=== PATIENT | male | born 1945 | race Caucasian/White ===

== ENCOUNTER → 2017-09-15 15:21 | Outpatient (CLI) | payer MEDICARE, OTHER, SELFPAY ==
--- NOTE | 2017-09-15 14:40 | LES_PTH ---
PATIENT: MEL BROOKS LOC: [facility] U#:[id number] AGE/SX: 79/M ROOM: RE09/15/[address]: Dr. Santhosh Wade MD : 1945 BED: DIS: SPEC #: [id number] RECD: 09/15/17 15:08 STATUS: MANJU YOJANA #: [id number] ALYSSA: 09/15/17 14:[address]: Santhosh Wade DEPT: SURGICAL PATHOLOGY RECD BY: Herb Turner ENTERED: 09/16/17 10:11 SP TYPE: Lesion OTHR DR: Dr. Paul Lo MD Tissues: Skin of external ear, NOS Procedures: Surgery Specimen Level IV HEADER OPERATION: Incisional biopsy PRE-OP DIAGNOSIS: Right ear lesion TISSUE SUBMITTED: Right ear lesion MICROSCOPIC DIAGNOSIS Right ear lesion, biopsy: Detached fragments of basal cell carcinoma. AM:so 09/17/17 COMMENT Case has been reviewed in consultation with Dr. Chow who concurs with the above diagnosis. IDC:SJ MICROSCOPIC DESCRIPTION Slides are reviewed. GROSS DESCRIPTION Received in fixative is one container labeled with the patient's name and designated right ear lesion. The specimen consists of a piece of lord-brown skin measuring 0.3 x 0.2 x 0.1 cm. The specimen is totally submitted in one cassette. / NATTY:so 09/16/17 TC:0 CPT: 63940
== END ==
PROVIDERS: Family Provider Family Medicine; PCP Family Medicine; Visit Provider Otolaryngology
DX: C44.212 Basal cell carcinoma of skin of right ear and external auricular canal (principal)
CPT/HCPCS: 88305

== ENCOUNTER 2017-09-24 08:30 | Outpatient (RCR) | payer MEDICARE, OTHER, SELFPAY | END 2017-09-28 23:59 | disposition home or self-care (01) | LOC: DC 08:30 | PROVIDERS: Family Provider Family Medicine; PCP Family Medicine; Visit Provider Family Medicine | DX: E11.9 Type 2 diabetes mellitus without complications (principal); Z71.3 Dietary counseling and surveillance | CPT/HCPCS: 97802; G0108 ==

== ENCOUNTER 2017-10-19 08:43 | Day surgery (SDC) | payer MEDICARE, OTHER, SELFPAY ==
--- NOTE | 2017-10-13 10:07 | EKG12_ITS ---
Test Reason : PRE OP Blood Pressure : / mmHG Vent. Rate : 053 BPM Atrial Rate : 053 BPM P-R Int : 182 ms QRS Dur : 080 ms QT Int : 440 ms P-R-T Axes : 071 016 026 degrees QTc Int : 412 ms Sinus bradycardia Otherwise normal ECG Confirmed by SHADI CURRAN, BIB ([id number]), publication editor MIKO PATEL ([id number]) on 10/15/2017 12:56:16 PM Referred By: Santhosh Wade Confirmed By:BIB HSU MD
[2017-10-13 10:38] LABS: Hematocrit 43.8 % (40-54); Hemoglobin 15.8 g/dl (13.0-16.5); Mean Corp Hgb Conc 36.1 g/gl (32-36); Mean Corpuscular Hgb 31.3 pg (27.0-32.0); Mean Corpuscular Volume 86.9 fL (80-94); Platelet Count 258 K/mm3 (150-450); RBC Distribution Width CV 12.6 % (11.6-14.6); RBC Distribution Width SD 39.3 fl (35.1-43.9); Red Blood Count 5.04 M/mm3 (4.6-6.2); Scan Indicated on CBC? Y/N NO; White Blood Count 10.3 K/mm3 (4.4-11.0)
[2017-10-13 11:05] LABS: Anion Gap 9 (5-15); BUN 20 mg/dL (7-18); BUN/Creat Ratio 23.5 RATIO (10-20); Calcium,Total 9.3 mg/dL (8.5-10.1); Chloride 100 mmol/L (98-107); Creatinine, Serum 0.85 mg/dL (0.70-1.30); EST Glomerular Filtration Rate 95 mL/min (>60); Est Glom Filt Rate - Afr Amer 114 mL/min (>60); Glucose 149 mg/dL (74-106); Sodium Level 136 mmol/L (136-145)
[2017-10-19] VITALS (7 sets, daily range): BP systolic 103–113; BP diastolic 58–64; PULSE 53–56; RESP 16–18; TEMP 36.1–36.3; O2SAT 95–99; BMI 24.7
[2017-10-19 09:16] LABS: Bedside Glucose 155 mg/dL (70-110)
[2017-10-19] MEDS: Atenolol 50 MG Tablet PO (09:26)
--- NOTE | 2017-10-19 09:46 | PCM.DC ---
You will use the following diet at home:: No restrictions Discharge Activity: Return to Normal Activity, - - Keep ear dry until seen by MEarnestineD. May get neck incision wet on Thursday. Additional Activity Instructions:: Remove softball dressing tomorrow morning and discard. Remove neck dressing tomorrow morning. Allergies/Adverse Reactions: Allergies No Known Allergies Allergy (Verified 10/12/17 10:56) Medications to take at Discharge Amlodipine [Norvasc] 5 mg PO DAILY 10/12/17 Aspirin [Aspirin, Baby] 81 mg PO DAILY@0800 10/12/17 Atenolol [Tenormin] 50 mg PO DAILY 10/12/17 Atorvastatin Calcium 40 mg PO QHS 10/12/17 Canagliflozin [Invokana] 300 mg PO DAILY 10/12/17 Glimepiride [Amaryl] 4 mg PO BID 10/12/17 Hydrochlorothiazide [Hctz] 25 mg PO DAILY 10/12/17 Lisinopril [Zestril] 40 mg PO BID 10/12/17 Metformin HCl 500 mg PO TID 10/12/17 Testosterone [Androgel] 5 gm TD DAILY 10/12/17 Primary Care Physician: Paul Lo MD [Primary Care Provider] -
--- NOTE | 2017-10-19 10:25 | LES_PTH ---
PATIENT: MEL BROOKS LOC: [facility] U#:[id number] AGE/SX: 71/M ROOM: RE10/19/[address]: Dr. Santhosh Wade MD : 1945 BED: DIS: 10/19/2017 SPEC #: [id number] RECD: 10/19/17 10:28 STATUS: MANJU YOJANA #: [id number] ALYSSA: 10/19/17 10:[address]: Santhosh Wade DEPT: SURGICAL PATHOLOGY RECD BY: Herb Turner ENTERED: 10/19/17 11:07 SP TYPE: Lesion OTHR DR: Dr. Paul Lo MD Tissues: A - Skin of external ear, NOS B - Skin of external ear, NOS C - Skin of external ear, NOS Procedures: Frozen Section (charge) Frozen Section Add[facility] ([facility]) Surgery Specimen Level IV Frozen (no charge) HEADER OPERATION: Excision right ear basal cell carcinoma with frozen section PRE-OP DIAGNOSIS: Basal cell carcinoma of right ear and external auricular canal TISSUE SUBMITTED: A. Basal cell carcinoma megan bulla right ear--short stitch superior (12 o?clock), long stitch lateral (9 o?clock), B. Basal cell carcinoma right ear additional frozen section ? 3 to 9 o?clock, short stitch at 9 o?clock, long stitch at 6 o?clock, C. Additional frozen section right ear 3-6 o?clock, stitch at 6 o?clock FROZEN SECTION DIAGNOSIS A. Basal cell right megan bulla lesion, excisional biopsy: Basal cell carcinoma 3 to 6 o?clock and 6 to 9 o?clock margins positive for carcinoma. 12 to 3 o?clock and 9 to 12 o?clock margins are negative for carcinoma. B. Additional 3 to 9 o?clock margin: 3 to 6 o?clock margin positive for basal cell carcinoma. 6 to 9 o?clock margin is negative for carcinoma. Case has been reviewed in consultation with Dr. Mcclure who concurs with the above diagnosis. IDC:MOSES Ryan. Additional margin, right ear 3 to 6 o?clock: Negative for carcinoma. SJ:tariq 10/19/17 MICROSCOPIC DIAGNOSIS A. Basal cell, right megan bulla lesion, excisional biopsy: Basal cell carcinoma. 3 to 6 o?clock and 6 to 9 o?clock margins are positive for carcinoma. 12 to 3 o?clock and 9 to 12 o?clock margins are negative for carcinoma. B. Additional 3 to 9 o?clock margins: A minute focus of basal cell carcinoma involving 3 to 6 o?clock margin. 6 to 9 o?clock margin is negative for carcinoma. See comment. C. Additional margin, right ear, 3 to 6 o?clock: Negative for carcinoma. SJ:so 10/20/17 COMMENT B. The focus of basal cell carcinoma is noted only in the frozen section slides at 3 to 6 o?clock position. Please make reference to previous specimen ([id number]) right ear lesion, biopsy with diagnosis of detached fragments of basal cell carcinoma. MICROSCOPIC DESCRIPTION Slides are reviewed. GROSS DESCRIPTION A - Received fresh for frozen section diagnosis labeled with the patient's name is a specimen designated basal cell right megan bulla. The specimen consists of a piece of skin with underlying tissue measuring 2 x 2 x 0.8 cm. The specimen is oriented as follows: short stitch superior (12 o?clock) and long stitch lateral (9 o?clock). The specimen is inked as follows: 12 to 3 o?clock ? black, 3 to 6 o?clock ? blue, 6 to 9 o?clock ? green, and 9 to 12 o?clock ? yellow. The entire specimen is submitted for frozen section diagnosis as follows: 1 ? frozen section, 12 to 3 o?clock and 6 to 9 o?clock margins enface, 2 & 3 ? rest of the specimen. B - Received fresh for frozen section diagnosis labeled with the patient's name is a specimen designated additional margin 3 to 9 o?clock. The specimen consists of a piece of lord-white skin measuring 3 x 0.3 x 0.4 cm. The specimen is oriented as follows: short stitch ? 9 o?clock, long stitch ? 6 o?clock. The specimen is inked as follows: 6 to 9 o?clock ? blue, 3 to 6 o?clock ? block. The entire specimen is submitted for frozen section diagnosis in one cassette. C - Received fresh for frozen section diagnosis labeled with the patient's name is a specimen designated additional frozen section, right ear, 3 to 6 o?clock. The specimen consists of a strip of lord-white skin measuring 1.5 x 0.1 x 0.1 cm. The specimen is inked as follows: 6 o?clock ? black, 3 o?clock ? blue. The entire specimen is submitted for frozen section diagnosis in one cassette. / SJ:rg 10/19/17 TC:0 CPT: 15943 x3, 07607 x3, 11645 x2
[2017-10-19] MEDS: Bacitracin 500 UNITS/GM PACKET (10:58)
--- NOTE | 2017-10-19 12:36 | PCM.OPRPT ---
Report of Operation Date of Procedure: 10/19/17 Pre-Operative Diagnosis: right ear basal cell carcinoma Post-Operative Diagnosis: same Surgery/Procedure Performed:: Excision right conchal bowl basal cell carcinoma (3.5 x 3 cm). Full thickness skin graft reconstruction (harvest from the neck) Description of Surgical Findings:: basal cell carcinoma Type of Anesthesia:: Local MAC Anesthesiologist: Wil Larose Specimen's removed: right ear conchal bowl Drains: none Estimated Blood Loss (mL): minimal Description of Procedure: The patient was taken to the OR on 10/19/17. He was placed in the supine position on the OR table. He was given local/mac anesthesia. The right ear and neck were prepped and draped steriley. 1 % lidocaine with epinephrine was injected around the lesion and in the skin of the ipsilateral supraclavicular fossa. The lesion was excised keeping the conchal bowl cartilage with the specimen. We eventually heard back from pathology that there were positive margins from 3 to 9 oclock. Another strip of 3 mm cuff was then sent for another frozen section. Another positive margin was found from 3 to 6 oclock. Another cuff of 3 mm tissue was resected and another frozen was sent. This came back negative for carcinoma. The size of the defect was 3 x 3.5 cm. I then irrigated the ear with saline. Skin was then harvested from the supraclavicular fossa with a 15 blade. This was excised in an ellipse. I then irrigated the donor site. The donor site was closed with 4-0 chromic subcutaneous and 6-0 nylon for the skin. Eventually bacitracin and a pressure dressing were applied. The skin graft was thinned with scissors and a 15 blade. I then pie crusted the graft with a 15 blade. Next, I placed the graft in the ear defect. This was sewn circumferentially to the [place] skin with a running 6-0 fast absorbing gut. I then place xeroform on the graft. I then placed a tonsil ball on the xeroform. The tonsil ball was sewn through and through with a dental roll posteriorly with 2-0 prolene. A puma dressing was applied. The patient was then brought to the recovery room in stable condition. Blood loss minimal, replacement none. Sponge, needle and instrument count were correct at the end of the procedure.
--- NOTE | 2017-10-19 12:46 | OP.PCM_ITS ---
Report of Operation Date of Procedure: 10/19/17 Pre-Operative Diagnosis: right ear basal cell carcinoma Post-Operative Diagnosis: same Surgery/Procedure Performed:: Excision right conchal bowl basal cell carcinoma ( 3.5 x 3 cm). Full thickness skin graft reconstruction (harvest from the neck) Description of Surgical Findings:: basal cell carcinoma Type of Anesthesia:: Local MAC Anesthesiologist: Wil Larose Specimen's removed: right ear conchal bowl Drains: none Estimated Blood Loss (mL): minimal Description of Procedure: The patient was taken to the OR on 10/19/17. He was placed in the supine position on the OR table. He was given local/mac anesthesia. The right ear and neck were prepped and draped steriley. 1 % lidocaine with epinephrine was injected around the lesion and in the skin of the ipsilateral supraclavicular fossa. The lesion was excised keeping the conchal bowl cartilage with the specimen. We eventually heard back from pathology that there were positive margins from 3 to 9 oclock. Another strip of 3 mm cuff was then sent for another frozen section. Another positive margin was found from 3 to 6 oclock. Another cuff of 3 mm tissue was resected and another frozen was sent. This came back negative for carcinoma. The size of the defect was 3 x 3.5 cm. I then irrigated the ear with saline. Skin was then harvested from the supraclavicular fossa with a 15 blade. This was excised in an ellipse. I then irrigated the donor site. The donor site was closed with 4-0 chromic subcutaneous and 6-0 nylon for the skin. Eventually bacitracin and a pressure dressing were applied. The skin graft was thinned with scissors and a 15 blade. I then pie crusted the graft with a 15 blade. Next, I placed the graft in the ear defect. This was sewn circumferentially to the [place] skin with a running 6-0 fast absorbing gut. I then place xeroform on the graft. I then placed a tonsil ball on the xeroform. The tonsil ball was sewn through and through with a dental roll posteriorly with 2-0 prolene. A puma dressing was applied. The patient was then brought to the recovery room in stable condition. Blood loss minimal, replacement none. Sponge, needle and instrument count were correct at the end of the procedure.
== END 2017-10-19 13:55 | disposition home or self-care (01) ==
LOC: SDC 08:43 → AC 08:44
PROVIDERS: Family Provider Family Medicine; PCP Family Medicine; Visit Provider Otolaryngology
PROC: (CPT 11644; principal; 2017-10-19 10:05)
DX: C44.212 Basal cell carcinoma of skin of right ear and external auricular canal (principal); Z79.899 Other long term (current) drug therapy; Z79.82 Long term (current) use of aspirin; Z79.84 Long term (current) use of oral hypoglycemic drugs; R00.1 Bradycardia, unspecified; I10 Essential (primary) hypertension; E78.00 Pure hypercholesterolemia, unspecified; E11.9 Type 2 diabetes mellitus without complications
CPT/HCPCS: 00300; 11644; 15260; 36415; 80048; 82962; 85027; 88305; 88331; 88332; 93005; J7120; C1876

== ENCOUNTER 2017-10-20 18:04 | Outpatient (RCR) | payer MEDICARE, OTHER, SELFPAY | END 2017-10-29 23:59 | LOC: DC 18:04 | PROVIDERS: Family Provider Family Medicine; PCP Family Medicine; Visit Provider Family Medicine | DX: E11.9 Type 2 diabetes mellitus without complications (principal); Z71.3 Dietary counseling and surveillance | CPT/HCPCS: 97803 ==

== ENCOUNTER 2017-11-26 14:30 | Outpatient (RCR) | payer MEDICARE, OTHER, SELFPAY | END 2017-11-28 23:59 | LOC: DC 14:30 | PROVIDERS: Family Provider Family Medicine; PCP Family Medicine; Visit Provider Family Medicine | DX: E11.9 Type 2 diabetes mellitus without complications (principal); Z71.3 Dietary counseling and surveillance | CPT/HCPCS: 97803; G0109 ==

== ENCOUNTER 2017-12-15 14:00 | Outpatient (RCR) | payer MEDICARE, OTHER, SELFPAY | END 2017-12-29 23:59 | LOC: DC 14:00 | PROVIDERS: Family Provider Family Medicine; PCP Family Medicine; Visit Provider Family Medicine | DX: E11.9 Type 2 diabetes mellitus without complications (principal); Z71.3 Dietary counseling and surveillance | CPT/HCPCS: 97803; G0109 ==

== ENCOUNTER 2017-12-31 17:02 | Outpatient (RCR) | payer MEDICARE, OTHER, SELFPAY | END 2018-01-29 23:59 | LOC: DC 17:02 | PROVIDERS: Family Provider Family Medicine; PCP Family Medicine; Visit Provider Family Medicine | DX: E11.9 Type 2 diabetes mellitus without complications (principal); Z71.3 Dietary counseling and surveillance | CPT/HCPCS: G0109 ==

== ENCOUNTER 2018-02-04 11:59 | Outpatient (RCR) | payer MEDICARE, OTHER, SELFPAY | END 2018-02-28 23:59 | LOC: DC 11:59 | PROVIDERS: Family Provider Family Medicine; PCP Family Medicine; Visit Provider Family Medicine | DX: E11.9 Type 2 diabetes mellitus without complications (principal); Z71.3 Dietary counseling and surveillance | CPT/HCPCS: G0109 ==

== ENCOUNTER 2022-09-17 14:55 | Inpatient (IN) | payer MEDICARE, OTHER, SELFPAY ==
[2022-09-17] VITALS (11 sets, daily range): BP systolic 142–178; BP diastolic 52–83; PULSE 85–99; RESP 15–21; TEMP 36.8–37.1; O2SAT 94–99; BMI 24.6; BMI 24.5
--- NOTE | 2022-09-17 15:22 | EKG12_ITS ---
Test Reason : WEAKNESS Blood Pressure : / mmHG Vent. Rate : 094 BPM Atrial Rate : 094 BPM P-R Int : 150 ms QRS Dur : 076 ms QT Int : 372 ms P-R-T Axes : 064 029 077 degrees QTc Int : 465 ms Normal sinus rhythm Nonspecific T wave abnormality Prolonged QT Abnormal ECG Confirmed by RACIEL CURRAN, LUZ ([id number]), assignment desk editor ESTRELLA TY ([id number]) on 09/19/2022 2:21:42 PM Referred By: BROOK Confirmed By:LUZ SCHRADER MD
--- NOTE | 2022-09-17 15:24 | EDS_ITS ---
HPI History of Present Illness Chief Complaint: Weakness Narrative Narrative: 76-year-old male with generalized weakness. Patient admits to having a urinary tract infection on 08/25/2022 while he was on the cruise. He was seen on the ship and was given a prescription for Macrobid. Apparently also tested positive for COVID 19 on the same date. Patient has been an ongoing problem as the patient is developed generalized weakness. He has been seen by his primary care physician who reportedly did some lab work. The patient is having trouble rigors and was started on a long-acting insulin. Today he developed nausea/vomiting. He had a couple of episodes throughout the day. On arrival to the ER he vomited in the sink and there was some blood in the emesis. He denies history of GI bleed, peptic ulcer disease. He states he is not been on any new medications during treatment for COVID such as steroids. He does not have a cough and he does not feel short of breath. He does not have chest pain. He does report urinary incontinence but also states is because it is difficult for him to get to the restroom denies dysuria, hematuria. He had hematuria on the cruise which is what brought him to test urine. [facility] Medical History Atherosclerosis Bladder neck obstruction BPH (benign prostatic hyperplasia) HTN (hypertension) Hyperlipemia Home Medications Atorvastatin Calcium 40 mg PO QHS 10/12/17 [History Last Taken Unknown] amlodipine 2.5 mg tablet 5 mg PO DAILY 10/12/17 [History Last Taken 10/19/17] aspirin 81 mg chewable tablet 81 mg PO DAILY@0800 10/12/17 [History Last Taken 10/12/17] atenolol 50 mg tablet (Tenormin) 50 mg PO DAILY 10/12/17 [History Last Taken Unknown] canagliflozin 300 mg tablet (Invokana) 300 mg PO DAILY 10/12/17 [History Last Taken Unknown] glimepiride 4 mg tablet 4 mg PO BID 10/12/17 [History Last Taken Unknown] hydrochlorothiazide 25 mg tablet 25 mg PO DAILY 10/12/17 [History Last Taken Unknown] lisinopril 40 mg tablet 20 mg PO BID 10/12/17 [History Last Taken 10/19/17] metformin 500 mg tablet 500 mg PO TID 10/12/17 [History Last Taken Unknown] testosterone 1 % (50 mg/5 gram) transdermal gel packet (AndroGel) 5 g transdermal DAILY 10/12/17 [History Last Taken Unknown] famotidine 20 mg tablet 20 mg PO DAILY 09/17/22 [History Last Taken Unknown] sitagliptin phosphate 100 mg tablet (Januvia) 100 mg PO DAILY 09/17/22 [History Last Taken Unknown] Allergy/AdvReac Type Severity Reaction Status Date / Time No Known Allergies Allergy Verified 09/17/22 14:58 Social History Smoking Status: Never smoker ROS ROS ED Constitutional Constitutional ED: Denies chills or fever(s) Eyes Eyes: Denies change in vision or diplopia ENT ENT ED: Denies rhinorrhea or sore throat Cardiovascular Cardiovascular: Denies chest pain or palpitations Respiratory/Chest Respiratory/Chest: Denies cough or dyspnea Gastrointestinal Gastrointestinal: Reports nausea, vomiting and other Details: Blood in emesis ; Denies abdominal pain Genitourinary Genitourinary ED: Denies dysuria or hematuria Musculoskeletal Musculoskeletal: Denies arthralgias or back pain Integumentary Denies abscess or Abrasions Neurologic Neurologic: Denies headache(s) or paresthesias Psychiatric Psychiatric: Denies anxiety or depression EXAM Physical Exam Const Vital Signs: 09/17/22 14:55 09/17/22 17:50 09/17/22 18:25 Temperature 98.2 F 98.2 F Temperature Source Temporal Temporal Pulse Rate 97 99 93 Respiratory Rate 18 20 H 21 H Blood Pressure 151/64 H 142/83 H 144/59 H Blood Pressure Mean 93 102 87 Pulse Ox 97 99 95 Oxygen Delivery Method Room Air Room Air Positive well nourished General Appearance ED: NAD; Negative for pallor HEENT Reports dry mucous membranes Mouth ED: Yes dry mucous membranes Mouth: dry mucous membranes Eyes PERRL and EOMs intact bilaterally General Eye ED: Negative for pale conjunctiva or scleral icterus Neck no lymphadenopathy Chest Wall inspection of chest normal Resp normal respiratory effort and clear to auscultation bilaterally Auscultation: Negative for rales, rhonchi or wheezes Cardio regular rate and regular rhythm GI normal to inspection, nondistended, normoactive bowel sounds Extremity normal to inspection Neuro oriented x3 and CN's II-XII intact bilaterally Sensorium / Orientation: alert Psych mental status grossly normal Skin no rashes or lesions noted General Skin Exam: Negative for jaundice or pallor MDM MDM MDM Narrative Medical decision making narrative: Patient presents with his for nausea/vomiting which occurred today. Sounds like he had trouble recovering from COVID-19 on the and he is also had a history of urinary tract infection on the same day. He was on Macrobid and has finished his course of antibiotics. He states he might have incontinence but he also states it is difficult to get to the restroom in time because he is so weak. He has a shuffling gait. Patient denies cough, shortness of breath, fever, chills. He feels generally weak. He is able to ambulate. He had a fall a week and a half ago but no new falls. His reports he has been eating and drinking and making normal urine and stool. On arrival to the ER he did have 1 emesis in the sink which had had some blood in it which I did not visualize. There is some trace emesis in possible blood in the sink. 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 Differential includes COVID long-hauler syndrome, dehydration, electr olyte abnormality, ACS, hyperglycemia, pneumonia, urinary tract infection. CBC to assess white blood cell count, hemoglobin, platelets, differential. CMP to assess liver function, renal function, glucose, anion gap. High-sensitivity troponin, EKG, chest x-ray to assess for cardiac etiology. Patient was typed and screened. An occult stool was obtained. Urinalysis ordered to assess for UTI. Patient currently with stable vital signs. He has no complaints of pain. I did give him Zofran for nausea and he was treated with 40 mg of Protonix. CBC shows a leukocytosis of 14.6. Hemoglobin also concentrated at 16.8. Platelets are normal at 304. Creatinine slightly elevated 1.37 and patient was given a liter of fluids already. Sodium slightly low at 131 but his glucose elevated at 294 so I suspect this is pseudohyponatremia to some extent. Total bilirubin slightly elevated 1.2. Patient does have an anion gap today of 21. With his blood sugar being elevated I did order a serum acetone which shows moderate levels. This is consistent with DKA. Patient is given another liter of IV fluids. Chest x-ray was obtained and shows no acute process on my interpretation. Radiologist interprets this and agrees. Urinalysis negative for infection but does show ketones. EKG was obtained and on my interpretation this shows a sinus rhythm at 94 bpm with nonspecific T wave abnormalities. ID interval 150 ms, QRS duration 76 ms, QTc 455 ms. High-sensitivity troponin did come back at 89. Delta troponin came back at 108. Patient states he is not having any chest pain however. Given these findings I feel the patient needs to be admitted to the hospital. I spoke with the hospitalist who wants the patient to be admitted to the ICU for DKA. All findings were discussed with he and his family. They are amenable to this plan. Impression: 1. DKA 2. Leukocytosis 3. Nausea/vomiting 4. Generalized weakness 5. Elevated troponin Lab Data Labs: Laboratory Results - last 24 hr 09/17/22 09/17/22 09/17/22 15:30 15:30 15:30 WBC 14.6 H RBC 5.60 Hgb 16.8 H Hct 50.2 MCV 89.6 MCH 30.0 MCHC 33.5 RDW Std Deviation 44.0 H RDW Coeff of Colt 13.4 Plt Count 304 MPV 10.8 Immature Gran % (Auto) 0.700 Neut % (Auto) 90.6 H Lymph % (Auto) 5.2 L [place] % (Auto) 3.4 Eos % (Auto) 0.0 Baso % (Auto) 0.1 Absolute Neuts (auto) 13.2 H Absolute Lymphs (auto) 0.76 L Nucleated RBC % 0 Sodium 131 L Potassium 4.6 Chloride 98 Carbon Dioxide 12.0 L Anion Gap 21 H BUN 26 H Creatinine 1.37 H Estim Creat Clear Calc 51.14 Est GFR (MDRD) Af Amer 65 Est GFR (MDRD) Non-Af 54 L BUN/Creatinine Ratio 19.0 Glucose 294 H Calcium 9.4 Total Bilirubin 1.20 H AST 13 L ALT 30 Alkaline Phosphatase 100 Troponin I High Sens 89 H Total Protein 7.7 Albumin 4.0 Globulin 3.7 Albumin/Globulin Ratio 1.1 Urine Color Urine Clarity Urine pH Ur Specific Rock Urine Protein Urine Glucose (UA) Urine Ketones Urine Occult Blood Urine Nitrite Urine Bilirubin Urine Urobilinogen Ur Leukocyte Esterase Urine RBC Urine WBC Ur Squamous Epith Cells Urine Bacteria Urine Mucus Acetone Level Blood Type B POSITIVE Antibody Screen NEGATIVE 09/17/22 09/17/22 09/17/22 16:24 16:45 17:50 WBC RBC Hgb Hct MCV MCH MCHC RDW Std Deviation RDW Coeff of Colt Plt Count MPV Immature Gran % (Auto) Neut % (Auto) Lymph % (Auto) [place] % (Auto) Eos % (Auto) Baso % (Auto) Absolute Neuts (auto) Absolute Lymphs (auto) Nucleated RBC % Sodium Potassium Chloride Carbon Dioxide Anion Gap BUN Creatinine Estim Creat Clear Calc Est GFR (MDRD) Af Amer Est GFR (MDRD) Non-Af BUN/Creatinine Ratio Glucose Calcium Total Bilirubin AST ALT Alkaline Phosphatase Troponin I High Sens 108 H Total Protein Albumin Globulin Albumin/Globulin Ratio Urine Color Yellow Urine Clarity Clear Urine pH 5.0 Ur Specific Rock 1.020 Urine Protein 15 H Urine Glucose (UA) 1000 H Urine Ketones 150 A* Urine Occult Blood Negative Urine Nitrite Negative Urine Bilirubin Negative Urine Urobilinogen Normal Ur Leukocyte Esterase Negative Urine RBC 0 SEEN Urine WBC 0 SEEN Ur Squamous Epith Cells 0 SEEN Urine Bacteria 0 SEEN Urine Mucus 0 SEEN Acetone Level LARGE H Blood Type Antibody Screen Radiography Diagnostic Testing: Clinical Impression(s) from Imaging Studies Chest X-Ray 09/17/22 15:36 IMPRESSION: Degenerative changes, as described above. No demonstrated acute cardiopulmonary process. Electronically Signed: Kishan Otero DO at 16:12 EDT Reading Location ID and State: [address] [place] [address] Tel [phone], Service support , Discharge Plan Triage Chief Complaint: Weakness ED Provider: Doyle Mann Dx/Rx/DC Orders Primary Care Provider: Paul Lo
[2022-09-17] MEDS: 0.9% Normal Saline 1,000 ML 1000 ML IV (15:31)
[2022-09-17] MEDS: Ondansetron 4 MG/2 ML Vial IV (15:31)
--- NOTE | 2022-09-17 15:36 | RAD_ITS ---
STUDY: X-RAY CHEST REASON FOR EXAM: Male, 76 years old. Weakness. TECHNIQUE: Single AP portable view of the chest. COMPARISON: None. FINDINGS: The lungs are clear and expanded. There is no demonstrated pleural abnormality. Normal size heart. Normal mediastinum and star. Normal visualized pulmonary arteries. Normal visualized aortic arch and descending thoracic aorta. Mild degenerative changes of the visualized thoracic spine. There is degenerative osteoarthritis of the bilateral shoulders. There is no demonstrated abnormality of the visualized soft tissue structures of the upper abdomen. RAD/Chest 1 View (Portable) IMPRESSION: Degenerative changes, as described above. No demonstrated acute cardiopulmonary process. Electronically Signed: Kishan Otero DO at 16:12 EDT ,
[2022-09-17 15:40] LABS: Absolute Lymphocyte Count 0.76 X10^3/uL (0.83-4.51); Absolute Neutrophil Count 13.2 X10^3/uL (2.0-7.7); Basophil# 0.02 X10^3/uL; Basophil% 0.1 % (0-1); Hematocrit 50.2 % (40-54); Hemoglobin 16.8 g/dL (13.0-16.5); Lymphocyte # 0.76 X10^3/ul (0.83-4.51); Lymphocyte % 5.2 % (19-41); Mean Corp Hgb Conc 33.5 g/dL (32-36); Mean Corpuscular Volume 89.6 fL (80-94); Mean Platelet Vol. 10.8 fl (6.2-12.0); Monocyte% 3.4 % (0-10); NRBC Flagged by Analyzer 0 % (0-5); Neutrophil # 13.22 X10^3/uL (2.7-7.7); Neutrophil % 90.6 % (47-70); Platelet Count 304 K/mm3 (150-450); RBC Distribution Width CV 13.4 % (11.6-14.6); White Blood Count 14.6 K/mm3 (4.4-11.0)
[2022-09-17 16:03] LABS: ALB/GLOB Ratio 1.1 RATIO (0.9-2.4); AST(SGOT) 13 U/L (15-37); Alanine Aminotransfer ALT/SGPT 30 U/L (16-61); Alkaline Phosphatase 100 U/L (45-117); Anion Gap 21 (5-15); BUN 26 mg/dL (7-18); Calcium,Total 9.4 mg/dL (8.5-10.1); Chloride 98 mmol/L (98-107); Creatinine, Serum 1.37 mg/dL (0.70-1.30); EST Glomerular Filtration Rate 54 mL/min (>60); Est Glom Filt Rate - Afr Amer 65 mL/min (>60); Estimated Creatinine Clearance 51.14 ml/min; Globulin 3.7 g/dL (2.2-4.2); Glucose 294 mg/dL (74-106); Potassium 4.6 mmol/L (3.5-5.1); Protein, Total 7.7 g/dL (6.4-8.2); Sodium Level 131 mmol/L (136-145); Troponin-I HS 89 pg/mL (3.0-78.0)
[2022-09-17 16:58] LABS: Bacteria 0 SEEN /hpf (None Seen); Mucous, Urine 0 SEEN /hpf (<or=2+); Red Blood Cells-Urine 0 SEEN /hpf (0-5); Squamous Epithelial Cells - UA 0 SEEN /hpf (0-5); White Blood Cells 0 SEEN /hpf (0-5)
[2022-09-17 17:00] LABS: Color, Urine Yellow (Yellow); Glucose, Dipstick 1000 mg/dl (Normal); Leukocyte Esterase-Dipstick Negative /ul (Negative); Nitrite-Dipstick Negative (Negative); Occult Blood-Urine Negative /ul (Negative); Protein-Dipstick 15 mg/dl (Negative); Urine Bilirubin Dipstick Negative (Negative); Urine Clarity Clear (Clear); Urine Urobilinogen Normal (Normal)
[2022-09-17 17:06] LABS: Ketone-Dipstick 150 mg/dl (Negative)
[2022-09-17] MEDS: proMETHazine 25 MG/ML Syringe 12.5 MG IM (18:11)
[2022-09-17 18:26] LABS: Troponin-I HS 108 pg/mL (3.0-78.0)
--- NOTE | 2022-09-17 18:32 | HP.PCM.HOS_ITS ---
HPI - General General Date of Admission: 09/17/22 Date of Service: 09/17/22 Chief Complaint: Patient feels very weak and dehydrated. HPI Narrative MEL BROOKS, is a 76 M gentleman who returned from cruise during last week of July during that time he got COVID. He had COVID-positive around August 24 and he completed isolation. During that time he also had UTI for which she completed full course of Macrobid. During that time he also had mild hematuria. Currently does not have burning micturition, hematuria or other new lower uri nary tract symptoms. Patient feels generalized weakness and tiredness, nauseous for last 3 to 4 days and he started vomiting 3-4 times today. Patient also has blood streak reddish color in vomiting. Patient denies prior history of gastric ulcer, cirrhosis or other PUD. Patient himself feels very dehydrated. In ED, labs are consistent with DKA with high anion gap metabolic acidosis. His urine is dark yellow concentrated. His hemoglobin looks concentrated at 16.8 with baseline 15.8 g%. ED physician called GI but I think his GI bleed is more related to constant retching with vomiting but hemoglobin is stable. [facility] Medical History Atherosclerosis Bladder neck obstruction BPH (benign prostatic hyperplasia) HTN (hypertension) Hyperlipemia Home Medications Atorvastatin Calcium 40 mg PO QHS 10/12/17 [History Last Taken Unknown] amlodipine 2.5 mg tablet 5 mg PO DAILY 10/12/17 [History Last Taken 10/19/17] aspirin 81 mg chewable tablet 81 mg PO DAILY@0800 10/12/17 [History Last Taken 10/12/17] atenolol 50 mg tablet (Tenormin) 50 mg PO DAILY 10/12/17 [History Last Taken Unknown] canagliflozin 300 mg tablet (Invokana) 300 mg PO DAILY 10/12/17 [History Last Taken Unknown] glimepiride 4 mg tablet 4 mg PO BID 10/12/17 [History Last Taken Unknown] hydrochlorothiazide 25 mg tablet 25 mg PO DAILY 10/12/17 [History Last Taken Unknown] lisinopril 40 mg tablet 20 mg PO BID 10/12/17 [History Last Taken 10/19/17] metformin 500 mg tablet 500 mg PO TID 10/12/17 [History Last Taken Unknown] testosterone 1 % (50 mg/5 gram) transdermal gel packet (AndroGel) 5 g transdermal DAILY 10/12/17 [History Last Taken Unknown] famotidine 20 mg tablet 20 mg PO DAILY 09/17/22 [History Last Taken Unknown] sitagliptin phosphate 100 mg tablet (Januvia) 100 mg PO DAILY 09/17/22 [History Last Taken Unknown] Allergy/AdvReac Type Severity Reaction Status Date / Time No Known Allergies Allergy Verified 09/17/22 14:58 Social History Smoking Status: Never smoker ROS ROS Narrative Constitutional: Reports fatigue and weakness. Generalized weakness HEENT: Reports systems reviewed and no addt'l complaints, except as documented Respiratory/Chest: Denies chest pain, shortness of breath at rest or with exertion Gastrointestinal: Blood-streaked vomiting as described in HPI. Genitourinary: Denies burning urination or new urinary tract symptoms Musculoskeletal: Mild joint pain and muscle aches and pain Neurologic: Denies seizure-like activity. No new stroke skin: No ulcer. No rash Endocrinology: Reports systems reviewed and no addt'l complaints, except as documented Hematologic/Lymphatic: Reports systems reviewed and no addt'l complaints, except as documented Rest 14 ROS are negative except as mentioned in HPI Vital Signs Vital Signs Vital Signs: 09/17/22 14:55 09/17/22 17:50 09/17/22 18:25 Temperature 98.2 F 98.2 F Temperature Source Temporal Temporal Pulse Rate 97 99 93 Respiratory Rate 18 20 H 21 H Blood Pressure 151/64 H 142/83 H 144/59 H Blood Pressure Mean 93 102 87 Pulse Ox 97 99 95 Oxygen Delivery Method Room Air Room Air Weight Weight: 181 lb 10.574 oz Body Mass Index (BMI) 24.6 Physical Exam Narrative Physical exam General: Alert, Oriented x3, Cooperative. Overall looks fatigued and very dehydrated HEENT: Atraumatic, PERRLA, EOMI, Normocephalic Oral: Oral mucosa very dry. No Gingival or Mucosal Lesions/ Ulcerations Neck: Supple, No JVD, Negative Carotid Bruits Lungs: Air entry diminished in bilateral lung bases. No crepitation/rhonchi Cardiovascular: Sinus tachycardia. normal S1, Normal S2, No murmurs Abdomen: Bowel Sounds Present, Soft, Non Tender, Non-Distended : No renal angle tenderness. No suprapubic tenderness. Extremities: No edema, Capillary Refill Less than 3 Seconds Skin: No rashes, No breakdown Musculoskeletal: No Tenderness to Palpation of Joints or Extremities. Muscle strength 4+/5 at major joints. Range of motion fully intact. Neurological: Cranial nerves II-XII grossly intact, DTR 2+/4 and Symmetrical, Neuro grossly intact Psych/Mental Status: Flat affect. Results Lab / Micro Data Result Diagrams: 09/17/22 15:30 09/17/22 15:30 Labs: Laboratory Results - last 24 hr 09/17/22 15:30: WBC 14.6 H, RBC 5.60, Hgb 16.8 H, Hct 50.2, MCV 89.6, MCH 30.0, MCHC 33.5, RDW Std Deviation 44.0 H, RDW Coeff of Colt 13.4, Plt Count 304, MPV 10.8, Immature Gran % (Auto) 0.700, Neut % (Auto) 90.6 H, Lymph % (Auto) 5.2 L, [place] % (Auto) 3.4, Eos % (Auto) 0.0, Baso % (Auto) 0.1, Absolute Neuts (auto) 13.2 H, Absolute Lymphs (auto) 0.76 L, Nucleated RBC % 0 09/17/22 15:30: Sodium 131 L, Potassium 4.6, Chloride 98, Carbon Dioxide 12.0 L, Anion Gap 21 H, BUN 26 H, Creatinine 1.37 H, Estim Creat Clear Calc 51.14, Est GFR (MDRD) Af Amer 65, Est GFR (MDRD) Non-Af 54 L, BUN/Creatinine Ratio 19.0, Glucose 294 H, Calcium 9.4, Total Bilirubin 1.20 H, AST 13 L, ALT 30, Alkaline Phosphatase 100, Troponin I High Sens 89 H, Total Protein 7.7, Albumin 4.0, Globulin 3.7, Albumin/Globulin Ratio 1.1 09/17/22 15:30: Blood Type B POSITIVE, Antibody Screen NEGATIVE 09/17/22 16:24: Acetone Level LARGE H 09/17/22 16:45: Urine Color Yellow, Urine Clarity Clear, Urine pH 5.0, Ur Specific [place] 1.020, Urine Protein 15 H, Urine Glucose (UA) 1000 H, Urine Ketones 150 A*, Urine Occult Blood Negative, Urine Nitrite Negative, Urine Bilirubin Negative, Urine Urobilinogen Normal, Ur Leukocyte Esterase Negative, Urine RBC 0 SEEN, Urine WBC 0 SEEN, Ur Squamous Epith Cells 0 SEEN, Urine Bacteria 0 SEEN, Urine Mucus 0 SEEN 09/17/22 17:50: Troponin I High Sens 108 H Micro: Microbiology 09/17/22 Unknown Stool Stool Occult Blood (STEFANIE) - Final Radiology Impression Chest X-Ray 09/17/22 15:36 IMPRESSION: Degenerative changes, as described above. No demonstrated acute cardiopulmonary process. Electronically Signed: Kishan Otero DO at 16:12 EDT Reading Location ID and State: [address] [place] [address] Tel [phone], Service support , Assessment & Plan Assessment/Plan (1) DKA (diabetic ketoacidoses): (2) Diabetes mellitus, type 2: PLAN: Plan This 76-year-old gentleman is being admitted for DKA. 1. DKA with high anion gap metabolic acidosis with history of type 2 diabetes mellitus: Patient is on home medications Invokana which might be a risk factor of DKA with mildly elevated hyperglycemia at 294. Patient is being admitted in ICU. IV fluid resuscitation and insulin drip as per DKA protocol. Monitor intake and output. BMP Q4 hourly. Hold oral hypoglycemic agents. Patient has mild hyponatremia sodium 131, potassium normal. Anion gap 21 with bicarb 12. ABG ordered. Moderate acetone. Serum magnesium and phosphorus level normal. 2. Recent history of COVID-19 about 3 weeks ago and UTI: Patient completed antibiotic. UA with urine culture ordered. 3. Mild upper GI bleed most related to retching and persistent vomiting: Hemoglobin is stable. It was more vomiting mixed with bleeding. ED physician consulted GI but patient will need EGD after DKA is resolved. Protonix 40 mg IV every 12 hourly. H&H every 8 hourly. 4. Hypertension: Blood pressure is controlled. Hold antihypertensive medication as patient is dehydrated. 5. Other comorbidities include dyslipidemia and BPH: Patient not on alpha- karol or finasteride. Monitor intake and output. Bladder scan. VTE prophylaxis: Pharmacological contraindicated because of upper GI bleed. Living will/advanced directive/end of life care: Patient does not living will or advanced directive. His is power of assistant county attorney for health. After discussion of benefits/risks procedures involved with full code, DNR CC arrest and DNR CC, the patient opted for full code. Patient does want artificial life support including intubation, tube feed, ventilator and/chest compression, central venous catheter, vasopressor and DC shock if needed Total time spent in [id number] encounter in discussion of advanced directive 17 minutes. Microbiology Past 72 Hours 09/17/22 Unknown Stool Stool Occult Blood (STEFANIE) - Final Laboratory Results 09/17/22 15:30: WBC 14.6 H, RBC 5.60, Hgb 16.8 H, Hct 50.2, MCV 89.6, MCH 30.0, MCHC 33.5, RDW Std Deviation 44.0 H, RDW Coeff of Colt 13.4, Plt Count 304, MPV 10.8, Immature Gran % (Auto) 0.700, Neut % (Auto) 90.6 H, Lymph % (Auto) 5.2 L, [place] % (Auto) 3.4, Eos % (Auto) 0.0, Baso % (Auto) 0.1, Absolute Neuts (auto) 13.2 H, Absolute Lymphs (auto) 0.76 L, Nucleated RBC % 0 09/17/22 15:30: Sodium 131 L, Potassium 4.6, Chloride 98, Carbon Dioxide 12.0 L, Anion Gap 21 H, BUN 26 H, Creatinine 1.37 H, Estim Creat Clear Calc 51.14, Est GFR (MDRD) Af Amer 65, Est GFR (MDRD) Non-Af 54 L, BUN/Creatinine Ratio 19.0, Glucose 294 H, Calcium 9.4, Total Bilirubin 1.20 H, AST 13 L, ALT 30, Alkaline Phosphatase 100, Troponin I High Sens 89 H, Total Protein 7.7, Albumin 4.0, Globulin 3.7, Albumin/Globulin Ratio 1.1 09/17/22 15:30: Blood Type B POSITIVE, Antibody Screen NEGATIVE 09/17/22 16:24: Acetone Level LARGE H 09/17/22 16:45: Urine Color Yellow, Urine Clarity Clear, Urine pH 5.0, Ur Specific [place] 1.020, Urine Protein 15 H, Urine Glucose (UA) 1000 H, Urine Ketones 150 A*, Urine Occult Blood Negative, Urine Nitrite Negative, Urine Bilirubin Negative, Urine Urobilinogen Normal, Ur Leukocyte Esterase Negative, Urine RBC 0 SEEN, Urine WBC 0 SEEN, Ur Squamous Epith Cells 0 SEEN, Urine Bacteria 0 SEEN, Urine Mucus 0 SEEN 09/17/22 17:50: Troponin I High Sens 108 H 09/17/22 17:50: Phosphorus 4.5, Magnesium 2.2 09/17/22 18:55: Lactic Acid Pending 09/17/22 18:55: Sodium Pending, Potassium Pending, Chloride Pending, Carbon Dioxide Pending, Anion Gap Pending, BUN Pending, Creatinine Pending, Est GFR (MDRD) Af Amer Pending, Est GFR (MDRD) Non-Af Pending, BUN/Creatinine Ratio Pending, Glucose Pending, Calcium Pending Charges/Coding Visit Charges Inpatient E&M: 65390 Init Hosp L3 Procedures Hospitalists Procedures: 64995 Advncd Care Plan 30 Min
[2022-09-17] MEDS: 0.9% Normal Saline 1,000 ML 999 ML IV (18:36)
[2022-09-17 18:58] LABS: Magnesium 2.2 mg/dL (1.6-2.6); Phosphorus 4.5 mg/dL (2.5-4.9)
[2022-09-17 19:20] LABS: Bedside Glucose 223 mg/dL (74-106)
[2022-09-17 19:20] LABS: Anion Gap 18 (5-15); BUN 25 mg/dL (7-18); BUN/Creat Ratio 19.8 RATIO (10-20); Calcium,Total 8.9 mg/dL (8.5-10.1); Chloride 102 mmol/L (98-107); Creatinine, Serum 1.26 mg/dL (0.70-1.30); EST Glomerular Filtration Rate 59 mL/min (>60); Est Glom Filt Rate - Afr Amer 72 mL/min (>60); Estimated Creatinine Clearance 53.95 ml/min; Glucose 226 mg/dL (74-106); Potassium 4.6 mmol/L (3.5-5.1); Sodium Level 135 mmol/L (136-145)
[2022-09-17 19:29] LABS: Lactic Acid 1.7 mmol/L (0.4-1.9)
[2022-09-17 19:40] LABS: Allen Test Positive; Base Excess -17 mmol/L (-2 to +2); Blood Gas Specimen Type ART; FI02 21; O2 Delivery Device Room Air; PO2 94 mmHG (75-100); SITE L Radial; SO2 96 % (95-99); Total Carbon Dioxide 12 mmol/L; pCO2 25.9 mmHg (35-45); pH 7.24 (7.35-7.45)
[2022-09-17] MEDS: 0.9% Normal Saline 1,000 ML 500 ML IV (19:40)
[2022-09-17 20:21] LABS: Bedside Glucose 149 mg/dL (74-106)
[2022-09-17] MEDS: KCL 20MEQ in D5.45NS 20 MEQ/1,000 ML IV.SOLN. 125 MEQ IV (20:21)
[2022-09-17 21:20] LABS: Bedside Glucose 130 mg/dL (74-106)
[2022-09-17 22:25] LABS: Bedside Glucose 129 mg/dL (74-106)
[2022-09-17] MEDS: 0.9% Saline Lock 10 ML Syringe IV (23:05)
[2022-09-17 23:18] LABS: Hematocrit 36.5 % (40-54)
[2022-09-17 23:26] LABS: Bedside Glucose 99 mg/dL (74-106)
[2022-09-17 23:32] LABS: Anion Gap 10 (5-15); BUN 20 mg/dL (7-18); BUN/Creat Ratio 18.3 RATIO (10-20); Chloride 111 mmol/L (98-107); Creatinine, Serum 1.09 mg/dL (0.70-1.30); EST Glomerular Filtration Rate 70 mL/min (>60); Est Glom Filt Rate - Afr Amer 85 mL/min (>60); Estimated Creatinine Clearance 62.37 ml/min; Glucose 121 mg/dL (74-106); Potassium 4.2 mmol/L (3.5-5.1); Sodium Level 137 mmol/L (136-145)
[2022-09-18] VITALS (17 sets, daily range): BP systolic 129–188; BP diastolic 55–88; PULSE 62–90; RESP 14–18; TEMP 36.1–37; O2SAT 96–100; BMI 25.3
[2022-09-18 00:20] LABS: Bedside Glucose 108 mg/dL (74-106)
[2022-09-18 01:20] LABS: Bedside Glucose 98 mg/dL (74-106)
[2022-09-18 02:25] LABS: Bedside Glucose 77 mg/dL (74-106)
[2022-09-18 02:55] LABS: Bedside Glucose 69 mg/dL (74-106)
[2022-09-18 02:56] LABS: Anion Gap 7 (5-15); BUN 17 mg/dL (7-18); BUN/Creat Ratio 17.3 RATIO (10-20); Calcium,Total 7.8 mg/dL (8.5-10.1); Chloride 113 mmol/L (98-107); Creatinine, Serum 0.98 mg/dL (0.70-1.30); EST Glomerular Filtration Rate 79 mL/min (>60); Est Glom Filt Rate - Afr Amer 96 mL/min (>60); Estimated Creatinine Clearance 69.37 ml/min; Glucose 80 mg/dL (74-106); Potassium 3.7 mmol/L (3.5-5.1); Sodium Level 137 mmol/L (136-145)
[2022-09-18 03:21] LABS: Bedside Glucose 69 mg/dL (74-106)
[2022-09-18] MEDS: KCL 20MEQ in D5.45NS 20 MEQ/1,000 ML IV.SOLN. 125 MEQ IV ×2 (04:16→12:44)
[2022-09-18] MEDS: 0.9% Saline Lock 10 ML Syringe IV ×3 (04:16→17:28)
[2022-09-18] MEDS: Potassium Chloride 10mEq/100mL 10 MEQ/100 ML IV.SOLN. 100 MEQ IV BOLUS ×4 (04:16→07:28)
[2022-09-18 04:25] LABS: Bedside Glucose 78 mg/dL (74-106)
[2022-09-18 05:26] LABS: Bedside Glucose 90 mg/dL (74-106)
[2022-09-18 06:30] LABS: Bedside Glucose 121 mg/dL (74-106)
[2022-09-18] MEDS: Atenolol 50 MG Tablet PO (07:00)
[2022-09-18 07:02] LABS: Absolute Lymphocyte Count 1.84 X10^3/uL (0.83-4.51); Basophil# 0.04 X10^3/uL; Basophil% 0.3 % (0-1); Eosinophil# 0.01 X10^3/uL; Eosinophils% 0.1 % (0-5); Hematocrit 44.9 % (40-54); Hemoglobin 14.8 g/dL (13.0-16.5); Lymphocyte # 1.84 X10^3/ul (0.83-4.51); Lymphocyte % 13.3 % (19-41); Mean Corpuscular Hgb 29.8 pg (27.0-32.0); Mean Corpuscular Volume 90.3 fL (80-94); Mean Platelet Vol. 10.2 fl (6.2-12.0); Monocyte# 1.86 X10^3/uL; Monocyte% 13.4 % (0-10); NRBC Flagged by Analyzer 0 % (0-5); Neutrophil # 9.99 X10^3/uL (2.7-7.7); Neutrophil % 72.2 % (47-70); POSITIVE DIFFERENTIAL YES; Platelet Count 249 K/mm3 (150-450); RBC Distribution Width CV 13.9 % (11.6-14.6); Red Blood Count 4.97 M/mm3 (4.6-6.2); White Blood Count 13.8 K/mm3 (4.4-11.0)
[2022-09-18 07:12] LABS: Anion Gap 7 (5-15); BUN 16 mg/dL (7-18); Calcium,Total 8.4 mg/dL (8.5-10.1); Chloride 111 mmol/L (98-107); EST Glomerular Filtration Rate 77 mL/min (>60); Est Glom Filt Rate - Afr Amer 94 mL/min (>60); Estimated Creatinine Clearance 67.98 ml/min; Glucose 114 mg/dL (74-106); Sodium Level 135 mmol/L (136-145)
[2022-09-18 07:17] LABS: Differential Indicated SCAN CRITERIA MET
[2022-09-18 07:20] LABS: Bedside Glucose 105 mg/dL (74-106)
--- NOTE | 2022-09-18 07:59 | PCM.PN.HOSP ---
Reason for Visit Reason for Visit: Diagnoses Type 2 diabetes mellitus with ketoacidosis without coma (09/17/22) Type 2 diabetes mellitus without complications (09/17/22) Subjective Subjective Follow-up for DKA, electrolyte abnormality, uncontrolled hypertension. Objective Data Objective Data Vital Signs: Vital Signs Temp Pulse Resp BP Pulse Ox O2 Del Method FiO2 97.1 F L 90 16 188/83 H 98 Room Air 50 09/18/22 03:00 09/18/22 07:00 09/18/22 07:00 09/18/22 07:00 09/18/22 07:00 09/18/22 07:00 09/17/22 21:00 Oxygen Delivery Method Room Air Weight: 181 lb 10.574 oz Body Mass Index (BMI) 25.3 Intake & Output: Intake and Output for Last 24 Hours 09/16/22 09/17/22 09/18/22 23:59 23:59 23:59 Intake Total 3241.15 / 3241.15 1312.18 / 1312.18 Output Total 1150 / 1150 Balance 3241.15 / 2841.15 162.18 / 162.18 Lab / Micro Data Result Diagrams: 09/18/22 06:47 09/18/22 06:47 Labs: Laboratory Results - last 24 hr 09/17/22 15:30: WBC 14.6 H, RBC 5.60, Hgb 16.8 H, Hct 50.2, MCV 89.6, MCH 30.0, MCHC 33.5, RDW Std Deviation 44.0 H, RDW Coeff of Colt 13.4, Plt Count 304, MPV 10.8, Immature Gran % (Auto) 0.700, Neut % (Auto) 90.6 H, Lymph % (Auto) 5.2 L, [place] % (Auto) 3.4, Eos % (Auto) 0.0, Baso % (Auto) 0.1, Absolute Neuts (auto) 13.2 H, Absolute Lymphs (auto) 0.76 L, Nucleated RBC % 0 09/17/22 15:30: Sodium 131 L, Potassium 4.6, Chloride 98, Carbon Dioxide 12.0 L, Anion Gap 21 H, BUN 26 H, Creatinine 1.37 H, Estim Creat Clear Calc 51.14, Est GFR (MDRD) Af Amer 65, Est GFR (MDRD) Non-Af 54 L, BUN/Creatinine Ratio 19.0, Glucose 294 H, Calcium 9.4, Total Bilirubin 1.20 H, AST 13 L, ALT 30, Alkaline Phosphatase 100, Troponin I High Sens 89 H, Total Protein 7.7, Albumin 4.0, Globulin 3.7, Albumin/Globulin Ratio 1.1 09/17/22 15:30: Blood Type B POSITIVE, Antibody Screen NEGATIVE 09/17/22 16:24: Acetone Level LARGE H 09/17/22 16:45: Urine Color Yellow, Urine Clarity Clear, Urine pH 5.0, Ur Specific [place] 1.020, Urine Protein 15 H, Urine Glucose (UA) 1000 H, Urine Ketones 150 A*, Urine Occult Blood Negative, Urine Nitrite Negative, Urine Bilirubin Negative, Urine Urobilinogen Normal, Ur Leukocyte Esterase Negative, Urine RBC 0 SEEN, Urine WBC 0 SEEN, Ur Squamous Epith Cells 0 SEEN, Urine Bacteria 0 SEEN, Urine Mucus 0 SEEN 09/17/22 17:50: Troponin I High Sens 108 H 09/17/22 17:50: Phosphorus 4.5, Magnesium 2.2 09/17/22 18:53: POC Glucose 223 H 09/17/22 18:55: Lactic Acid 1.7 09/17/22 18:55: Sodium 135 L, Potassium 4.6, Chloride 102, Carbon Dioxide 15.0 L, Anion Gap 18 H, BUN 25 H, Creatinine 1.26, Estim Creat Clear Calc 53.95, Est GFR (MDRD) Af Amer 72, Est GFR (MDRD) Non-Af 59 L, BUN/Creatinine Ratio 19.8, Glucose 226 H, Calcium 8.9 09/17/22 19:59: POC Glucose 149 H 09/17/22 20:58: POC Glucose 130 H 09/17/22 22:06: POC Glucose 129 H 09/17/22 23:00: Sodium 137, Potassium 4.2, Chloride 111 H, Carbon Dioxide 16.0 L, Anion Gap 10, BUN 20 H, Creatinine 1.09, Estim Creat Clear Calc 62.37, Est GFR (MDRD) Af Amer 85, Est GFR (MDRD) Non-Af 70, BUN/Creatinine Ratio 18.3, Glucose 121 H, Calcium 8.0 L 09/17/22 23:00: Hgb 12.0 L, Hct 36.5 L 09/17/22 23:03: POC Glucose 99 09/18/22 00:00: POC Glucose 108 H 09/18/22 01:00: POC Glucose 98 09/18/22 02:06: POC Glucose 77 09/18/22 02:31: Sodium 137, Potassium 3.7, Chloride 113 H, Carbon Dioxide 17.0 L, Anion Gap 7, BUN 17, Creatinine 0.98, Estim Creat Clear Calc 69.37, Est GFR (MDRD) Af Amer 96, Est GFR (MDRD) Non-Af 79, BUN/Creatinine Ratio 17.3, Glucose 80, Calcium 7.8 L 09/18/22 02:31: Acetone Level MODERATE H 09/18/22 02:37: POC Glucose 69 L 09/18/22 03:01: POC Glucose 69 L 09/18/22 04:04: POC Glucose 78 09/18/22 05:04: POC Glucose 90 09/18/22 06:08: POC Glucose 121 H 09/18/22 06:47: Sodium 135 L, Potassium 5.0, Chloride 111 H, Carbon Dioxide 17.0 L, Anion Gap 7, BUN 16, Creatinine 1.00, Estim Creat Clear Calc 67.98, Est GFR (MDRD) Af Amer 94, Est GFR (MDRD) Non-Af 77, BUN/Creatinine Ratio 16.0, Glucose 114 H, Calcium 8.4 L 09/18/22 06:47: WBC 13.8 H, RBC 4.97, Hgb 14.8, Hct 44.9, MCV 90.3, MCH 29.8, MCHC 33.0, RDW Std Deviation 46.0 H, RDW Coeff of Colt 13.9, Plt Count 249, MPV 10.2, Immature Gran % (Auto) 0.700, Neut % (Auto) 72.2 H, Lymph % (Auto) 13.3 L, [place] % (Auto) 13.4 H, Eos % (Auto) 0.1, Baso % (Auto) 0.3, Absolute Neuts (auto) 10.0 H, Absolute Lymphs (auto) 1.84, Nucleated RBC % 0, Diff Path Review September09/18/22 07:00: POC Glucose 105 Micro: Microbiology 09/17/22 Unknown Stool Stool Occult Blood (STEFANIE) - Final ABG Data ABG results: ABG 09/17/22 19:33 Specimen Type ART Sample Site L Radial pH 7.24 L Bicarbonate Actual 11.0 L Total CO2 12 Base Excess -17 L O2 Saturation 96 O2 % 21 ABG pCO2 25.9 L ABG pO2 94 [place] Test Positive O2 Delivery Device Room Air Radiography Diagnostic Testing: Radiology Impression Chest X-Ray 09/17/22 15:36 IMPRESSION: Degenerative changes, as described above. No demonstrated acute cardiopulmonary process. Electronically Signed: Kishan Otero DO at 16:12 EDT Reading Location ID and State: [address] [place] [address] Tel [phone], Service support , Physical Exam Narrative Seen and examined. Patient blood pressure is high systolic 188. Blood sugar is controlled. Anion gap x2 closed. Patient on IV fluid D5W half NS +20 mEq KCl Physical exam General: Alert, hard time in recalling month and year. Oriented to time but disoriented to place. Cannot tell his age. HEENT: Atraumatic, PERRLA, EOMI, Normocephalic Oral: Oral mucosa moist. No Gingival or Mucosal Lesions/ Ulcerations Neck: Supple, No JVD, Negative Carotid Bruits Lungs: Air entry diminished in bilateral lung bases. No crepitation/rhonchi Cardiovascular: Sinus tachycardia resolved. normal S1, Normal S2, systolic murmur grade 4/6 over right second ICS and LLSB. Abdomen: Bowel Sounds Present, Soft, Non Tender, Non-Distended : No renal angle tenderness. No suprapubic tenderness. Extremities: No edema, Capillary Refill Less than 3 Seconds Skin: No rashes, No breakdown Musculoskeletal: No Tenderness to Palpation of Joints or Extremities. Muscle strength 5/5 at major joints. Range of motion fully intact. Neurological: Cranial nerves II-XII grossly intact, DTR 2+/4 and Symmetrical, Neuro grossly intact Psych/Mental Status: Flat affect. Amnesia, possible cognitive deficit/dementia Assessment & Plan Assessment/Plan (1) DKA (diabetic ketoacidoses): (2) Diabetes mellitus, type 2: PLAN: Plan This 76-year-old gentleman is being admitted for DKA. 1. DKA with high anion gap metabolic acidosis with history of type 2 diabetes mellitus: Patient is on home medications Invokana which might be a risk factor of DKA with mildly elevated hyperglycemia at 294. Patient is being admitted in ICU. IV fluid resuscitation and insulin drip as per DKA protocol. Monitor intake and output. BMP Q4 hourly. Hold oral hypoglycemic agents. Patient has mild hyponatremia sodium 131, potassium normal. Anion gap 21 with bicarb 12. ABG ordered. Moderate acetone. Serum magnesium and phosphorus level normal. 09/18: Anion gap closed x2.Acetone level was moderate. ABG 7. 24// on room air on 09/17 suggestive of mild metabolic acidosis with respiratory alkalosis. Glucose is controlled, running in 100s. At times patient was hypoglycemic glucose 69. Continue IV fluid D5 half NS +20 mEq KCl. K5.0 was hemolyzed. Lantus 10 units now and then discontinue insulin drip after 3 hours. 1800 ADA diet ordered. A1c 9.6. Leukocytosis improving probably due to DKA. 2. Mildly elevated troponin: Patient has troponin 80 and then 108. Patient does not have signs and symptoms of acute coronary symptoms including chest pain pressure tightness or shortness of breath therefore it might be due to acute myocardial injury from DKA from increased demand. Third troponin ordered. 2D echo is ordered. Patient also has systolic murmur and uncontrolled hypertension. 3. Recent history of COVID-19 about 3 weeks ago and UTI: Patient completed antibiotic. UA with urine culture ordered. 09/18: UA shows negative nitrite and LE. WBC 0 RBC 0 bland urine. Glucosuria, ketonuria and mild proteinuria. I do not think patient has current UTI and was well treated recently. 4. Mild upper GI bleed most related to retching and persistent vomiting: Hemoglobin is stable. It was more vomiting mixed with bleeding. ED physician consulted GI but patient will need EGD after DKA is resolved. Protonix 40 mg IV every 12 hourly. H&H every 8 hourly. 09/18: Protonix can be changed to oral. Hemoglobin is 14.8. Patient not had any further hematemesis, hematochezia melena after admission 5. Hypertension: Blood pressure is controlled. Hold antihypertensive medication as patient is dehydrated. 09/18: Blood pressure is high systolic 188. Patient lisinopril and amlodipine regimen. Already on atenolol. Hold HCTZ as patient is still not fully rehydrated. 6 amnesia/memory issues: Patient has hard time in recall and registration. He also gets easily frustrated and recalling, signs of cognitive deficits/early dementia. I do not think patient is acutely confused, inattention therefore does not have delirium. CT head without contrast ordered Other comorbidities include dyslipidemia and BPH: Patient not on alpha-karol or finasteride. Monitor intake and output. Bladder scan. VTE prophylaxis: Pharmacological contraindicated because of upper GI bleed. Total time of the visit including total time spent in counseling or coordination of care, (more than 50% of the total time, spent in obtaining medical information from nurses and other ancillary care providers,explaining to the patient about labs, imaging, diagnosis and management of active complex medical conditions), clinical update to patient's , discussion with business development consultant review of labs and imaging is 50 minutes. Living will/advanced directive/end of life care: Patient does not living will or advanced directive. His is power of global implementation manager for health. After discussion of benefits/risks procedures involved with full code, DNR CC arrest and DNR CC, the patient opted for full code. Patient does want artificial life support including intubation, tube feed, ventilator and/chest compression, central venous catheter, vasopressor and DC shock if needed Total time spent in [id number] encounter in discussion of advanced directive 17 minutes. Microbiology Past 72 Hours 09/17/22 Unknown Stool Stool Occult Blood (STEFANIE) - Final Laboratory Results 09/17/22 16:45: Urine Color Yellow, Urine Clarity Clear, Urine pH 5.0, Ur Specific [place] 1.020, Urine Protein 15 H, Urine Glucose (UA) 1000 H, Urine Ketones 150 A*, Urine Occult Blood Negative, Urine Nitrite Negative, Urine Bilirubin Negative, Urine Urobilinogen Normal, Ur Leukocyte Esterase Negative, Urine RBC 0 SEEN, Urine WBC 0 SEEN, Ur Squamous Epith Cells 0 SEEN, Urine Bacteria 0 SEEN, Urine Mucus 0 SEEN 09/17/22 17:50: Troponin I High Sens 108 H 09/17/22 17:50: Phosphorus 4.5, Magnesium 2.2 09/17/22 18:55: Lactic Acid Pending Charges/Coding Visit Charges Inpatient E&M: 50991 Subs Hosp L3
[2022-09-18 08:08] LABS: Hemoglobin A1c 9.6 % (3.8-5.6)
--- NOTE | 2022-09-18 08:31 | CT_ITS ---
STUDY: CT BRAIN WITHOUT CONTRAST REASON FOR EXAM: Male, 76 years old. Dementia RADIATION DOSAGE (If Supplied By Facility): CTDIvol = ( 44.99 ) mGy, DLP = ( 812.98 ) mGycm TECHNIQUE: Transaxial CT imaging of the brain was performed without administration of intravenous contrast material. Individualized dose optimization techniques were used for this CT. COMPARISON: No relevant priors. FINDINGS: Normal soft tissue structures. Normal calvarium. There is mild cerebral atrophy with widening of the extra-axial spaces and ventricular dilatation. There are areas of decreased attenuation within the white matter tracts of the supratentorial brain, consistent with microvascular disease changes. Normal basal ganglia and thalami. Normal brainstem. Normal cerebellum. There is no intracranial hemorrhage. There are no findings of an acute ischemic infarction. Atherosclerotic plaque formation of the cavernous portions of the internal carotid arteries bilaterally. Mild degree of mucosal thickening along the anterior aspect of the left maxillary sinus. CT/Brain/Head without Contrast IMPRESSION: Chronic involutional changes of the brain. Electronically Signed: Filiberto Campo MD at 10:10 EDT ,
--- NOTE | 2022-09-18 08:32 | ECHOD_ITS ---
Reason For Study: MURMUR Procedure This was a 2D Doppler, Color Flow transthoracic echocardiogram. Exam performed in department. Left Ventricle Moderate concentric left ventricular hypertrophy. The estimated ejection fraction is 50-55 %. Right Ventricle Normal right ventricle. Mild global right ventricular systolic dysfunction. Atria Normal left atrium. Normal right atrium. Mitral Valve The mitral valve is structurally normal. No prolapse or stenosis seen. Mild (1+) mitral valve insufficiency. 2 jets of mild MR. Tricuspid Valve Normal tricuspid valve. Aortic Valve Mild focal aortic valve calcification. Mild (1+) aortic valve insufficiency. Pulmonic Valve The pulmonic valve is not well visualized. Great Vessels Normal aortic root. Mild pulmonary artery dilation. Pericardium/Pleural No pericardial effusion. MMode/2D Measurements & Calculations LVIDd: 4.1 cm IVSd: 1.9 cm Ao root diam: 3.3 cm LVIDs: 3.0 cm LVPWd: 1.1 cm RVDd: 3.8 cm FS: 26.3 % LAV(MOD-bp): 74.2 ml LA A4 area: 22.3 cm2 LA dimension(2D): 2.9 cm LAV(MOD-bp) Indexed: 36.6 ml/m2 LAV(MOD-sp2): 68.4 ml LAV(MOD-sp4): 69.4 ml Time Measurements MV dec time: 0.15 sec Doppler Measurements & Calculations MV E max josesito: 86.5 cm/sec Lat Peak E' Josesito: 8.5 cm/sec Med Peak E' Josesito: 7.1 cm/sec MV A max josesito: 68.2 cm/sec E/E' lat: 10.1 E/E' med: 12.2 MV E/A: 1.3 MV dec slope: 581.9 cm/sec2 Ao V2 max: 132.8 cm/sec AI max josesito: 416.9 cm/sec Ao max P.1 mmHg AI max P.0 mmHg Ao V2 mean: 99.2 cm/sec AI dec slope: 148.2 cm/sec2 Ao mean P.3 mmHg AI P1/2t: 824.1 msec Ao V2 VTI: 29.3 cm AV (velocity ratio): 0.62 LV V1 max: 75.9 cm/sec PA V2 max: 59.3 cm/sec LV V1 max P.3 mmHg PI dec slope: 289.2 cm/sec2 LV V1 mean P.3 mmHg LV V1 mean: 53.7 cm/sec LV V1 VTI: 18.3 cm ECHO/Echo Complete Interpretation Summary The estimated ejection fraction is 50-55 %. Mild RV systolic dysfunction, with GS = _14.4% 2 jets of mild MR Mild aortic incompetence No previous echocardiogram to compare Ordering Physician: Iam Camarena Referring Physician: Kelvin Morel M.D. Performed By: Bette Glass RDCS, RVT
[2022-09-18 09:10] LABS: Bedside Glucose 151 mg/dL (74-106)
[2022-09-18] MEDS: Aspirin 81 MG TAB.CHEW PO (09:40)
[2022-09-18] MEDS: Pantoprazole Sodium 40 MG Tablet PO ×2 (09:40→23:55)
[2022-09-18] MEDS: Insulin Glargine-YFGN 100 UNIT/ML Pen 10 UNIT SC (09:40)
[2022-09-18] MEDS: Lisinopril 40 MG Tablet PO (09:40)
[2022-09-18] MEDS: amLODIPine 5 MG Tablet PO (09:40)
[2022-09-18 09:57] LABS: Troponin-I HS 125 pg/mL (3.0-78.0)
[2022-09-18 10:42] LABS: Pathologist Review Reviewed
--- NOTE | 2022-09-18 11:45 | CASEMGMT ---
RACQUEL GALEANO Face to Face with patient's for initial transition planning/care coordination assessment as patient is confused. RN WALESKA introduced self and role at [facility]. willing to participate in assessment and is able to answer all questions appropriately. Care providers, pharmacy, and demographics verified. wishes for patient to discharge home, denies need for home health at this time. states she has no further needs or concerns at this time. CM to follow for discharge planning needs that may arise. PCP: Teresita Specialists: Ele Loya Pharmacy: [facility] Insurance: [facility], [facility] Prescription Benefit: yes Living Will/HPOA: yes, Alejandra Deluca LNOK: Living Arrangements: Patient lives with in a 2 story home with bed and bath on first floor. Patient is normally independent at home. Transportation: self, DME/HHC: Patient has shower chair, raised toilet, pulse ox, glucometer with supplies, and insulin with supplies. Patient may benefit from walker at discharge. Reviewed DME agencies with and would like [facility] for DME at discharge. No previous HHC or SNF Disposition Plan: Patient to discharge home with family support and follow-up plans in place. Melita CHOU, RN, CM
[2022-09-18] MEDS: Insulin Lispro 100 UNIT/ML INSULN.PEN SC ×3 (12:56→23:55)
[2022-09-18 13:05] LABS: Bedside Glucose 273 mg/dL (74-106)
[2022-09-18 17:10] LABS: Bedside Glucose 267 mg/dL (74-106)
--- NOTE | 2022-09-18 17:11 | CT_ITS ---
STUDY: CTA CHEST REASON FOR EXAM: Male, 76 years old. suspicion of PE, RV Systolic dysfunction RADIATION DOSAGE (If Supplied By Facility): CTDIvol = ( 13.46 ) mGy, DLP = ( 346.86 ) mGycm TECHNIQUE: The examination was performed with the intravenous administration of IV 100mL Isovue-370. Post-processing of the angiographic images was performed, with multiplanar reformation and 3D reconstruction. Individualized dose optimization techniques were used for this CT. COMPARISON: None. FINDINGS: Normal enhancement of the main pulmonary artery and right and left pulmonary arteries. Normal enhancement of the bilateral peripheral pulmonary arteries. There is no demonstrated pulmonary embolism. Normal thoracic aorta and visualized great vessels. There is no demonstrated aortic dissection. Heart size is normal. There is multivessel coronary artery calcification Normal mediastinum. Normal hilar regions. Normal visualized trachea and bronchi. The lungs are well expanded. Minor interstitial thickening with no focal infiltration or pulmonary nodules. Normal pleura. Normal chest wall structures. Dorsal spine demonstrates degenerative changes Incidental finding of filling of multiple venous collaterals involving the azygos/hemiazygos system as well as paravertebral veins. There is no evidence for obstruction of the visualized portions of the superior vena cava. Inferior vena cava cannot be adequately evaluated on this study. Normal visualized upper abdomen. CT/CTA Chest W/WO Contrast IMPRESSION: ASHD without evidence for aortic aneurysm.. No evidence for pulmonary embolus Minor interstitial thickening with no evidence for focal infiltration. Incidental finding of filling of multiple collateral venous channels although there is patency of the visualized portions of the superior vena cava as well as the visualized veins of the left upper extremity. Clinical correlation is recommended If concern for proximal venous obstruction of the left upper arm Doppler scan recommended for further evaluation Electronically Signed: Nikos De La Torre MD at 18:33 EDT ,
[2022-09-18 17:54] LABS: D-Dimer Quantitative (DVT/PE) 0.45 FEU/ug/m (0.27-0.49)
[2022-09-18] MEDS: 0.9% Normal Saline 1,000 ML 50 ML IV (18:50)
[2022-09-18] MEDS: Atorvastatin Calcium 40 MG Tablet PO (23:55)
[2022-09-19] VITALS (7 sets, daily range): BP systolic 125–181; BP diastolic 52–95; PULSE 63–73; RESP 16–18; TEMP 36.2–36.6; O2SAT 94–98; BMI 25.4
[2022-09-19 00:56] LABS: Bedside Glucose 185 mg/dL (74-106)
[2022-09-19 05:21] LABS: Absolute Lymphocyte Count 2.76 X10^3/uL (0.83-4.51); Absolute Neutrophil Count 6.2 X10^3/uL (2.0-7.7); Basophil# 0.02 X10^3/uL; Basophil% 0.2 % (0-1); Eosinophil# 0.08 X10^3/uL; Eosinophils% 0.8 % (0-5); Hematocrit 42.9 % (40-54); Hemoglobin 14.9 g/dL (13.0-16.5); Lymphocyte # 2.76 X10^3/ul (0.83-4.51); Lymphocyte % 26.7 % (19-41); Mean Corp Hgb Conc 34.7 g/dL (32-36); Mean Corpuscular Hgb 29.9 pg (27.0-32.0); Mean Corpuscular Volume 86.1 fL (80-94); Mean Platelet Vol. 10.8 fl (6.2-12.0); Monocyte# 1.26 X10^3/uL; Monocyte% 12.2 % (0-10); NRBC Flagged by Analyzer 0 % (0-5); Neutrophil # 6.18 X10^3/uL (2.7-7.7); Neutrophil % 59.8 % (47-70); Platelet Count 226 K/mm3 (150-450); RBC Distribution Width CV 13.7 % (11.6-14.6); RBC Distribution Width SD 42.4 fl (35.1-43.9); Red Blood Count 4.98 M/mm3 (4.6-6.2); White Blood Count 10.3 K/mm3 (4.4-11.0)
[2022-09-19] MEDS: Insulin Lispro 100 UNIT/ML INSULN.PEN SC ×2 (06:38→11:01)
--- NOTE | 2022-09-19 07:12 | DS.PCM_ITS ---
Providers Date of Admission: 09/17/22 Date of Discharge: 09/19/22 Primary Care Physician: Dr. Paul Lo MD Consultations 09/17/22 19:15 Consult: Gastroenterology Routine Consulting Provider: [facility] Reason for Consult: upper gi bleed EMERGENT Consult: No MD Notified: Yes Date Notified: 09/17/22 Time Notified: 19:15 Method of Notification: ED Physician Initiated Reason For Visit: DKA Diagnosis Discharge Diagnosis (1) DKA (diabetic ketoacidoses): Status: Acute Code(s): E11.10 - Type 2 diabetes mellitus with ketoacidosis without coma (2) Diabetes mellitus, type 2: Status: Chronic Code(s): E11.9 - Type 2 diabetes mellitus without complications Plan This 76-year-old gentleman is being admitted for DKA. He also had eating with a streak of blood test. 1. DKA with high anion gap metabolic acidosis with history of type 2 diabetes mellitus: Patient is on home medications Invokana which might be a risk factor of DKA with mildly elevated hyperglycemia at 294. Patient is being admitted in ICU. IV fluid resuscitation and insulin drip as per DKA protocol. Monitor intake and output. BMP Q4 hourly. Hold oral hypoglycemic agents. Patient has mild hyponatremia sodium 131, potassium normal. Anion gap 21 with bicarb 12. ABG ordered. Moderate acetone. Serum magnesium and phosphorus level normal. 09/18: Anion gap closed x2.Acetone level was moderate. ABG 7. / on room air on 09/17 suggestive of mild metabolic acidosis with respiratory alkalosis. Glucose is controlled, running in 100s. At times patient was hypoglycemic glucose 69. Continue IV fluid D5 half NS +20 mEq KCl. K5.0 was hemolyzed. Lantus 10 units now and then discontinue insulin drip after 3 hours. 1800 ADA diet ordered. A1c 9.6. Leukocytosis improving probably due to DKA. 09/19: Glucose profile usually less than 201 was 267. Patient is discharged home on Humalog 10 units subcutaneous 3 times daily before meals and Lantus 12 units subcutaneous twice daily. Advised Accu-Chek H&H's coverage below sliding scale and titrate up the Lantus insulin under supervision of PCP. 2. Mildly elevated troponin probably increased myocardial demand/myocardial injury from DKA/LVH: Patient has troponin 80 and then 108. Patient does not have signs and symptoms of acute coronary symptoms including chest pain pressure tightness or shortness of breath therefore it might be due to acute myocardial injury from DKA from increased demand. 2D echo is ordered. Patient also has systolic murmur and uncontrolled hypertension. 09/19: Exact etiology of elevated troponin unclear probably mild myocardial injury/increased myocardial demand from DKA. 2D echo shows mild RV systolic dysfunction otherwise normal right and left atrium. Mild MR. Normal tricuspid valve. Mild AI. EF 50 to 55% with normal wall motion. Moderate concentric LVH. ACS ruled out. D-dimer was negative. CT angiogram was done as patient has mild RV systolic dysfunction on echo. CTA Chest did not show evidence of PE. Minor interstitial thickening with no evidence of focal infiltration. Advised follow-up in pulmonary clinic Dr. Pruitt for for RV systolic dysfunction. Patient does not have history of COPD or smoking. Advised PFT sleep study and other work-up with superintendent service. 3. Recent history of COVID-19 about 3 weeks ago and UTI: Patient completed antibiotic. UA with urine culture ordered. 09/18: UA shows negative nitrite and LE. WBC 0 RBC 0 bland urine. Glucosuria, ketonuria and mild proteinuria. I do not think patient has current UTI and was well treated recently. 4. Mild upper GI bleed most related to retching and persistent vomiting: Hemoglobin is stable. It was more vomiting mixed with bleeding. ED physician consulted GI but patient will need EGD after DKA is resolved. Protonix 40 mg IV every 12 hourly. H&H every 8 hourly. 09/18: Protonix can be changed to oral. Hemoglobin is 14.8. Patient not had any further hematemesis, hematochezia melena after admission 09/19: H&H about 15 g. No acute drop in hematuria. Stable H&H shows insignificant hematemesis. The prescription for pantoprazole 40 mg twice daily sent to patient's pharmacy. Advised follow with Dr. Stubbs as an outpatient for EGD. 5. Hypertension: Blood pressure is controlled. Hold antihypertensive medication as patient is dehydrated. 09/18: Blood pressure is high systolic 188. Patient lisinopril and amlodipine regimen. Already on atenolol. Hold HCTZ as patient is still not fully rehydrated. 09/19: Blood pressure is high systolic 182. Amlodipine increased to 10 mg daily. HCTZ 12.5 mg daily and hydralazine 50 mg 3 times daily started. Patient already on lisinopril 40 mg daily. 6 amnesia/memory issues: Patient has hard time in recall and registration. He also gets easily frustrated and recalling, signs of cognitive deficits/early dementia. I do not think patient is acutely confused, inattention therefore does not have delirium. CT head without contrast ordered 09/19: Patient had mild delirium, and severe long months and year hard time in recollection on 09/18. Delirium resolved. CT head was done on 09/17 reported as mild cerebral atrophy with widening of ventricular dilatation suggestive of mild dementia Other comorbidities include dyslipidemia and BPH: Patient not on alpha-karol or finasteride. Monitor intake and output. Bladder scan. VTE prophylaxis: Pharmacological contraindicated because of upper GI bleed. Total time of the visit including total time spent in counseling or coordination of care, (more than 50% of the total time, spent in obtaining medical information from nurses and other ancillary care providers,explaining to the patient about labs, imaging, diagnosis and management of active complex medical conditions), clinical update to patient's , discussion with senior billing consultant review of labs and imaging is 50 minutes. Living will/advanced directive/end of life care: Patient does not living will or advanced directive. His is power of litigation attorney associate for health. After discussion of benefits/risks procedures involved with full code, DNR CC arrest and DNR CC, the patient opted for full code. Patient does want artificial life support including intubation, tube feed, ventilator and/chest compression, central venous catheter, vasopressor and DC shock if needed Total time spent in [id number] encounter in discussion of advanced directive 17 minutes. Microbiology Past 72 Hours 09/17/22 Unknown Stool Stool Occult Blood (STEFANIE) - Final Laboratory Results 09/17/22 16:45: Urine Color Yellow, Urine Clarity Clear, Urine pH 5.0, Ur Specific [place] 1.020, Urine Protein 15 H, Urine Glucose (UA) 1000 H, Urine Ketones 150 A*, Urine Occult Blood Negative, Urine Nitrite Negative, Urine Bilirubin Negative, Urine Urobilinogen Normal, Ur Leukocyte Esterase Negative, Urine RBC 0 SEEN, Urine WBC 0 SEEN, Ur Squamous Epith Cells 0 SEEN, Urine Bacteria 0 SEEN, Urine Mucus 0 SEEN 09/17/22 17:50: Troponin I High Sens 108 H 09/17/22 17:50: Phosphorus 4.5, Magnesium 2.2 09/17/22 18:55: Lactic Acid Pending Medications at Discharge Home Medications Atorvastatin Calcium 40 mg PO QHS 10/12/17 aspirin 81 mg chewable tablet 81 mg PO DAILY@0800 Check with primary doctor 10/12/17 atenolol 50 mg tablet (Tenormin) 50 mg PO DAILY 10/12/17 canagliflozin 300 mg tablet (Invokana) 300 mg PO DAILY Check with primary doctor 10/12/17 glimepiride 4 mg tablet 4 mg PO BID 10/12/17 lisinopril 40 mg tablet 20 mg PO BID 10/12/17 metformin 500 mg tablet 500 mg PO TID 10/12/17 testosterone 1 % (50 mg/5 gram) transdermal gel packet (AndroGel) 5 g transd ermal DAILY 10/12/17 sitagliptin phosphate 100 mg tablet (Januvia) 100 mg PO DAILY 09/17/22 amlodipine 10 mg tablet 10 mg PO DAILY #30 tabs 09/19/22 hydralazine 50 mg tablet 50 mg PO TID 30 days #90 tabs 09/19/22 hydrochlorothiazide 12.5 mg capsule 12.5 mg PO DAILY 30 days #30 caps 09/19/22 insulin glargine 100 unit/mL (3 mL) subcutaneous pen (Lantus Solostar U-100 Insulin) 12 unit (0.12 mL) subcut BID #15 mL 09/19/22 insulin lispro 100 unit/mL subcutaneous pen (Humalog KwikPen (U-100) Insulin) 10 unit (0.1 mL) subcut TIDAC #15 mL 09/19/22 insulin lispro 100 unit/mL subcutaneous pen (Humalog KwikPen (U-100) Insulin) See Protocol subcut ACHS #0 mL 09/19/22 pantoprazole 40 mg tablet,delayed release 40 mg PO BID 30 days #60 tabs 09/19/22 pen needle, diabetic 32 gauge x 5/32 (Pen Needle) #100 ea 09/19/22 pen needle, diabetic 32 gauge x 5/32 (Pen Needle) #100 ea 09/19/22 Physical Exam Narrative Seen and examined. Blood sugar was high in the morning and controlled systolic 155 after addition of HCTZ and hydralazine. Blood sugar is controlled. IV fluid discontinued. DKA resolved. Physical exam General: Alert, hard time in recalling month and year. Oriented to time but disoriented to place. Cannot tell his age. HEENT: Atraumatic, PERRLA, EOMI, Normocephalic Oral: Oral mucosa moist. No Gingival or Mucosal Lesions/ Ulcerations Neck: Supple, No JVD, Negative Carotid Bruits Lungs: Air entry diminished in bilateral lung bases. No crepitation/rhonchi Cardiovascular: Sinus tachycardia resolved. normal S1, Normal S2, systolic murmur grade 4/6 over right second ICS and LLSB. Abdomen: Bowel Sounds Present, Soft, Non Tender, Non-Distended : No renal angle tenderness. No suprapubic tenderness. Extremities: No edema, Capillary Refill Less than 3 Seconds Skin: No rashes, No breakdown Musculoskeletal: No Tenderness to Palpation of Joints or Extremities. Muscle strength 5/5 at major joints. Range of motion fully intact. Neurological: Cranial nerves II-XII grossly intact, DTR 2+/4 and Symmetrical, Neuro grossly intact Psych/Mental Status: Flat affect. Amnesia, possible cognitive deficit/dementia Weight / BMI Weight Weight: 182 lb 5.156 oz Body Mass Index (BMI) 25.4 ABG / Lab / Microbiology Data Result Diagrams: 09/19/22 04:50 09/18/22 06:47 Laboratory: Laboratory Results - last 24 hr 09/18/22 06:47: Sodium 135 L, Potassium 5.0, Chloride 111 H, Carbon Dioxide 17.0 L, Anion Gap 7, BUN 16, Creatinine 1.00, Estim Creat Clear Calc 67.98, Est GFR (MDRD) Af Amer 94, Est GFR (MDRD) Non-Af 77, BUN/Creatinine Ratio 16.0, Glucose 114 H, Calcium 8.4 L 09/18/22 06:47: Hemoglobin A1c 9.6 H 09/18/22 06:47: WBC 13.8 H, RBC 4.97, Hgb 14.8, Hct 44.9, MCV 90.3, MCH 29.8, MCHC 33.0, RDW Std Deviation 46.0 H, RDW Coeff of Colt 13.9, Plt Count 249, MPV 10.2, Immature Gran % (Auto) 0.700, Neut % (Auto) 72.2 H, Lymph % (Auto) 13.3 L, [place] % (Auto) 13.4 H, Eos % (Auto) 0.1, Baso % (Auto) 0.3, Absolute Neuts (auto) 10.0 H, Absolute Lymphs (auto) 1.84, Nucleated RBC % 0, Diff Path Review Reviewed 09/18/22 06:47: Troponin I High Sens 125 H* 09/18/22 07:00: POC Glucose 105 09/18/22 07:59: POC Glucose 151 H 09/18/22 12:43: POC Glucose 273 H 09/18/22 16:49: POC Glucose 267 H 09/18/22 17:28: D-Dimer Quant (PE/DVT) 0.45 09/18/22 23:51: POC Glucose 185 H 09/19/22 04:50: WBC 10.3, RBC 4.98, Hgb 14.9, Hct 42.9, MCV 86.1, MCH 29.9, MCHC 34.7 D, RDW Std Deviation 42.4, RDW Coeff of Colt 13.7, Plt Count 226, MPV 10.8, Immature Gran % (Auto) 0.300, Neut % (Auto) 59.8, Lymph % (Auto) 26.7, [place] % (Auto) 12.2 H, Eos % (Auto) 0.8, Baso % (Auto) 0.2, Absolute Neuts (auto) 6.2, Absolute Lymphs (auto) 2.76, Nucleated RBC % 0 Microbiology: Microbiology 09/17/22 Unknown Stool Stool Occult Blood (STEFANIE) - Final Radiography Diagnostic Testing: Radiology Impression Brain CT 09/18/22 08:31 IMPRESSION: Chronic involutional changes of the brain. Electronically Signed: Filiberto Campo MD at 10:10 EDT , Echocardiogram 09/18/22 08:32 Interpretation Summary The estimated ejection fraction is 50-55 %. Mild RV systolic dysfunction, with GS = _14.4% 2 jets of mild MR Mild aortic incompetence No previous echocardiogram to compare Ordering Physician: Iam Camarena Referring Physician: Kelvin Morel M.D. Performed By: Bette Glass, ARLET, RVT Chest CTA 09/18/22 17:11 IMPRESSION: ASHD without evidence for aortic aneurysm.. No evidence for pulmonary embolus Minor interstitial thickening with no evidence for focal infiltration. Incidental finding of filling of multiple collateral venous channels although there is patency of the visualized portions of the superior vena cava as well as the visualized veins of the left upper extremity. Clinical correlation is recommended If concern for proximal venous obstruction of the left upper arm Doppler scan recommended for further evaluation Electronically Signed: Nikos De La Torre MD at 18:33 EDT , Meaningful Use Info Meaningful Use Diagnoses (Choose all that apply): None applicable Discharge Plan Admission Admit Date/Time: 09/17/22 18:23 Primary Reason for Your Visit: DKA Attending Provider: Iam Camarena Primary Care Provider: Paul Lo Instructions Additional Instructions / Restrictions: Advised to hold oral antidiabetic medications for 1 week until sees PCP for DKA. Check blood pressure before taking hydralazine and HCTZ and hold it if systolic blood pressure less than 130 mm. Discharge Orders/Prescriptions Prescriptions: New amlodipine 10 mg Tablet 10 mg PO DAILY Qty: 30 0RF pantoprazole 40 mg Tablet,Delayed Release (Dr/Ec) 40 mg PO BID 30 Days Qty: 60 1RF hydrochlorothiazide 12.5 mg Capsule 12.5 mg PO DAILY 30 Days Qty: 30 0RF insulin lispro [Humalog KwikPen Insulin] 100 unit/mL Insulin Pen See Protocol subcut ACHS Qty: 0 0RF Protocol: 4. Sliding Scale Insulin High-Med Dosing Condition: 150-199 mg/dl = 2 units Condition: 200-259 mg/dl = 4 units Condition: 260-324 mg/dl = 6 units Condition: 325-374 mg/dl = 8 units Condition: 375-409 mg/dl = 10 units Condition: 410-449 mg/dl = 11 units Condition: Greater than 449 call physician Protocol Text: - Use for Total Daily Dose of Insulin 56-80 units - Patient who are insulin resistant or septic HIGH MEDIUM DOSING ALGORITHM insulin lispro [Humalog KwikPen Insulin] 100 unit/mL Insulin Pen 10 unit subcut TIDAC Qty: 15 2RF hydralazine 50 mg Tablet 50 mg PO TID 30 Days Qty: 90 0RF insulin glargine [Lantus Solostar U-100 Insulin] 100 unit/mL (3 mL) insulin pen 12 unit subcut BID Qty: 15 2RF Rx Instructions: Hold if glucose less than 130 mg/dl (DME) pen needle, diabetic [Pen Needle] 32 gauge x 5/32 needle See Rx Instructions .Route Qty: 100 0RF Rx Instructions: As directed (DME) pen needle, diabetic [Pen Needle] 32 gauge x 5/32 needle See Rx Instructions .Route Qty: 100 0RF Rx Instructions: As directed Continued Atorvastatin Calcium 40 mg PO QHS aspirin 81 MG tablet,chewable 81 mg PO DAILY@0800 lisinopril 40 MG tablet 20 mg PO BID atenolol [Tenormin] 50 MG tablet 50 mg PO DAILY testosterone [AndroGel] 5 GM gel in packet 5 g transdermal DAILY Label Comments: APPLY TO CLEAN/DRY/INTACT SKIN OF THE SHOULDERS AND UPPER ARMS Held metformin 500 MG tablet 500 mg PO TID Hold Instructions: Hold for at least 1 week and then check with PCP before resumption Label Comments: TAKE 2 TAB AT BREAKFAST TAKE 1 TAB AT LUNCH TAKE 2 TAB AT DINNER glimepiride 4 MG tablet 4 mg PO BID Hold Instructions: Hold for at 5 days and then check with PCP before resumption Invokana 300 MG tablet 300 mg PO DAILY Hold Instructions: Hold for at least 1 week and then check with PCP before resumption Januvia 100 mg Tablet 100 mg PO DAILY Hold Instructions: Hold for at least 1 week and then check with PCP before resumption Discontinued amlodipine 2.5 MG tablet 5 mg PO DAILY famotidine 20 mg Tablet 20 mg PO DAILY Referrals / Follow Up: Terrell Pruitt MD [Med Staff - Active Staff] - Within 1 Month (To evaluate RV systolic dysfunction and echo. Patient is not a smoker does not have COPD history.) Paul Lo MD [Primary Care Provider] - In 1 Week (To check his sugars before resumption of oral antidiabetic medications) Disposition Disposition (needs filled in before D/C Order can be placed): Home, Self Care Charges/Coding Visit Charges Inpatient E&M: 96933 Disch Hosp >30min
[2022-09-19 08:20] LABS: Bedside Glucose 172 mg/dL (74-106)
[2022-09-19] MEDS: hydroCHLOROthiazide 12.5mg 12.5 MG PO (08:59)
[2022-09-19] MEDS: Aspirin 81 MG TAB.CHEW PO (08:59)
[2022-09-19] MEDS: hydrALAZINE 50 MG Tablet PO ×2 (08:59→13:45)
[2022-09-19] MEDS: Pantoprazole Sodium 40 MG Tablet PO (09:00)
[2022-09-19] MEDS: Atenolol 50 MG Tablet PO (09:00)
[2022-09-19] MEDS: Lisinopril 40 MG Tablet PO (09:00)
[2022-09-19] MEDS: amLODIPine 10 MG Tablet PO (09:00)
[2022-09-19] MEDS: 0.9% Saline Lock 10 ML Syringe IV (09:01)
[2022-09-19] MEDS: Insulin Glargine-YFGN 100 UNIT/ML Pen 15 UNIT SC (11:00)
[2022-09-19] MEDS: Insulin Lispro 100 UNIT/ML INSULN.PEN 8 UNIT SC (11:01)
--- NOTE | 2022-09-19 11:21 | CASEMGMT ---
RACQUEL GALEANO updated that patient will be discharging today. RACQUEL GALEANO reviewed therapy notes. RN WALESKA called to discuss needs at discharge and reviewed therapy recommendations. would like patient to received outpatient therapy at discharge and FWW. would like [employer] for walker at discharge. had no further questions or concerns at this time. Scripts received for outpatient therapy and FWW. RACQUEL GALEANO provided script in discharge packet with [facility] information card. Referral made to [employer] via [facility] and arranged for walker to be delivered to patient's room.
[2022-09-19 11:31] LABS: Bedside Glucose 304 mg/dL (74-106)
--- NOTE | 2022-09-19 13:43 | CHAPLAIN ---
Type of Pastoral Visit _x__ Initial Visit ___ Follow-up Visit ___ On-call Visit ___ General Patient Visit ___ Spiritual Assessment ___ Family Conference ___ Bereavement ___ Rapid Response ___ Code Blue ___ Other (describe below) Pastoral Care Referral From _x__ Patient ___ Family ___ Nurse ___ Physician ___ Sales Manager ___ Cultural Anthropology Professor ___ Other (describe below) Sacrament/Intervention _x_ Active listening ___ Anointing ___ Quaker ___ Bereavement ___ Communion ___ Shakira exploration ___ ___ Life review ___ Prayer ___ Reconciliation ___ Sacrament of Sick ___ Supportive presence ___ Wedding ___ Other (describe below) Pastoral Comments patient expects to be discharged and expresses encouragement for that; spouse is with him; pt only concern expressed is getting his lunch; no other needs
== END 2022-09-19 15:24 | disposition home or self-care (01) | DRG 638 ==
LOC: ED 15:28 → ICU 20:14 → PCU 09-18 17:52
PROVIDERS: Admitting Provider Internal Medicine; Emergency Provider Student in an Organized Health Care Education/Training Program; PCP Family Medicine; Visit Provider Internal Medicine
DX: E11.10 Type 2 diabetes mellitus with ketoacidosis without coma (principal); I5A Non-ischemic myocardial injury (non-traumatic); F03.90 Unspecified dementia, unspecified severity, without behavioral disturbance, psychotic disturbance, mood disturbance, and anxiety; E11.65 Type 2 diabetes mellitus with hyperglycemia; E78.5 Hyperlipidemia, unspecified; I10 Essential (primary) hypertension; Z51.5 Encounter for palliative care; R53.1 Weakness; Z66 Do not resuscitate; R77.8 Other specified abnormalities of plasma proteins; Z86.16 Personal history of COVID-19; N40.0 Benign prostatic hyperplasia without lower urinary tract symptoms
CPT/HCPCS: 36415; 36600; 70450; 71045; 71275; 80048; 80053; 81001; 82009; 82274; 82803; 82962; 83036; 83605; 83735; 84100; 84484; 85014; 85018; 85025; 85379; 86850; 86900; 86901; 87086; 87088; 93005; 93306; 97112; 97162; 97166; 97535; 97802; 99284; J7030; Q9967; A4216; J2405

== ENCOUNTER 2022-09-23 14:09 | Observation (INO) | payer MEDICARE, OTHER, SELFPAY ==
[2022-09-23 14:09] VITALS: BP 124/47; PULSE 58; RESP 16; TEMP 36.3; O2SAT 100
[2022-09-23 14:22] VITALS: BMI 27.0
[2022-09-23 14:25] VITALS: BP 102/47; PULSE 58; RESP 15; TEMP 36.1; O2SAT 97
--- NOTE | 2022-09-23 14:57 | CT_ITS ---
STUDY: CT BRAIN WITHOUT CONTRAST REASON FOR EXAM: Male, 76 years old. Stroke RADIATION DOSAGE (If Supplied By Facility): CTDIvol = ( 44.99 ) mGy, DLP = ( 796.11 ) mGycm TECHNIQUE: Transaxial CT imaging of the brain was performed without administration of intravenous contrast material. Individualized dose optimization techniques were used for this CT. COMPARISON: 09/18/2022 CT head FINDINGS: Normal soft tissue structures. Normal calvarium. There is mild cerebral atrophy with widening of the extra-axial spaces and ventricular dilatation. There are areas of decreased attenuation within the white matter tracts of the supratentorial brain, consistent with microvascular disease changes. Normal basal ganglia and thalami. Normal brainstem. Small CSF space versus previous infarct within the right cerebellum is present measuring 8 mm. There is no intracranial hemorrhage. There are no findings of an acute ischemic infarction. Normal visualized paranasal sinuses. CT/Brain/Head without Contrast IMPRESSION: Senescent changes with no evidence of acute intracranial bleed, mass or ischemia. If high clinical suspicion of acute ischemia recommend MRI versus CTA imaging. Electronically Signed: Dilip Puckett DO at 15:26 EDT ,
--- NOTE | 2022-09-23 14:58 | EKG12_ITS ---
Test Reason : NEURO Blood Pressure : / mmHG Vent. Rate : 056 BPM Atrial Rate : 056 BPM P-R Int : 184 ms QRS Dur : 082 ms QT Int : 436 ms P-R-T Axes : 050 005 068 degrees QTc Int : 420 ms Sinus bradycardia Otherwise normal ECG Confirmed by RACIEL CURRAN, LUZ ([id number]), continuity editor ANDREAS GÓMEZ ([id number]) on 09/25/2022 9:10:15 AM Referred By: Confirmed By:LUZ SCHRADER MD
--- NOTE | 2022-09-23 15:10 | RAD_ITS ---
STUDY: X-RAY CHEST REASON FOR EXAM: Male, 76 years old. Cough TECHNIQUE: Single AP portable view of the chest. COMPARISON: 09/17/2022 FINDINGS: The lungs are clear and expanded. There is no demonstrated pleural abnormality. Normal size heart. Normal mediastinum and star. Normal visualized pulmonary arteries. Normal visualized aortic arch and descending thoracic aorta. Normal visualized thoracic spine. Normal visualized ribs, clavicles, and shoulders. There is no demonstrated abnormality of the visualized soft tissue structures of the upper abdomen. RAD/Chest 1 View (Portable) IMPRESSION: No evidence of acute cardiopulmonary process. Electronically Signed: Dilip Puckett DO at 15:27 EDT ,
[2022-09-23 15:21] LABS: Absolute Lymphocyte Count 1.38 X10^3/uL (0.83-4.51); Absolute Neutrophil Count 7.4 X10^3/uL (2.0-7.7); Basophil# 0.03 X10^3/uL; Basophil% 0.3 % (0-1); Eosinophil# 0.08 X10^3/uL; Eosinophils% 0.8 % (0-5); Hematocrit 42.6 % (40-54); Hemoglobin 14.6 g/dL (13.0-16.5); Lymphocyte # 1.38 X10^3/ul (0.83-4.51); Lymphocyte % 13.6 % (19-41); Mean Corp Hgb Conc 34.3 g/dL (32-36); Mean Corpuscular Volume 87.5 fL (80-94); Mean Platelet Vol. 11.3 fl (6.2-12.0); Monocyte# 1.13 X10^3/uL; Monocyte% 11.2 % (0-10); NRBC Flagged by Analyzer 0 % (0-5); Neutrophil # 7.44 X10^3/uL (2.7-7.7); Neutrophil % 73.5 % (47-70); Platelet Count 248 K/mm3 (150-450); RBC Distribution Width CV 13.5 % (11.6-14.6); RBC Distribution Width SD 43.5 fl (35.1-43.9); Red Blood Count 4.87 M/mm3 (4.6-6.2); White Blood Count 10.1 K/mm3 (4.4-11.0)
[2022-09-23 15:42] LABS: Anion Gap 7 (5-15); BUN 27 mg/dL (7-18); BUN/Creat Ratio 24.5 RATIO (10-20); Calcium,Total 9.1 mg/dL (8.5-10.1); Chloride 97 mmol/L (98-107); EST Glomerular Filtration Rate 69 mL/min (>60); Est Glom Filt Rate - Afr Amer 84 mL/min (>60); Glucose 202 mg/dL (74-106); Partial Thromboplast Time 24.7 Seconds (24.1-36.2); Potassium 3.5 mmol/L (3.5-5.1); Prothrombin Time (Protime)PT. 13.3 SECONDS (11.7-14.9); Sodium Level 133 mmol/L (136-145); Troponin-I HS 16 pg/mL (3.0-78.0)
--- NOTE | 2022-09-23 16:23 | EX.ED.DYSGE1 ---
HPI History of Present Illness Chief Complaint: Neuro S/Sx Informant: patient Onset/Context/Timing Onset: Today Context: Sudden Onset Timing: Intermittent and Lasts (Approximately 5 minutes) Quality: Slurred, garbled Location: Speech Worsened by: Nothing Relieved by: Nothing Narrative Narrative: Patient presents with episode of difficulty speaking that began today. states that patient's speech sounded garbled and he he was not making sense. Patient states his speech felt like it was slurred. Patient states this lasted approximately 5 minutes and then resolved. Patient states nothing makes it worse and nothing made it better. Patient states this began suddenly at approximately 11:30 AM today, approximately 2-1/2 hours prior to arrival. states that she checked the patient's blood sugar near the time of this episode and it was 184 at home. Patient denies any headaches. Patient denies any chest pain or shortness of breath. Patient denies any paresthesias or weakness of his arms or legs. Patient denies any other symptoms. [facility] Medical History Atherosclerosis Bladder neck obstruction BPH (benign prostatic hyperplasia) HTN (hypertension) Hyperlipemia Home Medications Atorvastatin Calcium 40 mg PO QHS 10/12/17 [History Last Taken Unknown] aspirin 81 mg chewable tablet 81 mg PO DAILY@0800 Check with primary doctor 10/12/17 [History Last Taken 10/12/17] atenolol 50 mg tablet (Tenormin) 50 mg PO DAILY 10/12/17 [History Last Taken Unknown] canagliflozin 300 mg tablet (Invokana) 300 mg PO DAILY Check with primary doctor 10/12/17 [History Last Taken Unknown] glimepiride 4 mg tablet 4 mg PO BID 10/12/17 [History Last Taken Unknown] lisinopril 40 mg tablet 20 mg PO BID 10/12/17 [History Last Taken 10/19/17] metformin 500 mg tablet 500 mg PO TID 10/12/17 [History Last Taken Unknown] testosterone 1 % (50 mg/5 gram) transdermal gel packet (AndroGel) 5 g transdermal DAILY 10/12/17 [History Last Taken Unknown] sitagliptin phosphate 100 mg tablet (Januvia) 100 mg PO DAILY 09/17/22 [History Last Taken Unknown] amlodipine 10 mg tablet 10 mg PO DAILY #30 tabs 09/19/22 [Rx Last Taken Unknown] hydralazine 50 mg tablet 50 mg PO TID 30 days #90 tabs 09/19/22 [Rx Last Taken Unknown] hydrochlorothiazide 12.5 mg capsule 12.5 mg PO DAILY 30 days #30 caps 09/19/22 [Rx Last Taken Unknown] insulin glargine 100 unit/mL (3 mL) subcutaneous pen (Lantus Solostar U-100 Insulin) 12 unit (0.12 mL) subcut BID #15 mL 09/19/22 [Rx Last Taken Unknown] insulin lispro 100 unit/mL subcutaneous pen (Humalog KwikPen (U-100) Insulin) 10 unit (0.1 mL) subcut TIDAC #15 mL 09/19/22 [Rx Last Taken Unknown] insulin lispro 100 unit/mL subcutaneous pen (Humalog KwikPen (U-100) Insulin) See Protocol subcut ACHS #0 mL 09/19/22 [Rx Last Taken Unknown] pantoprazole 40 mg tablet,delayed release 40 mg PO BID 30 days #60 tabs 09/19/22 [Rx Last Taken Unknown] pen needle, diabetic 32 gauge x 5/32 (Pen Needle) #100 ea 09/19/22 [Rx Last Taken Unknown] pen needle, diabetic 32 gauge x 5/32 (Pen Needle) #100 ea 09/19/22 [Rx Last Taken Unknown] Allergy/AdvReac Type Severity Reaction Status Date / Time No Known Allergies Allergy Verified 09/23/22 14:11 Social History Smoking Status: Never smoker ROS ROS ED Constitutional Constitutional ED: Denies chills or fever(s) Eyes Eyes: Denies blurry vision or change in vision ENT ENT ED: Denies rhinorrhea or sore throat Cardiovascular Cardiovascular: Denies chest pain or palpitations Respiratory/Chest Respiratory/Chest: Denies cough or dyspnea Gastrointestinal Gastrointestinal: Denies nausea or vomiting Genitourinary Genitourinary ED: Denies dysuria or hematuria Musculoskeletal Musculoskeletal: Denies back pain or neck pain Integumentary Denies abscess or rash Neurologic Neurologic: Denies headache(s) or weakness Allergic/Immunologic Allergic/Immunologic ED: Denies mouth swelling or urticaria EXAM Physical Exam Const Vital Signs: 09/23/22 14:09 04/25/23 14:25 Temperature 97.4 F L 96.9 F L Temperature Source Temporal Temporal Pulse Rate 58 L 58 L Respiratory Rate 16 15 Blood Pressure 124/47 H 102/47 L Blood Pressure Mean 72 65 Pulse Ox 100 97 Oxygen Delivery Method Room Air Room Air Positive well nourished and well developed General Appearance ED: well developed HEENT Reports moist mucous membranes Neck supple and no JVD Resp normal respiratory effort and clear to auscultation bilaterally Cardio regular rate, regular rhythm and no murmurs GI normal to inspection, nondistended, normoactive bowel sounds and non-tender Palpation: soft Extremity normal to inspection General Extremety ED: Negative for edema or tenderness General Extremity: Negative for edema Neuro oriented x3, CN's II-XII intact bilaterally and no sensory deficits noted Sensorium / Orientation: alert Motor Exam: strength 5/5 throughout Psych mental status grossly normal Skin no rashes or lesions noted MDM MDM MDM Narrative Medical decision making narrative: Differential diagnosis includes TIA, stroke, electrolyte abnormality, cardiac dysrhythmia, hypoglycemia, and hyperglycemia. CT scan of the brain will be obtained to assess for stroke. EKG will be obtained to assess for cardiac dysrhythmia and cardiac ischemia. CBC will be obtained to assess for leukocytosis and anemia. Basic metabolic profile will be obtained to assess for electrolyte abnormality, renal function, hyperglycemia, and hypoglycemia. High-sensitivity troponin will be obtained to assess for cardiac ischemia. PT with INR and PTT will be obtained to assess for coagulopathy. Chest x-ray will be obtained to assess for pneumonia, widened mediastinum, and cardiomegaly Lab Data Attestation: I reviewed the patient's lab results. Lab results narrative: CBC was reviewed and was within normal limits. Basic metabolic profile was reviewed. Glucose was slightly elevated at 202. Sodium was slightly low at 133 and chloride was slightly low at 97. Anion gap was normal. BUN was slightly elevated at 27. High-sensitivity troponin was reviewed and was normal at 16. Labs: Laboratory Results - last 24 hr 09/23/22 09/23/22 09/23/22 14:32 14:32 14:32 WBC 10.1 RBC 4.87 Hgb 14.6 Hct 42.6 MCV 87.5 MCH 30.0 MCHC 34.3 RDW Std Deviation 43.5 RDW Coeff of Colt 13.5 Plt Count 248 MPV 11.3 Immature Gran % (Auto) 0.600 Neut % (Auto) 73.5 H Lymph % (Auto) 13.6 L [place] % (Auto) 11.2 H Eos % (Auto) 0.8 Baso % (Auto) 0.3 Absolute Neuts (auto) 7.4 Absolute Lymphs (auto) 1.38 Nucleated RBC % 0 PT 13.3 INR 1.0 APTT 24.7 Sodium 133 L Potassium 3.5 Chloride 97 L Carbon Dioxide 29.0 Anion Gap 7 BUN 27 H Creatinine 1.10 Estim Creat Clear Calc 61.80 Est GFR (MDRD) Af Amer 84 Est GFR (MDRD) Non-Af 69 BUN/Creatinine Ratio 24.5 H Glucose 202 H Calcium 9.1 Troponin I High Sens 16 Radiography Chest X-Ray - ED: 1 View, Read by ED Physician, Read by Radiologist and No Acute Disease Diagnostic Testing: Clinical Impression(s) from Imaging Studies Brain CT 09/23/22 14:57 IMPRESSION: Senescent changes with no evidence of acute intracranial bleed, mass or ischemia. If high clinical suspicion of acute ischemia recommend MRI versus CTA imaging. Electronically Signed: Dilip Puckett DO at 15:26 EDT , Chest X-Ray 09/23/22 15:10 IMPRESSION: No evidence of acute cardiopulmonary process. Electronically Signed: Dilip Puckett DO at 15:27 EDT , CT scan of the brain was obtained. There is no acute intracranial abnormality. This was interpreted by the radiologist and was also independently reviewed by myself. Portable 1 view chest x-ray was obtained. On my independent interpretation, lung hoff are clear. There is normal cardiac silhouette. Bony thorax is normal. There is no acute process noted. Radiologist also interpreted the x-ray and agrees. EKG Initial EKG: Attestation: I personally reviewed and interpreted this EKG as follows: Interpretation: No Acute Injury Pattern and Sinus Bradycardia (56) Prior EKG tracings: available for review Prior: Unchanged (09/17/2022) Management Discussion w/another healthcare provider: Hospitalist Treatment and Re-Evaluation :: Patient was asymptomatic here. Patient was advised of his findings. Patient was advised that this is most likely a TIA. Patient was advised of the risk for permanent stroke and the need for hospitalization. Case was discussed with the hospitalist. He will admit the patient for observation. Patient and spouse understood and were agreeable with the plan. All questions were answered. Discharge Plan Triage Chief Complaint: Neuro S/Sx ED Provider: Balbir Cameron Dx/Rx/DC Orders Clinical Impression: TIA (transient ischemic attack), Diabetes mellitus, type 2 Prescriptions: No Action Atorvastatin Calcium 40 mg PO QHS metformin 500 MG tablet 500 mg PO TID Hold Instructions: Hold for at least 1 week and then check with PCP before resumption Label Comments: TAKE 2 TAB AT BREAKFAST TAKE 1 TAB AT LUNCH TAKE 2 TAB AT DINNER glimepiride 4 MG tablet 4 mg PO BID Hold Instructions: Hold for at 5 days and then check with PCP before resumption aspirin 81 MG tablet,chewable 81 mg PO DAILY@0800 lisinopril 40 MG tablet 20 mg PO BID atenolol [Tenormin] 50 MG tablet 50 mg PO DAILY testosterone [AndroGel] 5 GM gel in packet 5 g transdermal DAILY Label Comments: APPLY TO CLEAN/DRY/INTACT SKIN OF THE SHOULDERS AND UPPER ARMS Invokana 300 MG tablet 300 mg PO DAILY Hold Instructions: Hold for at least 1 week and then check with PCP before resumption Januvia 100 mg Tablet 100 mg PO DAILY Hold Instructions: Hold for at least 1 week and then check with PCP before resumption amlodipine 10 mg Tablet 10 mg PO DAILY Qty: 30 0RF pantoprazole 40 mg Tablet,Delayed Release (Dr/Ec) 40 mg PO BID 30 Days Qty: 60 1RF hydrochlorothiazide 12.5 mg Capsule 12.5 mg PO DAILY 30 Days Qty: 30 0RF insulin lispro [Humalog KwikPen Insulin] 100 unit/mL Insulin Pen See Protocol subcut ACHS Qty: 0 0RF Protocol: 4. Sliding Scale Insulin High-Med Dosing Condition: 150-199 mg/dl = 2 units Condition: 200-259 mg/dl = 4 units Condition: 260-324 mg/dl = 6 units Condition: 325-374 mg/dl = 8 units Condition: 375-409 mg/dl = 10 units Condition: 410-449 mg/dl = 11 units Condition: Greater than 449 call physician Protocol Text: - Use for Total Daily Dose of Insulin 56-80 units - Patient who are insulin resistant or septic HIGH MEDIUM DOSING ALGORITHM insulin lispro [Humalog KwikPen Insulin] 100 unit/mL Insulin Pen 10 unit subcut TIDAC Qty: 15 2RF hydralazine 50 mg Tablet 50 mg PO TID 30 Days Qty: 90 0RF insulin glargine [Lantus Solostar U-100 Insulin] 100 unit/mL (3 mL) insulin pen 12 unit subcut BID Qty: 15 2RF Rx Instructions: Hold if glucose less than 130 mg/dl (DME) pen needle, diabetic [Pen Needle] 32 gauge x 5/32 needle See Rx Instructions .Route Qty: 100 0RF Rx Instructions: As directed (DME) pen needle, diabetic [Pen Needle] 32 gauge x 5/32 needle See Rx Instructions .Route Qty: 100 0RF Rx Instructions: As directed Primary Care Provider: Paul Lo Referrals: Paul Lo MD [Primary Care Provider] - Disposition Disposition: Acute Care Hospital [facility]
[2022-09-23 17:27] VITALS: BP 136/64; PULSE 60; RESP 18; TEMP 35.8; O2SAT 95
[2022-09-23 17:28] VITALS: BP 144/66; PULSE 62; RESP 17; TEMP 36.6; O2SAT 95
[2022-09-23 17:36] VITALS: BMI 25.4
--- NOTE | 2022-09-23 18:09 | MRI_ITS ---
STUDY: MRI BRAIN WITHOUT CONTRAST REASON FOR EXAM: Male, 76 years old. dysarthria TECHNIQUE: Standardized multiplanar fat and water weighted pulse sequences were obtained. COMPARISON: No relevant prior imaging available for comparison. HEMISPHERES, CEREBELLUM AND BRAINSTEM: 1. Severe cortical and central atrophy. Severe chronic microvascular ischemic change extending from the periventricular to the subcortical white matter both hemispheres. Moderate cerebellar atrophy. No Chiari malformation. PITUITARY: Infundibulum and pituitary have normal configuration. Midline structures appear normal. CSF SPACES: No hydrocephalus. Basal cisterns are patent. VESSELS: 1. There are normal flow voids noted in the great vessels at the skull base ORBITS AND PARANASAL SINUSES: 1. Both globes, extraocular muscles, optic nerves and retrobulbar fat appear unremarkable. 2. Paranasal sinuses demonstrate moderate mucosal thickening anteriorly in the left maxillary sinus. BONY ELEMENTS: Bony elements of the cranial vault, facial skeleton and skull base have normal appearance. SCALP AND SOFT TISSUES: Normal appearance of the soft tissues of the scalp and the visualized face OTHER: None MRI/Brain without Contrast IMPRESSION: 1. No intracranial mass, hemorrhage, or acute territorial infarct. 2. No radiographically significant sinus disease. 3. Severe cortical and central atrophy, moderate cerebellar atrophy. 4. Severe chronic microvascular ischemic change. Electronically Signed: Rebel Moss MD, CAROL at 20:58 EDT ,
--- NOTE | 2022-09-23 18:22 | CT_ITS ---
EXAM: CT ANGIOGRAPHY HEAD AND NECK WITH INTRAVENOUS CONTRAST CLINICAL INDICATION: dysarthria TECHNIQUE: [place] [facility] [place]/head and neck CT angiography protocol performed with intravenous contrast. This CT exam was performed using one or more of the following dose reduction techniques: automated exposure control, adjustment of the mA and/or kV according to patient size, and/or use of iterative reconstruction technique. This report was created using [employer] report generation technology. MIP reconstructed images were created and reviewed. CONTRAST: IV 100mL Isovue-370 RADIATION DOSE: CTDIvol = 25.74 mGy, DLP = 756.01 mGy-cm COMPARISON: None. FINDINGS: HEAD: RIGHT ANTERIOR CEREBRAL ARTERY: Unremarkable. No significant stenosis at the visualized segments. Anterior communicating artery is present. No aneurysm. RIGHT MIDDLE CEREBRAL ARTERY: Unremarkable. No significant stenosis at the visualized segments. No aneurysm. RIGHT POSTERIOR CEREBRAL ARTERY: Unremarkable. No occlusion or significant stenosis. No aneurysm. RIGHT INTRACRANIAL INTERNAL CAROTID ARTERY: Unremarkable. No significant stenosis. No dissection or occlusion. RIGHT INTRACRANIAL VERTEBRAL ARTERY: Unremarkable. No significant stenosis. No dissection or occlusion. LEFT ANTERIOR CEREBRAL ARTERY: Unremarkable. No significant stenosis at the visualized segments. No aneurysm. LEFT MIDDLE CEREBRAL ARTERY: Unremarkable. No significant stenosis at the visualized segments. No aneurysm. LEFT POSTERIOR CEREBRAL ARTERY: Unremarkable. No occlusion or significant stenosis. No aneurysm. LEFT INTRACRANIAL INTERNAL CAROTID ARTERY: Unremarkable. No significant stenosis. No dissection or occlusion. LEFT INTRACRANIAL VERTEBRAL ARTERY: Unremarkable. No significant stenosis. No dissection or occlusion. BASILAR ARTERY: Unremarkable. No significant stenosis. No aneurysm. OTHER VASCULATURE: There is mild atherosclerotic plaque formation of the origin of the right internal carotid artery with less than 50% cross sectional diameter stenosis. ALL ABOVE CRITERIA BY NASCET. There is mild atherosclerotic plaque formation of the origin of the left internal carotid artery with less than 50% cross sectional diameter stenosis. ALL ABOVE CRITERIA BY NASCET. There is calcified plaque formation of the right cavernous carotid artery, with a mild stenosis (less than 50%). ALL ABOVE CRITERIA BY NASCET. There is calcified plaque formation of the left cavernous carotid artery, with a mild stenosis (less than 50%). ALL ABOVE CRITERIA BY NASCET. No vascular malformation. NECK: RIGHT COMMON CAROTID ARTERY: Unremarkable. No significant stenosis. No dissection or occlusion. RIGHT EXTRACRANIAL INTERNAL CAROTID ARTERY: Unremarkable. No significant stenosis. No dissection or occlusion. RIGHT EXTERNAL CAROTID ARTERY: Unremarkable. No occlusion. RIGHT EXTRACRANIAL VERTEBRAL ARTERY: Unremarkable. No significant stenosis. No dissection or occlusion. LEFT COMMON CAROTID ARTERY: Unremarkable. No significant stenosis. No dissection or occlusion. LEFT EXTRACRANIAL INTERNAL CAROTID ARTERY: Unremarkable. No significant stenosis. No dissection or occlusion. LEFT EXTERNAL CAROTID ARTERY: Unremarkable. No occlusion. LEFT EXTRACRANIAL VERTEBRAL ARTERY: Unremarkable. No significant stenosis. No dissection or occlusion. BRACHIOCEPHALIC AND SUBCLAVIAN ARTERIES: Unremarkable as visualized. No occlusion or significant stenosis. LUNG APICES: Unremarkable as visualized. HEAD and NECK: BONES/JOINTS: There are degenerative findings of the cervical spine. No discrete lytic or blastic abnormalities. SOFT TISSUES: Unremarkable. CAROTID STENOSIS REFERENCE USING NASCET CRITERIA: % ICA stenosis = (1 - narrowest ICA diameter/diameter of distal cervical ICA) x 100. Mild - <50% stenosis. Moderate - 50-69% stenosis. Severe - 70-94% stenosis. Near occlusion - 95-99% stenosis. Occluded - 100% stenosis. CT/CTA Head AND Neck W/ Contrast IMPRESSION: 1. There is mild atherosclerotic plaque formation of the origin of the right internal carotid artery with less than 50% cross sectional diameter stenosis. ALL ABOVE CRITERIA BY NASCET. 2. There is mild atherosclerotic plaque formation of the origin of the left internal carotid artery with less than 50% cross sectional diameter stenosis. ALL ABOVE CRITERIA BY NASCET. 3. There is calcified plaque formation of the right cavernous carotid artery, with a mild stenosis (less than 50%). ALL ABOVE CRITERIA BY NASCET. 4. There is calcified plaque formation of the left cavernous carotid artery, with a mild stenosis (less than 50%). ALL ABOVE CRITERIA BY NASCET. Electronically Signed: Jarek Potts MD at 19:58 EDT ,
[2022-09-23 19:00] VITALS: BP 125/56; PULSE 58; RESP 16; TEMP 36.5; O2SAT 95
[2022-09-23] MEDS: Clopidogrel Bisulfate 75 MG Tablet PO (19:19)
--- NOTE | 2022-09-23 20:39 | PCM.HP.STD ---
HPI - General General Date of Admission: 09/23/22 Date of Service: 09/23/22 Chief Complaint: Expressive aphasia, dysarthria HPI Narrative MEL BROOKS, is a 76 M who presents to the emergency room at [facility] after being brought in by his due to a brief episode lasting approximately 2 minutes of dysarthria. Patient's stated that the patient really did not have slurred speech but could not form words or sentences appropriately, this started suddenly while he was seated at a table. Patient does not have a good recollection of the event. According to the patient's , she has noted that the patient has had cognitive decline over the past several months. Work-up in the emergency room included labs which showed a normal CBC, chemistry profile was remarkable for BUN of 27, sodium of 133, and a chloride of 97. Glucose was 202, head CT showed no evidence of acute intracranial bleed mass or ischemia, chest x-ray was unremarkable. According to the emergency room physician, patient's symptoms had resolved for over an hour before he came to the emergency room. Patient will be placed in observation status on PCU, and MRI will be obtained as well as a CTA of the head and neck. Patient is currently taking a baby aspirin at home, I will also place him on Plavix. Patient is already on a statin, patient will be seen by speech therapy and physical therapy. I do not believe the patient needs an echocardiogram at this point. [facility] Medical History (Updated 09/23/22 @ 17:57 by Mari Parr) Atherosclerosis Bladder neck obstruction BPH (benign prostatic hyperplasia) Coronary artery disease Diabetes HTN (hypertension) Hyperlipemia Home Medications aspirin 81 mg chewable tablet 81 mg PO DAILY HEART HEALTH 10/12/17 [History Last Taken 09/23/22] atenolol 50 mg tablet (Tenormin) 50 mg PO DAILY BLOOD PRESSURE 10/12/17 [History Last Taken 09/23/22] canagliflozin 300 mg tablet (Invokana) 300 mg PO DAILY DIABETES 10/12/17 [History Last Taken Unknown] glimepiride 4 mg tablet 4 mg PO BID DIABETES 10/12/17 [History Last Taken Unknown] lisinopril 40 mg tablet 20 mg PO BID BLOOD PRESSURE 10/12/17 [History Last Taken 09/23/22] testosterone 1 % (50 mg/5 gram) transdermal gel packet (AndroGel) 5 g transdermal DAILY 10/12/17 [History Last Taken 09/23/22] sitagliptin phosphate 100 mg tablet (Januvia) 100 mg PO DAILY DIABETES 09/17/22 [History Last Taken Unknown] pen needle, diabetic 32 gauge x 5/32 (Pen Needle) #100 ea 09/19/22 [Rx Last Taken Unknown] pen needle, diabetic 32 gauge x 5/32 (Pen Needle) #100 ea 09/19/22 [Rx Last Taken Unknown] amlodipine 10 mg tablet 10 mg PO DAILY BLOOD PRESSURE 09/23/22 [History Last Taken 09/23/22] atorvastatin 40 mg tablet 40 mg PO QHS CHOLESTEROL 09/23/22 [History Last Taken 09/22/22] hydralazine 50 mg tablet 50 mg PO TID BLOOD PRESSURE 09/23/22 [History Last Taken 09/23/22] hydrochlorothiazide 12.5 mg capsule 12.5 mg PO DAILY FLUID 09/23/22 [History Last Taken 09/23/22] insulin glargine 100 unit/mL (3 mL) subcutaneous pen (Lantus Solostar U-100 Insulin) 12 unit subcut BID DIABETES 09/23/22 [History Last Taken 09/22/22] insulin lispro 100 unit/mL subcutaneous pen (Humalog KwikPen (U-100) Insulin) 10 unit subcut TIDAC DIABETES 09/23/22 [History Last Taken 09/23/22] insulin lispro 100 unit/mL subcutaneous pen (Humalog KwikPen (U-100) Insulin) See Protocol subcut ACHS DIABETES 09/23/22 [History Last Taken Unknown] metformin 500 mg tablet,extended release 24 hr 1,000 mg PO BID DIABETES 09/23/22 [History Last Taken Unknown] pantoprazole 40 mg tablet,delayed release 40 mg PO BID ACID REFLUX 09/23/22 [History Last Taken 09/23/22] Allergy/AdvReac Type Severity Reaction Status Date / Time No Known Allergies Allergy Verified 09/23/22 14:11 Social History Smoking Status: Never smoker ROS Constitutional Constitutional: Denies anorexia, change in weight, chills, fatigue, fever(s), night sweats or weakness Eyes Eyes: Denies blurry vision, change in vision, discharge from eye(s) or eye pain Cardiovascular Cardiovascular: Denies chest pain, claudication, dyspnea on exertion, edema, lightheadedness or palpitations Respiratory/Chest Respiratory/Chest: Denies cough, hemoptysis, shortness of breath at rest or shortness of breath with exertion Gastrointestinal Gastrointestinal: Denies abdominal pain, constipation, diarrhea, hematemesis, hematochezia, melena, nausea or vomiting Genitourinary Genitourinary: Denies dysuria, hematuria, urinary frequency, urinary hesitancy, urinary incontinence or urinary urgency Musculoskeletal Musculoskeletal: Denies back pain, joint pain, joint stiffness, joint swelling, myalgias or neck pain Neurologic Neurologic: Reports abnormal speech and other Details: Mild cognitive impairment according to and patient ; Denies abnormal gait, dizziness, focal weakness, headache(s), loss of vision, numbness, other visual disturbances, paresthesias, syncope or tingling Psychiatric Psychiatric: Denies anxiety, cognitive impairment, depression, irritability, mood swings or suicidal ideation Endocrine Endocrinology: Denies change in body appearance, cold intolerance, excessive sweating, heat intolerance, polydipsia or polyuria Hematologic/Lymphatic Hematologic/Lymphatic: Denies none, anemia, easy bleeding, easy bruising or lymphadenopathy Allergic/Immunologic Allergic/Immunologic: Denies rhinitis, urticaria, eczemia or asthma Vital Signs Vital Signs Vital Signs: 09/23/22 14:09 09/23/22 14:25 09/23/22 17:27 Temperature 97.4 F L 96.9 F L 96.4 F L Temperature Source Temporal Temporal Temporal Pulse Rate 58 L 58 L 60 Respiratory Rate 16 15 18 Blood Pressure 124/47 H 102/47 L 136/64 H Blood Pressure Mean 72 65 88 Blood Pressure Source Blood Pressure Position Blood Pressure Location Pulse Ox 100 97 95 Oxygen Delivery Method Room Air Room Air Room Air 09/23/22 17:28 09/23/22 19:00 Temperature 97.9 F 97.7 F L Temperature Source Temporal Oral Pulse Rate 62 58 L Respiratory Rate 17 16 Blood Pressure 144/66 H 125/56 H Blood Pressure Mean 92 79 Blood Pressure Source Monitor Monitor Blood Pressure Position Semi-Fowlers Semi-Fowlers Blood Pressure Location Left Arm Right Arm Pulse Ox 95 95 Oxygen Delivery Method Room Air Room Air Weight Weight: 82.599 kg Body Mass Index (BMI) 25.4 Physical Exam Const alert, oriented x3 and no apparent distress Constitutional Narrative: Patient is alert and oriented x3 and is able to answer simple questions appropriately General Appearance: cooperative, well kempt and well developed Orientation / Consciousness: awake, oriented to person, oriented to place and oriented to time HEENT normocephalic and moist oral mucous membranes Eyes PERRL, EOMs intact bilaterally and conjunctivae normal Neck supple, no JVD, thyroid normal and no carotid bruits General: trachea midline Resp normal respiratory effort, no retractions, no use of accessory muscles and clear to auscultation bilaterally Auscultation: Negative for rales, rhonchi or wheezes Cardio regular rate, regular rhythm, S1 normal heart sound, S2 normal heart sound, no murmurs, no rub and no gallops GI normal to inspection, nondistended, normoactive bowel sounds, soft to palpation, non-tender and non-distended Extremity no clubbing, cyanosis or edema Skin no rashes or lesions noted General Skin Exam: no breakdown Neuro oriented x3, CN's II-XII intact bilaterally, moves all extremities, no focal motor deficits and no sensory deficits noted Sensorium / Orientation: awake, alert, oriented to person, oriented to place and oriented to time Speech: speech normal Psych affect normal Results Lab / Micro Data Result Diagrams: 09/23/22 14:32 09/23/22 14:32 Labs: Laboratory Results - last 24 hr 09/23/22 14:32: WBC 10.1, RBC 4.87, Hgb 14.6, Hct 42.6, MCV 87.5, MCH 30.0, MCHC 34.3, RDW Std Deviation 43.5, RDW Coeff of Colt 13.5, Plt Count 248, MPV 11.3, Immature Gran % (Auto) 0.600, Neut % (Auto) 73.5 H, Lymph % (Auto) 13.6 L, Day % (Auto) 11.2 H, Eos % (Auto) 0.8, Baso % (Auto) 0.3, Absolute Neuts (auto) 7.4, Absolute Lymphs (auto) 1.38, Nucleated RBC % 0 09/23/22 14:32: PT 13.3, INR 1.0, APTT 24.7 09/23/22 14:32: Sodium 133 L, Potassium 3.5, Chloride 97 L, Carbon Dioxide 29.0, Anion Gap 7, BUN 27 H, Creatinine 1.10, Estim Creat Clear Calc 61.80, Est GFR (MDRD) Af Amer 84, Est GFR (MDRD) Non-Af 69, BUN/Creatinine Ratio 24.5 H, Glucose 202 H, Calcium 9.1, Troponin I High Sens [address] 09/23/22 14:57 IMPRESSION: Senescent changes with no evidence of acute intracranial bleed, mass or ischemia. If high clinical suspicion of acute ischemia recommend MRI versus CTA imaging. Electronically Signed: Dilip Puckett DO at 15:26 EDT , Chest X-Ray 09/23/22 15:10 IMPRESSION: No evidence of acute cardiopulmonary process. Electronically Signed: Dilip Puckett DO at 15:27 EDT , Head/Neck CTA 09/23/22 18:22 IMPRESSION: 1. There is mild atherosclerotic plaque formation of the origin of the right internal carotid artery with less than 50% cross sectional diameter stenosis. ALL ABOVE CRITERIA BY NASCET. 2. There is mild atherosclerotic plaque formation of the origin of the left internal carotid artery with less than 50% cross sectional diameter stenosis. ALL ABOVE CRITERIA BY NASCET. 3. There is calcified plaque formation of the right cavernous carotid artery, with a mild stenosis (less than 50%). ALL ABOVE CRITERIA BY NASCET. 4. There is calcified plaque formation of the left cavernous carotid artery, with a mild stenosis (less than 50%). ALL ABOVE CRITERIA BY NASCET. Electronically Signed: Jarek Potts MD at 19:58 EDT , Assessment & Plan Assessment/Plan (1) TIA (transient ischemic attack): PLAN: Plan 1. Transient dysarthria-possibly secondary to TIA-patient will be placed in observation status on PCU, he will continue 81 mg aspirin daily, he was placed on Plavix 75 mg daily, he will remain on his statin, he will undergo an MRI of the brain as well as a CTA of the head and neck. Patient will be seen by PT and speech therapy. #2 type 2 diabetes-patient's blood sugars will be monitored, sliding scale insulin will be administered as needed #3 Essential hypertension-patient will remain on his present medications #4 mild cognitive impairment-etiology unclear at this point, patient may have underlying mild dementia, patient told me that he would prefer not to be placed on any medication for dementia, he will follow-up with his PCP who has an appointment with in the next week. Total clinical time spent by myself addressing the patient's medical problems, reviewing all of the data, and collaborating with patient's care team: 55 minutes Charges/Coding Visit Charges Inpatient E&M: 62050 Init Hosp L2
[2022-09-23 20:46] LABS: Bedside Glucose 186 mg/dL (74-106)
[2022-09-23 21:43] VITALS: BP 141/50; PULSE 63
[2022-09-23] MEDS: hydrALAZINE 50 MG Tablet PO (21:43)
[2022-09-23] MEDS: DiphenhydrAMINE 25 MG Capsule 50 MG PO (21:44)
[2022-09-23] MEDS: Insulin Lispro 100 UNIT/ML INSULN.PEN SC (21:44)
[2022-09-23] MEDS: Heparin Injection (Vial) 5,000 UNIT/ML VIAL 5000 UNIT SC (21:44)
[2022-09-23] MEDS: Insulin Glargine-YFGN 100 UNIT/ML Pen 12 UNIT SC (21:49)
[2022-09-23] MEDS: Acetaminophen 325 MG Tablet 650 MG PO (21:50)
[2022-09-23] MEDS: Atorvastatin Calcium 40 MG Tablet PO (21:50)
[2022-09-23] MEDS: Pantoprazole Sodium 40 MG Tablet PO (21:50)
[2022-09-23] MEDS: Lisinopril 20 MG Tablet PO (21:51)
[2022-09-24 01:00] VITALS: BP 148/56; PULSE 65; RESP 18; TEMP 36.1; O2SAT 95
[2022-09-24 06:24] VITALS: BP 134/85; PULSE 70
[2022-09-24] MEDS: hydrALAZINE 50 MG Tablet PO (06:24)
[2022-09-24 07:00] VITALS: BP 134/84; PULSE 70; RESP 16; TEMP 36.1; O2SAT 96
[2022-09-24] MEDS: Aspirin 81 MG TAB.CHEW PO (07:42)
[2022-09-24] MEDS: Insulin Lispro 100 UNIT/ML INSULN.PEN SC ×2 (07:42→11:49)
[2022-09-24] MEDS: Insulin Lispro 100 UNIT/ML INSULN.PEN 10 UNIT SC ×2 (07:43→11:49)
[2022-09-24 08:11] LABS: Bedside Glucose 218 mg/dL (74-106)
[2022-09-24 09:09] VITALS: BP 105/40
[2022-09-24] MEDS: Heparin Injection (Vial) 5,000 UNIT/ML VIAL 5000 UNIT SC (09:09)
[2022-09-24] MEDS: Insulin Glargine-YFGN 100 UNIT/ML Pen 12 UNIT SC (09:10)
[2022-09-24] MEDS: Clopidogrel Bisulfate 75 MG Tablet PO (09:10)
[2022-09-24] MEDS: Pantoprazole Sodium 40 MG Tablet PO (09:10)
[2022-09-24 10:27] VITALS: BP 109/51; PULSE 62; RESP 18; TEMP 36.4; O2SAT 94
--- NOTE | 2022-09-24 11:50 | PCM.DC ---
Discharge Instructions Diet Discharge Diet: 1800 Calorie Control Diet Activity Discharge Activity: Return to Normal Activity Weight Bearing Status: Full weight bearing Follow Up Care Test Results: Test results from this visit will be discussed in further detail at your follow-up appointment, if applicable. Discharge Plan Admission Admit Date/Time: 09/23/22 17:10 Primary Reason for Your Visit: dysarthria Attending Provider: Rebel Alejandra Primary Care Provider: Paul Lo Discharge Orders/Prescriptions Prescriptions: New pantoprazole 40 mg Tablet,Delayed Release (Dr/Ec) 40 mg PO BID Qty: 0 0RF clopidogrel [Plavix] 75 mg tablet 75 mg PO DAILY Qty: 30 0RF Continued glimepiride 4 MG tablet 4 mg PO BID Hold Instructions: Hold for at 5 days and then check with PCP before resumption aspirin 81 MG tablet,chewable 81 mg PO DAILY lisinopril 40 MG tablet 20 mg PO BID atenolol [Tenormin] 50 MG tablet 50 mg PO DAILY testosterone [AndroGel] 5 GM gel in packet 5 g transdermal DAILY Invokana 300 MG tablet 300 mg PO DAILY Hold Instructions: Hold for at least 1 week and then check with PCP before resumption Januvia 100 mg Tablet 100 mg PO DAILY Hold Instructions: Hold for at least 1 week and then check with PCP before resumption atorvastatin 40 mg tablet 40 mg PO QHS metformin 500 mg tablet extended release 24 hr 1,000 mg PO BID pantoprazole 40 mg tablet,delayed release (DR/EC) 40 mg PO BID hydrochlorothiazide 12.5 mg capsule 12.5 mg PO DAILY insulin lispro [Humalog KwikPen Insulin] 100 unit/mL insulin pen 10 unit subcut TIDAC insulin lispro [Humalog KwikPen Insulin] 100 unit/mL insulin pen See Protocol subcut [facility] Protocol: 4. Sliding Scale Insulin High-Med Dosing Condition: 150-199 mg/dl = 2 units Condition: 200-259 mg/dl = 4 units Condition: 260-324 mg/dl = 6 units Condition: 325-374 mg/dl = 8 units Condition: 375-409 mg/dl = 10 units Condition: 410-449 mg/dl = 11 units Condition: Greater than 449 call physician Protocol Text: - Use for Total Daily Dose of Insulin 56-80 units - Patient who are insulin resistant or septic HIGH MEDIUM DOSING ALGORITHM insulin glargine [Lantus Solostar U-100 Insulin] 100 unit/mL (3 mL) insulin pen 12 unit subcut BID Rx Instructions: Hold if glucose less than 130 mg/dl amlodipine 10 mg tablet 10 mg PO DAILY Qty: 1 0RF Rx Instructions: reduce dose to 1/2 tablet daily-(5mg) Discontinued hydralazine 50 mg tablet 50 mg PO TID No Action (DME) pen needle, diabetic [Pen Needle] 32 gauge x 5/32 needle See Rx Instructions .Route Qty: 100 0RF Rx Instructions: As directed (DME) pen needle, diabetic [Pen Needle] 32 gauge x 5/32 needle See Rx Instructions .Route Qty: 100 0RF Rx Instructions: As directed Referrals / Follow Up: Paul Lo MD [Primary Care Provider] - See Referral Note (as scheduled) Disposition Disposition (needs filled in before D/C Order can be placed): Home, Self Care
[2022-09-24 11:57] VITALS: BP 122/70; PULSE 71; RESP 18; TEMP 36.4; O2SAT 98
--- NOTE | 2022-09-24 11:57 | DS.PCM_ITS ---
Providers Date of Admission: 09/23/22 Date of Discharge: 09/24/22 Primary Care Physician: Dr. Paul Lo MD Reason For Visit: TIA, DIABETES Diagnosis Discharge Diagnosis (1) TIA (transient ischemic attack): Status: Acute Code(s): G45.9 - Transient cerebral ischemic attack, unspecified Plan 1. Transient dysarthria secondary to TIA-patient will be placed in observation status on PCU, he will continue 81 mg aspirin daily, he was placed on Plavix 75 mg daily, he will remain on his statin, he will undergo an MRI of the brain as well as a CTA of the head and neck. Patient will be seen by PT and speech therapy. #2 type 2 diabetes-patient's blood sugars will be monitored, sliding scale insulin will be administered as needed #3 Essential hypertension-patient will remain on his present medications #4 Cognitive impairment secondary to Alzheimer's dementia Total clinical time spent by myself addressing the patient's medical problems, reviewing all of the data, and collaborating with patient's care team: 55 minutes Medications at Discharge Home Medications aspirin 81 mg chewable tablet 81 mg PO DAILY HEART HEALTH 10/12/17 atenolol 50 mg tablet (Tenormin) 50 mg PO DAILY BLOOD PRESSURE 10/12/17 canagliflozin 300 mg tablet (Invokana) 300 mg PO DAILY DIABETES 10/12/17 glimepiride 4 mg tablet 4 mg PO BID DIABETES 10/12/17 lisinopril 40 mg tablet 20 mg PO BID BLOOD PRESSURE 10/12/17 testosterone 1 % (50 mg/5 gram) transdermal gel packet (AndroGel) 5 g transdermal DAILY 10/12/17 sitagliptin phosphate 100 mg tablet (Januvia) 100 mg PO DAILY DIABETES 09/17/22 pen needle, diabetic 32 gauge x 5/32 (Pen Needle) #100 ea 09/19/22 pen needle, diabetic 32 gauge x 5/32 (Pen Needle) #100 ea 09/19/22 atorvastatin 40 mg tablet 40 mg PO QHS CHOLESTEROL 09/23/22 hydrochlorothiazide 12.5 mg capsule 12.5 mg PO DAILY FLUID 09/23/22 insulin glargine 100 unit/mL (3 mL) subcutaneous pen (Lantus Solostar U-100 Insulin) 12 unit subcut BID DIABETES 09/23/22 insulin lispro 100 unit/mL subcutaneous pen (Humalog KwikPen (U-100) Insulin) 10 unit subcut TIDAC DIABETES 09/23/22 insulin lispro 100 unit/mL subcutaneous pen (Humalog KwikPen (U-100) Insulin) See Protocol subcut ACHS DIABETES 09/23/22 metformin 500 mg tablet,extended release 24 hr 1,000 mg PO BID DIABETES 09/23/22 pantoprazole 40 mg tablet,delayed release 40 mg PO BID ACID REFLUX 09/23/22 amlodipine 10 mg tablet 10 mg PO DAILY BLOOD PRESSURE #1 TAB 09/24/22 clopidogrel 75 mg tablet (Plavix) 75 mg PO DAILY #30 tabs 09/24/22 Hospital Course Operations None Procedures None Summary of Care Provided Minutes Spent on Discharge: 31 Hospital Course: 76-year-old white male was seen in the emergency room at [facility] after being brought in by his spouse due to a brief episode of dysarthria at home, this episode lasted approximately 2 minutes, patient came into the emergency room for evaluation approximately an hour after this occurred, there were no complaints of any focal weakness or visual disturbances. Work-up in the emergency room included a CT of the brain which showed no evidence of acute process or old stroke, lab work was unremarkable except for a BUN of 27 and a glucose of 202. Patient was placed in observation status on PCU, he underwent a CTA of the head and neck which showed no evidence of occlusive disease, MRI of the brain was performed which showed no evidence of stroke. Patient was seen in consultation by speech therapy who felt that the patient had dementia, and talking with the patient's , it was noted that the patient has had a decline in cognitive function over the past year-worsened by an episode of COVID infection several months ago. On 09/24/2022, patient was seen and examined: On examination he appeared in good health and spirits, he had evidence of mild to moderate cognitive impairment. Vital signs as documented. Skin warm and dry and without overt rashes. Neck without JVD, neck was supple, trachea midline, thyroid was normal. Lungs clear bilaterally, normal air movement was noted. Heart exam notable for regular rhythm, normal sounds and absence of murmurs, rubs or gallops. Abdomen unremarkable and without evidence of organomegaly, masses, or abdominal aortic enlargement. Bowel sounds are present, abdomen is not distended. Extremities nonedematous, no cyanosis was noted, no clubbing was noted. Neuro: Cranial n erves II through XII are grossly intact, no focal motor deficits were noted, sensation to light touch and pinprick intact, motor exam 5/5 throughout. Psych: Patient is alert and oriented to person and place, he does not appear anxious or depressed, he does not appear agitated. Patient was discharged home in stable condition on 09/24/2022, patient had a previous order for physical therapy evaluation and treat as an outpatient, he was encouraged to follow through with this, I prescription for outpatient speech therapy was given to the patient, he was to follow-up with his PCP-Dr. Lo-I also talked with him by phone and told him that the patient underwent an MRI of the brain which was unremarkable and that I felt the patient had dementia. Patient was placed on Plavix and encouraged to stay on a baby aspirin daily. Weight / BMI Weight Weight: 82.599 kg Body Mass Index (BMI) 25.4 ABG / Lab / Microbiology Data Result Diagrams: 09/23/22 14:32 09/23/22 14:32 Laboratory: Laboratory Results - last 24 hr 09/23/22 14:32: WBC 10.1, RBC 4.87, Hgb 14.6, Hct 42.6, MCV 87.5, MCH 30.0, MCHC 34.3, RDW Std Deviation 43.5, RDW Coeff of Colt 13.5, Plt Count 248, MPV 11.3, Immature Gran % (Auto) 0.600, Neut % (Auto) 73.5 H, Lymph % (Auto) 13.6 L, [place] % (Auto) 11.2 H, Eos % (Auto) 0.8, Baso % (Auto) 0.3, Absolute Neuts (auto) 7.4, Absolute Lymphs (auto) 1.38, Nucleated RBC % 0 09/23/22 14:32: PT 13.3, INR 1.0, APTT 24.7 09/23/22 14:32: Sodium 133 L, Potassium 3.5, Chloride 97 L, Carbon Dioxide 29.0, Anion Gap 7, BUN 27 H, Creatinine 1.10, Estim Creat Clear Calc 61.80, Est GFR (MDRD) Af Amer 84, Est GFR (MDRD) Non-Af 69, BUN/Creatinine Ratio 24.5 H, Glucose 202 H, Calcium 9.1, Troponin I High Sens 16 09/23/22 20:23: POC Glucose 186 H 09/24/22 07:39: POC Glucose 218 H Radiography Diagnostic Testing: Radiology Impression Brain CT 09/23/22 14:57 IMPRESSION: Senescent changes with no evidence of acute intracranial bleed, mass or ischemia. If high clinical suspicion of acute ischemia recommend MRI versus CTA imaging. Electronically Signed: Dilip Puckett DO at 15:26 EDT , Chest X-Ray 09/23/22 15:10 IMPRESSION: No evidence of acute cardiopulmonary process. Electronically Signed: Dilip Puckett DO at 15:27 EDT , Brain MRI 09/23/22 18:09 IMPRESSION: 1. No intracranial mass, hemorrhage, or acute territorial infarct. 2. No radiographically significant sinus disease. 3. Severe cortical and central atrophy, moderate cerebellar atrophy. 4. Severe chronic microvascular ischemic change. Electronically Signed: Rebel Moss MD, CAROL at 20:58 EDT , Head/Neck CTA 09/23/22 18:22 IMPRESSION: 1. There is mild atherosclerotic plaque formation of the origin of the right internal carotid artery with less than 50% cross sectional diameter stenosis. ALL ABOVE CRITERIA BY NASCET. 2. There is mild atherosclerotic plaque formation of the origin of the left internal carotid artery with less than 50% cross sectional diameter stenosis. ALL ABOVE CRITERIA BY NASCET. 3. There is calcified plaque formation of the right cavernous carotid artery, with a mild stenosis (less than 50%). ALL ABOVE CRITERIA BY NASCET. 4. There is calcified plaque formation of the left cavernous carotid artery, with a mild stenosis (less than 50%). ALL ABOVE CRITERIA BY NASCET. Electronically Signed: Jarek Potts MD at 19:58 EDT , D/C Instructions Discharge Diet: 1800 Calorie Control Diet Weight Bearing Status: Full weight bearing Meaningful Use Info Meaningful Use Diagnoses (Choose all that apply): None applicable Discharge Plan Admission Admit Date/Time: 09/23/22 17:10 Primary Reason for Your Visit: dysarthria Attending Provider: Rebel Alejandra Primary Care Provider: Paul Lo Discharge Orders/Prescriptions Prescriptions: New clopidogrel [Plavix] 75 mg tablet 75 mg PO DAILY Qty: 30 0RF Continued glimepiride 4 MG tablet 4 mg PO BID Hold Instructions: Hold for at 5 days and then check with PCP before resumption aspirin 81 MG tablet,chewable 81 mg PO DAILY lisinopril 40 MG tablet 20 mg PO BID atenolol [Tenormin] 50 MG tablet 50 mg PO DAILY testosterone [AndroGel] 5 GM gel in packet 5 g transdermal DAILY Invokana 300 MG tablet 300 mg PO DAILY Hold Instructions: Hold for at least 1 week and then check with PCP before resumption Januvia 100 mg Tablet 100 mg PO DAILY Hold Instructions: Hold for at least 1 week and then check with PCP before resumption atorvastatin 40 mg tablet 40 mg PO QHS metformin 500 mg tablet extended release 24 hr 1,000 mg PO BID pantoprazole 40 mg tablet,delayed release (DR/EC) 40 mg PO BID hydrochlorothiazide 12.5 mg capsule 12.5 mg PO DAILY insulin lispro [Humalog KwikPen Insulin] 100 unit/mL insulin pen 10 unit subcut TIDAC insulin lispro [Humalog KwikPen Insulin] 100 unit/mL insulin pen See Protocol subcut [facility] Protocol: 4. Sliding Scale Insulin High-Med Dosing Condition: 150-199 mg/dl = 2 units Condition: 200-259 mg/dl = 4 units Condition: 260-324 mg/dl = 6 units Condition: 325-374 mg/dl = 8 units Condition: 375-409 mg/dl = 10 units Condition: 410-449 mg/dl = 11 units Condition: Greater than 449 call physician Protocol Text: - Use for Total Daily Dose of Insulin 56-80 units - Patient who are insulin resistant or septic HIGH MEDIUM DOSING ALGORITHM insulin glargine [Lantus Solostar U-100 Insulin] 100 unit/mL (3 mL) insulin pen 12 unit subcut BID Rx Instructions: Hold if glucose less than 130 mg/dl amlodipine 10 mg tablet 10 mg PO DAILY Qty: 1 0RF Rx Instructions: reduce dose to 1/2 tablet daily-(5mg) Discontinued hydralazine 50 mg tablet 50 mg PO TID No Action (DME) pen needle, diabetic [Pen Needle] 32 gauge x 5/32 needle See Rx Instructions .Route Qty: 100 0RF Rx Instructions: As directed (DME) pen needle, diabetic [Pen Needle] 32 gauge x 5/32 needle See Rx Instructions .Route Qty: 100 0RF Rx Instructions: As directed Referrals / Follow Up: Paul Lo MD [Primary Care Provider] - See Referral Note (as scheduled) Disposition Disposition (needs filled in before D/C Order can be placed): Home, Self Care Charges/Coding Visit Charges Inpatient E&M: 42354 Disch Hosp >30min
[2022-09-24 12:15] LABS: Bedside Glucose 290 mg/dL (74-106)
--- NOTE | 2022-09-24 12:25 | PHA.DC.MC ---
Pharmacy Service has performed discharge medication reconciliation and counseling for this patient. Spoke to kami Cannon to D/C duplicate pantoprazole orders. 1. CLOPIDOGREL 75MG PO DAILY The patient's discharge medication list was reviewed for discrepancies and discrepancies were resolved. Home Medications aspirin 81 mg chewable tablet 81 mg PO DAILY HEART HEALTH 10/12/17 atenolol 50 mg tablet (Tenormin) 50 mg PO DAILY BLOOD PRESSURE 10/12/17 canagliflozin 300 mg tablet (Invokana) 300 mg PO DAILY DIABETES 10/12/17 glimepiride 4 mg tablet 4 mg PO BID DIABETES 10/12/17 lisinopril 40 mg tablet 20 mg PO BID BLOOD PRESSURE 10/12/17 testosterone 1 % (50 mg/5 gram) transdermal gel packet (AndroGel) 5 g transdermal DAILY 10/12/17 sitagliptin phosphate 100 mg tablet (Januvia) 100 mg PO DAILY DIABETES 09/17/22 pen needle, diabetic 32 gauge x 5/32 (Pen Needle) #100 ea 09/19/22 pen needle, diabetic 32 gauge x 5/32 (Pen Needle) #100 ea 09/19/22 atorvastatin 40 mg tablet 40 mg PO QHS CHOLESTEROL 09/23/22 hydrochlorothiazide 12.5 mg capsule 12.5 mg PO DAILY FLUID 09/23/22 insulin glargine 100 unit/mL (3 mL) subcutaneous pen (Lantus Solostar U-100 Insulin) 12 unit subcut BID DIABETES 09/23/22 insulin lispro 100 unit/mL subcutaneous pen (Humalog KwikPen (U-100) Insulin) 10 unit subcut TIDAC DIABETES 09/23/22 insulin lispro 100 unit/mL subcutaneous pen (Humalog KwikPen (U-100) Insulin) See Protocol subcut ACHS DIABETES 09/23/22 metformin 500 mg tablet,extended release 24 hr 1,000 mg PO BID DIABETES 09/23/22 pantoprazole 40 mg tablet,delayed release 40 mg PO BID ACID REFLUX 09/23/22 amlodipine 10 mg tablet 10 mg PO DAILY BLOOD PRESSURE #1 TAB 09/24/22 clopidogrel 75 mg tablet (Plavix) 75 mg PO DAILY #30 tabs 09/24/22 The patient was counseled on the following discharge medications and changes in medications for homegoing were reviewed. The Reason for Use, instructions for use, and potential side effects were reviewed for all new medications. The patient's questions regarding all of their medications were answered. The patient was able to verbally demonstrate an understanding of their discharge medications.
--- NOTE | 2022-09-24 12:49 | CASEMGMT ---
RACQUEL GALEANO updated that patient would benefit from outpatient speech therapy at discharge. Script for outpatient therapy received. RACQUEL GALEANO in to patient's room to discuss needs at discharge, at bedside. Script provided to patient. Patient and denied further needs at this time.
== END 2022-09-24 14:07 | disposition home or self-care (01) ==
LOC: ED 16:50 → PCU 17:17
PROVIDERS: Admitting Provider Internal Medicine; Emergency Provider Emergency Medicine; PCP Family Medicine; Visit Provider Internal Medicine
DX: G45.9 Transient cerebral ischemic attack, unspecified (principal); E11.9 Type 2 diabetes mellitus without complications; Z79.4 Long term (current) use of insulin; R47.01 Aphasia; R41.89 Other symptoms and signs involving cognitive functions and awareness; E78.5 Hyperlipidemia, unspecified; R47.1 Dysarthria and anarthria; I10 Essential (primary) hypertension; Z79.899 Other long term (current) drug therapy; Z79.82 Long term (current) use of aspirin; Z79.84 Long term (current) use of oral hypoglycemic drugs; N40.1 Benign prostatic hyperplasia with lower urinary tract symptoms; I25.10 Atherosclerotic heart disease of native coronary artery without angina pectoris; N13.8 Other obstructive and reflux uropathy
CPT/HCPCS: 70450; 70496; 70498; 70551; 71045; 80048; 82962; 84484; 85025; 85610; 85730; 93005; 96125; 96372; 99221; 99285; Q9967; A4216; G0378

== ENCOUNTER 2022-11-18 21:35 | Emergency (ER) | payer MEDICARE, OTHER, SELFPAY ==
[2022-11-18 21:36] VITALS: BP 163/69; PULSE 77; RESP 17; TEMP 35.7; O2SAT 96; BMI 28.3
--- NOTE | 2022-11-18 22:01 | EDS_ITS ---
HPI History of Present Illness Chief Complaint: Chest Pain Informant: patient Onset/Context/Timing Onset: Today (Approximately 15 to 30 minutes prior to arrival) Activity at onset: gradual Timing: Continuous Quality: Positive for Dull Location: Substernal, Right Parasternal, Left Parasternal, Right Chest and Left Chest Worsened By: Nothing Relieved By: Nothing Associated Symptoms: Negative for Nausea, Vomiting, Diaphoresis, Dyspnea, Cough, Fever, Lightheadedness, Acid Reflux or Palpitations Narrative Narrative: Presents with chest pain that began approximately 15 to 30 minutes prior to arrival. Patient states that it came on gradually. Patient states it has been constant. Patient describes it as dull. Patient states it was across both sides of his chest. Patient states nothing makes it better nothing makes it worse. Patient denies any nausea or vomiting. Patient denies any diaphoresis. Patient denies any shortness of breath or cough. Patient denies any palpitations or lightheadedness. CVD Risk Factors: Positive for Diabetes; Negative for Hypertension, Hypercholesterolemia, Family History 1' </=55 or Smoking PE Risk Factors: Negative for Recent Travel/Surgery, Recent Immobilization, Prior DVT or PE, Cancer or OCP + Smoking + >/=35 PFSH [facility] Medical History Atherosclerosis Bladder neck obstruction BPH (benign prostatic hyperplasia) Coronary artery disease Diabetes HTN (hypertension) Hyperlipemia TIA (transient ischemic attack) Home Medications aspirin 81 mg chewable tablet 81 mg PO DAILY HEART HEALTH 10/12/17 [History Last Taken 09/23/22] atenolol 50 mg tablet (Tenormin) 50 mg PO DAILY BLOOD PRESSURE 10/12/17 [History Last Taken 09/23/22] canagliflozin 300 mg tablet (Invokana) 300 mg PO DAILY DIABETES 10/12/17 [History Last Taken Unknown] glimepiride 4 mg tablet 4 mg PO BID DIABETES 10/12/17 [History Last Taken Unknown] lisinopril 40 mg tablet 20 mg PO BID BLOOD PRESSURE 10/12/17 [History Last Taken 09/23/22] testosterone 1 % (50 mg/5 gram) transdermal gel packet (AndroGel) 5 g transdermal DAILY 10/12/17 [History Last Taken 09/23/22] sitagliptin phosphate 100 mg tablet (Januvia) 100 mg PO DAILY DIABETES 09/17/22 [History Last Taken Unknown] pen needle, diabetic 32 gauge x 5/32 (Pen Needle) #100 ea 09/19/22 [Rx Last Taken Unknown] pen needle, diabetic 32 gauge x 5/32 (Pen Needle) #100 ea 09/19/22 [Rx Last Taken Unknown] atorvastatin 40 mg tablet 40 mg PO QHS CHOLESTEROL 09/23/22 [History Last Taken 09/22/22] hydrochlorothiazide 12.5 mg capsule 12.5 mg PO DAILY FLUID 09/23/22 [History Last Taken 09/23/22] insulin glargine 100 unit/mL (3 mL) subcutaneous pen (Lantus Solostar U-100 Insulin) 12 unit subcut BID DIABETES 09/23/22 [History Last Taken 09/22/22] insulin lispro 100 unit/mL subcutaneous pen (Humalog KwikPen (U-100) Insulin) 10 unit subcut TIDAC DIABETES 09/23/22 [History Last Taken 09/23/22] insulin lispro 100 unit/mL subcutaneous pen (Humalog KwikPen (U-100) Insulin) See Protocol subcut ACHS DIABETES 09/23/22 [History Last Taken Unknown] metformin 500 mg tablet,extended release 24 hr 1,000 mg PO BID DIABETES 09/23/22 [History Last Taken Unknown] pantoprazole 40 mg tablet,delayed release 40 mg PO BID ACID REFLUX 09/23/22 [History Last Taken 09/23/22] amlodipine 10 mg tablet 10 mg PO DAILY BLOOD PRESSURE #1 TAB 09/24/22 [Rx Last Taken 09/23/22] clopidogrel 75 mg tablet (Plavix) 75 mg PO DAILY #30 tabs 09/24/22 [Rx Last Taken Unknown] Allergy/AdvReac Type Severity Reaction Status Date / Time No Known Allergies Allergy Verified 11/18/22 21:38 Surgical History no surgical history no surgical history Social History Smoking Status: Never smoker ROS ROS ED Constitutional Constitutional ED: Denies chills or fever(s) Eyes Eyes: Denies blurry vision or change in vision ENT ENT ED: Denies rhinorrhea or sore throat Cardiovascular Cardiovascular: Reports chest pain; Denies palpitations Respiratory/Chest Respiratory/Chest: Denies cough or dyspnea Gastrointestinal Gastrointestinal: Denies abdominal pain, nausea or vomiting Genitourinary Genitourinary ED: Denies dysuria or hematuria Musculoskeletal Musculoskeletal: Denies back pain or neck pain Integumentary Denies abscess or rash Neurologic Neurologic: Denies headache(s) or weakness Allergic/Immunologic Allergic/Immunologic ED: Denies mouth swelling or urticaria EXAM Physical Exam Const Vital Signs: 11/18/22 21:36 11/18/22 21:45 11/18/22 22:10 Temperature 96.2 F L Temperature Source Temporal Pulse Rate 77 Respiratory Rate 17 Respiratory Effort Normal Blood Pressure 163/69 H Blood Pressure Mean 100 Pulse Ox 96 Oxygen Delivery Method Room Air Room Air 11/18/22 23:18 11/19/22 01:17 11/19/22 01:17 Temperature Temperature Source Pulse Rate 74 85 85 Respiratory Rate 16 16 16 Respiratory Effort Blood Pressure 152/63 H 133/65 H 133/65 H Blood Pressure Mean 92 87 Pulse Ox 95 97 97 Oxygen Delivery Method Room Air Positive well nourished and well developed General Appearance ED: well developed and NAD HEENT normocephalic and atraumatic Eyes PERRL and EOMs intact bilaterally Neck supple and no JVD Chest Wall palpation of chest normal Resp normal respiratory effort and clear to auscultation bilaterally Effort and Inspection: Negative for respiratory distress Cardio regular rate and regular rhythm GI normal to inspection, nondistended, normoactive bowel sounds, soft to palpation, non-tender and non-distended Extremity normal to inspection General Extremety ED: Negative for edema or tenderness General Extremity: Negative for edema Neuro oriented x3, CN's II-XII intact bilaterally and no sensory deficits noted Sensorium / Orientation: awake and alert Motor Exam: strength 5/5 throughout Psych mental status grossly normal Heart Score History: Slightly/Non-Suspicious ECG: Normal Age: >/= 65 years Risk Factors: 1 or 2 Risk Factors Score: 3 MDM MDM MDM Narrative Medical decision making narrative: Differential diagnosis includes cardiac dysrhythmia, cardiac ischemia, pneumonia, pneumothorax, electrolyte abnormality, muscular strain, and anxiety. Patient has a Wells score of 0 and other than his age, the patient is PERC negative. Therefore, I do not feel this is from a pulmonary embolism. EKG will be obtained to assess for cardiac dysrhythmia and cardiac ischemia. Chest x-ray will be obtained to assess for pneumonia and pneumothorax. CBC will be obtained to assess for leukocytosis and anemia. Basic metabolic profile will be obtained to assess for electrolyte abnormality and renal function. High-sensitivity troponin will be obtained to assess for cardiac ischemia. 2-hour repeat high- sensitivity troponin will be obtained to assess for ongoing cardiac ischemia. Lab Data Attestation: I reviewed the patient's lab results. Lab results narrative: CBC was reviewed. There is mild leukocytosis of 15.9. The remainder was within normal limits. Basic metabolic profile was reviewed and was essentially within normal limits. High-sensitivity troponin was reviewed and was normal at 11. 2- hour repeat high-sensitivity troponin was reviewed and was normal at 12. Labs: Laboratory Results - last 24 hr 11/18/22 11/18/22 11/19/22 22:05 22:05 00:10 WBC 15.9 H RBC 4.59 L Hgb 13.6 Hct 39.9 L MCV 86.9 MCH 29.6 MCHC 34.1 RDW Std Deviation 43.7 RDW Coeff of Colt 13.7 Plt Count 258 MPV 10.7 Immature Gran % (Auto) 0.300 Neut % (Auto) 72.6 H Lymph % (Auto) 13.6 L [place] % (Auto) 12.6 H Eos % (Auto) 0.6 Baso % (Auto) 0.3 Absolute Neuts (auto) 11.5 H Absolute Lymphs (auto) 2.17 Nucleated RBC % 0 Differential Comment SCANNED Diff Path Review May foll Sodium 138 Potassium 3.6 Chloride 104 Carbon Dioxide 29.0 Anion Gap 5 BUN 35 H Creatinine 0.95 Estim Creat Clear Calc 71.56 Est GFR (MDRD) Af Amer 100 Est GFR (MDRD) Non-Af 82 BUN/Creatinine Ratio 37.0 H Glucose 111 H Calcium 9.3 Troponin I High Sens 11 12 Radiography Chest X-Ray - ED: 1 View, Read by ED Physician, Read by Radiologist and No Acute Disease Diagnostic Testing: Clinical Impression(s) from Imaging Studies Chest X-Ray 11/18/22 22:23 IMPRESSION: No acute findings in the chest. Electronically Signed: Rizwana Harden MD at 22:52 EDT , Portable 1 view chest x-ray was obtained. On my independent interpretation, lung hoff are clear. There is normal cardiac silhouette. Bony thorax is normal. There is no acute process noted. Radiologist also interpreted the x- ray and agrees. EKG Initial EKG: Attestation: I personally reviewed and interpreted this EKG as follows: Interpretation: Sinus Rhythm (74) and No Acute Injury Pattern Comments: EKG was obtained. On my independent interpretation, it showed a normal sinus rhythm with a rate of 74. [place] interval, QRS interval, and QTc intervals were all normal. [place] was normal. There are no acute ST or T wave changes. Prior EKG tracings: available for review Prior: Unchanged (09/23/2022) Treatment and Re-Evaluation :: Patient was given aspirin here. Patient was advised of his findings. Patient is feeling better on reevaluation. Patient has a HEART score of 3. Patient was advised that this is low risk for acute cardiac event. Patient was instructed to follow-up with his primary care physician in 5 to 7 days. Patient understood and was agreeable with the plan. All questions were answered. Discharge Plan Triage Chief Complaint: Chest Pain ED Provider: Balbir Cameron Dx/Rx/DC Orders Clinical Impression: Chest pain, Diabetes mellitus, type 2 Instructions: ED Chest Pain, Uncertain Cause Prescriptions: No Action glimepiride 4 MG tablet 4 mg PO BID Hold Instructions: Hold for at 5 days and then check with PCP before resumption aspirin 81 MG tablet,chewable 81 mg PO DAILY lisinopril 40 MG tablet 20 mg PO BID atenolol [Tenormin] 50 MG tablet 50 mg PO DAILY testosterone [AndroGel] 5 GM gel in packet 5 g transdermal DAILY Invokana 300 MG tablet 300 mg PO DAILY Hold Instructions: Hold for at least 1 week and then check with PCP before resumption Januvia 100 mg Tablet 100 mg PO DAILY Hold Instructions: Hold for at least 1 week and then check with PCP before resumption (DME) pen needle, diabetic [Pen Needle] 32 gauge x 5/32 needle See Rx Instructions .Route Qty: 100 0RF Rx Instructions: As directed (DME) pen needle, diabetic [Pen Needle] 32 gauge x 5/32 needle See Rx Instructions .Route Qty: 100 0RF Rx Instructions: As directed atorvastatin 40 mg tablet 40 mg PO QHS metformin 500 mg tablet extended release 24 hr 1,000 mg PO BID pantoprazole 40 mg tablet,delayed release (DR/EC) 40 mg PO BID hydrochlorothiazide 12.5 mg capsule 12.5 mg PO DAILY insulin lispro [Humalog KwikPen Insulin] 100 unit/mL insulin pen 10 unit subcut TIDAC insulin lispro [Humalog KwikPen Insulin] 100 unit/mL insulin pen See Protocol subcut [facility] Protocol: 4. Sliding Scale Insulin High-Med Dosing Condition: 150-199 mg/dl = 2 units Condition: 200-259 mg/dl = 4 units Condition: 260-324 mg/dl = 6 units Condition: 325-374 mg/dl = 8 units Condition: 375-409 mg/dl = 10 units Condition: 410-449 mg/dl = 11 units Condition: Greater than 449 call physician Protocol Text: - Use for Total Daily Dose of Insulin 56-80 units - Patient who are insulin resistant or septic HIGH MEDIUM DOSING ALGORITHM insulin glargine [Lantus Solostar U-100 Insulin] 100 unit/mL (3 mL) insulin pen 12 unit subcut BID Rx Instructions: Hold if glucose less than 130 mg/dl clopidogrel [Plavix] 75 mg tablet 75 mg PO DAILY Qty: 30 0RF amlodipine 10 mg tablet 10 mg PO DAILY Qty: 1 0RF Rx Instructions: reduce dose to 1/2 tablet daily-(5mg) Primary Care Provider: Paul Lo Referrals: Paul Lo MD [Primary Care Provider] - 5-7 Days Disposition Disposition: Home, Self Care Discharge Date/Time: 11/19/22 01:18
[2022-11-18] MEDS: Aspirin 81 MG TAB.CHEW 324 MG PO (22:06)
--- NOTE | 2022-11-18 22:23 | RAD_ITS ---
EXAM: XR CHEST, 1 VIEW CLINICAL INDICATION: chest pain TECHNIQUE: Frontal view of the chest. COMPARISON: September 17, 2022 FINDINGS: LUNGS AND PLEURAL SPACES: Unremarkable. No consolidation or edema. No pneumothorax. No effusion. HEART: Unremarkable. Cardiac silhouette not enlarged. MEDIASTINUM: Central airways and mediastinal contour are unremarkable. BONES/JOINTS: Unremarkable. SOFT TISSUES: Unremarkable. OTHER FINDINGS: . RAD/Chest 1 View (Portable) IMPRESSION: No acute findings in the chest. Electronically Signed: Rizwana Harden MD at 22:52 EDT ,
[2022-11-18 22:38] LABS: Anion Gap 5 (5-15); BUN 35 mg/dL (7-18); Calcium,Total 9.3 mg/dL (8.5-10.1); Chloride 104 mmol/L (98-107); Creatinine, Serum 0.95 mg/dL (0.70-1.30); EST Glomerular Filtration Rate 82 mL/min (>60); Est Glom Filt Rate - Afr Amer 100 mL/min (>60); Estimated Creatinine Clearance 71.56 ml/min; Glucose 111 mg/dL (74-106); Potassium 3.6 mmol/L (3.5-5.1); Sodium Level 138 mmol/L (136-145); Troponin-I HS (w/2H Reflex) 11 pg/mL (3.0-78.0)
[2022-11-18 22:39] LABS: Absolute Lymphocyte Count 2.17 X10^3/uL (0.83-4.51); Absolute Neutrophil Count 11.5 X10^3/uL (2.0-7.7); Basophil# 0.04 X10^3/uL; Basophil% 0.3 % (0-1); Eosinophils% 0.6 % (0-5); Hematocrit 39.9 % (40-54); Hemoglobin 13.6 g/dL (13.0-16.5); Lymphocyte # 2.17 X10^3/ul (0.83-4.51); Lymphocyte % 13.6 % (19-41); Mean Corp Hgb Conc 34.1 g/dL (32-36); Mean Corpuscular Hgb 29.6 pg (27.0-32.0); Mean Corpuscular Volume 86.9 fL (80-94); Mean Platelet Vol. 10.7 fl (6.2-12.0); Monocyte# 2.01 X10^3/uL; Monocyte% 12.6 % (0-10); NRBC Flagged by Analyzer 0 % (0-5); Neutrophil # 11.54 X10^3/uL (2.7-7.7); Neutrophil % 72.6 % (47-70); POSITIVE DIFFERENTIAL YES; Platelet Count 258 K/mm3 (150-450); RBC Distribution Width CV 13.7 % (11.6-14.6); RBC Distribution Width SD 43.7 fl (35.1-43.9); Red Blood Count 4.59 M/mm3 (4.6-6.2); White Blood Count 15.9 K/mm3 (4.4-11.0)
[2022-11-18 22:41] LABS: Differential Indicated SCAN CRITERIA MET
[2022-11-18 23:18] VITALS: BP 152/63; PULSE 74; RESP 16; O2SAT 95
[2022-11-18 23:24] LABS: Differential Comment SCANNED
[2022-11-19 00:14] LABS: Reflex Troponin-HS? (from REC) Y
[2022-11-19 00:39] LABS: Troponin-I HS 12 pg/mL (3.0-78.0)
[2022-11-19 01:17] VITALS: BP 133/65; PULSE 85; RESP 16; O2SAT 97
[2022-11-20 13:34] LABS: Pathologist Review Reviewed
== END 2022-11-19 01:18 | disposition home or self-care (01) ==
PROVIDERS: Emergency Provider Emergency Medicine; PCP Family Medicine; Visit Provider Emergency Medicine
DX: R07.9 Chest pain, unspecified (principal); E11.9 Type 2 diabetes mellitus without complications; Z79.4 Long term (current) use of insulin; I25.10 Atherosclerotic heart disease of native coronary artery without angina pectoris; I10 Essential (primary) hypertension; E78.5 Hyperlipidemia, unspecified; Z79.82 Long term (current) use of aspirin; Z79.899 Other long term (current) drug therapy; Z79.84 Long term (current) use of oral hypoglycemic drugs; Z79.02 Long term (current) use of antithrombotics/antiplatelets
CPT/HCPCS: 71045; 80048; 84484; 85025; 93005; 99283; A4216

== ENCOUNTER 2022-12-26 10:00 | Outpatient (RCR) | payer MEDICARE, OTHER, SELFPAY ==
--- NOTE | 2022-10-08 17:01 | HP.OTEVAL_ITS ---
Patient's Visit Information MEL BROOKS is a 76 year old M, referred to Occupational Therapy by Dr. Iam Camarena MD, with a diagnosis of Weakness, DM. Date of Evaluation: 10/06/22 Occupational Therapist: Funmi Melchor, SHIVAM/Josiah, CHT - Subjective This 76 year old male [place] was seen for OT eval with dx of DM, weakness. pt states him and his were on a curse the end of July and tested positive and was isolated on the curse for 6 day;. pt states prior to this issue with his DM. he was IND with ADLs and IADLs. states he went to ER and was sent home on 09/19/22. pts states she returned pt to ER due to limited ability to express his needs and difficulty with ambulation. pt retired from the [employer] 7. pt states he is sleeping during the day. states he is weak. pt would like to return to [facility] 3 days a week. 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 has shower chair he can use as needed-. has ww uses at night. has night lights in the bedroom and bathroom to ensure safety. likes to read. has dog he likes to walk. would do little laundry. pickle ball player. pt has been going to [facility] Thursday- thu. and Thursday - ROM ROM Comments: pt demo full ROM of bilateral UE - Strength Shoulder: shoulder flex right 15# left 15# Elbow: biceps right 20# left 23# triceps 21# left 26# Singing Waiter Or Waitress: right 45 left 35# Lateral Pinch: right 10# left 8# Tripod Pinch: right 10# left 6# Strength Comments: pt demo generalized weakness - Sensation Sensation Comments: denies - Quick DASH-Disab of Arm,Shoulder& Hand Quick DASH Score: 13.6350 - Goals Goal:Singing Waiter Or Waitress/Pinch strength at least 75% of unaffected hand: Yes Goal:Full use of affected hand in daily activities including: Yes Other Goal: pt will demo a increase in BUE strength to lift 15# with safe ability to return to IADLs IND by d/c. pt and pts family will demo understanding of using ad. eq. for ADLs until pt can safely perform ADLs and IADLS. - Rehabilitation General Assessment: pt demo with generalized UE weakness and limited endurance to perform ADLs and IADls with good safety. pt would benefit from skilled OT services 2-3x week for 4 weeks to strength pt so he can return to safetly performing ADls and IADLs at his PLOF. both pt and pts spouse agree with POC. Rehabilitation Potential: Good - Anticipated Interventions Strengthening, Ergonomic Education, Neuro Reeducation, Education re assistive Equipment, Education re Diagnosis, Caregiver Training, Home Program - Visit Plan Frequency: 2-3x /Week Duration: 4 Weeks General Plan: initiate UB strengthening on gym eq. as pt tolerates TEXT: Thank you for the opportunity to evaluate your patient. For Medicare and Medicare HMO plans, please review the plan of care and approve it. It will need to be FAXED BACK to us at [phone] for Medicare purposes. Please let me know if there are questions or concerns regarding this plan of care. Physician Signature: Date:
--- NOTE | 2022-10-09 12:17 | HP.SP.EVAL ---
Visit History - Visit Info Date of Eval: 10/09/22 Visit: 1 Patient's Approved Number of Visits: 10 Insurance Date Limit: 05/31/23 Balance Wheel Hand Filer: GRAY - Bacilio Attending Doctor: Referring Doctor: Reason for Referral: DM WEAKNESS DKA / RX HERE Date of Onset of Diagnosis: 09/22/22 Previous speech therapy: Yes Results: Evaluation at [facility] on 09/24/22: Total BCAT? Score: 23. Impression: This BCAT? score indicates severe cognitive impairment or dementia (moderate-severe level). This BCAT? total score is suggestive of significant cognitive impairment. Persons with his score usually have difficulties in making new memories, as well as problems in other cognitive areas, especially with executive functions. As for impairment in memory, this should not be confused with the ability to recall events, places, and people from the distant past. When healthcare professionals think about memory capability, they are referring to the prospective ability to make a new memory. Many people with mild or moderate dementia are able to recall facts from the remote past, but have problems remembering recent events and learning new material. Individuals with this BCAT? score may also have problems with executive control functions (ECFs). ECFs can be thought of as our cognitive air control/anti air warfare officer center. Executive abilities include complex cognitive skills such as judgment, planning, organization, and problem-solving. ECFs have a direct impact on the self-management of instrumental activities of daily living (IADL), such as shopping, laundry, transportation, medication, telephone, housekeeping, and finances. Persons with this BCAT? score often have problems in these areas, which could place them at safety risk if they are living in a situation without some level of direct support. Dementia is a syndrome, not a specific diagnosis. Dementia is caused by a specific disease or diseases. The most common cause of dementia is Alzheimer's disease. However, further evaluation should be done before determining a specific cause. The BCAT? test produces a score that can help stage dementia or significant cognitive dysfunction. It can also help identify individuals with mild versus moderate - severe dementia. BCAT? score of 25 to 33 are suggestive of mild dementia, and scores of 24 and below indicate moderate - severe dementia. You might consider administering the Brief Cognitive Impairment Scale (BCIS?) for scores in the moderate - severe range to get even more information about cognitive and behavioral functioning. The BCIS? is designed for patients with severe cognitive impairment and can be completed interactively on the BCAT? website (www.[employer]). Total Contextual Memory Factor (CMF) Score: 9. The Contextual Memory Factor (CMF) indicates current verbal memory skills. It is highly predictive of cognitive diagnosis (MCI versus dementia) and instrumental activities of daily living (IADL). It is also sensitive to those who have amnestic MCI (and who do not have dementia). The score range is 0-15. Scores below 12 typically indicate significant memory concerns that can impact everyday living. A score of 14, combined with a total BCAT? score in the MCI range, is often associated with [id number]. When this occurs, a review of executive functions and other cognitive domains may be helpful. Total Executive Control Functions Factor (ECFF) Score: 0. The Executive Control Functions Factor (ECFF) indicates current executive control functions abilities. There is a strong correlation between ECFF and predicting everyday activities of daily living, especially the higher order skills involving judgment, problem-solving, and reasoning. The score range is 0-7. Scores below 5 generally indicate problems in executive control that could interfere with successful independent living. Some people have problems with executive functions but have relatively intact memory skills. When this occurs, the subtype of executive MCI may be indicated. Total Complex Attention Factor (CAF) Score: 4. Complex attention is an essential cognitive domain. It includes immediate, selective, and divided attention skills. It is highly associated with the ability to perform basic and complex activities of daily living. The Complex Attention Factor score (CAF) predicts ADL and IADL abilities and empirically measures the attentional skills necessary for independent functioning. Lower scores are associated with weaker performance, whereas higher scores suggest stronger abilities. Scores of 7-8 are within the normal/adequate range, and persons with these results may demonstrate higher levels of independence. Scores below 7 indicate likely attentional deficits, the need for more supervision or assistance, and higher risk for safety concerns and errors when completing basic or complex functional tasks. Please note that the CAF has a low performance threshold so most people should score in the adequate range. Total Cognitive Task Project Production Engineer (CTM) Score: 13. The Cognitive Task Project Production Engineer (CTM) integrates an individual?s performance in three primary cognitive domains: contextual memory, executive control functions, and complex attention. Together, these skills are among the most powerful predictors of massey outcomes, including performance of basic and complex activities of daily living. The CTM score informs clinicians and families about impairments that can impact functional performance and highlight each individual?s risk for falls and adverse events at home, rehospitalizations and the need for residential support. The CTM score should be considered as part of a comprehensive assessment and be used to guide treatment interventions that address these underlying skill areas and promote a safe and sustainable transition to the next level of care. The CTM is an important clinical tool that informs the plan of care and should be used to identify persons at higher risk for cognitively related functional deficits. When interpreting the CTM score, it is helpful to recognize what scores indicate normal functioning and what scores indicate higher risk. CTM scores in the 26-30 range are within normal limits. These patients have relatively low risk. CTM scores in the 20-25 range indicate moderate risk. CTM scores below 20 indicate relatively high risk. Other Relevant Medical History/Diagnoses/Surgery: MEL BROOKS is a 76 year old man who presents to [facility] d/t diagnosis of cognitive impairment. Pt arriving with , Alejandra. 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 See above for speech therapy testing during his hospital admission on 09/24/22. MRI results: 09/22/22 report of MRI/Brain without Contrast from hospitalization IMPRESSION: 1. No intracranial mass, hemorrhage, or acute territorial infarct; 2. No radiographically significant sinus disease; 3. Severe cortical and central atrophy, moderate cerebellar atrophy; 4. Severe chronic microvascular ischemic change. Pt is not currently driving. Waiting until his appt with neurology on October 20, 2022. Pt reporting at home he likes to watch tv and read. He does help sometimes with cutting up vegetables. Does not clean. Helps intermittently prepare his medications. Smoking Status: Never smoker - Diagnosis Diagnosis: Mild-Moderate Cognitive Impairment - Pain Is pain an issue with your current prescribed condition?: No - Personal Preferred language: Maltese History - History Date of Eval: 10/09/22 Date of Onset of Diagnosis: 09/22/22 Previous speech therapy: Yes Results: Evaluation at [facility] on 09/24/22: Total BCAT? Score: 23. Impression: This BCAT? score indicates severe cognitive impairment or dementia (moderate-severe level). This BCAT? total score is suggestive of significant cognitive impairment. Persons with his score usually have difficulties in making new memories, as well as problems in other cognitive areas, especially with executive functions. As for impairment in memory, this should not be confused with the ability to recall events, places, and people from the distant past. When healthcare professionals think about memory capability, they are referring to the prospective ability to make a new memory. Many people with mild or moderate dementia are able to recall facts from the remote past, but have problems remembering recent events and learning new material. Individuals with this BCAT? score may also have problems with executive control functions (ECFs). ECFs can be thought of as our cognitive air control/anti air warfare officer center. Executive abilities include complex cognitive skills such as judgment, planning, organization, and problem-solving. ECFs have a direct impact on the self-management of instrumental activities of daily living (IADL), such as shopping, laundry, transportation, medication, telephone, housekeeping, and finances. Persons with this BCAT? score often have problems in these areas, which could place them at safety risk if they are living in a situation without some level of direct support. Dementia is a syndrome, not a specific diagnosis. Dementia is caused by a specific disease or diseases. The most common cause of dementia is Alzheimer's disease. However, further evaluation should be done before determining a specific cause. The BCAT? test produces a score that can help stage dementia or significant cognitive dysfunction. It can also help identify individuals with mild versus moderate - severe dementia. BCAT? score of 25 to 33 are suggestive of mild dementia, and scores of 24 and below indicate moderate - severe dementia. You might consider administering the Brief Cognitive Impairment Scale (BCIS?) for scores in the moderate - severe range to get even more information about cognitive and behavioral functioning. The BCIS? is designed for patients with severe cognitive impairment and can be completed interactively on the BCAT? website (www.thebcat.com). Total Contextual Memory Factor (CMF) Score: 9. The Contextual Memory Factor (CMF) indicates current verbal memory skills. It is highly predictive of cognitive diagnosis (MCI versus dementia) and instrumental activities of daily living (IADL). It is also sensitive to those who have amnestic MCI (and who do not have dementia). The score range is 0-15. Scores below 12 typically indicate significant memory concerns that can impact everyday living. A score of 14, combined with a total BCAT? score in the MCI range, is often associated with [id number]. When this occurs, a review of executive functions and other cognitive domains may be helpful. Total Executive Control Functions Factor (ECFF) Score: 0. The Executive Control Functions Factor (ECFF) indicates current executive control functions abilities. There is a strong correlation between ECFF and predicting everyday activities of daily living, especially the higher order skills involving judgment, problem-solving, and reasoning. The score range is 0-7. Scores below 5 generally indicate problems in executive control that could interfere with successful independent living. Some people have problems with executive functions but have relatively intact memory skills. When this occurs, the subtype of executive MCI may be indicated. Total Complex Attention Factor (CAF) Score: 4. Complex attention is an essential cognitive domain. It includes immediate, selective, and divided attention skills. It is highly associated with the ability to perform basic and complex activities of daily living. The Complex Attention Factor score (CAF) predicts ADL and IADL abilities and empirically measures the attentional skills necessary for independent functioning. Lower scores are associated with weaker performance, whereas higher scores suggest stronger abilities. Scores of 7-8 are within the normal/adequate range, and persons with these results may demonstrate higher levels of independence. Scores below 7 indicate likely attentional deficits, the need for more supervision or assistance, and higher risk for safety concerns and errors when completing basic or complex functional tasks. Please note that the CAF has a low performance threshold so most people should score in the adequate range. Total Cognitive Task Project Production Engineer (CTM) Score: 13. The Cognitive Task Project Production Engineer (CTM) integrates an individual?s performance in three primary cognitive domains: contextual memory, executive control functions, and complex attention. Together, these skills are among the most powerful predictors of massey outcomes, including performance of basic and complex activities of daily living. The CTM score informs clinicians and families about impairments that can impact functional performance and highlight each individual?s risk for falls and adverse events at home, rehospitalizations and the need for residential support. The CTM score should be considered as part of a comprehensive assessment and be used to guide treatment interventions that address these underlying skill areas and promote a safe and sustainable transition to the next level of care. The CTM is an important clinical tool that informs the plan of care and should be used to identify persons at higher risk for cognitively related functional deficits. When interpreting the CTM score, it is helpful to recognize what scores indicate normal functioning and what scores indicate higher risk. CTM scores in the 26-30 range are within normal limits. These patients have relatively low risk. CTM scores in the 20-25 range indicate moderate risk. CTM scores below 20 indicate relatively high risk. Other Relevant Medical History/Diagnoses/Surgery: MEL BROOKS is a 76 year old man who presents to [facility] d/t diagnosis of cognitive impairment. Pt arriving with , Alejandra. 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 See above for speech therapy testing during his hospital admission on 09/24/22. MRI results: 09/22/22 report of MRI/Brain without Contrast from hospitalization IMPRESSION: 1. No intracranial mass, hemorrhage, or acute territorial infarct; 2. No radiographically significant sinus disease; 3. Severe cortical and central atrophy, moderate cerebellar atrophy; 4. Severe chronic microvascular ischemic change. Pt is not currently driving. Waiting until his appt with neurology on October 20, 2022. Pt reporting at home he likes to watch tv and read. He does help sometimes with cutting up vegetables. Does not clean. Helps intermittently prepare his medications. Smoking Status: Never smoker Hx Smoking: No Hx Tobacco Use: No - Pain Is pain an issue with your current prescribed condition?: No Patient Allergies - Allergies Allergies No Known Allergies Allergy (Verified 09/23/22 14:11) CLQT - CLQT CLQT Administered: Yes CLQT: Cognitive Linguistic Quick Test (CLQT) is a criterion - referenced assessment designed for adults between the ages of 18 and 89 with known or suspected neurological dysfuntions. The CLQT is to assess strength and weaknesses in five cognitive domains. Severity ratings are within normal limits, mild, moderate, severe deficits. The subtests are as follows: Date: 10/09/22 - Attention Attention: Mild - Memory Memory: Mild - Executive Functions Executive Functions: Moderate - Language Language: Mild - Visuospatial Skills Visuospatial Skills: Mild - Composite Severity Rating Composite Severity Rating: Mild - Clock Drawing Severity Rating Clock Drawing Severity Rating: Severe - CLQT Comments Subtest Analysis Cognitive Domain Scores. ? Personal Facts (memory and language ability): 01/06 (MEETS CRITERION). ? Symbol Cancellation (nonlinguistic task of visual attention and perception, integrity of the upper/lower quadrants of the left/right visual hoff): 05/12 (MEETS CRITERION). ? Confrontation Naming (aphasia, perseveration, verbosity): 03/10 (MEETS CRITERION). ? Clock Drawing (screening of all cognitive domains): 11/11 (BELOW CRITERION CUT OFF). ? Story Retelling (memory and comprehension, arousal, attention, storage capacity, narrative skills): 10/08 (MEETS CRITERION). ? Symbol Trails (nonlinguistic task to assess planning, self-monitoring, working memory, and visual attention, and impulsivity): 06/10 (BELOW CRITERION CUT OFF - PT HAD GREAT DIFFICULTY WITH THIS TASK). ? Generative Naming (word retrieval skills, perseveration): 07/10 (BELOW CRITERION CUT OFF - SUSPECT SCORES MORE LIKELY D/T ATTENTION AND EXECUTIVE FUNCTIONING VS. LANGUAGE). ? Design Memory (nonlinguistic task to assess visual discrimination & analysis, attention, and visual memory, impulsivity, perseveration): 09/04 (MEETS CRITERION). ? Mazes (planning, mental flexibility, self-monitoring, visual discrimination, and impulsivity): 10/06 (MEETS CRITERION - ALTHOUGH PT WITH POOR ATTENTION TO DETAIL). ? Design Generation (nonlinguistic task of creativity and mental flexibility): 09/11 (BELOW CRITERION CUT OFF - PT PERSEVERATIVE ON 2 DESIGNS AND 7 OTHERS WITH MORE/LESS THAN 3 LINES). Severity Rating. Domain Scores: Attention = 153/215 (MILD); Memory = 128/185 (MILD); Executive Functioning = 12/40 (MODERATE); Language = 25/37 (MILD); Visuospatial Skills = 61/105 (MILD); Clock Drawing = 11/11 (SEVERE). Item Analysis Pt's overall testing scores reveal a MILD cognitive impairment however Pt had great difficulty with the trail making, clock drawing, design generation, and navigating the mazes. Pt had difficulty paying attention to details on these tasks. In the trail making he arcelia lines to random shapes with limited purpose with no awareness he was not following directions. During the clock drawing task, Pt often checking in with therapist to see if he was writing the numbers correctly - therapist reporting she was unable to help - when it came time to draw the time, Pt circling a 1 he had crossed out with no hands present. While completing the design generation task, Pt was perseverative on 2 designs and had 7 designs that had either 3 or 5 lines when he was asked to use 4. Pt with no awareness of errors. Last, while navigating the mazes, on 3 occasions, Pt traveled more then 0.[address] before realizing there was a end revealing poor attention to detail and poor organization and planning skills. Plan - Plan Plan: Will recommend Pt for weekly outpatient speech therapy to address mild-moderate cognitive impairment characterized by deficits in immediate and short-term memory, word retrieval, executive functioning, attention, problem solving/reasoning, and safety awareness. Pt would benefit from training in compensatory strategies for recall and word retrieval, as well as cognitive training to improve cognitive functioning. Without skilled ST services, the Pt is at risk for decreased independence completing daily living tasks. - Recommendations Treatment Warranted: Yes Treatment Warranted: Cognition - Progress Prognosis: Excellent - Frequency Frequency: 2x /Week Additional (Frequency): 60 min. appts. Duration: 5 weeks. - Goals that are Established Determination:: Goals will be added/modified as deemed necessary and appropriate. Therapy will be discontinued when results of re-evaluation indicate therapy is no longer needed or lack of progress has been documented. - Goal #1-5 Goal #1: Dakota will complete problem solving, reasoning, and executive function tasks including but not limited to medication management and time management with 85% acc given minimum verbal cues in 2 consecutive sessions within 5 weeks from initial evaluation. Goal #2: Dakota will complete problem solving, reasoning, and executive function tasks including but not limited to planning meals and a grocery list with 85% acc given minimum verbal cues in 2 consecutive sessions. Goal #3: Dakota will modify environment at home via implementing memory compensatory strategies within 5 weeks from initial evaluation. Goal #4: Dakota will complete basic sustained and/or alternating attention tasks with 80% acc independently across 2 measured opportunities within 5 weeks from initial evaluation. Education - Patient has Indicated that the Following Identified Educational Needs: None The Patient has indicated that they have no educational or learning abilities that may effect their care.: Yes - Patient Instruction Patient Education: Diagnosis, Treatment Plan, Goals Person Taught: Patient, Family Teaching Method: Discussion, Demonstration Response to teaching: Return demonstration, Verbalize understanding
--- NOTE | 2022-10-10 11:04 | HP.PTEVAL_ITS ---
Patient's Visit Information MEL BROOKS is a 76 year old M referred to Physical Therapy by Dr. Paul Lo MD with a diagnosis of WEAKNESS ,DKA. Date of Evaluation: 10/10/22 Physical Therapist: Efra Cortez, PT, Cert MDT, OCS - Visit Plan Frequency: 2x /Week Duration: 4 Weeks Plan: PT INTERVTIONS PROGRESSIVE BALANCE TRAINING ,STRENGTHENING BLE ,FUNCTIONAL STRENGTHENING ,AND EDURANCE PROGRAM - Subjective This 76 y/o male presents to physical therapy with weakness. Patient was on cruise August 30 developed Covid + . When patient came home became progressively worse. Patient had on episode of ER due to vomiting from diabetic ketosis acidosis. Patient followed with DR due progressive weakness decrease speech word finding. Patient had further diagnostic test to r/o CVA with CATSCAN -. Patient had one fall due to mechanical . Patient initially was using fww from 1st hospital visit. Patient has 2 story home stays on 1st floor with walk in shower. Patient has hand held shower. Patient has no pain. Patient has had decrease memory and plans to see Neurologist. Patient condtion affects QOL and function. Patient is member of [employer] . Patient also concerned about balance outside . SOCIAL: . VOCATION: - Objective POSTURE: mild forward posture hips/knees flexed. GAIT: reciprocal pattern hips/knees slightly flexed slow naomi shuffle gait. NEURO: intact. MMT: quads/hams 4/5 ,hip flexion/abduction 4-/5 ,ankle 5/5. FLEXABLITY: mod tight hamstrings. STAIRS: one step at time. PALAPTION: unremarkable - Balance/Special Test Scores Functional Gait Assessment Score: 15 % Disability: 50.0000 CATSIB Score (Max score 120 seconds): 75 Lower Extremity Functional Score: 36 30 Second Chair Rise Test Seconds: 7 - Goals Goal 1:: Patient to be I with HEP Goal Time Frame: 4-6 Weeks Goal 2:: Patient to improve CATSIB by 5 points or> to improve balance Goal Time Frame: 4-6 Weeks Goal 3:: Patient to improve functional gait assessment by 5-10 points to improve balance Goal Time Frame: 4-6 Weeks Goal 4:: Patient to demonstrate 50% improvement with increase function and gait Goal Time Frame: 4-6 Weeks Goal 5:: Patient to improve LFES score by 5-10 points to improve balance and QO Goal Time Frame: 4-6 Weeks Goal 6:: Patient to improve 30sec sit-stand by by 3-5 times to improve functional strength Goal Time Frame: 4-6 Weeks - Rehabilitation Potential Physical Therapy Diagnosis: This patient developed weakness post Covid with gait /strength progressively became worse thus has decrease gait ,balance with test scores decreased and has memory deficits thus plan to see MD Rehabilitation Potential: Good - Anticipated Interventions Patient/Client Instruction: Educate patient on: Plan of Care For the Purpose of:: To decrease pain, To increase ROM, To improve muscle performance and motor function, To improve ability to perform ADL's, To increase tolerance to activity/condition/position, To improve ability of physical actions for home/community/work/leisure, To improve health of tissue, To decrease soft tissue restriction, To increase flexibility/ROM, To improve endurance, To improve balance Therapeutic Exercise to Include: Strength training, Endurance training, Balance training, Coordination, Flexibilty training, Gait and locomotor training Comment: BLE For the Purpose of:: To decrease pain, To decrease swelling/inflammation, To improve muscle performance and motor function, To improve ability to perform ADL's, To increase tolerance to activity/condition/position, To improve ability of physical actions for home/community/work/leisure, To improve gait and locomotor functions, To increase flexibility/ROM, To improve endurance, To improve balance Thank you for the opportunity to evaluate your patient. For Medicare and Medicare HMO plans, please review the plan of care and approve it. It will need to be FAXED BACK to us at [phone] for Medicare purposes. For Medicare only, by signing this I certify the plan of care. Please let me know if there are questions or concerns regarding this plan of care. Physician Signature: Date :
--- NOTE | 2022-11-13 09:27 | HP.OTDCSUM_ITS ---
It has been my pleasure to treat MEL BROOKS under orders from Dr. Paul Lo MD, for the diagnosis of Weakness, DM for a total of 10 visit(s). Please see the following information for a summary of their discharge status. % Improvement: 70 Objective/Function: right journalism internship strength 50# initial was 45#. left journalism internship strength 55# initial was 35#. right lateral pinch 14# increase from 10#. left lateral pinch no change at 8#. right shoulder flexion 15#. left shoulder flexion 18# increase from 15#. right biceps 27# left 35# increase from 23#. right triceps 25# increase from 21#. left triceps 30# increase from 26#. pt has made increase in overall strength. Patient Goals: Regain Strength, Be More Independent in ADLS, Resume Former Household Responsibilities (Cooking,Cleaning,Yard, etc.) Goal:Hand Wrapper Operator/Pinch strength at least 75% of unaffected hand: Yes Goal:Full use of affected hand in daily activities including: Yes Goal:Decrease scar hypersensitivity: Yes Other Goal: pt will demo a increase in BUE strength to lift 15# with safe ability to return to IADLs IND by d/c. pt and pts family will demo understanding of using ad. eq. for ADLs until pt can safely perform ADLs and IADLS. Plan: D/C with gym eq. Discharge Comments: pt was seen for 10 OT sessions to increase pts strength. pt met goals and will continue with jeniffer stearns and has gym ex. for UB strengthening. pt agrees with D/C. If there are questions or concerns regarding this patient's occupational therapy, please fell free to call me at [phone]. Thank you for the re ferral of this patient. Sincerely, Funmi Melchor, OTR/L, CHT
--- NOTE | 2022-11-13 10:00 | HP.PTDCSUM ---
It has been my pleasure to treat MEL BROOKS referred by Dr. Paul Lo MD, with the diagnosis of WEAKNESS ,DKA for a total of 9 visit(s). Discharge Date: 11/13/22 Please see the following information for a summary of their discharge status. Subjective: Doing okay..ready to do ex's on own % Improvement: 50 Objective/Function: POSTURE: mild forward posture hips/knees flexed. GAIT: reciprocal pattern hips/knees slightly flexed slow naomi shuffle gait. NEURO: intact. MMT: quads/hams 4/5 ,hip flexion/abduction 4-/5 ,ankle 5/5. FLEXABLITY: mod tight hamstrings. STAIRS: one step at time. Goal 1:: Patient to be I with HEP Goal Progress: Goal Met Goal 2:: Patient to improve CATSIB by 5 points or> to improve balance Goal Progress: Goal Met Goal 3:: Patient to improve functional gait assessment by 5-10 points to improve balance Goal Progress: Goal Met Goal 4:: Patient to demonstrate 50% improvement with increase function and gait Goal Progress: Goal Met Goal 5:: Patient to improve LFES score by 5-10 points to improve balance and QO Goal Progress: Goal Met Goal 6:: Patient to improve 30sec sit-stand by by 3-5 times to improve functional strength Plan: D/C If there are questions or concerns regarding this patient's physical therapy, please feel free to call me at [phone]. Thank you for the referral of this patient. Sincerely, Efra Cortez, PT, Cert MDT, OCS Balance/Gait/Functional tests - Balance/Special Test Scores Functional Gait Assessment Score: 21 % Disability: 30.0000 CATSIB Score (Max score 120 seconds): 96 Lower Extremity Functional Score: 49 TUG Test Time Seconds: 10.67 Tug Test: <20 sec.=mostly independent 30 Second Chair Rise Test Seconds: 10
--- NOTE | 2022-11-21 15:19 | HP.SPREEV_ITS ---
Visit History - Visit Info Date of Eval: 10/09/22 Visit: 9 Patient's Approved Number of Visits: 10 Insurance Date Limit: 05/31/23 Anthropology And Archeology Instructor: GRAY - Bacilio Attending Doctor: Referring Doctor: Reason for Referral: DM WEAKNESS DKA / RX HERE Date of Onset of Diagnosis: 09/22/22 Previous speech therapy: Yes Results: Evaluation at [facility] on 09/24/22: Total BCAT? Score: 23. Impression: This BCAT? score indicates severe cognitive impairment or dementia (moderate-severe level). This BCAT? total score is suggestive of significant cognitive impairment. Persons with his score usually have difficulties in making new memories, as well as problems in other cognitive areas, especially with executive functions. As for impairment in memory, this should not be confused with the ability to recall events, places, and people from the distant past. When healthcare professionals think about memory capability, they are referring to the prospective ability to make a new memory. Many people with mild or moderate dementia are able to recall facts from the remote past, but have problems remembering recent events and learning new material. Individuals with this BCAT? score may also have problems with executive control functions (ECFs). ECFs can be thought of as our cognitive commanding officer homicide squad center. Executive abilities include complex cognitive skills such as judgment, planning, organization, and problem-solving. ECFs have a direct impact on the self-management of instrumental activities of daily living (IADL), such as shopping, laundry, transportation, medication, telephone, housekeeping, and finances. Persons with this BCAT? score often have problems in these areas, which could place them at safety risk if they are living in a situation without some level of direct support. Dementia is a syndrome, not a specific diagnosis. Dementia is caused by a specific disease or diseases. The most common cause of dementia is Alzheimer's disease. However, further evaluation should be done before determining a specific cause. The BCAT? test produces a score that can help stage dementia or significant cognitive dysfunction. It can also help identify individuals with mild versus moderate - severe dementia. BCAT? score of 25 to 33 are suggestive of mild dementia, and scores of 24 and below indicate moderate - severe dementia. You might consider administering the Brief Cognitive Impairment Scale (BCIS?) for scores in the moderate - severe range to get even more information about cognitive and behavioral functioning. The BCIS? is designed for patients with severe cognitive impairment and can be completed interactively on the BCAT? website (www.[employer]Slipstream). Total Contextual Memory Factor (CMF) Score: 9. The Contextual Memory Factor (CMF) indicates current verbal memory skills. It is highly predictive of cognitive diagnosis (MCI versus dementia) and instrumental activities of daily living (IADL). It is also sensitive to those who have amnestic MCI (and who do not have dementia). The score range is 0-15. Scores below 12 typically indicate significant memory concerns that can impact everyday living. A score of 14, combined with a total BCAT? score in the MCI range, is often associated with [id number]. When this occurs, a review of executive functions and other cognitive domains may be helpful. Total Executive Control Functions Factor (ECFF) Score: 0. The Executive Control Functions Factor (ECFF) indicates current executive control functions abilities. There is a strong correlation between ECFF and predicting everyday activities of daily living, especially the higher order skills involving judgment, problem-solving, and reasoning. The score range is 0-7. Scores below 5 generally indicate problems in executive control that could interfere with successful independent living. Some people have problems with executive functions but have relatively intact memory skills. When this occurs, the subtype of executive MCI may be indicated. Total Complex Attention Factor (CAF) Score: 4. Complex attention is an essential cognitive domain. It includes immediate, selective, and divided attention skills. It is highly associated with the ability to perform basic and complex activities of daily living. The Complex Attention Factor score (CAF) predicts ADL and IADL abilities and empirically measures the attentional skills necessary for independent functioning. Lower scores are associated with weaker performance, whereas higher scores suggest stronger abilities. Scores of 7-8 are within the normal/adequate range, and persons with these results may demonstrate higher levels of independence. Scores below 7 indicate likely attentional deficits, the need for more supervision or assistance, and higher risk for safety concerns and errors when completing basic or complex functional tasks. Please note that the CAF has a low performance threshold so most people should score in the adequate range. Total Cognitive Task Core Stacker (CTM) Score: 13. The Cognitive Task Core Stacker (CTM) integrates an individual?s performance in three primary cognitive domains: contextual memory, executive control functions, and complex attention. Together, these skills are among the most powerful predictors of [place]sey outcomes, including performance of basic and complex activities of daily living. The CTM score informs clinicians and families about impairments that can impact functional performance and highlight each individual?s risk for falls and adverse events at home, rehospitalizations and the need for residential support. The CTM score should be considered as part of a comprehensive assessment and be used to guide treatment interventions that address these underlying skill areas and promote a safe and sustainable transition to the next level of care. The CTM is an important clinical tool that informs the plan of care and should be used to identify persons at higher risk for cognitively related functional deficits. When interpreting the CTM score, it is helpful to recognize what scor es indicate normal functioning and what scores indicate higher risk. CTM scores in the 26-30 range are within normal limits. These patients have relatively low risk. CTM scores in the 20-25 range indicate moderate risk. CTM scores below 20 indicate relatively high risk. Other Relevant Medical History/Diagnoses/Surgery: MEL BROOKS is a 76 year old man who presents to [email or web address] d/t diagnosis of cognitive impairment. Pt arriving with , Alejandra. 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 See above for speech therapy testing during his [facility] admission on 09/24/22. MRI results: 09/22/22 report of MRI/Brain without Contrast from hospitalization IMPRESSION: 1. No intracranial mass, hemorrhage, or acute territorial infarct; 2. No radiographically significant sinus disease; 3. Severe cortical and central atrophy, moderate cerebellar atrophy; 4. Severe chronic microvascular ischemic change. Pt is not currently driving. Waiting unti l his appt with neurology on October 20, 2022. Pt reporting at home he likes to watch tv and read. He does help sometimes with cutting up vegetables. Does not clean. Helps intermittently prepare his medications. Smoking Status: Never smoker - Diagnosis Diagnosis: Mild-Moderate Cognitive Impairment - Pain Is pain an issue with your current prescribed condition?: No - Personal Preferred language: American History - History Date of Eval: 10/09/22 Smoking Status: Never smoker Hx Smoking: No Hx Tobacco Use: No - Pain Is pain an issue with your current prescribed condition?: No Patient Allergies - Allergies Allergies No Known Allergies Allergy (Verified 11/18/22 21:38) Previous/Current Goals - Goals 1-5 Previous Goal #1: Dakota will complete problem solving, reasoning, and executive function tasks including but not limited to medication management and time management with 85% acc given minimum verbal cues in 2 consecutive sessions within 5 weeks from initial evaluation. Goal 1 Status: GOAL PROGRESSING: Dakota completed medication management tasks via identifying errors in a prefilled med box (paper) with 40% acc independently on first task and 50% acc independently on second task. Pt benefiting from min-mod verbal and logical cues to improve acc to 100%. Pt reporting this task was difficult for him. Dakota completed a deductive puzzle with 10 slots (store, yarn packer, type) with 90% acc with supervision given it was a new task and benefited from min logical cues to improve to 100% acc. PT WOULD BENEFIT FROM 3 MORE SESSIONS TO DETERMINE CONSISTENCY WITH SKILL. Previous Goal #2: Dakota will complete problem solving, reasoning, and executive function tasks including but not limited to planning meals and a grocery list with 85% acc given minimum verbal cues in 2 consecutive sessions. Goal 2 Status: GOAL PROGRESSING: Pt continuing calendar organization task - benefited from only min (1) verbal cues on color coordinating similar items on the calendar prior to starting his task. He placed 12/13 (92%) remaining tasks independently on the calendar. Dakota navigating his calendar and notes to answer comprehension questions with 70% acc independently and benefited from supervision to improve to 90% acc and min verbal cues to improve to 100%. PT WOULD BENEFIT FROM 3 MORE SESSIONS TO DETERMINE CONSISTENCY WITH SKILL. Previous Goal #3: Dakota will modify environment at home via implementing memory compensatory strategies within 5 weeks from initial evaluation. Goal 3 Status: GOAL MET: Created a visual reminder for Dakota to take his insulin in the morning with a reminder to place on his nightstand and also another reminder for his sliding scale, mealtime insulin to be placed on the fridge. Handout provided with a reminder note on the back of where to place each one. Dakota reporting this visual reminder has been helpful for him. Dakota also reports using his reminders randee and calendar randee consistently to help him remember his appts and monthly obligations/meetings. Previous Goal #4: Dakota will complete basic sustained and/or alternating attention tasks with 80% acc independently across 2 measured opportunities within 5 weeks from initial evaluation. Goal 4 Status: GOAL MET: Dakota sustaining attention to task with at least 80% acc every session. During alternating attention tasks he does benefit from extended processing time and referring back to reference sheets about 2-3x to ensure appropriate transfer of information. CLQT - CLQT CLQT Administered: Yes CLQT: Cognitive Linguistic Quick Test (CLQT) is a criterion - referenced assessment designed for adults between the ages of 18 and 89 with known or suspected neurological dysfuntions. The CLQT is to assess strength and weaknesses in five cognitive domains. Severity ratings are within normal limits, mild, moderate, severe deficits. The subtests are as follows: Date: 10/09/22 - evaluation scores - Attention Attention: Mild - Memory Memory: Mild - Executive Functions Executive Functions: Moderate - Language Language: Mild - Visuospatial Skills Visuospatial Skills: Mild - Composite Severity Rating Composite Severity Rating: Mild - Clock Drawing Severity Rating Clock Drawing Severity Rating: Severe - CLQT Comments Subtest Analysis Cognitive Domain Scores. ? Personal Facts (memory and language ability): 01/06 (MEETS CRITERION). ? Symbol Cancellation (nonlinguistic task of visual attention and perception, integrity of the upper/lower quadrants of the left/right visual hoff): 05/12 (MEETS CRITERION). ? Confrontation Naming (aphasia, perseveration, verbosity): 03/10 (MEETS CRITERION). ? Clock Drawing (screening of all cognitive domains): 11/11 (BELOW CRITERION CUT OFF). ? Story Retelling (memory and comprehension, arousal, attention, storage capacity, narrative skills): 10/08 (MEETS CRITERION). ? Symbol Trails (nonlinguistic task to assess planning, self-monitoring, working memory, and visual attention, and impulsivity): 06/10 (BELOW CRITERION CUT OFF - PT HAD GREAT DIFFICULTY WITH THIS TASK). ? Generative Naming (word retrieval skills, perseveration): 2 (BELOW CRITERION CUT OFF - SUSPECT SCORES MORE LIKELY D/T ATTENTION AND EXECUTIVE FUN CTIONING VS. LANGUAGE). ? Design Memory (nonlinguistic task to assess visual discrimination & analysis, attention, and visual memory, impulsivity, perseveration): 09/04 (MEETS CRITERION). ? Mazes (planning, mental flexibility, self-monitoring, visual discrimination, and impulsivity): 10/06 (MEETS CRITERION - ALTHOUGH PT WITH POOR ATTENTION TO DETAIL). ? Design Generation (nonlinguistic task of creativity and mental flexibility): 4/13 (BELOW CRITERION CUT OFF - PT PERSEVERATIVE ON 2 DESIGNS AND 7 OTHERS WITH MORE/LESS THAN 3 LINES). Severity Rating. Domain Scores: Attention = 153/215 (MILD); Memory = 128/185 (MILD); Executive Functioning = 12/40 (MODERATE); Language = 25/37 (MILD); Visuospatial Skills = 61/105 (MILD); Clock Drawing = 6/13 (SEVERE). Item Analysis Pt's overall testing scores reveal a MILD cognitive impairment however Pt had great difficulty with the trail making, clock drawing, design generation, and navigating the mazes. Pt had difficulty paying attention to details on these tasks. In the trail making he arcelia lines to random shapes with limited purpose with no awareness he was not following directions. During the clock drawing task, Pt often checking in with therapist to see if he was writing the numbers correctly - therapist reporting she was unable to help - when it came time to draw the time, Pt circling a 1 he had crossed out with no hands present. While completing the design generation task, Pt was perseverative on 2 designs and had 7 designs that had either 3 or 5 lines when he was asked to use 4. Pt with no awareness of errors. Last, while navigating the mazes, on 3 occasions, Pt traveled more then 0.[address] before realizing there was a end revealing poor attention to detail and poor organization and planning skills. Plan - Plan Plan: Will recommend Pt for 3 more visits of weekly outpatient speech therapy to address mild cognitive impairment characterized by deficits in executive functioning and problem solving/reasoning. Pt showing improvement thus far and also making self-observations on how he has improved. Pt would benefit from training in compensatory strategies for recall and word retrieval, as well as cognitive training to improve cognitive functioning. Without skilled ST services, the Pt is at risk for decreased independence completing daily living tasks. - Recommendations Treatment Warranted: Yes Treatment Warranted: Cognition - Progress Prognosis: Excellent - Frequency Frequency: 1x/Week Additional (Frequency): 60 min. appts. Duration: 3 Weeks - Goals that are Established Determination:: Goals will be added/modified as deemed necessary and appropriate. Therapy will be discontinued when results of re-evaluation indicate therapy is no longer needed or lack of progress has been documented. - Goal #1-5 Goal #1: Dakota will complete problem solving, reasoning, and executive function tasks including but not limited to medication management and time management with 85% acc given minimum verbal cues in 2 of 3 consecutive sessions. Goal #2: Dakota will complete problem solving, reasoning, and executive function tasks including but not limited to planning meals and a grocery list with 85% acc given minimum verbal cues in 2 of 3 consecutive sessions. Goal #3: Dakota will participate in re-evaluation with CLQT. Education - Patient has Indicated that the Following Identified Educational Needs: None The Patient has indicated that they have no educational or learning abilities that may effect their care.: Yes - Patient Instruction Patient Education: Diagnosis, Treatment Plan, Goals Person Taught: Patient, Family Teaching Method: Discussion, Demonstration Response to teaching: Return demonstration, Verbalize understanding
--- NOTE | 2023-01-14 15:18 | HP.SP.DC_ITS ---
ST Discharge Summary Discharged: Discharge: MEL BROOKS is a 77 year old male who presented to [facility] Outpatient Speech Therapy on 10/09/22 for treatment with cognition. Therapy focused on targeting problem solving, reasoning, and executive functioning related to activities of daily living including medicine management, using a calendar, and deduction puzzles. Dakota making progress at the time of last re-evaluation, however since then, Pt has become stagnant with progress. Suspect he would benefit from neurological evaluation as dementia or related cognitive diagnosis may be present. Given Pt's recent change in medical status, hospital admission, and d/c to [facility], will d/c Pt from outpatient c aseload at this time. However, suspect Pt would benefit from continued speech therapy intervention for cognition following d/c from [facility] at his next level of care, whether that is home health or outpatient. Will reassess following script from physician.
== END 2022-12-26 19:00 | disposition home or self-care (01) ==
LOC: SP 10:00
PROVIDERS: PCP Family Medicine; Referring Provider Internal Medicine; Visit Provider Family Medicine
DX: E11.10 Type 2 diabetes mellitus with ketoacidosis without coma (principal); R53.1 Weakness; F09 Unspecified mental disorder due to known physiological condition
CPT/HCPCS: 97110; 97129; 97130; 97162; 97166; 97530

== ENCOUNTER 2023-01-04 05:28 | Emergency (ER) | payer MEDICARE, OTHER, SELFPAY ==
[2023-01-04 05:29] VITALS: BP 149/71; PULSE 82; RESP 16; TEMP 37.5; O2SAT 90; BMI 28.4
--- NOTE | 2023-01-04 05:40 | EKG12_ITS ---
Test Reason : ILLNESS Blood Pressure : / mmHG Vent. Rate : 079 BPM Atrial Rate : 079 BPM P-R Int : 162 ms QRS Dur : 080 ms QT Int : 382 ms P-R-T Axes : 031 021 072 degrees QTc Int : 438 ms Normal sinus rhythm Low voltage QRS Nonspecific T wave abnormality Abnormal ECG Confirmed by RACIEL CURRAN, LUZ ([id number]), editorial writer ANDREAS GÓMEZ ([id number]) on 01/05/2023 1:28:14 PM Referred By: Confirmed By:LUZ SCHRADER MD
--- NOTE | 2023-01-04 05:43 | EX.ED.DYSGE1 ---
HPI History of Present Illness Chief Complaint: General Illness Informant: patient and spouse/S.O. Narrative Narrative: Patient states that he feels just a little achy and a little bit tired and weak. His states he has been complaining about this for a few days. He has noted just a slight cough but is not short of breath and there is no productivity. He denies any change in urine output or burning. He states his arms and legs are achy but he has no pain. He has no chest pain. No abdominal pain. No nausea vomiting or diarrhea. He is eating and drinking normally. He evidently felt similar to this back in July when he had COVID and a UTI but states he does not have symptoms that make him feel like he has either 1 of those diseases. But he is not the best informant for details. Oftentimes when I ask him a question, he asks his which she thinks is the best answer. Only new medication is some amoxicillin as he had a little bit of dental work but his teeth are not hurting. [facility] Medical History Atherosclerosis Bladder neck obstruction BPH (benign prostatic hyperplasia) Coronary artery disease Diabetes HTN (hypertension) Hyperlipemia TIA (transient ischemic attack) Home Medications aspirin 81 mg chewable tablet 81 mg PO DAILY HEART HEALTH 10/12/17 [History Last Taken 09/23/22] atenolol 50 mg tablet (Tenormin) 50 mg PO DAILY BLOOD PRESSURE 10/12/17 [History Last Taken 09/23/22] lisinopril 40 mg tablet 20 mg PO BID BLOOD PRESSURE 10/12/17 [History Last Taken 09/23/22] testosterone 1 % (50 mg/5 gram) transdermal gel packet (AndroGel) 5 g transdermal DAILY 10/12/17 [History Last Taken 09/23/22] pen needle, diabetic 32 gauge x 5/32 (Pen Needle) #100 ea 09/19/22 [Rx Last Taken Unknown] pen needle, diabetic 32 gauge x 5/32 (Pen Needle) #100 ea 09/19/22 [Rx Last Taken Unknown] atorvastatin 40 mg tablet 40 mg PO QHS CHOLESTEROL 09/23/22 [History Last Taken 09/22/22] hydrochlorothiazide 12.5 mg capsule 12.5 mg PO DAILY FLUID 09/23/22 [History Last Taken 09/23/22] insulin glargine 100 unit/mL (3 mL) subcutaneous pen (Lantus Solostar U-100 Insulin) 14 unit subcut BID DIABETES 09/23/22 [History Last Taken 09/22/22] insulin lispro 100 unit/mL subcutaneous pen (Humalog KwikPen (U-100) Insulin) 12 unit subcut TIDAC DIABETES 09/23/22 [History Last Taken 09/23/22] insulin lispro 100 unit/mL subcutaneous pen (Humalog KwikPen (U-100) Insulin) See Protocol subcut ACHS DIABETES 09/23/22 [History Last Taken Unknown] pantoprazole 40 mg tablet,delayed release 40 mg PO BID ACID REFLUX 09/23/22 [History Last Taken 09/23/22] amlodipine 10 mg tablet 5 mg PO DAILY BLOOD PRESSURE 01/04/23 [History Last Taken Unknown] levofloxacin 750 mg tablet 750 mg PO DAILY #5 tabs 01/04/23 [Rx Last Taken Unknown] Allergy/AdvReac Type Severity Reaction Status Date / Time No Known Allergies Allergy Verified 01/04/23 05:33 Social History Smoking Status: Never smoker ROS ROS ED Constitutional Constitutional ED: Denies chills, fever(s), subjective or sweats Eyes Eyes: Denies change in vision ENT ENT ED: Denies ear pain, rhinorrhea or sore throat Cardiovascular Cardiovascular: Denies chest pain or palpitations Respiratory/Chest Respiratory/Chest: Reports cough; Denies dyspnea or sputum Gastrointestinal Gastrointestinal: Denies abdominal pain, diarrhea, nausea or vomiting Genitourinary Genitourinary ED: Denies dysuria, hematuria or urinary frequency Musculoskeletal Musculoskeletal: Reports arthralgias and myalgias Integumentary Denies rash Neurologic Neurologic: Denies headache(s) Endocrine Endocrinology: Denies polydipsia or polyuria Hematologic/Lymphatic Hematologic/Lymphatic: Denies easy bleeding or easy bruising Allergic/Immunologic Allergic/Immunologic ED: Denies mouth swelling, tongue swelling or urticaria EXAM Physical Exam Narrative Exam Narrative: Patient is awake alert. No acute distress. HEENT shows some mildly dry mucous membranes. No sign of dental infection. Voice is normal. No sinus tenderness or nasal discharge. Neck is supple with free range of motion Heart is regular. Peripheral pulses are equal. I hear no murmur. Lungs are clear bilaterally. Saturations run about 90 to 93% on room air showing no hypoxia of significance. He does not feel short of breath either. I do not hear rhonchi. He is not coughing while I am in the room. Abdomen is soft normal bowel sounds and nontender. shows no CVA or suprapubic tenderness. Extremities show no rash or edema. There is no tenderness. No deformities. No swollen joints. Neurologically he seems to be awake alert and appropriate. Const Vital Signs: 01/04/23 05:29 01/04/23 05:32 01/04/23 06:00 Temperature 99.5 F H Temperature Source Oral Pulse Rate 82 Respiratory Rate 16 Respiratory Effort Normal Respiratory Pattern Normal Blood Pressure 149/71 H Blood Pressure Mean 97 Pulse Ox 90 89 Oxygen Delivery Method Room Air Oxygen Flow Rate (L/min) 01/04/23 07:14 Temperature Temperature Source Pulse Rate Respiratory Rate Respiratory Effort Respiratory Pattern Blood Pressure Blood Pressure Mean Pulse Ox 95 Oxygen Delivery Method Nasal Cannula Oxygen Flow Rate (L/min) 2 MDM MDM MDM Narrative Medical decision making narrative: My independent interpretation of the patient's single view to image chest x-ray shows a relatively large effusion on the left and mild on the right. He has no history of CHF but we will send off a BNP. This may be infectious with his recent cough and decreased energy and malaise. His temperature here is only 99 5. He does not report having fevers at home. We will walk him to make sure he does not desaturate. Patient does have a 20,000 white count on his CBC. This is consistent with an acute infectious process. Platelets are normal but toward the higher end. Patient's sodium is a little bit low at 130. He has had some mild hyponatremia in the past. A small component of this may be contributed by slightly high glucose at 234. Renal function is normal. Patient has been walking to and from the bathroom. His lowest oxygen saturation was 93%. Patient has a little bit of unsteadiness of his gait but evidently per him and his that is his normal. Although this patient has a white count and an effusion, he is not hypoxic. He is eating and drinking. He is not toxic. We will treat him as an outpatient. If he has dyspnea vomiting or other concerns he needs to come back in. They should contact their primary physician tomorrow. He needs to be rechecked likely within a few days or this week and they may arrange outpatient thoracentesis if needed. They would like to go. Patient does not feel as though he needs to urinate. He has no urinary symptoms at all. He does have a cough. Levaquin we are giving him should cover UTIs even if he had 1. Lab Data Attestation: I reviewed the patient's lab results. Labs: Laboratory Results - last 24 hr 01/04/23 05:30 WBC 20.2 H RBC 4.80 Hgb 13.6 Hct 40.9 MCV 85.2 MCH 28.3 MCHC 33.3 RDW Std Deviation 39.6 RDW Coeff of Colt 12.7 Plt Count 438 MPV 9.6 Immature Gran % (Auto) 0.700 Neut % (Auto) 79.1 H Lymph % (Auto) 7.0 L [place] % (Auto) 12.9 H Eos % (Auto) 0.0 Baso % (Auto) 0.3 Absolute Neuts (auto) 15.9 H Absolute Lymphs (auto) 1.41 Nucleated RBC % 0 Differential Comment SCANNED Diff Path Review May foll Sodium 130 L Potassium 3.7 Chloride 98 Carbon Dioxide 25.0 Anion Gap 7 BUN 16 Creatinine 0.92 Estim Creat Clear Calc 72.75 Est GFR (MDRD) Af Amer 103 Est GFR (MDRD) Non-Af 85 BUN/Creatinine Ratio 17.4 Glucose 234 H Calcium 8.6 B-Natriuretic Peptide 230.9 H Radiography Diagnostic Testing: Clinical Impression(s) from Imaging Studies Chest X-Ray 01/04/23 06:00 IMPRESSION: There is small right pleural effusion. There is large left pleural effusion. There is compressive atelectasis in the lung bases. Electronically Signed: Bethany Richey MD at 6:27 EDT , EKG Initial EKG: Comments: My independent interpretation the patient's EKG done for overall weakness shows a normal sinus rhythm with a rate of 79. No ventricular ectopy. Diffuse nonspecific ST and T wave changes but no sign of acute infarct or ischemia. CO interval, QRS duration and QTc are normal. Discharge Plan Triage Chief Complaint: General Illness ED Provider: Jurgen Estrada Dx/Rx/DC Orders Clinical Impression: Community acquired pneumonia, Malaise, Generalized weakness, Leukocytosis, Pleural effusion associated with pulmonary infection Instructions: ED Pleural Effusion, ED Pneumonia (Adult) Prescriptions: New levofloxacin 750 mg tablet 750 mg PO DAILY Qty: 5 0RF No Action aspirin 81 MG tablet,chewable 81 mg PO DAILY lisinopril 40 MG tablet 20 mg PO BID atenolol [Tenormin] 50 MG tablet 50 mg PO DAILY testosterone [AndroGel] 5 GM gel in packet 5 g transdermal DAILY (DME) pen needle, diabetic [Pen Needle] 32 gauge x 5/32 needle See Rx Instructions .Route Qty: 100 0RF Rx Instructions: As directed (DME) pen needle, diabetic [Pen Needle] 32 gauge x 5/32 needle See Rx Instructions .Route Qty: 100 0RF Rx Instructions: As directed atorvastatin 40 mg tablet 40 mg PO QHS pantoprazole 40 mg tablet,delayed release (DR/EC) 40 mg PO BID hydrochlorothiazide 12.5 mg capsule 12.5 mg PO DAILY insulin lispro [Humalog KwikPen Insulin] 100 unit/mL insulin pen 12 unit subcut TIDAC insulin lispro [Humalog KwikPen Insulin] 100 unit/mL insulin pen See Protocol subcut [facility] Protocol: 4. Sliding Scale Insulin High-Med Dosing Condition: 150-199 mg/dl = 2 units Condition: 200-259 mg/dl = 4 units Condition: 260-324 mg/dl = 6 units Condition: 325-374 mg/dl = 8 units Condition: 375-409 mg/dl = 10 units Condition: 410-449 mg/dl = 11 units Condition: Greater than 449 call physician Protocol Text: - Use for Total Daily Dose of Insulin 56-80 units - Patient who are insulin resistant or septic HIGH MEDIUM DOSING ALGORITHM insulin glargine [Lantus Solostar U-100 Insulin] 100 unit/mL (3 mL) insulin pen 14 unit subcut BID Rx Instructions: Hold if glucose less than 130 mg/dl amlodipine 10 mg tablet 5 mg PO DAILY Rx Instructions: reduce dose to 1/2 tablet daily-(5mg) Primary Care Provider: Paul Lo Referrals: Paul Lo MD [Primary Care Provider] - 2 Days Disposition Disposition: Home, Self Care
[2023-01-04 05:51] LABS: Absolute Lymphocyte Count 1.41 X10^3/uL (0.83-4.51); Absolute Neutrophil Count 15.9 X10^3/uL (2.0-7.7); Basophil# 0.06 X10^3/uL; Basophil% 0.3 % (0-1); Eosinophil# 0.01 X10^3/uL; Hematocrit 40.9 % (40-54); Hemoglobin 13.6 g/dL (13.0-16.5); Lymphocyte # 1.41 X10^3/ul (0.83-4.51); Mean Corp Hgb Conc 33.3 g/dL (32-36); Mean Corpuscular Hgb 28.3 pg (27.0-32.0); Mean Corpuscular Volume 85.2 fL (80-94); Mean Platelet Vol. 9.6 fl (6.2-12.0); Monocyte# 2.61 X10^3/uL; Monocyte% 12.9 % (0-10); NRBC Flagged by Analyzer 0 % (0-5); Neutrophil # 15.93 X10^3/uL (2.7-7.7); Neutrophil % 79.1 % (47-70); POSITIVE DIFFERENTIAL YES; Platelet Count 438 K/mm3 (150-450); RBC Distribution Width CV 12.7 % (11.6-14.6); RBC Distribution Width SD 39.6 fl (35.1-43.9); White Blood Count 20.2 K/mm3 (4.4-11.0)
[2023-01-04 05:54] LABS: Differential Indicated SCAN CRITERIA MET
[2023-01-04 06:00] VITALS: O2SAT 89
--- NOTE | 2023-01-04 06:00 | RAD_ITS ---
INDICATION: cough EXAMINATION/TECHNIQUE: X-RAY - XR Chest 1 View COMPARISON: 09/23/2022 FINDINGS: LINES/DEVICES: None. LUNGS: There is small right pleural effusion. There is large left pleural effusion. There is compressive atelectasis in the lung bases. MEDIASTINUM AND CARDIOVASCULAR STRUCTURES: Cardiac silhouette not enlarged. Central airways and mediastinal contour are unremarkable. BONES AND SOFT TISSUES: Unremarkable. RAD/Chest 1 View (Portable) IMPRESSION: There is small right pleural effusion. There is large left pleural effusion. There is compressive atelectasis in the lung bases. Electronically Signed: Bethany Richey MD at 6:27 EDT ,
[2023-01-04 06:03] LABS: Anion Gap 7 (5-15); BUN 16 mg/dL (7-18); BUN/Creat Ratio 17.4 RATIO (10-20); Calcium,Total 8.6 mg/dL (8.5-10.1); Chloride 98 mmol/L (98-107); Creatinine, Serum 0.92 mg/dL (0.70-1.30); EST Glomerular Filtration Rate 85 mL/min (>60); Est Glom Filt Rate - Afr Amer 103 mL/min (>60); Estimated Creatinine Clearance 72.75 ml/min; Glucose 234 mg/dL (74-106); Potassium 3.7 mmol/L (3.5-5.1); Sodium Level 130 mmol/L (136-145)
[2023-01-04 06:10] VITALS: O2SAT 93
[2023-01-04 06:15] LABS: Differential Comment SCANNED
[2023-01-04 07:05] LABS: BNP,B-Type NATRIURETIC PEPTIDE 230.9 pg/mL (0-100)
[2023-01-04 07:14] VITALS: O2SAT 95
[2023-01-04] MEDS: levoFLOXacin 750 MG Tablet PO (09:02)
[2023-01-06 15:29] LABS: Pathologist Review Reviewed
== END 2023-01-04 09:03 | disposition home or self-care (01) ==
PROVIDERS: Emergency Provider Emergency Medicine; PCP Family Medicine; Visit Provider Emergency Medicine
DX: J18.9 Pneumonia, unspecified organism (principal); E11.65 Type 2 diabetes mellitus with hyperglycemia; Z79.4 Long term (current) use of insulin; J90 Pleural effusion, not elsewhere classified; E78.5 Hyperlipidemia, unspecified; I10 Essential (primary) hypertension; I25.10 Atherosclerotic heart disease of native coronary artery without angina pectoris; Z79.82 Long term (current) use of aspirin; Z79.899 Other long term (current) drug therapy; Z86.73 Personal history of transient ischemic attack (TIA), and cerebral infarction without residual deficits; Z86.16 Personal history of COVID-19
CPT/HCPCS: 71045; 80048; 83880; 85025; 87428; 93005; 96360; 96361; 99284; J7040; A4216

== ENCOUNTER 2023-01-09 10:25 | Inpatient (IN) | payer MEDICARE, OTHER, SELFPAY ==
[2023-01-09] VITALS (8 sets, daily range): BP systolic 99–154; BP diastolic 58–88; PULSE 72–92; RESP 18–30; TEMP 36.4–37.4; O2SAT 89–96; BMI 28.9; BMI 27.6
--- NOTE | 2023-01-09 11:53 | EKG12_ITS ---
Test Reason : SOB Blood Pressure : / mmHG Vent. Rate : 075 BPM Atrial Rate : 075 BPM P-R Int : 178 ms QRS Dur : 084 ms QT Int : 400 ms P-R-T Axes : 028 018 -22 degrees QTc Int : 446 ms Normal sinus rhythm Low voltage QRS Nonspecific T wave abnormality Abnormal ECG Confirmed by NO CURRAN, VAN ([id number]), senior editor ESTRELLA TY ([id number]) on 01/12/2023 8:41:16 AM Referred By: Dariusz Tucker Confirmed By:ARSH SARABIA MD
[2023-01-09] MEDS: Ipratropium/Albuterol Sulfate 3 ML AMPUL.NEB INHALATION (11:58)
--- NOTE | 2023-01-09 12:06 | ED.VIS.DYS ---
HPI History of Present Illness Chief Complaint: Shortness of Breath Informant: patient and spouse/S.O. Narrative Narrative: Patient was sent by his primary physician, Dr. Lo, to be admitted. I saw this patient this past week. He he was diagnosed with pneumonia. At all high white count. And effusion greater on the left than the right. Initially we thought we are going to admit him. But he was eating and drinking well. He wanted to go home. We walked him and he did not desaturate. The goal was to start him on antibiotics and have him follow-up for possible thoracentesis. Originally was supposed to follow-up Thursday. But his physician actually got ill so his appointment got moved to today. I do not think they are going to be able to get the paracentesis. He does admit that he has been getting a little bit more short of breath. His states that he has periods where he gets short of breath and those periods are getting more common and longer lasting. He is coughing. No notable sputum. They do not think he has had a fever. He is not having pain. He states he just does not feel well but he cannot define this. [facility] Medical History Atherosclerosis Bladder neck obstruction BPH (benign prostatic hyperplasia) Coronary artery disease Diabetes HTN (hypertension) Hyperlipemia TIA (transient ischemic attack) Home Medications atenolol 50 mg tablet (Tenormin) 50 mg PO DAILY BLOOD PRESSURE 10/12/17 [History Last Taken 01/09/23] lisinopril 40 mg tablet 20 mg PO BID BLOOD PRESSURE 10/12/17 [History Last Taken 01/09/23] pen needle, diabetic 32 gauge x 5/32 (Pen Needle) #100 ea 09/19/22 [Rx Last Taken Unknown] pen needle, diabetic 32 gauge x 5/32 (Pen Needle) #100 ea 09/19/22 [Rx Last Taken Unknown] atorvastatin 40 mg tablet 40 mg PO QHS CHOLESTEROL 09/23/22 [History Last Taken 01/08/23] hydrochlorothiazide 12.5 mg capsule 12.5 mg PO DAILY FLUID 09/23/22 [History Last Taken 01/09/23] insulin glargine 100 unit/mL (3 mL) subcutaneous pen (Lantus Solostar U-100 Insulin) 14 unit subcut BID DIABETES 09/23/22 [History Last Taken 01/09/23] insulin lispro 100 unit/mL subcutaneous pen (Humalog KwikPen (U-100) Insulin) 12 unit subcut TIDAC DIABETES 09/23/22 [History Last Taken 01/09/23] insulin lispro 100 unit/mL subcutaneous pen (Humalog KwikPen (U-100) Insulin) See Protocol subcut ACHS DIABETES 09/23/22 [History Last Taken 01/09/23] pantoprazole 40 mg tablet,delayed release 40 mg PO BID ACID REFLUX 09/23/22 [History Last Taken 01/09/23] amlodipine 10 mg tablet 5 mg PO DAILY BLOOD PRESSURE 01/04/23 [History Last Taken 01/09/23] levofloxacin 750 mg tablet 750 mg PO DAILY #5 tabs 01/04/23 [Rx Last Taken 01/09/23] chlorhexidine gluconate 0.12 % mouthwash 15 ml PO BID ORAL SURGERY 01/09/23 [History Last Taken Unknown] Allergy/AdvReac Type Severity Reaction Status Date / Time No Known Allergies Allergy Verified 01/09/23 10:30 Social History Smoking Status: Never smoker ROS RUST ED Constitutional Constitutional ED: Reports other Details: Positive mild malaise. ; Denies chills, fever(s) or sweats Cardiovascular Cardiovascular: Denies chest pain, palpitations or racing heartbeat Respiratory/Chest Respiratory/Chest: Reports cough, dyspnea and dyspnea on exertion Gastrointestinal Gastrointestinal: Denies abdominal pain, diarrhea, nausea or vomiting Musculoskeletal Musculoskeletal: Denies arthralgias or myalgias Integumentary Denies rash Neurologic Neurologic: Denies headache(s) Hematologic/Lymphatic Hematologic/Lymphatic: Denies easy bleeding or easy bruising Allergic/Immunologic Allergic/Immunologic ED: Denies urticaria EXAM Physical Exam Narrative Exam Narrative: CONSTITUTIONAL: Patient is nontoxic in appearance. The patient looks comfortable. Work of breathing looks normal he is sitting quietly in bed. HEENT: No notable trauma. Mucous membranes are still moist. EYES: No conjunctival injection. NECK:No JVD. No stridor. CARDIOVASCULAR: Regular rate. Regular rhythm. No notable murmur. No JVD. RESPIRATORY: No respiratory distress. Breathing is unlabored. No wheezes. He does have decreased breath sounds left relative to the right. While sitting in the bed his saturations are actually good on room air. GASTROINTESTINAL: Not distended. Bowel sounds are normal. No tenderness. No guarding. No rebound. No palpable mass. No bruit is heard. GENITOURINARY: No tenderness over the bladder. No CVA tenderness. MUSCULOSKELETAL: Atraumatic. No significant peripheral edema. No cord. No tenderness along the deep venous system. No asymmetry. No distended veins. NEUROLOGICAL: Patient is alert and appropriate. No focal deficit noted. He is not the best informant for details. Even when I ask about his symptoms he tends to look at his to help the answers. SKIN: No noted rashes. No diaphoresis. PSYCHIATRIC: Patient is calm. Mood is appropriate. Const Vital Signs: 01/09/23 10:26 01/09/23 11:07 01/09/23 11:58 Temperature 97.8 F Temperature Source Temporal Pulse Rate 72 78 Respiratory Rate 18 30 H Respiratory Effort Short of Breath Respiratory Depth Normal Respiratory Pattern Normal Blood Pressure 99/58 L Blood Pressure Mean 71 Pulse Ox 96 Oxygen Delivery Method Room Air Room Air 01/09/23 14:13 01/09/23 16:00 Temperature 97.5 F L 97.5 F L Temperature Source Temporal Temporal Pulse Rate 82 80 Respiratory Rate 20 H 18 Respiratory Effort Respiratory Depth Respiratory Pattern Blood Pressure 127/78 H 120/67 Blood Pressure Mean 94 84 Pulse Ox 94 89 Oxygen Delivery Method Room Air Room Air MDM MDM MDM Narrative Medical decision making narrative: Patient CBC shows white count has come down somewhat from prior visit at 14 5. Still not anemic. Platelets are good. Patient's electrolytes showed no marked abnormalities. Minimally low sodium. Minimally elevated glucose and BUN to creatinine ratio. Patient's troponin is negative. Patient's BNP does not show signs of significant CHF. My independent interpretation of the patient's chest x-ray shows an effusion still on the left. We are talked about bringing him in the hospital. He was seen by his primary physician and sent here for admission due to overall worsening despite outpatient treatment. We were able to get a thoracentesis today. They did do postthoracentesis inspiratory and expiratory x-ray that shows no pneumothorax. When the patient comes back here his saturations sitting in the bed are okay on 2 L. But he is 89% on room air. Any drops quickly to 87% when he walks. His is not comfortable managing this at home. I will recontact the hospitalist. Lab Data Attestation: I reviewed the patient's lab results. Labs: Laboratory Results - last 24 hr 01/09/23 12:10 WBC 14.5 H RBC 4.72 Hgb 13.3 Hct 39.8 L MCV 84.3 MCH 28.2 MCHC 33.4 RDW Std Deviation 40.1 RDW Coeff of Colt 13.0 Plt Count 367 MPV 9.3 Immature Gran % (Auto) 0.600 Neut % (Auto) 82.0 H Lymph % (Auto) 7.6 L [place] % (Auto) 9.4 Eos % (Auto) 0.2 Baso % (Auto) 0.2 Absolute Neuts (auto) 11.9 H Absolute Lymphs (auto) 1.11 Nucleated RBC % 0 Sodium 132 L Potassium 3.8 Chloride 99 Carbon Dioxide 29.0 Anion Gap 4 L BUN 19 H Creatinine 0.94 Estim Creat Clear Calc 71.21 Est GFR (MDRD) Af Amer 101 Est GFR (MDRD) Non-Af 83 BUN/Creatinine Ratio 20.3 H Glucose 163 H Lactic Acid 1.2 Calcium 8.8 Troponin I High Sens 9 B-Natriuretic Peptide 147.7 H Radiography Diagnostic Testing: Clinical Impression(s) from Imaging Studies Chest X-Ray 01/09/23 12:20 IMPRESSION: Moderate size left pleural effusion with left basilar infiltration and/or atelectasis. Blunting of the right costophrenic angle and right basilar atelectasis. Electronically Signed: Filiberto Campo MD at 12:48 EDT , Thoracentesis Ultrasound 01/09/23 14:33 IMPRESSION: Ultrasound-guided left thoracentesis. Electronically Signed: Filiberto Campo MD at 15:42 EDT , Chest X-Ray 01/09/23 15:20 IMPRESSION: No evidence of pneumothorax following the left thoracentesis. Electronically Signed: Filiberto Campo MD at 15:36 EDT , EKG Initial EKG: Comments: My independent interpretation of the patient's EKG done for dyspnea shows a normal sinus rhythm with a rate of 75. No ectopy. Mild nonspecific diffuse ST and T wave changes but no sign of acute infarct or ischemia. VT interval, QRS duration and QTc are normal. Discharge Plan Triage Chief Complaint: Shortness of Breath ED Provider: Jurgen Estrada Dx/Rx/DC Orders Clinical Impression: Failure of outpatient treatment, Community acquired pneumonia, Pleural effusion, Hypoxia Prescriptions: No Action lisinopril 40 MG tablet 20 mg PO BID atenolol [Tenormin] 50 MG tablet 50 mg PO DAILY (DME) pen needle, diabetic [Pen Needle] 32 gauge x 5/32 needle See Rx Instructions .Route Qty: 100 0RF Rx Instructions: As directed (DME) pen needle, diabetic [Pen Needle] 32 gauge x 5/32 needle See Rx Instructions .Route Qty: 100 0RF Rx Instructions: As directed atorvastatin 40 mg tablet 40 mg PO QHS pantoprazole 40 mg tablet,delayed release (DR/EC) 40 mg PO BID hydrochlorothiazide 12.5 mg capsule 12.5 mg PO DAILY insulin lispro [Humalog KwikPen Insulin] 100 unit/mL insulin pen 12 unit subcut TIDAC insulin lispro [Humalog KwikPen Insulin] 100 unit/mL insulin pen See Protocol subcut ACHS Protocol: 4. Sliding Scale Insulin High-Med Dosing Condition: 150-199 mg/dl = 2 units Condition: 200-259 mg/dl = 4 units Condition: 260-324 mg/dl = 6 units Condition: 325-374 mg/dl = 8 units Condition: 375-409 mg/dl = 10 units Condition: 410-449 mg/dl = 11 units Condition: Greater than 449 call physician Protocol Text: - Use for Total Daily Dose of Insulin 56-80 units - Patient who are insulin resistant or septic HIGH MEDIUM DOSING ALGORITHM insulin glargine [Lantus Solostar U-100 Insulin] 100 unit/mL (3 mL) insulin pen 14 unit subcut BID Rx Instructions: Hold if glucose less than 130 mg/dl chlorhexidine gluconate 0.12 % mouthwash 15 ml PO BID Patient Comments: RINSE WITH 1/2 OUNCE BY MOUTH FOR 30 SECONDS THEN SPIT OUT. use twice a day amlodipine 10 mg tablet 5 mg PO DAILY Rx Instructions: reduce dose to 1/2 tablet daily-(5mg) levofloxacin 750 mg tablet 750 mg PO DAILY Qty: 5 0RF Primary Care Provider: Paul Lo Referrals: Paul Lo MD [Primary Care Provider] - Disposition Disposition: Acute Care Hospital [facility]
[2023-01-09 12:20] LABS: Absolute Lymphocyte Count 1.11 X10^3/uL (0.83-4.51); Absolute Neutrophil Count 11.9 X10^3/uL (2.0-7.7); Basophil# 0.03 X10^3/uL; Basophil% 0.2 % (0-1); Eosinophil# 0.03 X10^3/uL; Eosinophils% 0.2 % (0-5); Hematocrit 39.8 % (40-54); Hemoglobin 13.3 g/dL (13.0-16.5); Lymphocyte # 1.11 X10^3/ul (0.83-4.51); Lymphocyte % 7.6 % (19-41); Mean Corp Hgb Conc 33.4 g/dL (32-36); Mean Corpuscular Hgb 28.2 pg (27.0-32.0); Mean Corpuscular Volume 84.3 fL (80-94); Mean Platelet Vol. 9.3 fl (6.2-12.0); Monocyte# 1.36 X10^3/uL; Monocyte% 9.4 % (0-10); NRBC Flagged by Analyzer 0 % (0-5); Neutrophil # 11.91 X10^3/uL (2.7-7.7); Platelet Count 367 K/mm3 (150-450); RBC Distribution Width SD 40.1 fl (35.1-43.9); Red Blood Count 4.72 M/mm3 (4.6-6.2); White Blood Count 14.5 K/mm3 (4.4-11.0)
--- NOTE | 2023-01-09 12:20 | RAD_ITS ---
STUDY: X-RAY CHEST REASON FOR EXAM: Male, 77 years old. SOB . Recent diagnosis of pneumonia. TECHNIQUE: PA and lateral views of the chest. COMPARISON: Comparison is made with prior study dated January 04, 2003. FINDINGS: EKG electrodes are seen. Stable moderate-sized left pleural effusion with left basilar infiltration and/or atelectasis. Blunting of the right costophrenic angle. Atelectatic changes at right lung base. Normal size heart. Normal mediastinum and star. Normal visualized pulmonary arteries. There is atherosclerotic calcification of the aortic arch with tortuosity. There are diffuse degenerative changes of the visualized thoracic spine. Normal visualized ribs, clavicles, and shoulders. There is no demonstrated abnormality of the visualized soft tissue structures of the upper abdomen. RAD/Chest PA and Lateral IMPRESSION: Moderate size left pleural effusion with left basilar infiltration and/or atelectasis. Blunting of the right costophrenic angle and right basilar atelectasis. Electronically Signed: Filiberto Campo MD at 12:48 EDT ,
[2023-01-09 12:39] LABS: Anion Gap 4 (5-15); BUN 19 mg/dL (7-18); BUN/Creat Ratio 20.3 RATIO (10-20); Calcium,Total 8.8 mg/dL (8.5-10.1); Chloride 99 mmol/L (98-107); Creatinine, Serum 0.94 mg/dL (0.70-1.30); EST Glomerular Filtration Rate 83 mL/min (>60); Est Glom Filt Rate - Afr Amer 101 mL/min (>60); Estimated Creatinine Clearance 71.21 ml/min; Glucose 163 mg/dL (74-106); Potassium 3.8 mmol/L (3.5-5.1); Sodium Level 132 mmol/L (136-145); Troponin-I HS 9 pg/mL (3.0-78.0)
[2023-01-09 12:41] LABS: BNP,B-Type NATRIURETIC PEPTIDE 147.7 pg/mL (0-100)
[2023-01-09 12:49] LABS: Lactic Acid 1.2 mmol/L (0.4-1.9)
--- NOTE | 2023-01-09 14:33 | US_ITS ---
PROCEDURE: ULTRASOUND GUIDED THORACENTESIS. DATE: January 09, 2023.. INDICATION: Male, 77 years old. Left pleural effusion. PHYSICIAN: Filiberto Campo M.D. PROCEDURE: The risks, benefits, and alternatives to the procedure were explained to the patient. The specific risks of bleeding, infection, and pneumothorax requiring chest tube insertion were discussed and accepted. Written informed consent was obtained. Ultrasonographic evaluation of the left lower pleural space was carried out. An adequate pocket was identified. The patient was placed in the sitting, upright position. The overlying skin was prepped and draped in sterile fashion. 1% lidocaine was administered subcutaneously for local anesthesia. Under ultrasound guidance, a 5 Serbian thoracentesis needle/catheter system was advanced into the left posterior lower pleural fluid collection. Approximately 1570 mL of jose-colored fluid was drained. The catheter was removed, and a sterile dressing was applied. A specimen was collected and sent to the laboratory for analysis, as requested by the referring clinician. The patient tolerated the procedure well. A chest x-ray was ordered. US/Thoracentesis W US IMPRESSION: Ultrasound-guided left thoracentesis. Electronically Signed: Filiberto Campo MD at 15:42 EDT ,
--- NOTE | 2023-01-09 15:20 | RAD_ITS ---
STUDY: X-RAY CHEST REASON FOR EXAM: Male, 77 years old. Post thora TECHNIQUE: AP inspiration and expiration views. COMPARISON: Comparison is made with prior study done earlier in the day. FINDINGS: The patient is status post left thoracentesis. There is no evidence of pneumothorax. Mild residual bibasilar pulmonary parenchymal changes. RAD/Chest Insp/Exp 2 View IMPRESSION: No evidence of pneumothorax following the left thoracentesis. Electronically Signed: Filiberto Campo MD at 15:36 EDT ,
[2023-01-09 18:09] LABS: Glucose, Body Fluid 182 mg/dL (40-70); LDH,Body Fluid 186 Units/L (Not Establ.)
--- NOTE | 2023-01-09 19:20 | HP.PCM.HOS_ITS ---
HPI - General General Date of Admission: 01/09/23 HPI Narrative MEL BROOKS, is a 77 M who presents to the hospital for a thoracentesis. He has been seen over the last week for community-acquired pneumonia and actually had the pleural effusion on the left side about a week ago but was not hypoxic at that time and was tolerating ambulation well. He was supposed to follow-up with his doctor on Thursday however his doctor got sick and scheduled the appointment for today at which point he sent him in for thoracentesis. This was able to be done in the ER and about 1500 cc of fluid was drained and sent for lab work however after the procedure he became little bit hypoxic per report about 87% on room air likely due to continued atelectasis. He denies any chest pain and feels that he is breathing little bit better now but because of his oxygen requirement it necessitated admission. [facility] Medical History Atherosclerosis Bladder neck obstruction BPH (benign prostatic hyperplasia) Coronary artery disease Diabetes HTN (hypertension) Hyperlipemia TIA (transient ischemic attack) Home Medications atenolol 50 mg tablet (Tenormin) 50 mg PO DAILY BLOOD PRESSURE 10/12/17 [History Last Taken 01/09/23] lisinopril 40 mg tablet 20 mg PO BID BLOOD PRESSURE 10/12/17 [History Last Taken 01/09/23] pen needle, diabetic 32 gauge x 5/32 (Pen Needle) #100 ea 09/19/22 [Rx Last Taken Unknown] pen needle, diabetic 32 gauge x 5/32 (Pen Needle) #100 ea 09/19/22 [Rx Last Taken Unknown] atorvastatin 40 mg tablet 40 mg PO QHS CHOLESTEROL 09/23/22 [History Last Taken 01/08/23] hydrochlorothiazide 12.5 mg capsule 12.5 mg PO DAILY FLUID 09/23/22 [History Last Taken 01/09/23] insulin glargine 100 unit/mL (3 mL) subcutaneous pen (Lantus Solostar U-100 Insulin) 14 unit subcut BID DIABETES 09/23/22 [History Last Taken 01/09/23] insulin lispro 100 unit/mL subcutaneous pen (Humalog KwikPen (U-100) Insulin) 12 unit subcut TIDAC DIABETES 09/23/22 [History Last Taken 01/09/23] insulin lispro 100 unit/mL subcutaneous pen (Humalog KwikPen (U-100) Insulin) See Protocol subcut ACHS DIABETES 09/23/22 [History Last Taken 01/09/23] pantoprazole 40 mg tablet,delayed release 40 mg PO BID ACID REFLUX 09/23/22 [History Last Taken 01/09/23] amlodipine 10 mg tablet 5 mg PO DAILY BLOOD PRESSURE 01/04/23 [History Last Taken 01/09/23] levofloxacin 750 mg tablet 750 mg PO DAILY #5 tabs 01/04/23 [Rx Last Taken 01/09/23] chlorhexidine gluconate 0.12 % mouthwash 15 ml PO BID ORAL SURGERY 01/09/23 [History Last Taken Unknown] Allergy/AdvReac Type Severity Reaction Status Date / Time No Known Allergies Allergy Verified 01/09/23 10:30 Family History (Updated 01/09/23 @ 19:[address] Dariusz Tucker MD) Other Diabetes Surgical History no surgical history no surgical history Social History Smoking Status: Never smoker ROS Constitutional Constitutional: Reports malaise; Denies chills, fatigue or fever(s) Eyes Eyes: Denies blurry vision ENT HEENT: Denies headache(s) or nasal discharge Cardiovascular Cardiovascular: Denies chest pain, dyspnea on exertion or syncope Respiratory/Chest Respiratory/Chest: Reports cough, shortness of breath at rest and shortness of breath with exertion Gastrointestinal Gastrointestinal: Denies constipation, diarrhea, nausea or vomiting Genitourinary Genitourinary: Denies dysuria Neurologic Neurologic: Denies focal weakness, numbness or tremor(s) Psychiatric Psychiatric: Denies anxiety or depression Vital Signs Vital Signs Vital Signs: 01/09/23 10:26 01/09/23 11:07 01/09/23 11:58 Temperature 97.8 F Temperature Source Temporal Pulse Rate 72 78 Respiratory Rate 18 30 H Respiratory Effort Short of Breath Respiratory Depth Normal Respiratory Pattern Normal Blood Pressure 99/58 L Blood Pressure Mean 71 Pulse Ox 96 Oxygen Delivery Method Room Air Room Air Oxygen Flow Rate (L/min) 01/09/23 14:13 01/09/23 16:00 01/09/23 19:13 Temperature 97.5 F L 97.5 F L 97.5 F L Temperature Source Temporal Temporal Temporal Pulse Rate 82 80 92 Respiratory Rate 20 H 18 18 Respiratory Effort Respiratory Depth Respiratory Pattern Blood Pressure 127/78 H 120/67 152/88 H Blood Pressure Mean 94 84 109 Pulse Ox 94 89 92 Oxygen Delivery Method Room Air Room Air Nasal Cannula Oxygen Flow Rate (L/min) 2 Weight Weight: 207 lb 7.28 oz Body Mass Index (BMI) 28.9 Physical Exam Narrative General: Alert, Oriented x3, Cooperative, No apparent distress HEENT: Atraumatic, PERRLA, EOMI, Normocephalic Oral: Moist Mucosa Neck: Supple, No JVD Lungs: Diminished on left more than right, Normal air movement, No rhonchi, No wheeze, No rales, crackles in left base Cardiovascular: Regular rate, Regular Rhythm, Normal S1, Normal S2, No murmurs Abdomen: Soft, Non Tender, Non-Distended, No Hepato-splenomegaly Extremities: No edema, Capillary Refill Less than 3 Seconds Skin: No rashes, No breakdown Musculoskeletal: No Tenderness to Palpation of Joints or Extremities Neurological: Cranial nerves II-XII grossly intact, Motor Exam 5/5 strength throughout, Sensory exam intact to light touch and pain Psych/Mental Status: Normal Affect, Appropriate Results Lab / Micro Data 01/09/23 12:10 01/09/23 12:10 Labs: Laboratory Results - last 24 hr 01/09/23 12:10: WBC 14.5 H, RBC 4.72, Hgb 13.3, Hct 39.8 L, MCV 84.3, MCH 28.2, MCHC 33.4, RDW Std Deviation 40.1, RDW Coeff of Colt 13.0, Plt Count 367, MPV 9.3, Immature Gran % (Auto) 0.600, Neut % (Auto) 82.0 H, Lymph % (Auto) 7.6 L, [place] % (Auto) 9.4, Eos % (Auto) 0.2, Baso % (Auto) 0.2, Absolute Neuts (auto) 11.9 H, Absolute Lymphs (auto) 1.11, Nucleated RBC % 0, Sodium 132 L, Potassium 3.8, Chloride 99, Carbon Dioxide 29.0, Anion Gap 4 L, BUN 19 H, Creatinine 0.94, Estim Creat Clear Calc 71.21, Est GFR (MDRD) Af Amer 101, Est GFR (MDRD) Non-Af 83, BUN/Creatinine Ratio 20.3 H, Glucose 163 H, Lactic Acid 1.2, Calcium 8.8, Troponin I High Sens 9, B-Natriuretic Peptide 147.7 H 01/09/23 15:13: Fluid Glucose 182 H, Fluid Total Protein 4.0, Fluid LDH 186 Radiology Impression Chest X-Ray 01/09/23 12:20 IMPRESSION: Moderate size left pleural effusion with left basilar infiltration and/or atelectasis. Blunting of the right costophrenic angle and right basilar atelectasis. Electronically Signed: Filiberto Campo MD at 12:48 EDT , Thoracentesis Ultrasound 01/09/23 14:33 IMPRESSION: Ultrasound-guided left thoracentesis. Electronically Signed: Filiberto Campo MD at 15:42 EDT , Chest X-Ray 01/09/23 15:20 IMPRESSION: No evidence of pneumothorax following the left thoracentesis. Electronically Signed: Filiberto Campo MD at 15:36 EDT , Assessment & Plan Assessment/Plan (1) Hypoxia: (2) Pleural effusion associated with pulmonary infection: (3) Community acquired pneumonia: PLAN: Plan 1. Community-acquired pneumonia with a left pleural effusion and hypoxia ? He has been on antibiotics for several days but developed a pleural effusion ? He is postthoracentesis with 1500 cc drained, fluid sample is for lab work ? Continue with his home Levaquin ? Continue with incentive spirometry to help reexpand his lungs and encourage ambulation ? We will repeat chest x-ray in the morning and hopefully will be able to wean oxygen as able 2. HTN/HLD ? Blood pressures are stable ? Can resume his home blood pressure and cholesterol medications 3. DM 2 ? We will continue with his home insulin including a sliding scale ? Accu-Cheks ACHS ? We will monitor and make adjustment does not very 4. GERD ? Stable ? Stable continue with his PPI DVT: Lovenox Charges/Coding Visit Charges Inpatient E&M: 22005 Init Hosp L3
[2023-01-09] MEDS: Pantoprazole Sodium 40 MG Tablet PO (20:50)
[2023-01-09] MEDS: Lisinopril 20 MG Tablet PO (20:50)
[2023-01-09] MEDS: Insulin Lispro 100 UNIT/ML INSULN.PEN SC (20:51)
[2023-01-09] MEDS: Atorvastatin Calcium 40 MG Tablet PO (20:51)
[2023-01-09] MEDS: 0.9% Saline Lock 10 ML Syringe IV (20:51)
[2023-01-09] MEDS: Insulin Glargine-YFGN 100 UNIT/ML Pen 14 UNIT SC (20:53)
[2023-01-09 21:22] LABS: Bedside Glucose 379 mg/dL (74-106)
[2023-01-10] VITALS (8 sets, daily range): BP systolic 119–141; BP diastolic 57–78; PULSE 79–88; RESP 16–22; TEMP 36.3–36.9; O2SAT 93–95
[2023-01-10 05:46] LABS: Absolute Lymphocyte Count 1.24 X10^3/uL (0.83-4.51); Absolute Neutrophil Count 11.3 X10^3/uL (2.0-7.7); Basophil# 0.03 X10^3/uL; Basophil% 0.2 % (0-1); Eosinophil# 0.03 X10^3/uL; Eosinophils% 0.2 % (0-5); Hematocrit 37.9 % (40-54); Hemoglobin 12.6 g/dL (13.0-16.5); Lymphocyte # 1.24 X10^3/ul (0.83-4.51); Lymphocyte % 8.4 % (19-41); Mean Corp Hgb Conc 33.2 g/dL (32-36); Mean Corpuscular Hgb 28.3 pg (27.0-32.0); Mean Platelet Vol. 9.6 fl (6.2-12.0); Monocyte# 2.04 X10^3/uL; Monocyte% 13.9 % (0-10); NRBC Flagged by Analyzer 0 % (0-5); Neutrophil # 11.28 X10^3/uL (2.7-7.7); Neutrophil % 76.9 % (47-70); POSITIVE DIFFERENTIAL YES; Platelet Count 340 K/mm3 (150-450); RBC Distribution Width CV 13.2 % (11.6-14.6); RBC Distribution Width SD 41.1 fl (35.1-43.9); Red Blood Count 4.46 M/mm3 (4.6-6.2); White Blood Count 14.7 K/mm3 (4.4-11.0)
[2023-01-10 06:04] LABS: Differential Indicated SCAN CRITERIA MET
[2023-01-10 06:10] LABS: Anion Gap 7 (5-15); BUN 16 mg/dL (7-18); BUN/Creat Ratio 18.9 RATIO (10-20); Calcium,Total 8.2 mg/dL (8.5-10.1); Chloride 100 mmol/L (98-107); Creatinine, Serum 0.85 mg/dL (0.70-1.30); EST Glomerular Filtration Rate 93 mL/min (>60); Est Glom Filt Rate - Afr Amer 113 mL/min (>60); Estimated Creatinine Clearance 78.75 ml/min; Glucose 282 mg/dL (74-106); Potassium 3.8 mmol/L (3.5-5.1); Sodium Level 134 mmol/L (136-145)
--- NOTE | 2023-01-10 06:16 | RAD_ITS ---
EXAM: XR CHEST, 1 VIEW CLINICAL INDICATION: S/p thoracentesis TECHNIQUE: Frontal view of the chest. COMPARISON: XR Chest dated 01/09/2023 FINDINGS: LUNGS AND PLEURAL SPACES: Increasing airspace opacification of the left lung suggestive of pneumonia. Persistent bilateral pleural effusions with some interval improvement in the size of the left pleural effusion. Adrenal compression atelectasis of the right lower lobe. No pneumothorax. HEART: Normal heart size. MEDIASTINUM: No mediastinal or hilar mass. BONES/JOINTS: No acute abnormality. RAD/Chest 1 View (Portable) IMPRESSION: Increasing airspace opacification of the left lung consistent with pneumonia. As above. Electronically Signed: Mannie Carlisle MD at 7:41 EDT ,
[2023-01-10 06:38] LABS: Differential Comment SCANNED
--- NOTE | 2023-01-10 07:18 | CT_ITS ---
EXAM: CT CHEST WITHOUT INTRAVENOUS CONTRAST CLINICAL INDICATION: effusion TECHNIQUE: Helically acquired images were obtained of the chest without intravenous contrast. This CT exam was performed using one or more of the following dose reduction techniques: automated exposure control, adjustment of the mA and/or kV according to patient size, and/or use of iterative reconstruction technique. COMPARISON: Chest radiograph 01/10/2023, CTA chest 09/18/2022 FINDINGS: LUNGS AND PLEURAL SPACES: Dense consolidative process of the left upper and lower lobes of the lung consistent with pneumonia. Moderate size bilateral pleural effusions with compression atelectasis of the lower lobes bilaterally and right middle lobe. No mass. HEART: Normal. Normal heart size. Interval development of moderate size pericardial effusion. Coronary artery stents are in place. MEDIASTINUM: Normal. No mediastinal or hilar adenopathy. Esophagus is unremarkable. No hiatal hernia. BONES/JOINTS: No suspicious lytic or blastic abnormality. VASCULATURE: See above. CT/Chest without Contrast IMPRESSION: 1. Extensive left upper and lower lobe pneumonia. 2. Bilateral pleural effusions. 3. Pericardial effusion. Electronically Signed: Mannie Carlisle MD at 9:37 EDT ,
--- NOTE | 2023-01-10 07:19 | PN.HOSP_ITS ---
Reason for Visit Reason for Visit: Shortness of breath Subjective Subjective Mr. Deluca is a 77-year-old white male who presented to the emergency department at [facility] on 01/09/2023 with shortness of breath. He was seen in the emergency department earlier this week and was diagnosed with pneumonia. He had a pleural effusion on the left side and initially the thought was to admit him however he was eating and drinking well and wanted to go home and required no oxygen at rest or with exertion. He was started on antibiotics (Levaquin) and referred for outpatient follow-up for possible thoracentesis. He was originally supposed to follow-up with his primary care physician on Thursday however his physician got ill so he followed up on Thursday. He complained that had been progressively getting more short of breath since he was seen earlier in the week and his indicated he had periods where his shortness of breath are more frequent and lasting longer. He does have a cough but no sputum production. He has not had any fever that they are aware and has had no chills. He denies any pain on presentation. He states on presentation he is not feeling well but was unable to define this further. They were able to get thoracentesis done from the emergency department and 1500 cc of fluid was drained and sent for fluid studies however after the procedure the patient began more hypoxic satting 87% on room air at rest. He continued to deny any pain and follow-up chest x-ray did not show any pneumothorax. Vital signs on pres entation demonstrated temperature of 97.8, heart rate 72, blood pressure 99/58, pulse ox was initially 96% on room air however after thoracentesis he desatted to 87% on room air and was placed on 2 L nasal cannula with improvement of oxygen saturations to 92%. CBC showed a white count of 14.5 and a left shift with an 82.0% neutrophilia. But was otherwise unremarkable. His chemistry panel showed mild hyponatremia the sodium of 132 but was otherwise unremarkable except for hyperglycemia with a blood sugar of 163. His BNP was slightly elevated 147.7. Patient states he is feeling okay today. Denies any current issues. We discussed the finding of a pericardial effusion and apparently his sister had one as well. He has no signs of tamponade. States his breathing is better but still intermittent coughing unfortunately it is nonproductive. He is anxious to go home and asks if he may go today and I informed him that he is not yet medically ready. His is at the bedside and in agreement. Objective Data Objective Data Vital Signs: Vital Signs Temp Pulse Resp BP Pulse Ox O2 Del Method O2 Flow Rate 97.8 F 84 22 H 141/68 H 95 Nasal Cannula 2 01/10/23 03:02 01/10/23 03:02 01/10/23 03:02 01/10/23 03:02 01/10/23 03:02 01/10/23 03:17 01/10/23 03:17 Oxygen Flow Rate (L/min) 2 Oxygen Delivery Method Nasal Cannula Weight: 89.8 kg Body Mass Index (BMI) 27.6 Intake & Output: Intake and Output for Last 24 Hours 01/08/23 01/09/23 01/10/23 23:59 23:59 23:59 Output Total 250 / 250 Balance -250 / -250 Lab / Micro Data 01/10/23 04:56 01/10/23 04:56 Labs: Laboratory Results - last 24 hr 01/09/23 12:10: WBC 14.5 H, RBC 4.72, Hgb 13.3, Hct 39.8 L, MCV 84.3, MCH 28.2, MCHC 33.4, RDW Std Deviation 40.1, RDW Coeff of Colt 13.0, Plt Count 367, MPV 9.3, Immature Gran % (Auto) 0.600, Neut % (Auto) 82.0 H, Lymph % (Auto) 7.6 L, [place] % (Auto) 9.4, Eos % (Auto) 0.2, Baso % (Auto) 0.2, Absolute Neuts (auto) 11.9 H, Absolute Lymphs (auto) 1.11, Nucleated RBC % 0, Sodium 132 L, Potassium 3.8, Chloride 99, Carbon Dioxide 29.0, Anion Gap 4 L, BUN 19 H, Creatinine 0.94, Estim Creat Clear Calc 71.21, Est GFR (MDRD) Af Amer 101, Est GFR (MDRD) Non-Af 83, BUN/Creatinine Ratio 20.3 H, Glucose 163 H, Lactic Acid 1.2, Calcium 8.8, Troponin I High Sens 9, B-Natriuretic Peptide 147.7 H 01/09/23 15:13: Fluid Glucose 182 H, Fluid Total Protein 4.0, Fluid LDH 186 01/09/23 20:49: POC Glucose 379 H 01/10/23 04:56: WBC 14.7 H, RBC 4.46 L, Hgb 12.6 L, Hct 37.9 L, MCV 85.0, MCH 28.3, MCHC 33.2, RDW Std Deviation 41.1, RDW Coeff of Colt 13.2, Plt Count 340, MPV 9.6, Immature Gran % (Auto) 0.400, Neut % (Auto) 76.9 H, Lymph % (Auto) 8.4 L, [place] % (Auto) 13.9 H, Eos % (Auto) 0.2, Baso % (Auto) 0.2, Absolute Neuts (auto) 11.3 H, Absolute Lymphs (auto) 1.24, Nucleated RBC % 0, Differential Comment SCANNED, Diff Path Review September, Sodium 134 L, Potassium 3.8, Chloride 100, Carbon Dioxide 27.0, Anion Gap 7, BUN 16, Creatinine 0.85, Estim Creat Clear Calc 78.75, Est GFR (MDRD) Af Amer 113, Est GFR (MDRD) Non-Af 93, BUN/Creatinine Ratio 18.9, Glucose 282 H, Calcium 8.2 L Radiography Diagnostic Testing: Radiology Impression Chest X-Ray 01/09/23 12:20 IMPRESSION: Moderate size left pleural effusion with left basilar infiltration and/or atelectasis. Blunting of the right costophrenic angle and right basilar atelectasis. Electronically Signed: Filiberto Campo MD at 12:48 EDT , Thoracentesis Ultrasound 01/09/23 14:33 IMPRESSION: Ultrasound-guided left thoracentesis. Electronically Signed: Filiberto Campo MD at 15:42 EDT , Chest X-Ray 01/09/23 15:20 IMPRESSION: No evidence of pneumothorax following the left thoracentesis. Electronically Signed: Filiberto Campo MD at 15:36 EDT , Physical Exam Const alert, oriented x3, no apparent distress, average body habitus and well nourished Constitutional Narrative: Older, white male, sitting up in bed, appears comfortable and nontoxic, currently on 2 L nasal cannula, at bedside HEENT head/scalp atraumatic and moist oral mucous membranes HEENT Narrative: Dentition is fair, Mallampati is 2, no thrush Head and Scalp: normocephalic Eyes PERRL, EOMs intact bilaterally and conjunctivae normal Neck no lymphadenopathy and supple Neck Narrative: Trachea midline, no thyroid in the adjuvant Resp normal respiratory effort, no retractions and no use of accessory muscles Resp Narrative: Crackles at the left base to about the mid lung field, clear at the left apex, right side is clear, no rhonchi or wheeze Auscultation: crackles; Negative for rhonchi or wheezes Cardio regular rate, regular rhythm, S1 normal heart sound, S2 normal heart sound, no murmurs, no rub, no gallops and no clicks GI normal to inspection, nondistended, normoactive bowel sounds, soft to palpation and non-tender Extremity Extremity Narrative: Trace bilateral lower extremity pitting edema, no cyanosis or clubbing Neuro oriented x3, CN's II-XII intact bilaterally, moves all extremities and no focal motor deficits Neuro Narrative: Patient is oriented x3 however he does seem to have trouble processing things and asks questions repetitively I do question whether or not there is some mild cognitive impairment Speech: speech normal Psych affect normal Psych Narrative: Eye contact is good, patient interacts well Assessment & Plan Assessment/Plan (1) Community acquired pneumonia: (2) Pleural effusion: (3) Hypoxia: (4) Leukocytosis: (5) Hyponatremia: (6) Generalized weakness: (7) Hyperglycemia: (8) Pericardial effusion: (9) Failure of outpatient treatment: PLAN: Plan -Suspected pneumonia with left-sided pleural effusion -Status postthoracentesis yesterday for 1500 cc -Patient completed outpatient course of Levaquin for 6 total days of treatment yesterday start Zosyn and vancomycin -MRSA PCR is pending -I obtained a CT this morning and it showed extensive left upper and lower lobe pneumonia as well as bilateral pleural effusions that are improved and pericardial effusion that is moderate -Check strep pneumo and Legionella antigens -Check sputum culture if possible -Blood cultures are pending -Add Mucinex -Consult pulmonary medicine-Dr. Rawls notified and will see patient tomorrow Large left-sided pleural effusion -Status postthoracentesis 01/09/2023 for 1500 cc -We will calculate lights criteria however hepatic panel and LDH not ordered so we will order stat this morning -Add on cell counts, cytology, cultures--> discussed with lab Pericardial effusion -Check echocardiogram -Lasix 40 mg IV push twice daily Leukocytosis -No real change since yesterday -We will transition from Levaquin to Zosyn and await cultures -Repeat CBC in a.m. Hyponatremia -Likely related to above lung infection -Stable and not markedly low -Continue to monitor DM-2 with hyperglycemia -Last A1c was 9.6 from 09/18/2022 -Check hemoglobin A1c -Blood sugar this morning is markedly elevated -Home basal insulin 14 units twice daily -Continue home log as ordered -SSI as ordered -Carb/cardiac diet CAD/HTN/HPL -Continue home amlodipine 5 mg daily -Continue home atenolol 50 mg daily -Continue home atorvastatin 40 mg nightly-continue home hydrochlorothiazide 12.5 mg daily -Continue home lisinopril 20 mg p.o. twice daily GERD -Continue home PPI DVT prophylaxis -Continue enoxaparin daily CODE STATUS -Full code Charges/Coding Visit Charges Inpatient E&M: 59678 Subs Hosp L3
[2023-01-10] MEDS: Insulin Glargine-YFGN 100 UNIT/ML Pen 14 UNIT SC ×2 (07:47→22:41)
[2023-01-10] MEDS: Insulin Lispro 100 UNIT/ML INSULN.PEN 12 UNIT SC ×3 (07:48→16:11)
[2023-01-10] MEDS: Pantoprazole Sodium 40 MG Tablet PO ×2 (07:49→22:40)
[2023-01-10] MEDS: Insulin Lispro 100 UNIT/ML INSULN.PEN SC ×4 (07:49→22:42)
[2023-01-10] MEDS: Lisinopril 20 MG Tablet PO ×2 (07:49→22:40)
[2023-01-10] MEDS: Atenolol 50 MG Tablet PO (07:50)
[2023-01-10] MEDS: hydroCHLOROthiazide 12.5mg 12.5 MG PO (07:50)
[2023-01-10] MEDS: Enoxaparin 40 MG/0.4 ML Syringe SC (07:50)
[2023-01-10] MEDS: amLODIPine 5 MG Tablet PO (07:50)
[2023-01-10] MEDS: guaiFENesin 1,200 MG Tablet 1200 MG PO ×2 (08:24→22:40)
[2023-01-10 08:33] LABS: Bedside Glucose 269 mg/dL (74-106)
[2023-01-10 08:34] LABS: AST(SGOT) 13 U/L (15-37); Alanine Aminotransfer ALT/SGPT 22 U/L (16-61); Albumin, Serum 1.1 g/dL (3.2-5.0); Alkaline Phosphatase 89 U/L (45-117); Bilirubin, Direct 0.34 mg/dL (0.00-0.30); LDH 245 U/L (87-241); Protein, Total 6.1 g/dL (6.4-8.2)
[2023-01-10 08:44] LABS: Cytology, Body Fluid / CSF SEE PATHOLOGY REPORT
[2023-01-10 08:49] LABS: Hemoglobin A1c 7.3 % (3.8-5.6)
--- NOTE | 2023-01-10 09:55 | ECHOD_ITS ---
Reason For Study: Pericardial effusion Procedure This was a 2D Doppler, Color Flow transthoracic echocardiogram. Exam performed portable in patient room. Left Ventricle Normal LV size. The estimated ejection fraction is 60 %. No evidence for diastolic dysfunction. No regional wall motion abnormalities noted. Right Ventricle Normal RV size. Normal systolic function. Atria Normal left atrium. Normal right atrium. No doppler evidence for ASD. Mitral Valve There is no mitral valve stenosis. No mitral valve insufficiency. Tricuspid Valve There is no tricuspid stenosis. Unable to estimate RV systolic pressure due to insufficient tricuspid regurgitant envelope. Trivial tricuspid valve insufficiency. Aortic Valve Trisinus/trileaflet aortic valve. Aortic sclerosis, no stenosis. There is no aortic stenosis. Mild (1+) aortic valve insufficiency. Pulmonic Valve There is no pulmonic valvular stenosis. Trivial pulmonic valve insufficiency. Great Vessels Normal aortic root. Pericardium/Pleural Small pericardial effusion. Large left pleural effusion. MMode/2D Measurements & Calculations LVIDd: 3.6 cm IVSd: 1.6 cm Ao root diam: 3.3 cm LVIDs: 2.1 cm LVPWd: 0.94 cm RVDd: 3.1 cm FS: 42.2 % LAV(MOD-bp): 27.6 ml LVAd ap2: 20.2 cm2 SV(MOD-sp2): 30.9 ml LAV(MOD-bp) Indexed: 13.2 ml/m2 LVLd ap2: 7.4 cm LAV(MOD-sp2): 14.7 ml EDV(MOD-sp2): 47.6 ml LAV(MOD-sp4): 36.2 ml EDV(sp2-el): 47.1 ml LVAs ap2: 11.0 cm2 LVLs ap2: 6.3 cm ESV(MOD-sp2): 16.6 ml ESV(sp2-el): 16.4 ml EF(MOD-sp2): 65.0 % LA A4 area: 14.1 cm2 LA dimension(2D): 3.4 cm RA A4 area: 11.1 cm2 Time Measurements MV dec time: 0.13 sec Doppler Measurements & Calculations MV E max josesito: 89.2 cm/sec Lat Peak E' Josesito: 5.8 cm/sec Med Peak E' Josesito: 7.9 cm/sec MV A max josesito: 74.9 cm/sec E/E' lat: 15.4 E/E' med: 11.4 MV E/A: 1.2 Ao V2 max: 118.9 cm/sec LV V1 max: 79.8 cm/sec MV dec slope: 681.4 cm/sec2 Ao max P.7 mmHg LV V1 max P.5 mmHg PA V2 max: 68.1 cm/sec ECHO/Echo Complete Interpretation Summary The estimated ejection fraction is 60 %. Small pericardial effusion. No evidence for diastolic dysfunction. Mild (1+) aortic valve insufficiency. Ordering Physician: Reba Tejada Referring Physician: Dariusz Tucker Performed By: Destinee Willingham RDCS
[2023-01-10 10:34] LABS: M R Staph aureus DNA By PCR Negative (Negative); Probe Check PASS; Specimen Processing Control PASS
[2023-01-10] MEDS: Furosemide 40 MG/4 ML Vial IV ×2 (11:28→17:48)
[2023-01-10 12:25] LABS: Bedside Glucose 273 mg/dL (74-106)
[2023-01-10] MEDS: 0.9% Saline Lock 10 ML Syringe IV ×2 (12:58→17:48)
--- NOTE | 2023-01-10 14:25 | PCM.RX.CS ---
Consult Antibiotic Management Pharmacy has been consulted to manage selected antiobiotic: Vancomycin Type of Intervention Type of Consult: New start Suspected Infection Suspected Infection: Pneumonia Labs Labs: Sodium 134 mmol/L (136-145) L 01/10/23 04:56 Potassium 3.8 mmol/L (3.5-5.1) 01/10/23 04:56 Chloride 100 mmol/L (98-107) 01/10/23 04:56 Carbon Dioxide 27.0 mmol/L (21.0-32.0) 01/10/23 04:56 Anion Gap 7 (5-15) 01/10/23 04:56 BUN 16 mg/dL (7-18) 01/10/23 04:56 Creatinine 0.85 mg/dL (0.70-1.30) 01/10/23 04:56 Est GFR (MDRD) Af Amer 113 mL/min (>60) 01/10/23 04:56 Est GFR (MDRD) Non-Af 93 mL/min (>60) 01/10/23 04:56 BUN/Creatinine Ratio 18.9 RATIO (10-20) 01/10/23 04:56 Glucose 282 mg/dL (74-106) H 01/10/23 04:56 Microbiology Microbiology: Microbiology 01/10/23 08:30 Urine, Clean Catch Legionella Antigen - Final 01/10/23 08:30 Urine, Clean Catch Streptococcus pneumoniae Antigen (M - Final Dosing Weight Weight used for dosin kg Estimated Creatinine Clearance Estimated Creatinine Clearance: 79 MLS/MIN Goal Trough Goal Trough: 15-20 mcg/mL Pharmacy Plan for Drug Dosing Pharmacy Plan for Drug Dosing: NEW START IV VANCOMYCIN Consulting Physician: Dr. Bernarda Tejada Indication: Pneumonia Goal Trough: 15-20 SrCr: 0.85 CrCl: 79 mls/min Comments: pt received a 1250mg loading dose (15 mg/kg) on 01/10/23 at ~11am Vancomycin Dose: based on pts weight and renal function, recommend an initial dose of 1250mg q12h starting 01/10/23 at 2300 Pending Level: 01/11/23 at 2230 Pharmacy Service will continue to monitor and adjust dosing as required. Follow-Up Labs Follow-Up Labs: Trough: Vancomycin (01/11/23 @ 2230)
--- NOTE | 2023-01-10 15:50 | CASEMGMT ---
RACQUEL GALEANO Discharge Planning Assessment: Face to Face with patient for initial transition planning/care coordination assessment. RACQUEL GALEANO introduced self and role at [facility], pt alert, voices understanding, and is agreeable to participating in assessment with spouse and friend at bedside. Care providers, pharmacy, and demographics verified. Admitting dx: pneumonia, pleural effusion PCP: Teresita Specialists: Ele (matrix inspector), Olamide (neurologist) Preferred Pharmacy: [facility] Insurance: [facility] A/B, [place] [facility] [place] Prescription Benefit: yes LNOK: Alejandra Living Arrangements: Pt lives with his in a story and a half home with 2-3 steps to enter w/handrail. Pt states he is independent with ADLs for self care and spouse assists with household tasks. Spouse watches pt's meds but pt primarily manages them himself. Transportation: Pt drives local distances and spouse drives for farther distances. DME: two walking sticks, walker (has but doesn't use), glucometer and supplies, pulse ox, hand held shower, shower chair SNF/HHC: denies previous providers Pt's stated pt has been attending outpatient therapy at [facility] for PT/OT and ST. Pt had been discharged from PT and OT but was still undergoing ST tx. They had recently obtained a script for outpatient PT/OT due to pt beginning to decline in strength since being discharged. Discussed recommendation for home PT and OT and pt stated he would prefer to attend outpatient PT and OT at [facility] as he prefers to be out of the house and will be there for ST anyway. If pt were to need home O2, [facility] would be their preferred provider. Pt's plan: return home with support of his with outpatient PT/OT/ST services (already has script for these) Will continue to monitor for home O2 needs or other discharge needs. Adriana Kessler RN CM
[2023-01-10 16:42] LABS: Bedside Glucose 321 mg/dL (74-106)
[2023-01-10] MEDS: Atorvastatin Calcium 40 MG Tablet PO (22:40)
[2023-01-10 23:26] LABS: Bedside Glucose 256 mg/dL (74-106)
--- NOTE | 2023-01-11 | FLU_PTH ---
PATIENT: MEL BROOKS LOC: MS3 U#:[id number] AGE/SX: 77/M ROOM: [facility] [place] RE01/09/[address]: Dr. Reba Tejada DO : 1945 BED: 1 DIS: 01/12/2023 SPEC #: [id number] RECD: 01/11/23 15:47 STATUS: MAJNU REQ #: [id number] ALYSSA: 01/11/23 00:[address]: Reba Tejada DEPT: CYTOLOGY RECD BY: Aftab Garza ENTERED: 01/12/23 08:55 SP TYPE: Fluid OTHR DR: DO Dr. Dariusz Nunn MD Dr. William Lago, MD Tissues: THORACIC FLUID Procedures: Special Stain Group II Surgery Specimen Level IV Cytospin Fluid HEADER OPERATION: Ultrasound-guided thoracentesis left PRE-OP DIAGNOSIS: Left pleural effusion TISSUE SUBMITTED: Thoracentesis fluid for cytology DIAGNOSIS CYTOLOGY Thoracentesis fluid for cytology (cytospin and cell block): Negative for malignant cells. Acute inflammation. AM:so 01/13/2023 CYTOLOGY STUDY Slides are reviewed. CYTOLOGY GROSS Received is 80 ml of red cloudy fluid labeled with the patient's name and and designated per the requisition as thoracentesis. Submitted for cytology preparation including cell block. / so 01/12/2023 TC:2 CPT: 10408, 64619
[2023-01-11 05:00] VITALS: BP 116/69; PULSE 80; RESP 18; TEMP 37.4; O2SAT 93
[2023-01-11 05:32] LABS: Absolute Lymphocyte Count 1.61 X10^3/uL (0.83-4.51); Absolute Neutrophil Count 11.4 X10^3/uL (2.0-7.7); Basophil# 0.03 X10^3/uL; Basophil% 0.2 % (0-1); Eosinophils% 0.6 % (0-5); Hematocrit 35.6 % (40-54); Hemoglobin 11.9 g/dL (13.0-16.5); Lymphocyte # 1.61 X10^3/ul (0.83-4.51); Lymphocyte % 10.4 % (19-41); Mean Corp Hgb Conc 33.4 g/dL (32-36); Mean Corpuscular Hgb 27.9 pg (27.0-32.0); Mean Corpuscular Volume 83.6 fL (80-94); Mean Platelet Vol. 9.7 fl (6.2-12.0); Monocyte# 2.19 X10^3/uL; Monocyte% 14.2 % (0-10); NRBC Flagged by Analyzer 0 % (0-5); Neutrophil # 11.42 X10^3/uL (2.7-7.7); POSITIVE DIFFERENTIAL YES; Platelet Count 344 K/mm3 (150-450); RBC Distribution Width CV 13.2 % (11.6-14.6); RBC Distribution Width SD 39.8 fl (35.1-43.9); Red Blood Count 4.26 M/mm3 (4.6-6.2); White Blood Count 15.5 K/mm3 (4.4-11.0)
--- NOTE | 2023-01-11 06:00 | EX.PCM.CONCC ---
Assessment & Plan Assessment/Plan (1) Hypoxia: PLAN: Plan RECOMMENDATIONS: 1. Continue empiric broad-spectrum antimicrobials. 2. Await finalized culture results. 3. Wean supplemental oxygen to maintain saturations at or above 90%. 4. Encourage incentive spirometer use and mobilize patient as tolerated. 5. Gentle diuresis as tolerated by hemodynamics and renal function. 6. Ambulatory oximetry study prior to consideration for discharge home. 7. Follow-up chest imaging in 6 to 8 weeks. IMPRESSIONS: 1. Hypoxia and shortness of breath Appears to be secondary to extensive left-sided multilobar consolidation, with what is likely a parapneumonic effusion. The patient appears to be slowly improving from a clinical perspective with broad-spectrum antimicrobials, which I would plan to continue without change. Continue attempts at gentle diuresis as tolerated by hemodynamics and renal function. The patient will require close outpatient pulmonary follow-up with repeat chest imaging in 6 to 8 weeks to document resolution of the infiltrates noted. 2. History of diabetes mellitus/coronary artery disease/hypertension/hyperlipidemia/GERD Complicates care, management, recovery and prognosis. Continue home medications as indicated. This note was generated with [employer] Dual[employer] dictation software. It may contain incorrect words, spelling, and punctuation that were not noted in checking the note before signing. HPI Consult Data Date of Consult: 01/11/23 HPI Narrative Reason for Consultation: Pleural effusion HPI Narrative: The patient is a 77-year-old male, with a history as outlined below, who presented to the emergency department on January 09 with shortness of breath. The patient had been evaluated in the emergency department earlier in the week and was diagnosed with pneumonia. He was noted at that time to have a left-sided pleural effusion, but was otherwise clinically stable and felt to be amenable to outpatient therapy with Levaquin. Nevertheless, over the course of the week, the patient has become more short of breath and has been experiencing a nonproductive cough. He therefore presented back to the emergency department for reevaluation at the prompting of his primary care provider. On presentation to the emergency department, the patient was documented to be afebrile and hemodynamically stable. He was maintaining appropriate oxygen saturations on room air. Initial laboratory evaluation revealed a white blood cell count of 14,000. Chemistry profile was notable for a sodium of 132. Chest x-ray demonstrated a moderate left-sided pleural effusion. The patient was subsequently referred and underwent an ultrasound-guided thoracentesis with 1.5 L of jose-colored fluid removed from the left hemithorax. Follow-up CT chest completed on January 10 demonstrated upper and lower lobe airspace consolidation on the left concerning for pneumonia along with bilateral pleural effusions. Surface echocardiogram demonstrated normal LV size and function with an ejection fraction of 60%. Strep and urine Legionella antigens were negative. Pleural fluid analysis is still pending. The patient is currently being maintained on broad-spectrum antimicrobials with Zosyn and vancomycin. Overall, the patient reported that he feels as if he is improving, with less shortness of breath noted. [facility] Medical History Atherosclerosis Bladder neck obstruction BPH (benign prostatic hyperplasia) Coronary artery disease Diabetes HTN (hypertension) Hyperlipemia TIA (transient ischemic attack) Home Medications atenolol 50 mg tablet (Tenormin) 50 mg PO DAILY BLOOD PRESSURE 10/12/17 [History Last Taken 01/09/23] lisinopril 40 mg tablet 20 mg PO BID BLOOD PRESSURE 10/12/17 [History Last Taken 01/09/23] pen needle, diabetic 32 gauge x 5/32 (Pen Needle) #100 ea 09/19/22 [Rx Last Taken Unknown] pen needle, diabetic 32 gauge x 5/32 (Pen Needle) #100 ea 09/19/22 [Rx Last Taken Unknown] atorvastatin 40 mg tablet 40 mg PO QHS CHOLESTEROL 09/23/22 [History Last Taken 01/08/23] hydrochlorothiazide 12.5 mg capsule 12.5 mg PO DAILY FLUID 09/23/22 [History Last Taken 01/09/23] insulin glargine 100 unit/mL (3 mL) subcutaneous pen (Lantus Solostar U-100 Insulin) 14 unit subcut BID DIABETES 09/23/22 [History Last Taken 01/09/23] insulin lispro 100 unit/mL subcutaneous pen (Humalog KwikPen (U-100) Insulin) 12 unit subcut TIDAC DIABETES 09/23/22 [History Last Taken 01/09/23] insulin lispro 100 unit/mL subcutaneous pen (Humalog KwikPen (U-100) Insulin) See Protocol subcut ACHS DIABETES 09/23/22 [History Last Taken 01/09/23] pantoprazole 40 mg tablet,delayed release 40 mg PO BID ACID REFLUX 09/23/22 [History Last Taken 01/09/23] amlodipine 10 mg tablet 5 mg PO DAILY BLOOD PRESSURE 01/04/23 [History Last Taken 01/09/23] levofloxacin 750 mg tablet 750 mg PO DAILY #5 tabs 01/04/23 [Rx Last Taken 01/09/23] chlorhexidine gluconate 0.12 % mouthwash 15 ml PO BID ORAL SURGERY 01/09/23 [History Last Taken Unknown] Allergy/AdvReac Type Severity Reaction Status Date / Time No Known Allergies Allergy Verified 01/09/23 10:30 Family History (Updated 01/09/23 @ 19:[address] Dariusz Tucker MD) Other Diabetes Surgical History no surgical history Social History Smoking Status: Never smoker ROS ROS Narrative 10 systems were reviewed with pertinent positives as noted in the HPI above. Physical Exam Const alert, oriented x3 and no apparent distress General Appearance: cooperative HEENT normocephalic, head/scalp atraumatic and moist oral mucous membranes Teeth and Gingiva: poor dentition Eyes PERRL, EOMs intact bilaterally and conjunctivae normal Neck supple General: trachea midline Chest inspection of chest normal Resp normal respiratory effort Resp Narrative: Bilateral rales present Cardio regular rate and regular rhythm GI normal to inspection, nondistended, normoactive bowel sounds Extremity no clubbing, cyanosis or edema Skin no rashes or lesions noted Neuro oriented x3, CN's II-XII intact bilaterally and moves all extremities Psych cooperative and affect normal Lab / Micro Data 01/11/23 04:45 01/11/23 04:45 Labs: Laboratory Results - last 24 hr 01/09/23 15:13: Fluid Source Cancelled, Fluid Color Cancelled, Fluid Appearance Cancelled, Fluid WBC Cancelled, Fluid RBC Cancelled, Fluid Tot Cell Count Cancelled, Fld Polynuclear WBCs # Cancelled, Fld Polynuclear WBCs % Cancelled, Fluid Mononuclear WBCs Cancelled, Fld Mononuclear WBCs % Cancelled, Fluid Neutrophils Cancelled, Fluid Lymphocytes Cancelled, Fluid Monocytes Cancelled, Fluid Plasma Cells Cancelled, Fluid Macrophages Cancelled, Fld Mesothelial Cells Cancelled, Fluid Other Cells Cancelled, Fl Pathologist Comment Cancelled, Fluid Comment 2 Cancelled 01/10/23 04:56: WBC 14.7 H, RBC 4.46 L, Hgb 12.6 L, Hct 37.9 L, MCV 85.0, MCH 28.3, MCHC 33.2, RDW Std Deviation 41.1, RDW Coeff of Colt 13.2, Plt Count 340, MPV 9.6, Immature Gran % (Auto) 0.400, Neut % (Auto) 76.9 H, Lymph % (Auto) 8.4 L, [place] % (Auto) 13.9 H, Eos % (Auto) 0.2, Baso % (Auto) 0.2, Absolute Neuts (auto) 11.3 H, Absolute Lymphs (auto) 1.24, Nucleated RBC % 0, Differential Comment SCANNED, Diff Path Review September, Sodium 134 L, Potassium 3.8, Chloride 100, Carbon Dioxide 27.0, Anion Gap 7, BUN 16, Creatinine 0.85, Estim Creat Clear Calc 78.75, Est GFR (MDRD) Af Amer 113, Est GFR (MDRD) Non-Af 93, BUN/Creatinine Ratio 18.9, Glucose 282 H, Hemoglobin A1c 7.3 H, Calcium 8.2 L, Total Bilirubin 1.10 H, Direct Bilirubin 0.34 H, AST 13 L, ALT 22, Alkaline Phosphatase 89, Lactate Dehydrogenase 245 H, Total Protein 6.1 L, Albumin 1.1 L, Globulin 5.0 H 01/10/23 07:40: MRSA (PCR) Negative, POC Glucose 269 H 01/10/23 11:31: POC Glucose 273 H 01/10/23 16:09: POC Glucose 321 H 01/10/23 22:37: POC Glucose 256 H Micro: Microbiology 01/09/23 15:13 Fluid - Thoracentesis Fluid Gram Stain - Final 01/10/23 08:30 Urine, Clean Catch Legionella Antigen - Final 01/10/23 08:30 Urine, Clean Catch Streptococcus pneumoniae Antigen (M - Final Radiology Impression Chest X-Ray 01/10/23 06:16 IMPRESSION: Increasing airspace opacification of the left lung consistent with pneumonia. As above. Electronically Signed: Mannie Carlisle MD at 7:41 EDT , Chest CT 01/10/23 07:18 IMPRESSION: 1. Extensive left upper and lower lobe pneumonia. 2. Bilateral pleural effusions. 3. Pericardial effusion. Electronically Signed: Mannie Carlisle MD at 9:37 EDT , Echocardiogram 01/10/23 09:55 Interpretation Summary The estimated ejection fraction is 60 %. Small pericardial effusion. No evidence for diastolic dysfunction. Mild (1+) aortic valve insufficiency. Ordering Physician: Reba Tejada Referring Physician: Dariusz Tucker Performed By: Destinee Willingham, RDNAIF Charges/Coding Visit Charges Inpatient E&M: 43522 Init Hosp L3
[2023-01-11 06:11] LABS: ALB/GLOB Ratio 0.5 RATIO (0.9-2.4); AST(SGOT) 15 U/L (15-37); Alanine Aminotransfer ALT/SGPT 23 U/L (16-61); Albumin, Serum 2.1 g/dL (3.2-5.0); Alkaline Phosphatase 78 U/L (45-117); Anion Gap 7 (5-15); BUN 21 mg/dL (7-18); BUN/Creat Ratio 20.8 RATIO (10-20); Chloride 95 mmol/L (98-107); Creatinine, Serum 1.01 mg/dL (0.70-1.30); EST Glomerular Filtration Rate 76 mL/min (>60); Est Glom Filt Rate - Afr Amer 92 mL/min (>60); Estimated Creatinine Clearance 66.27 ml/min; Globulin 3.9 g/dL (2.2-4.2); Glucose 231 mg/dL (74-106); Magnesium 1.8 mg/dL (1.6-2.6); Potassium 3.3 mmol/L (3.5-5.1); Sodium Level 129 mmol/L (136-145); Thyroid Stim Hormone (TSH) 1.39 uIU/mL (0.358-3.74)
[2023-01-11 06:23] LABS: Differential Indicated SCAN CRITERIA MET
[2023-01-11] MEDS: Potassium Chloride Oral Tablet 20 MEQ 60 MEQ PO (06:55)
[2023-01-11 06:57] LABS: Bedside Glucose 239 mg/dL (74-106)
[2023-01-11 07:54] VITALS: O2SAT 95
[2023-01-11] MEDS: guaiFENesin 1,200 MG Tablet 1200 MG PO ×2 (07:56→22:00)
[2023-01-11] MEDS: amLODIPine 5 MG Tablet PO (07:57)
[2023-01-11] MEDS: Enoxaparin 40 MG/0.4 ML Syringe SC (07:57)
[2023-01-11] MEDS: Atenolol 50 MG Tablet PO (07:57)
[2023-01-11] MEDS: Pantoprazole Sodium 40 MG Tablet PO ×2 (07:57→22:01)
[2023-01-11] MEDS: Insulin Lispro 100 UNIT/ML INSULN.PEN 16 UNIT SC ×3 (07:58→16:50)
[2023-01-11] MEDS: Insulin Glargine-YFGN 100 UNIT/ML Pen 18 UNIT SC ×2 (07:58→22:03)
[2023-01-11] MEDS: Insulin Lispro 100 UNIT/ML INSULN.PEN SC ×4 (07:59→22:02)
[2023-01-11] MEDS: Lisinopril 20 MG Tablet PO ×2 (08:00→22:01)
[2023-01-11 08:43] VITALS: BP 127/80; PULSE 86; RESP 18; TEMP 36.9; O2SAT 94
[2023-01-11 11:45] VITALS: BP 92/55; PULSE 74; RESP 18; TEMP 36.9; O2SAT 96
--- NOTE | 2023-01-11 12:03 | PN.HOSP_ITS ---
Reason for Visit Reason for Visit: Shortness of breath Subjective Subjective No issues overnight. Patient still anxious to go home however I informed him its not yet time. States he is hungry and waiting for his breakfast. I did discuss with him that his echocardiogram was not concerning and that his pericardial effusion was small only. Objective Data Objective Data Vital Signs: Vital Signs Temp Pulse Resp BP Pulse Ox O2 Del Method O2 Flow Rate 98.4 F 74 18 92/55 L 96 Nasal Cannula 2 01/11/23 11:45 01/11/23 11:45 01/11/23 11:45 01/11/23 11:45 01/11/23 11:45 01/11/23 11:45 01/11/23 11:45 Oxygen Flow Rate (L/min) 2 Oxygen Delivery Method Nasal Cannula Weight: 89.8 kg Body Mass Index (BMI) 27.6 Intake & Output: Intake and Output for Last 24 Hours 01/09/23 01/10/23 01/11/23 23:59 23:59 23:59 Intake Total 1475 / 1475 825 / 825 Output Total 1650 / 1950 900 / 900 Balance -175 / -475 -75 / -75 Lab / Micro Data 01/11/23 04:45 01/11/23 04:45 Labs: Laboratory Results - last 24 hr 01/10/23 11:31: POC Glucose 273 H 01/10/23 16:09: POC Glucose 321 H 01/10/23 22:37: POC Glucose 256 H 01/11/23 04:45: WBC 15.5 H, RBC 4.26 L, Hgb 11.9 L, Hct 35.6 L, MCV 83.6, MCH 27.9, MCHC 33.4, RDW Std Deviation 39.8, RDW Coeff of Colt 13.2, Plt Count 344, MPV 9.7, Immature Gran % (Auto) 0.600, Neut % (Auto) 74.0 H, Lymph % (Auto) 10.4 L, [place] % (Auto) 14.2 H, Eos % (Auto) 0.6, Baso % (Auto) 0.2, Absolute Neuts (auto) 11.4 H, Absolute Lymphs (auto) 1.61, Nucleated RBC % 0, Diff Path Review September, Sodium 129 L, Potassium 3.3 L, Chloride 95 L, Carbon Dioxide 27.0, Anion Gap 7, BUN 21 H, Creatinine 1.01, Estim Creat Clear Calc 66.27, Est GFR (MDRD) Af Amer 92, Est GFR (MDRD) Non-Af 76, BUN/Creatinine Ratio 20.8 H, Glucose 231 H, Calcium 8.0 L, Phosphorus 3.0, Magnesium 1.8, Total Bilirubin 1.40 H, AST 15, ALT 23, Alkaline Phosphatase 78, Total Protein 6.0 L, Albumin 2.1 L, Globulin 3.9, Albumin/Globulin Ratio 0.5 L, TSH 1.39 01/11/23 06:39: POC Glucose 239 H Micro: Microbiology 01/09/23 12:10 Blood Culture (Wb) - Right Forearm Blood Culture - Preliminar y No growth in 48 hours. 01/09/23 15:13 Fluid - Thoracentesis Fluid Gram Stain - Final 01/09/23 15:13 Fluid - Thoracentesis Fluid Body Fluid Culture - Preliminary No growth-Final to follow 01/10/23 08:30 Urine, Clean Catch Legionella Antigen - Final 01/10/23 08:30 Urine, Clean Catch Streptococcus pneumoniae Antigen (M - Final Radiography Diagnostic Testing: Radiology Impression Echocardiogram 01/10/23 09:55 Interpretation Summary The estimated ejection fraction is 60 %. Small pericardial effusion. No evidence for diastolic dysfunction. Mild (1+) aortic valve insufficiency. Ordering Physician: Reba Tejada Referring Physician: Dariusz Tucker Performed By: Destinee Willingham, ARLET Physical Exam Const alert, oriented x3, no apparent distress, average body habitus and well nourished Constitutional Narrative: Older, white male, sitting up in bed, waiting for his breakfast, watching television, appears comfortable and nontoxic, remains on 2 L nasal cannula HEENT head/scalp atraumatic and moist oral mucous membranes Head and Scalp: normocephalic Resp normal respiratory effort, no retractions and no use of accessory muscles Resp Narrative: Crackles at the left base to about the mid lung field, clear at the left apex, right side is clear, no rhonchi or wheeze, intermittent cough noted especially with deep breathing-nonproductive Auscultation: crackles; Negative for rhonchi or wheezes Cardio regular rate, regular rhythm, S1 normal heart sound, S2 normal heart sound, no murmurs, no rub, no gallops and no clicks GI normal to inspection, nondistended, normoactive bowel sounds, soft to palpation and non-tender Extremity no clubbing, cyanosis or edema Neuro oriented x3, moves all extremities and no focal motor deficits Neuro Narrative: Patient seems to have some small amount of memory loss Speech: speech normal Psych affect normal Psych Narrative: Eye contact is good, patient interacts well Assessment & Plan Assessment/Plan (1) Community acquired pneumonia: (2) Pleural effusion: (3) Hypoxia: (4) Leukocytosis: (5) Hyponatremia: (6) Generalized weakness: (7) Hyperglycemia: (8) Pericardial effusion: (9) Failure of outpatient treatment: PLAN: Plan -Suspected pneumonia with left-sided pleural effusion -Status postthoracentesis yesterday for 1500 cc -Patient completed outpatient course of Levaquin for 6 total days of treatment -Continue Zosyn and vancomycin empirically for now and await cultures -MRSA PCR was negative -Check strep pneumo and Legionella antigens -Sputum culture not able to be collected -Fluid from effusion culture is pending with unimpressive Gram stain -Blood cultures are negative at 48 hours -Continue Mucinex -Pulmonary medicine is following and recommends follow-up imaging in 6 to 8 weeks Large transudative left-sided pleural effusion -Status postthoracentesis 01/09/2023 for 1500 cc -Suspect parapneumonic effusion Pericardial effusion -Echocardiogram was done and shows only small pericardial effusion with an EF of 60% and no evidence evidence of diastolic dysfunction, 1+ aortic valve insufficiency -Discontinue Lasix Leukocytosis -Remained stable with slight trend up -Continue Zosyn and vancomycin Hypokalemia -60 mill equivalents p.o. potassium replacement -Repeat in a.m. Hyponatremia -Likely related to above lung infection -Slightly worse today however this is likely manifestation of diuresis -Lasix discontinued -Stable and not markedly low -Continue to monitor DM-2 with hyperglycemia -Last A1c was 9.6 from 09/18/2022 -Check hemoglobin A1c -Blood sugars remain elevated and I suspect this is related to his acute infection because his hemoglobin A1c is 7.3 on his current outpatient regimen -Continue basal insulin but increase to 18 units from 14 units twice daily -Increase home mealtime Humalog to 16 units 3 times daily -SSI as ordered -Carb/cardiac diet CAD/HTN/HPL -Continue home amlodipine 5 mg daily -Continue home atenolol 50 mg daily -Continue home atorvastatin 40 mg nightly -continue home hydrochlorothiazide 12.5 mg daily -Continue home lisinopril 20 mg p.o. twice daily GERD -Continue home PPI DVT prophylaxis -Continue enoxaparin daily CODE STATUS -Full code Charges/Coding Visit Charges Inpatient E&M: 21744 Subs Hosp L2
[2023-01-11 12:12] LABS: Bedside Glucose 335 mg/dL (74-106)
[2023-01-11 16:18] VITALS: BP 115/59; PULSE 80; RESP 18; TEMP 37.2; O2SAT 94
[2023-01-11 17:10] LABS: Bedside Glucose 255 mg/dL (74-106)
[2023-01-11] MEDS: Atorvastatin Calcium 40 MG Tablet PO (22:01)
[2023-01-11 22:10] VITALS: BP 123/56; PULSE 85; RESP 18; TEMP 37.6; O2SAT 94
[2023-01-11 22:27] LABS: Bedside Glucose 184 mg/dL (74-106)
[2023-01-11 22:53] LABS: Vancomycin, Trough Level 13.4 ug/mL (5.0-15.0)
--- NOTE | 2023-01-11 23:22 | PCM.RX.CS ---
Consult Labs Labs: Sodium 129 mmol/L (136-145) L 01/11/23 04:45 Potassium 3.3 mmol/L (3.5-5.1) L 01/11/23 04:45 Chloride 95 mmol/L (98-107) L 01/11/23 04:45 Carbon Dioxide 27.0 mmol/L (21.0-32.0) 01/11/23 04:45 Anion Gap 7 (5-15) 01/11/23 04:45 BUN 21 mg/dL (7-18) H 01/11/23 04:45 Creatinine 1.01 mg/dL (0.70-1.30) 01/11/23 04:45 Est GFR (MDRD) Af Amer 92 mL/min (>60) 01/11/23 04:45 Est GFR (MDRD) Non-Af 76 mL/min (>60) 01/11/23 04:45 BUN/Creatinine Ratio 20.8 RATIO (10-20) H 01/11/23 04:45 Glucose 231 mg/dL (74-106) H 01/11/23 04:45 Vancomycin Trough 13.4 ug/mL (5.0-15.0) 01/11/23 22:24 Microbiology Microbiology: Microbiology 01/09/23 12:10 Blood Culture (Wb) - Right Forearm Blood Culture - Preliminary No growth in 48 hours. 01/09/23 15:13 Fluid - Thoracentesis Fluid Gram Stain - Final 01/09/23 15:13 Fluid - Thoracentesis Fluid Body Fluid Culture - Preliminary No growth-Final to follow 01/10/23 08:30 Urine, Clean Catch Legionella Antigen - Final 01/10/23 08:30 Urine, Clean Catch Streptococcus pneumoniae Antigen (M - Final Pharmacy Plan for Drug Dosing Pharmacy Plan for Drug Dosing: Pharmacy Service will continue to monitor and adjust dosing as required. [id number] AT 11 HRS. INCREASE TO 1500 Q12H AND FOLLOW UP TROUGH PRIOR TO 4TH DOSE Follow-Up Labs Follow-Up Labs: Trough: Vancomycin Date/Time Labs Ordered Labs to be done on [date and time ordered]: 01/13 @ 1033
[2023-01-12] VITALS (8 sets, daily range): BP systolic 120–134; BP diastolic 62–72; PULSE 78–84; RESP 18–19; TEMP 36.7–37.2; O2SAT 85–97
--- NOTE | 2023-01-12 05:20 | RAD_ITS ---
INDICATION: Shortness of breath EXAMINATION/TECHNIQUE: X-RAY - AP view of chest COMPARISON: Chest x-ray from 01/10/2023 FINDINGS: LINES/DEVICES: None. LUNGS: Persistent bibasilar opacification with improving aeration of left midlung. Bilateral pleural effusions again noted. Partially obscured hemidiaphragms. No detectable pneumothorax. MEDIASTINUM AND CARDIOVASCULAR STRUCTURES: Heart size within normal limits for imaging technique. Atherosclerotic calcifications along aorta. BONES AND SOFT TISSUES: Skeletal degenerative changes. RAD/Chest 1 View (Portable) IMPRESSION: Persistent bibasilar opacification and bilateral pleural effusions. Electronically Signed: Rebel Stahl MD at 5:52 EDT ,
[2023-01-12 07:08] LABS: Absolute Lymphocyte Count 1.48 X10^3/uL (0.83-4.51); Absolute Neutrophil Count 9.5 X10^3/uL (2.0-7.7); Basophil# 0.03 X10^3/uL; Basophil% 0.2 % (0-1); Eosinophil# 0.11 X10^3/uL; Eosinophils% 0.8 % (0-5); Hematocrit 38.9 % (40-54); Hemoglobin 12.7 g/dL (13.0-16.5); Lymphocyte # 1.48 X10^3/ul (0.83-4.51); Lymphocyte % 11.3 % (19-41); Mean Corp Hgb Conc 32.6 g/dL (32-36); Mean Corpuscular Hgb 27.9 pg (27.0-32.0); Mean Corpuscular Volume 85.5 fL (80-94); Mean Platelet Vol. 9.7 fl (6.2-12.0); Monocyte# 1.94 X10^3/uL; Monocyte% 14.8 % (0-10); NRBC Flagged by Analyzer 0 % (0-5); Neutrophil # 9.51 X10^3/uL (2.7-7.7); Neutrophil % 72.4 % (47-70); POSITIVE DIFFERENTIAL YES; Platelet Count 356 K/mm3 (150-450); RBC Distribution Width CV 13.2 % (11.6-14.6); RBC Distribution Width SD 41.7 fl (35.1-43.9); Red Blood Count 4.55 M/mm3 (4.6-6.2); White Blood Count 13.1 K/mm3 (4.4-11.0)
[2023-01-12 07:12] LABS: Differential Indicated SCAN CRITERIA MET
[2023-01-12 07:39] LABS: ALB/GLOB Ratio 0.5 RATIO (0.9-2.4); AST(SGOT) 27 U/L (15-37); Alanine Aminotransfer ALT/SGPT 40 U/L (16-61); Albumin, Serum 2.1 g/dL (3.2-5.0); Alkaline Phosphatase 87 U/L (45-117); Anion Gap 5 (5-15); BUN 19 mg/dL (7-18); BUN/Creat Ratio 17.1 RATIO (10-20); Calcium,Total 8.5 mg/dL (8.5-10.1); Chloride 98 mmol/L (98-107); Creatinine, Serum 1.11 mg/dL (0.70-1.30); EST Glomerular Filtration Rate 68 mL/min (>60); Est Glom Filt Rate - Afr Amer 83 mL/min (>60); Globulin 4.2 g/dL (2.2-4.2); Glucose 183 mg/dL (74-106); Potassium 4.1 mmol/L (3.5-5.1); Protein, Total 6.3 g/dL (6.4-8.2); Sodium Level 132 mmol/L (136-145)
[2023-01-12] MEDS: Insulin Lispro 100 UNIT/ML INSULN.PEN SC ×2 (08:13→11:42)
[2023-01-12] MEDS: Insulin Lispro 100 UNIT/ML INSULN.PEN 16 UNIT SC ×2 (08:14→11:42)
[2023-01-12] MEDS: Insulin Glargine-YFGN 100 UNIT/ML Pen 18 UNIT SC (08:15)
[2023-01-12] MEDS: Enoxaparin 40 MG/0.4 ML Syringe SC (08:15)
[2023-01-12] MEDS: guaiFENesin 1,200 MG Tablet 1200 MG PO (08:16)
[2023-01-12] MEDS: Lisinopril 20 MG Tablet PO (08:16)
[2023-01-12] MEDS: Pantoprazole Sodium 40 MG Tablet PO (08:16)
[2023-01-12] MEDS: Atenolol 50 MG Tablet PO (08:17)
[2023-01-12] MEDS: amLODIPine 5 MG Tablet PO (08:17)
[2023-01-12 09:25] LABS: Bedside Glucose 188 mg/dL (74-106)
--- NOTE | 2023-01-12 09:52 | CASEMGMT ---
Discharge Planning SNF list created and given to SW. Padmini Townsend, Discharge Planning Asst.
--- NOTE | 2023-01-12 10:09 | CASEMGMT ---
Filters Assembler SW introduced self and role to patient and pt's , Alejandra. SW discussed the need for additional therapy. A list of SNF providers including quality and resource use data and consistent with patient?s preferred geographic region, medical needs, and insurance network were provided from [facility]. Patient's is requesting [facility] first and [facility] as a second choice for SNF placement. SW sent referral via careport to [facility] and [facility]. Sharon Giles MEAT INSPECTOR, NURSING CARE PARTNER
--- NOTE | 2023-01-12 10:12 | PCM.PN.INT ---
Assessment & Plan Assessment/Plan (1) Hypoxia: PLAN: Plan RECOMMENDATIONS: 1. Continue empiric broad-spectrum antimicrobials. 2. Wean supplemental oxygen to maintain saturations at or above 90%. 3. Encourage incentive spirometer use and mobilize patient as tolerated. 4. Gentle diuresis as tolerated by hemodynamics and renal function. 5. Ambulatory oximetry study prior to consideration for discharge home. 6. Follow-up chest imaging in 6 to 8 weeks. IMPRESSIONS: 1. Hypoxia and shortness of breath Appears to be secondary to extensive left-sided multilobar consolidation, with what is likely a parapneumonic effusion. The patient appears to be slowly improving from a clinical perspective with broad-spectrum antimicrobials, which I would plan to continue without change. Continue attempts at gentle diuresis as tolerated by hemodynamics and renal function. The patient will require close outpatient pulmonary follow-up with repeat chest imaging in 6 to 8 weeks to document resolution of the infiltrates noted. Recommend Augmentin at discharge to complete treatment course. The patient should follow-up in the pulmonary medicine clinic within 2 weeks of discharge. 2. History of diabetes mellitus/coronary artery disease/hypertension/hyperlipidemia/GERD Complicates care, management, recovery and prognosis. Continue home medications as indicated. This note was generated with [employer] dictation software. It may contain incorrect words, spelling, and punctuation that were not noted in checking the note before signing. Subjective Subjective The patient was seen and examined at the bedside this morning. Events from the last 24 hours have been reviewed. The patient is currently afebrile, hemodynamically stable and maintaining appropriate oxygen saturations on room air. The patient's is present at the bedside. He apparently ambulated in the hallway but did not desaturate below 90% on room air. Objective Data Objective Data The patient's most recent lab work, culture data and imaging studies have all been personally reviewed. Vital Signs: Vital Signs Temp Pulse Resp BP Pulse Ox O2 Del Method O2 Flow Rate 98.0 F 80 18 134/72 H 93 Nasal Cannula 2 01/12/23 07:49 01/12/23 07:49 01/12/23 07:49 01/12/23 07:49 01/12/23 10:00 01/12/23 10:00 01/12/23 10:00 Oxygen Flow Rate (L/min) [ 4 AMBULATING with Oxygen #3] Oxygen Flow Rate (L/min) [ 3 AMBULATING with Oxygen #2] Oxygen Flow Rate (L/min) [ 2 AMBULATING with Oxygen #1] Oxygen Flow Rate (L/min) [ 0 AMBULATING on Room Air] Oxygen Flow Rate (L/min) [At 0 REST on Room Air] Oxygen Flow Rate (L/min) [At 2 REST with Oxygen] Oxygen Flow Rate (L/min) 2 Oxygen Delivery Method Nasal Cannula Weight: 197 lb 15.602 oz Body Mass Index (BMI) 27.6 Intake & Output: Intake and Output for Last 24 Hours 01/10/23 01/11/23 01/12/23 23:59 23:59 23:59 Intake Total 1475 / 1475 1550 / 1550 325 / 325 Output Total 1650 / 1950 900 / 900 700 / 700 Balance -175 / -475 650 / 650 -375 / -375 Lab / Micro Data 01/12/23 06:14 01/12/23 06:14 Labs: Laboratory Results - last 24 hr 01/11/23 11:34: POC Glucose 335 H 01/11/23 16:48: POC Glucose 255 H 01/11/23 21:59: POC Glucose 184 H 01/11/23 22:24: Vancomycin Trough 13.4 01/12/23 06:14: WBC 13.1 H, RBC 4.55 L, Hgb 12.7 L, Hct 38.9 L, MCV 85.5, MCH 27.9, MCHC 32.6, RDW Std Deviation 41.7, RDW Coeff of Colt 13.2, Plt Count 356, MPV 9.7, Immature Gran % (Auto) 0.500, Neut % (Auto) 72.4 H, Lymph % (Auto) 11.3 L, [place] % (Auto) 14.8 H, Eos % (Auto) 0.8, Baso % (Auto) 0.2, Absolute Neuts (auto) 9.5 H, Absolute Lymphs (auto) 1.48, Nucleated RBC % 0, Diff Path Review September, Sodium 132 L, Potassium 4.1, Chloride 98, Carbon Dioxide 29.0, Anion Gap 5, BUN 19 H, Creatinine 1.11, Estim Creat Clear Calc 60.30, Est GFR (MDRD) Af Amer 83, Est GFR (MDRD) Non-Af 68, BUN/Creatinine Ratio 17.1, Glucose 183 H, Calcium 8.5, Total Bilirubin 1.20 H, AST 27, ALT 40, Alkaline Phosphatase 87, Total Protein 6.3 L, Albumin 2.1 L, Globulin 4.2, Albumin/Globulin Ratio 0.5 L 01/12/23 07:47: POC Glucose 188 H Micro: Microbiology 01/09/23 15:13 Fluid - Thoracentesis Fluid Gram Stain - Final 01/09/23 15:13 Fluid - Thoracentesis Fluid Body Fluid Culture - Preliminary No growth-Final to follow 01/09/23 15:13 Fluid - Thoracentesis Fluid Anaerobic Culture - Preliminary No growth in 48 hours. 01/09/23 12:10 Blood Culture (Wb) - Right Forearm Blood Culture - Preliminary No growth in 48 hours. 01/10/23 08:30 Urine, Clean Catch Legionella Antigen - Final 01/10/23 08:30 Urine, Clean Catch Streptococcus pneumoniae Antigen (M - Final Radiography Diagnostic Testing: Radiology Impression Chest X-Ray 01/12/23 05:20 IMPRESSION: Persistent bibasilar opacification and bilateral pleural effusions. Electronically Signed: Rebel Stahl MD at 5:52 EDT , Physical Exam Const alert, oriented x3 and no apparent distress Constitutional Narrative: Sitting in bedside recliner. General Appearance: cooperative HEENT normocephalic, head/scalp atraumatic and moist oral mucous membranes Teeth and Gingiva: poor dentition Eyes PERRL, EOMs intact bilaterally and conjunctivae normal Neck supple General: trachea midline Chest inspection of chest normal Resp normal respiratory effort Resp Narrative: Mild residual rales present. Cardio regular rate and regular rhythm GI normal to inspection, nondistended, normoactive bowel sounds Extremity no clubbing, cyanosis or edema Skin no rashes or lesions noted Neuro oriented x3, CN's II-XII intact bilaterally and moves all extremities Psych Mood & Affect: flat affect Charges/Coding Visit Charges Inpatient E&M: 50932 Subs Hosp L2
--- NOTE | 2023-01-12 11:25 | PCM.TXEXTCAR ---
Diet Diet Order/Speech Therapy: 01/09/23 19:39 Diet: Consistent Carb - Calorie Controlled Food consistency:: Regular Liquid Consistency:: Regular/Thin How many daily calories?: 2000 calorie Routine Orders/Code Status O2 Liters per Minute: 2 L at rest and 4 with exertion wean as able O2 Frequency: Continuous Keep PO Greater than or Equal to (%): 90 Routine Lab Work: CBC (1 week) and BMP (1 week) Code Status: Full Code Wound(s) Left lower back: Wound Type: Puncture Suggestions for Active Care Change Position every (hours): 2 Therapies Weight Bearing: Full weight bearing Physical Therapy: Eval and Treat Occupational Therapy: Eval and Treat Problem/Diagnosis (1) Hypoxia: Status: Acute Code(s): R09.02 - Hypoxemia Allergies/Procedures Done in Hospital Allergies No Known Allergies Allergy (Verified 01/09/23 10:30) Procedures: 2-D Echocardiogram, EKG, Thoracentesis and - (Chest/chest x-ray) Type of Care/Length of Stay Estimated LOS: Convalescent Care Less Than 30 days Type of Care Needed: Skilled Rehab Potential: Good Prognosis: Good Additional Orders/Day of Discharge Day of Discharge: 01/12/23 Follow Up Care Please follow up with your Primary Care Physician in: 2-4 weeks Please Follow Up With: Toby Rawls DO When: 02/03/2021 945 am Discharge Plan Admission Admit Date/Time: 01/09/23 19:27 Attending Provider: Reba Tejada Primary Care Provider: Paul Lo Consulting Providers: Dariusz Tucker; Toby Rawls Discharge Orders/Prescriptions Prescriptions: New insulin lispro [Humalog KwikPen Insulin] 100 unit/mL Insulin Pen 16 unit subcut TIDAC Qty: 0 0RF insulin lispro [Humalog KwikPen Insulin] 100 unit/mL Insulin Pen See Protocol subcut ACHS Qty: 0 0RF Protocol: 4. Sliding Scale Insulin High-Med Dosing Condition: 150-199 mg/dl = 2 units Condition: 200-259 mg/dl = 4 units Condition: 260-324 mg/dl = 6 units Condition: 325-374 mg/dl = 8 units Condition: 375-409 mg/dl = 10 units Condition: 410-449 mg/dl = 11 units Condition: Greater than 449 call physician Protocol Text: - Use for Total Daily Dose of Insulin 56-80 units - Patient who are insulin resistant or septic HIGH MEDIUM DOSING ALGORITHM insulin glargine-yfgn 100 unit/mL (3 mL) Insulin Pen 18 unit subcut BID Qty: 0 0RF amoxicillin-pot clavulanate 875-125 mg tablet 1 tab PO BID Qty: 16 0RF Continued lisinopril 40 MG tablet 20 mg PO BID atenolol [Tenormin] 50 MG tablet 50 mg PO DAILY (DME) pen needle, diabetic [Pen Needle] 32 gauge x 5/32 needle See Rx Instructions .Route Qty: 100 0RF Rx Instructions: As directed (DME) pen needle, diabetic [Pen Needle] 32 gauge x 5/32 needle See Rx Instructions .Route Qty: 100 0RF Rx Instructions: As directed atorvastatin 40 mg tablet 40 mg PO QHS pantoprazole 40 mg tablet,delayed release (DR/EC) 40 mg PO BID hydrochlorothiazide 12.5 mg capsule 12.5 mg PO DAILY insulin lispro [Humalog KwikPen Insulin] 100 unit/mL insulin pen 12 unit subcut TIDAC insulin lispro [Humalog KwikPen Insulin] 100 unit/mL insulin pen See Protocol subcut ACHS Protocol: 4. Sliding Scale Insulin High-Med Dosing Condition: 150-199 mg/dl = 2 units Condition: 200-259 mg/dl = 4 units Condition: 260-324 mg/dl = 6 units Condition: 325-374 mg/dl = 8 units Condition: 375-409 mg/dl = 10 units Condition: 410-449 mg/dl = 11 units Condition: Greater than 449 call physician Protocol Text: - Use for Total Daily Dose of Insulin 56-80 units - Patient who are insulin resistant or septic HIGH MEDIUM DOSING ALGORITHM insulin glargine [Lantus Solostar U-100 Insulin] 100 unit/mL (3 mL) insulin pen 14 unit subcut BID Rx Instructions: Hold if glucose less than 130 mg/dl chlorhexidine gluconate 0.12 % mouthwash 15 ml PO BID Patient Comments: RINSE WITH 1/2 OUNCE BY MOUTH FOR 30 SECONDS THEN SPIT OUT. use twice a day amlodipine 10 mg tablet 5 mg PO DAILY Rx Instructions: reduce dose to 1/2 tablet daily-(5mg) Discontinued levofloxacin 750 mg tablet 750 mg PO DAILY Qty: 5 0RF Referrals / Follow Up: Toby Rawls DO [Med Staff - Active Staff] - 02/03/23 2:45 pm Paul Lo MD [Primary Care Provider] - Disposition Disposition (needs filled in before D/C Order can be placed): Home, Self Care
--- NOTE | 2023-01-12 12:02 | PCM.DC.SUM ---
Providers Date of Admission: 01/09/23 Date of Discharge: 01/12/23 Primary Care Physician: Dr. Paul Lo MD Consultations 01/10/23 09:57 Consult: Assistant Health Educator / Pulmonary Medicine Routine Consulting Provider: Toby Rawls Reason for Consult: Parapneumonic effusion/PNA EMERGENT Consult: No MD Notified: Yes Date Notified: 01/10/23 Time Notified: 11:46 Method of Notification: Text Reason For Visit: PLEURAL EFFUSION AND PNEUMONIA Diagnosis Discharge Diagnosis (1) Hypoxia: Status: Acute Code(s): R09.02 - Hypoxemia Medications at Discharge Home Medications atenolol 50 mg tablet (Tenormin) 50 mg PO DAILY BLOOD PRESSURE 10/12/17 lisinopril 40 mg tablet 20 mg PO BID BLOOD PRESSURE 10/12/17 pen needle, diabetic 32 gauge x 5/32 (Pen Needle) #100 ea 09/19/22 pen needle, diabetic 32 gauge x 5/32 (Pen Needle) #100 ea 09/19/22 atorvastatin 40 mg tablet 40 mg PO QHS CHOLESTEROL 09/23/22 hydrochlorothiazide 12.5 mg capsule 12.5 mg PO DAILY FLUID 09/23/22 insulin glargine 100 unit/mL (3 mL) subcutaneous pen (Lantus Solostar U-100 Insulin) 14 unit subcut BID DIABETES 09/23/22 insulin lispro 100 unit/mL subcutaneous pen (Humalog KwikPen (U-100) Insulin) 12 unit subcut TIDAC DIABETES 09/23/22 insulin lispro 100 unit/mL subcutaneous pen (Humalog KwikPen (U-100) Insulin) See Protocol subcut ACHS DIABETES 09/23/22 pantoprazole 40 mg tablet,delayed release 40 mg PO BID ACID REFLUX 09/23/22 amlodipine 10 mg tablet 5 mg PO DAILY BLOOD PRESSURE 01/04/23 chlorhexidine gluconate 0.12 % mouthwash 15 ml PO BID ORAL SURGERY 01/09/23 amoxicillin 875 mg-potassium clavulanate 125 mg tablet 1 tab PO BID #16 tabs 01/12/23 insulin glargine-yfgn 100 unit/mL (3 mL) subcutaneous pen 18 unit (0.18 mL) subcut BID #0 mL 01/12/23 insulin lispro 100 unit/mL subcutaneous pen (Humalog KwikPen (U-100) Insulin) 16 unit (0.16 mL) subcut TIDAC #0 mL 01/12/23 insulin lispro 100 unit/mL subcutaneous pen (Humalog KwikPen (U-100) Insulin) See Protocol subcut ACHS #0 mL 01/12/23 Hospital Course Procedures 2-D Echocardiogram, EKG, Thoracentesis and - (X-ray/CT chest) Summary of Care Provided Minutes Spent on Discharge: 38 Hospital Course: Mr. Deluca is a 77-year-old white male who presented to the emergency department at [facility] on 01/09/2023 with shortness of breath. He had been seen in the emergency department on 01/04/2023 and was diagnosed with a pneumonia. Chest x-ray revealed a fairly sizable left pleural effusion and the initial thought was to admit him however he was eating and drinking well and on room air and the patient did want to go home. He was started on Levaquin and referred for outpatient follow-up with his primary care physician to be seen midweek however his primary care physician appointment got pushed back to Thursday due to scheduling issues. He was seen in his primary care office on 01/10/2023 at which time he complained about progressively worsening shortness of breath and his indicated that his shortness of breath was more frequent and lasting longer when it did occur. He did have a cough but denied productive sputum. He had not had any fever or chills and denied any pain on presentation. He indicated he was not feeling well but was not able to further define this for us. A thoracentesis was ordered and performed from the emergency department as it was felt that if they can get this drained he would be able to go home. Thoracentesis was performed and 1500 cc of fluid were removed from the left lung field. After the procedure he began to develop more hypoxia and was satting in the 87% on room air at rest. He continued to deny any pain and follow-up chest x-ray did not show pneumothorax. Vital signs on presentation demonstrated temperature of 97.8, heart rate 72, blood pressure 99/58, pulse ox was initially 96% on room air however after thoracentesis he desatted to 87% on room air and was placed on 2 L nasal cannula with improvement of oxygen saturations to 92%. CBC showed a white count of 14.5 and a left shift with an 82.0% neutrophilia. But was otherwise unremarkable. His chemistry panel showed mild hyponatremia the sodium of 132 but was otherwise unremarkable except for hyperglycemia with a blood sugar of 163. His BNP was slightly elevated 147.7. Since he had completed Levaquin as an outpatient and was still ill we transitioned him to Zosyn and vancomycin for aggressive coverage and MRSA PCR was obtained. This was found to be unremarkable and the vancomycin was discontinued. We obtained a follow-up CAT scan to further assess the left lung field status post thoracentesis. CT of the chest without contrast showed extensive left upper and lower lobe pneumonia, bilateral pleural effusions and a pericardial effusion. Lights criteria for his effusion was transudative in nature and this was felt to be a parapneumonic effusion. Cultures were unremarkable. Unfortunately cell counts were not ordered at the time of the study and the pleural fluid was too clotted to obtain this after however we were able to add on cultures and cytology. Cultures were unremarkable and cytology was still pending at the time of discharge. Pericardial was noted to be moderate in size and therefore an echocardiogram was obtained. EF was noted to be 60%, small pericardial effusion was identified and he had no evidence of diastolic dysfunction however there was mild 1+ aortic valve insufficiency. He was given 24 hours of Lasix 40 mg IV push twice daily and had some hyponatremia and a slight creatinine bump following so this was discontinued and we will maintain him on his hydrochlorothiazide at discharge. Blood cultures were negative. Pneumo and Legionella antigens were negative. Pulmonary medicine was consulted and did see the patient and follow along during his hospital course. They recommended continuing empiric antibiotics with Augmentin given he failed outpatient Levaquin and continued incentive spirometry and Acapella with follow-up outpatient in the next 1 to 2 weeks or as soon as appointment is available. Ambulatory pulse ox was obtained and the patient did require 1 L of oxygen at rest and 4 L with exertion. This may be weaned with time as he improves. A prescription for Augmentin to complete 8 more days of treatment. Given his outpatient failure we will treat for total of 10 days. He was seen by physical and Occupational Therapy and they did recommend placement for ongoing therapy services as he was somewhat debilitated. His was in agreement and was concerned about taking him home with his weakness. He was excepted for admission at [facility] and was able to be discharged in stable condition on 01/12/2023. Advised him to follow-up with his primary care physician within 1 month as he should be able to be discharged from the skilled facility within that time and he has an appointment to follow-up with pulmonary medicine on 02/03/2023 at 8:45 AM. I do suspect the patient has some mild cognitive impairment and outpatient follow-up neurocognitive testing should be pursued. Discharge diagnoses: Hypoxia Tmanpltqa-[id number] left-sided Large left-sided parapneumonic transudative effusion Small pericardial effusion Leukocytosis-trending down Hypokalemia-resolved Hyponatremia-resolved DM-2 with hyperglycemia CAD Hypertension Hyperlipidemia GERD Suspected mild cognitive impairment Physical Exam Const alert, oriented x3, no apparent distress, average body habitus and well nourished Constitutional Narrative: Older, white male, sitting up in bed, sitting up in a chair at the bedside and working with physical therapy/Occupational Therapy, appears comfortable and nontoxic, currently on room air at rest General Appearance: cooperative, comfortable, well kempt and well developed Orientation / Consciousness: awake, oriented to person, oriented to place and oriented to time Exam Limitations: no limitations HEENT normocephalic, head/scalp atraumatic and moist oral mucous membranes HEENT Narrative: No thrush, dentition is fair for age, Mallampati 2, moderate hearing loss Eyes PERRL, EOMs intact bilaterally and conjunctivae normal Eyes Narrative: No scleral icterus Neck no lymphadenopathy and supple Neck Narrative: Trachea midline, no thyroid enlargement Resp normal respiratory effort, no retractions and no use of accessory muscles Resp Narrative: Crackles remain at the left base to about the mid lung field, clear at the left apex, right side is clear, no rhonchi or wheeze, intermittent cough noted especially with deep breathing-nonproductive Auscultation: crackles; Negative for rhonchi or wheezes Cardio regular rate, regular rhythm, S1 normal heart sound, S2 normal heart sound, no murmurs, no rub, no gallops and no clicks GI normal to inspection, nondistended, normoactive bowel sounds, soft to palpation and non-tender Extremity no clubbing, cyanosis or edema Extremity Narrative: Trace bilateral lower extremity pitting edema, no cyanosis or clubbing Skin no rashes or lesions noted, no wounds, skin turgor normal and no jaundice Neuro oriented x3, CN's II-XII intact bilaterally, moves all extremities and no focal motor deficits Neuro Narrative: Patient seems to have some memory loss Speech: speech normal Psych affect normal Psych Narrative: Eye contact is good, patient interacts well Weight / BMI Weight Weight: 89.8 kg Body Mass Index (BMI) 27.6 ABG / Lab / Microbiology Data 01/12/23 06:14 01/12/23 06:14 Laboratory: Laboratory Results - last 24 hr 01/11/23 11:34: POC Glucose 335 H 01/11/23 16:48: POC Glucose 255 H 01/11/23 21:59: POC Glucose 184 H 01/11/23 22:24: Vancomycin Trough 13.4 01/12/23 06:14: WBC 13.1 H, RBC 4.55 L, Hgb 12.7 L, Hct 38.9 L, MCV 85.5, MCH 27.9, MCHC 32.6, RDW Std Deviation 41.7, RDW Coeff of Colt 13.2, Plt Count 356, MPV 9.7, Immature Gran % (Auto) 0.500, Neut % (Auto) 72.4 H, Lymph % (Auto) 11.3 L, [place] % (Auto) 14.8 H, Eos % (Auto) 0.8, Baso % (Auto) 0.2, Absolute Neuts (auto) 9.5 H, Absolute Lymphs (auto) 1.48, Nucleated RBC % 0, Diff Path Review September, Sodium 132 L, Potassium 4.1, Chloride 98, Carbon Dioxide 29.0, Anion Gap 5, BUN 19 H, Creatinine 1.11, Estim Creat Clear Calc 60.30, Est GFR (MDRD) Af Amer 83, Est GFR (MDRD) Non-Af 68, BUN/Creatinine Ratio 17.1, Glucose 183 H, Calcium 8.5, Total Bilirubin 1.20 H, AST 27, ALT 40, Alkaline Phosphatase 87, Total Protein 6.3 L, Albumin 2.1 L, Globulin 4.2, Albumin/Globulin Ratio 0.5 L 01/12/23 07:47: POC Glucose 188 H Microbiology: Microbiology 01/09/23 15:13 Fluid - Thoracentesis Fluid Gram Stain - Final 01/09/23 15:13 Fluid - Thoracentesis Fluid Body Fluid Culture - Preliminary No growth-Final to follow 01/09/23 15:13 Fluid - Thoracentesis Fluid Anaerobic Culture - Preliminary No growth in 48 hours. 01/09/23 12:10 Blood Culture (Wb) - Right Forearm Blood Culture - Preliminary No growth in 48 hours. 01/10/23 08:30 Urine, Clean Catch Legionella Antigen - Final 01/10/23 08:30 Urine, Clean Catch Streptococcus pneumoniae Antigen (M - Final Radiography Diagnostic Testing: Radiology Impression Chest X-Ray 01/12/23 05:20 IMPRESSION: Persistent bibasilar opacification and bilateral pleural effusions. Electronically Signed: Rebel Stahl MD at 5:52 EDT , D/C Instructions Discharge Diet: Low fat / Low cholesterol and 1800 Calorie Control Diet Please Follow Up With: Toby Rawls, DO Meaningful Use Info Meaningful Use Diagnoses (Choose all that apply): None applicable Discharge Plan Admission Admit Date/Time: 01/09/23 19:27 Primary Reason for Your Visit: Shortness of Breath Attending Provider: Reba Tejada Primary Care Provider: Paul Lo Consulting Providers: Dariusz Tucker; Toby Rawls Discharge Orders/Prescriptions Prescriptions: New insulin lispro [Humalog KwikPen Insulin] 100 unit/mL Insulin Pen 16 unit subcut TIDAC Qty: 0 0RF insulin lispro [Humalog KwikPen Insulin] 100 unit/mL Insulin Pen See Protocol subcut ACHS Qty: 0 0RF Protocol: 4. Sliding Scale Insulin High-Med Dosing Condition: 150-199 mg/dl = 2 units Condition: 200-259 mg/dl = 4 units Condition: 260-324 mg/dl = 6 units Condition: 325-374 mg/dl = 8 units Condition: 375-409 mg/dl = 10 units Condition: 410-449 mg/dl = 11 units Condition: Greater than 449 call physician Protocol Text: - Use for Total Daily Dose of Insulin 56-80 units - Patient who are insulin resistant or septic HIGH MEDIUM DOSING ALGORITHM insulin glargine-yfgn 100 unit/mL (3 mL) Insulin Pen 18 unit subcut BID Qty: 0 0RF amoxicillin-pot clavulanate 875-125 mg tablet 1 tab PO BID Qty: 16 0RF Continued lisinopril 40 MG tablet 20 mg PO BID atenolol [Tenormin] 50 MG tablet 50 mg PO DAILY (DME) pen needle, diabetic [Pen Needle] 32 gauge x 5/32 needle See Rx Instructions .Route Qty: 100 0RF Rx Instructions: As directed (DME) pen needle, diabetic [Pen Needle] 32 gauge x 5/32 needle See Rx Instructions .Route Qty: 100 0RF Rx Instructions: As directed atorvastatin 40 mg tablet 40 mg PO QHS pantoprazole 40 mg tablet,delayed release (DR/EC) 40 mg PO BID hydrochlorothiazide 12.5 mg capsule 12.5 mg PO DAILY insulin lispro [Humalog KwikPen Insulin] 100 unit/mL insulin pen 12 unit subcut TIDAC insulin lispro [Humalog KwikPen Insulin] 100 unit/mL insulin pen See Protocol subcut [facility] Protocol: 4. Sliding Scale Insulin High-Med Dosing Condition: 150-199 mg/dl = 2 units Condition: 200-259 mg/dl = 4 units Condition: 260-324 mg/dl = 6 units Condition: 325-374 mg/dl = 8 units Condition: 375-409 mg/dl = 10 units Condition: 410-449 mg/dl = 11 units Condition: Greater than 449 call physician Protocol Text: - Use for Total Daily Dose of Insulin 56-80 units - Patient who are insulin resistant or septic HIGH MEDIUM DOSING ALGORITHM insulin glargine [Lantus Solostar U-100 Insulin] 100 unit/mL (3 mL) insulin pen 14 unit subcut BID Rx Instructions: Hold if glucose less than 130 mg/dl chlorhexidine gluconate 0.12 % mouthwash 15 ml PO BID Patient Comments: RINSE WITH 1/2 OUNCE BY MOUTH FOR 30 SECONDS THEN SPIT OUT. use twice a day amlodipine 10 mg tablet 5 mg PO DAILY Rx Instructions: reduce dose to 1/2 tablet daily-(5mg) Discontinued levofloxacin 750 mg tablet 750 mg PO DAILY Qty: 5 0RF Referrals / Follow Up: Toby Rawls DO [Med Staff - Active Staff] - 02/03/23 2:45 pm Paul Lo MD [Primary Care Provider] - Within 1 Month Disposition Disposition (needs filled in before D/C Order can be placed): [facility]
[2023-01-12 12:29] LABS: Pathologist Review Reviewed
--- NOTE | 2023-01-12 12:30 | CASEMGMT ---
Social Work SW notified patient and , Alejandra, that patient is accepted to [facility]. SW to notify pt/family when transport time is confirmed. Sharon Giles BANKRUPTCY ASSISTANT, PUSHER RUNNER
[2023-01-12 12:41] LABS: Pathologist Review Reviewed
--- NOTE | 2023-01-12 12:55 | CASEMGMT ---
Discharge Planning Discharge orders, signed med list and transport time sent to [facility] via [facility]. [facility] will tranport patient via . Patient, his , nursing and SW all notified. Padmini Townsend, Discharge Planning Asst.
--- NOTE | 2023-01-12 13:56 | NURSING ---
Report given to Myra at [facility]. Myra is aware that pt will not be picked up here at [facility] until 1430 today.
[2023-01-12 14:59] LABS: Bedside Glucose 357 mg/dL (74-106)
--- NOTE | 2023-01-12 15:05 | PHA.DC.MR.R ---
Pharmacy [place] Med Reconciliation Pharmacy Service has performed discharge medication reconciliation for this patient. Spoke to Dr. Tejada, duplicate insulin orders continued after doses were changed. She will cancel previous insulin doses and re-print med list for [place]. The patient's discharge medication list was reviewed for discrepancies and discrepancies were resolved. Medications at Discharge Home Medications atenolol 50 mg tablet (Tenormin) 50 mg PO DAILY BLOOD PRESSURE 10/12/17 lisinopril 40 mg tablet 20 mg PO BID BLOOD PRESSURE 10/12/17 pen needle, diabetic 32 gauge x 5/32 (Pen Needle) #100 ea 09/19/22 pen needle, diabetic 32 gauge x 5/32 (Pen Needle) #100 ea 09/19/22 atorvastatin 40 mg tablet 40 mg PO QHS CHOLESTEROL 09/23/22 hydrochlorothiazide 12.5 mg capsule 12.5 mg PO DAILY FLUID 09/23/22 insulin lispro 100 unit/mL subcutaneous pen (Humalog KwikPen (U-100) Insulin) See Protocol subcut ACHS DIABETES 09/23/22 pantoprazole 40 mg tablet,delayed release 40 mg PO BID ACID REFLUX 09/23/22 amlodipine 10 mg tablet 5 mg PO DAILY BLOOD PRESSURE 01/04/23 chlorhexidine gluconate 0.12 % mouthwash 15 ml PO BID ORAL SURGERY 01/09/23 amoxicillin 875 mg-potassium clavulanate 125 mg tablet 1 tab PO BID #16 tabs 01/12/23 insulin glargine-yfgn 100 unit/mL (3 mL) subcutaneous pen 18 unit (0.18 mL) subcut BID #0 mL 01/12/23 insulin lispro 100 unit/mL subcutaneous pen (Humalog KwikPen (U-100) Insulin) 16 unit (0.16 mL) subcut TIDAC #0 mL 01/12/23 insulin lispro 100 unit/mL subcutaneous pen (Humalog KwikPen (U-100) Insulin) See Protocol subcut ACHS #0 mL 01/12/23
[2023-01-13 13:13] LABS: Pathologist Review Reviewed
== END 2023-01-12 14:55 | disposition skilled nursing facility (03) | DRG 186 ==
LOC: ED 17:13 → MS3 21:21
PROVIDERS: Admitting Provider Family Medicine; Emergency Provider Emergency Medicine; PCP Family Medicine; Referring Provider Family Medicine; Visit Provider Internal Medicine
DX: J90 Pleural effusion, not elsewhere classified (principal); J18.9 Pneumonia, unspecified organism; I31.39 Other pericardial effusion (noninflammatory); E87.1 Hypo-osmolality and hyponatremia; E11.65 Type 2 diabetes mellitus with hyperglycemia; Z79.4 Long term (current) use of insulin; I10 Essential (primary) hypertension; I35.1 Nonrheumatic aortic (valve) insufficiency; K21.9 Gastro-esophageal reflux disease without esophagitis; E87.6 Hypokalemia; E78.5 Hyperlipidemia, unspecified; I25.10 Atherosclerotic heart disease of native coronary artery without angina pectoris; G31.84 Mild cognitive impairment of uncertain or unknown etiology; R09.02 Hypoxemia; Z79.01 Long term (current) use of anticoagulants
CPT/HCPCS: 32555; 36415; 71045; 71046; 71250; 80048; 80053; 80076; 80202; 82945; 82962; 83036; 83605; 83615; 83735; 83880; 84100; 84157; 84443; 84484; 85025; 87040; 87070; 87075; 87205; 87449; 87641; 87811; 88108; 88305; 88313; 93005; 93306; 94640; 97110; 97162; 97166; 97530; 97535; 99285; J7040; J7050; A4216; J1940

== ENCOUNTER 2023-02-17 16:04 | Emergency (ER) | payer MEDICARE, OTHER, SELFPAY ==
[2023-02-17 16:10] VITALS: BP 168/60; PULSE 55; RESP 18; TEMP 35.8; O2SAT 100
[2023-02-17 18:08] VITALS: BP 155/77; PULSE 71; RESP 19; O2SAT 96; BMI 28.8
--- NOTE | 2023-02-17 18:19 | EX.ED.DYSGE1 ---
HPI <DILEEP Jeong - Last Filed: 02/17/23 19:27> History of Present Illness Chief Complaint: Hypoglycemia Narrative Narrative: Patient is a 77-year-old male with history of type 2 diabetes on sliding scale insulin as well as Lantus twice a day, hyperlipidemia, hypertension who presents to the emergency department after hypoglycemic episode. Per the patient, the patient's , the patient was playing cards with friends this afternoon, he did eat a full breakfast and had a lasagna for lunch. Patient started acting off while playing cards, he then began sweating, his blood sugar was 43. Patient was given foods containing sugar. Patient's blood sugar has been stable since. Patient denies any pain. Patient states he feels slightly tired and hungry. Denies any recent injuries, denies any recent infection. PFSH <DILEEP Jeong - Last Filed: 02/17/23 19:27> [facility] Medical History (Reviewed 02/03/23 @ 15:15 by Sonam Mohan SCHOOL SPEECH THERAPIST, SCHOOL SPEECH THERAPIST-C) Atherosclerosis Bladder neck obstruction BPH (benign prostatic hyperplasia) Coronary artery disease Diabetes HTN (hypertension) Hyperlipemia TIA (transient ischemic attack) Home Medications atenolol 50 mg tablet (Tenormin) 50 mg PO DAILY BLOOD PRESSURE 10/12/17 [History Last Taken 01/09/23] lisinopril 40 mg tablet 20 mg PO BID BLOOD PRESSURE 10/12/17 [History Last Taken 01/09/23] pen needle, diabetic 32 gauge x 5/32 (Pen Needle) #100 ea 09/19/22 [Rx Last Taken Unknown] pen needle, diabetic 32 gauge x 5/32 (Pen Needle) #100 ea 09/19/22 [Rx Last Taken Unknown] atorvastatin 40 mg tablet 40 mg PO QHS CHOLESTEROL 09/23/22 [History Last Taken 01/08/23] hydrochlorothiazide 12.5 mg capsule 12.5 mg PO DAILY FLUID 09/23/22 [History Last Taken 01/09/23] insulin lispro 100 unit/mL subcutaneous pen (Humalog KwikPen (U-100) Insulin) See Protocol subcut ACHS DIABETES 09/23/22 [History Last Taken 01/09/23] pantoprazole 40 mg tablet,delayed release 40 mg PO BID ACID REFLUX 09/23/22 [History Last Taken 01/09/23] amlodipine 10 mg tablet 5 mg PO DAILY BLOOD PRESSURE 01/04/23 [History Last Taken 01/09/23] insulin lispro 100 unit/mL subcutaneous pen (Humalog KwikPen (U-100) Insulin) 16 unit (0.16 mL) subcut TIDAC #0 mL 01/12/23 [Rx Last Taken Unknown] insulin lispro 100 unit/mL subcutaneous pen (Humalog KwikPen (U-100) Insulin) See Protocol subcut ACHS #0 mL 01/12/23 [Rx Last Taken Unknown] insulin glargine-yfgn 100 unit/mL (3 mL) subcutaneous pen 18 unit subcut BID 02/03/23 [History Last Taken Unknown] Allergy/AdvReac Type Severity Reaction Status Date / Time No Known Allergies Allergy Verified 02/17/23 16:10 Family History Other Diabetes Social History Smoking Status: Never smoker ROS <DILEEP Jeong - Last Filed: 02/17/23 19:27> ROS ED ROS Narrative Constitutional: Negative for fever, chills, weight loss. Eyes: Negative for vision loss, vision change, double vision ENT: Negative for any sore throat, ear pain, congestion Cardiovascular: Negative for any chest pain, tightness, palpitations Respiratory: Negative for any cough, sputum production, hemoptysis, dyspnea, dyspnea on exertion, orthopnea Gastrointestinal: Negative for any abdominal pain, nausea, vomiting, diarrhea, constipation, blood in stool, blood in vomit : Negative for any urinary frequency, dysuria, retention, blood in urine Muscle skeletal: Negative for any muscle joint pain, stiffness, myalgias, arthralgias, neck pain, back pain Neurological: Negative for any headache, syncope, numbness or tingling, dizziness. Positive for diaphoresis, confusion Skin: Negative for any rashes, lumps, itching, abrasions, lacerations Psychiatric: Negative for any depression, anxiety, stress, suicidal ideation, homicidal ideation Hematologic: Negative for any easy bruising, excessive bruising, easy bleeding. Positive for hypoglycemia Allergies: Negative for any eczema, hives, rash EXAM <DILEEP Jeong - Last Filed: 02/17/23 19:27> Physical Exam Narrative Exam Narrative: Vital signs reviewed. Patient's blood sugar is 181 at this time. Patient is acting appropriate and in no distress. HEET: Head normocephalic atraumatic, TMs clear bilaterally. Posterior pharynx is clear, moist mucous membranes. Nares clear bilaterally. Neck: Supple with no lymphadenopathy or tenderness. No signs of meningismus, negative jolt sign. Cardiac: Regular rate and rhythm no murmurs gallops or rubs, equal peripheral pulses bilaterally. Respiratory: Lungs clear to auscultation bilaterally. No chest tenderness. Abdomen: Soft, nontender, nondistended. No abdominal bruit or pulsatile masses. No hepatosplenomegaly Extremities: No peripheral edema, no signs of gross trauma or deformity. Active full range of motion of all extremities. Neuro: Cranial nerves II through XII intact, no focal neurological deficits. Skin: Clean dry and intact with no rash, purpura, petechiae, vesicles or pustules. Backs/flank: No CVA tenderness, no midline spinal tenderness, no deformity. Psych: Normal mood and affect. No SI, HI or acute psychosis. Const Vital Signs: 02/17/23 16:10 02/17/23 18:08 02/17/23 18:09 Temperature 96.4 F L Temperature Source Temporal Pulse Rate 55 L 71 Respiratory Rate 18 19 H Respiratory Effort Normal Non-Labored Respiratory Pattern Normal Blood Pressure 168/60 H 155/77 H Blood Pressure Mean 96 103 Pulse Ox 100 96 Oxygen Delivery Method Room Air Room Air 02/17/23 19:33 Temperature Temperature Source Pulse Rate 71 Respiratory Rate Respiratory Effort Respiratory Pattern Blood Pressure 156/72 H Blood Pressure Mean Pulse Ox 99 Oxygen Delivery Method <Mundo Jiménez MD - Last Filed: 02/17/23 20:08> Physical Exam Const Vital Signs: 02/17/23 16:10 02/17/23 18:08 02/17/23 18:09 Temperature 96.4 F L Temperature Source Temporal Pulse Rate 55 L 71 Respiratory Rate 18 19 H Respiratory Effort Normal Non-Labored Respiratory Pattern Normal Blood Pressure 168/60 H 155/77 H Blood Pressure Mean 96 103 Pulse Ox 100 96 Oxygen Delivery Method Room Air Room Air 02/17/23 19:33 Temperature Temperature Source Pulse Rate 71 Respiratory Rate Respiratory Effort Respiratory Pattern Blood Pressure 156/72 H Blood Pressure Mean Pulse Ox 99 Oxygen Delivery Method [facility] <Ozzie King NP-C - Last Filed: 02/17/23 19:27> [facility] Lab Data Labs: Laboratory Results - last 24 hr 02/17/23 02/17/23 02/17/23 18:04 18:05 18:54 WBC 16.7 H RBC 5.42 Hgb 15.3 Hct 45.7 MCV 84.3 MCH 28.2 MCHC 33.5 RDW Std Deviation 45.2 H RDW Coeff of Colt 14.9 H Plt Count 301 MPV 10.1 Immature Gran % (Auto) 0.500 Neut % (Auto) 86.1 H Lymph % (Auto) 7.4 L Jewell % (Auto) 5.6 Eos % (Auto) 0.2 Baso % (Auto) 0.2 Absolute Neuts (auto) 14.4 H Absolute Lymphs (auto) 1.24 Nucleated RBC % 0 Sodium 132 L Potassium 4.0 Chloride 97 L Carbon Dioxide 30.0 Anion Gap 5 BUN 22 H Creatinine 0.92 Estim Creat Clear Calc 72.75 Est GFR (MDRD) Af Amer 103 Est GFR (MDRD) Non-Af 85 BUN/Creatinine Ratio 23.9 H Glucose 171 H Calcium 9.1 Urine Color Yellow Urine Clarity Clear Urine pH 6.0 Ur Specific [place] 1.015 Urine Protein 15 H Urine Glucose (UA) Normal Urine Ketones Negative Urine Occult Blood Negative Urine Nitrite Negative Urine Bilirubin Negative Urine Urobilinogen Normal Ur Leukocyte Esterase Negative Urine RBC 0 SEEN Urine WBC 0 SEEN Ur Squamous Epith Cells 0 SEEN Urine Bacteria 0 SEEN Urine Mucus 0 SEEN POC Glucose 189 H Treatment and Re-Evaluation :: Patient appears generally well, patient appears nontoxic, vital signs are stable. Patient presents to the emergency department with complaints of hypoglycemic episode of 43 while playing cards with his friends. Patient do not take any more insulin than normal. Patient denies any cough or infectious symptoms. Patient will receive basic laboratory eval as well as a urinalysis to rule out any infectious process. Patient's blood sugar is stable now 181. He will be given a sandwich here to eat. Patient, patient's are happy with the plan of care, patient stable. Patient laboratory values showed a leukocytosis white blood count of 16.7, this could be reactive to the hypoglycemic state. Patient was able to eat and drink here in the department. Patient's sodium was 132, creatinine normal. Patient's urinalysis was negative for any infection. At this time, patient stable for discharge. Patient blood pressure was slightly elevated at 195/100 however patient not take his lisinopril. Patient was given lisinopril 20 mg. He is instructed to follow-up outpatient, check his sugars more frequently. He will also follow-up with his all source intelligence technician tomorrow as they already have an appointment. They were given strict return precautions, all questions answered, patient stable for discharge. <Mundo Jimnéez MD - Last Filed: 02/17/23 20:08> [facility] MDM Narrative Medical decision making narrative: Dr. Jiménez: I have personally performed a face to face assessment of the patient and have reviewed the TOMMY Note. I performed a substantive portion of the visit including all aspects of the following. My massey findings include: History is hypoglycemia with history of diabetes on sliding scale insulin and Lantus twice a day. Reportedly ate lunch around noon, but became hungry at 3 and was found to have a blood sugar of 43. Exam is afebrile. Vital signs noted. Regular rate and rhythm. Lungs clear to auscultation bilaterally. Abdomen soft nontender with normal active bowel sounds. Neurological examination awake, alert, oriented. Medical Decision Making: I do think that he probably had transient hypoglycemia from his antidiabetic medications. He states that while he takes sliding scale insulin as well as Lantus twice a day, that he takes pills in the morning. He has an appointment with his all source intelligence technician tomorrow. He was able to eat here in the emergency department. Check labs. Follow-up endocrinology. Although he has a slight leukocytosis of 16.7, I think this is nonspecific, sodium low at 132 with chloride 97, glucose appropriately elevated at 171 with a normal anion gap of 5. Check UA, negative for infection. I do not feel antibiotics are indicated. He feels well and would like to be discharged. He will have a snack before bedtime and take his Lantus and follow-up with his all source intelligence technician. Disposition is discharged home in stable condition. Other additions or changes: [None] History & Record Review Discussion w/independent historian: Patient and Family Additional record(s) reviewed:: Prior ED visit Lab Data Attestation: I reviewed the patient's lab results. Labs: Laboratory Results - last 24 hr 02/17/23 02/17/23 02/17/23 18:04 18:05 18:54 WBC 16.7 H RBC 5.42 Hgb 15.3 Hct 45.7 MCV 84.3 MCH 28.2 MCHC 33.5 RDW Std Deviation 45.2 H RDW Coeff of Colt 14.9 H Plt Count 301 MPV 10.1 Immature Gran % (Auto) 0.500 Neut % (Auto) 86.1 H Lymph % (Auto) 7.4 L Jewell % (Auto) 5.6 Eos % (Auto) 0.2 Baso % (Auto) 0.2 Absolute Neuts (auto) 14.4 H Absolute Lymphs (auto) 1.24 Nucleated RBC % 0 Sodium 132 L Potassium 4.0 Chloride 97 L Carbon Dioxide 30.0 Anion Gap 5 BUN 22 H Creatinine 0.92 Estim Creat Clear Calc 72.75 Est GFR (MDRD) Af Amer 103 Est GFR (MDRD) Non-Af 85 BUN/Creatinine Ratio 23.9 H Glucose 171 H Calcium 9.1 Urine Color Yellow Urine Clarity Clear Urine pH 6.0 Ur Specific [place] 1.015 Urine Protein 15 H Urine Glucose (UA) Normal Urine Ketones Negative Urine Occult Blood Negative Urine Nitrite Negative Urine Bilirubin Negative Urine Urobilinogen Normal Ur Leukocyte Esterase Negative Urine RBC 0 SEEN Urine WBC 0 SEEN Ur Squamous Epith Cells 0 SEEN Urine Bacteria 0 SEEN Urine Mucus 0 SEEN POC Glucose 189 H Discharge Plan Triage Chief Complaint: Hypoglycemia ED Midlevel Provider: Ozzie King ED Provider: Mundo Jiménez Dx/Rx/DC Orders Clinical Impression: Hypoglycemia Instructions: Hypoglycemia (Low Blood Sugar), Hypoglycemia Tx Steps Prescriptions: No Action insulin glargine-yfgn 100 unit/mL (3 mL) insulin pen 18 unit subcut BID lisinopril 40 MG tablet 20 mg PO BID atenolol [Tenormin] 50 MG tablet 50 mg PO DAILY (DME) pen needle, diabetic [Pen Needle] 32 gauge x 5/32 needle See Rx Instructions .Route Qty: 100 0RF Rx Instructions: As directed (DME) pen needle, diabetic [Pen Needle] 32 gauge x 5/32 needle See Rx Instructions .Route Qty: 100 0RF Rx Instructions: As directed atorvastatin 40 mg tablet 40 mg PO QHS pantoprazole 40 mg tablet,delayed release (DR/EC) 40 mg PO BID hydrochlorothiazide 12.5 mg capsule 12.5 mg PO DAILY insulin lispro [Humalog KwikPen Insulin] 100 unit/mL insulin pen See Protocol subcut [facility] Protocol: 4. Sliding Scale Insulin High-Med Dosing Condition: 150-199 mg/dl = 2 units Condition: 200-259 mg/dl = 4 units Condition: 260-324 mg/dl = 6 units Condition: 325-374 mg/dl = 8 units Condition: 375-409 mg/dl = 10 units Condition: 410-449 mg/dl = 11 units Condition: Greater than 449 call physician Protocol Text: - Use for Total Daily Dose of Insulin 56-80 units - Patient who are insulin resistant or septic HIGH MEDIUM DOSING ALGORITHM insulin lispro [Humalog KwikPen Insulin] 100 unit/mL Insulin Pen 16 unit subcut TIDAC Qty: 0 0RF insulin lispro [Humalog KwikPen Insulin] 100 unit/mL Insulin Pen See Protocol subcut ACHS Qty: 0 0RF Protocol: 4. Sliding Scale Insulin High-Med Dosing Condition: 150-199 mg/dl = 2 units Condition: 200-259 mg/dl = 4 units Condition: 260-324 mg/dl = 6 units Condition: 325-374 mg/dl = 8 units Condition: 375-409 mg/dl = 10 units Condition: 410-449 mg/dl = 11 units Condition: Greater than 449 call physician Protocol Text: - Use for Total Daily Dose of Insulin 56-80 units - Patient who are insulin resistant or septic HIGH MEDIUM DOSING ALGORITHM amlodipine 10 mg tablet 5 mg PO DAILY Rx Instructions: reduce dose to 1/2 tablet daily-(5mg) Primary Care Provider: Paul Lo Referrals: Paul Lo MD [Primary Care Provider] - Activity Restrictions/Additional Instructions: Please check your blood sugars more frequently, talk with your all source intelligence technician tomorrow regarding your insulin regimen. Disposition Disposition: Home, Self Care Discharge Date/Time: 02/17/23 19:46
[2023-02-17 18:27] LABS: Absolute Lymphocyte Count 1.24 X10^3/uL (0.83-4.51); Absolute Neutrophil Count 14.4 X10^3/uL (2.0-7.7); Basophil# 0.03 X10^3/uL; Basophil% 0.2 % (0-1); Eosinophil# 0.03 X10^3/uL; Eosinophils% 0.2 % (0-5); Hematocrit 45.7 % (40-54); Hemoglobin 15.3 g/dL (13.0-16.5); Lymphocyte # 1.24 X10^3/ul (0.83-4.51); Lymphocyte % 7.4 % (19-41); Mean Corp Hgb Conc 33.5 g/dL (32-36); Mean Corpuscular Hgb 28.2 pg (27.0-32.0); Mean Corpuscular Volume 84.3 fL (80-94); Mean Platelet Vol. 10.1 fl (6.2-12.0); Monocyte# 0.94 X10^3/uL; Monocyte% 5.6 % (0-10); NRBC Flagged by Analyzer 0 % (0-5); Neutrophil # 14.35 X10^3/uL (2.7-7.7); Neutrophil % 86.1 % (47-70); Platelet Count 301 K/mm3 (150-450); RBC Distribution Width CV 14.9 % (11.6-14.6); RBC Distribution Width SD 45.2 fl (35.1-43.9); Red Blood Count 5.42 M/mm3 (4.6-6.2); White Blood Count 16.7 K/mm3 (4.4-11.0)
[2023-02-17 18:27] LABS: Bedside Glucose 189 mg/dL (74-106)
[2023-02-17 18:40] LABS: Anion Gap 5 (5-15); BUN 22 mg/dL (7-18); BUN/Creat Ratio 23.9 RATIO (10-20); Calcium,Total 9.1 mg/dL (8.5-10.1); Chloride 97 mmol/L (98-107); Creatinine, Serum 0.92 mg/dL (0.70-1.30); EST Glomerular Filtration Rate 85 mL/min (>60); Est Glom Filt Rate - Afr Amer 103 mL/min (>60); Estimated Creatinine Clearance 72.75 ml/min; Glucose 171 mg/dL (74-106); Sodium Level 132 mmol/L (136-145)
[2023-02-17 19:00] LABS: Bacteria 0 SEEN /hpf (None Seen); Color, Urine Yellow (Yellow); Glucose, Dipstick Normal (Normal); Ketone-Dipstick Negative (Negative); Leukocyte Esterase-Dipstick Negative /ul (Negative); Mucous, Urine 0 SEEN /hpf (<or=2+); Nitrite-Dipstick Negative (Negative); Occult Blood-Urine Negative /ul (Negative); Protein-Dipstick 15 mg/dl (Negative); Red Blood Cells-Urine 0 SEEN /hpf (0-5); Specific Gravity, Urine 1.015 (1.002-1.030); Squamous Epithelial Cells - UA 0 SEEN /hpf (0-5); Urine Bilirubin Dipstick Negative (Negative); Urine Clarity Clear (Clear); Urine Urobilinogen Normal (Normal); White Blood Cells 0 SEEN /hpf (0-5)
[2023-02-17 19:33] VITALS: BP 156/72; PULSE 71; O2SAT 99
[2023-02-17] MEDS: Lisinopril 20 MG Tablet PO (19:42)
== END 2023-02-17 19:46 | disposition home or self-care (01) ==
PROVIDERS: Nurse Practitioner; Emergency Provider Emergency Medicine; PCP Family Medicine; Visit Provider Emergency Medicine
DX: E11.649 Type 2 diabetes mellitus with hypoglycemia without coma (principal); Z79.4 Long term (current) use of insulin; E78.5 Hyperlipidemia, unspecified; I25.10 Atherosclerotic heart disease of native coronary artery without angina pectoris; I10 Essential (primary) hypertension; Z86.73 Personal history of transient ischemic attack (TIA), and cerebral infarction without residual deficits; Z79.899 Other long term (current) drug therapy
CPT/HCPCS: 80048; 81001; 82962; 85025; 99283; A4216

== ENCOUNTER → 2023-02-26 | Outpatient (CLI) | payer MEDICARE, OTHER, SELFPAY | END | disposition home or self-care (01) | LOC: SL 19:46 | PROVIDERS: PCP Family Medicine; Referring Provider Nurse Practitioner Acute Care; Visit Provider Nurse Practitioner Acute Care | DX: G47.30 Sleep apnea, unspecified (principal) | CPT/HCPCS: 95810 ==

== ENCOUNTER → 2023-03-05 | Outpatient (CLI) | payer MEDICARE, OTHER, SELFPAY | END | disposition home or self-care (01) | LOC: SL 11:46 | PROVIDERS: PCP Family Medicine; Visit Provider Nurse Practitioner Acute Care | DX: G47.33 Obstructive sleep apnea (adult) (pediatric) (principal) ==

== ENCOUNTER → 2023-03-06 | Outpatient (CLI) | payer MEDICARE, OTHER, SELFPAY ==
--- NOTE | 2023-03-06 18:31 | CT_ITS ---
[employer] Unformatted Report STUDY: CT Chest W/O Contrast Injection 03/08/2023 9:58 PM REASON FOR EXAM: Male, 77 years old. pneumonia Individualized dose optimization techniques were used for this CT. TECHNIQUE: Transaxial imaging was performed without contrast material. COMPARISON: None. FINDINGS: There are degenerative changes of the shoulders. There is no pneumothorax. Moderate right pleural effusion. Large left pleural effusion. Left lower lobe atelectasis. There are calcifications of the coronary arteries. Normal mediastinum. Normal hilar regions. Normal pulmonary arteries. There is atherosclerotic calcification of the aortic arch with tortuosity and elongation of the aortic arch and descending thoracic aorta. There are multi-level degenerative changes of the thoracic spine. There are no acute findings of the upper abdomen. CT/Chest without Contrast IMPRESSION: Moderate right pleural effusion. Large left pleural effusion. Left lower lobe atelectasis. Electronically Signed: Jarek Potts MD at 21:59 EDT ,
== END | disposition home or self-care (01) ==
PROVIDERS: PCP Family Medicine; Referring Provider Nurse Practitioner Acute Care; Visit Provider Nurse Practitioner Acute Care
DX: J90 Pleural effusion, not elsewhere classified (principal)
CPT/HCPCS: 71250

== ENCOUNTER → 2023-03-09 | Outpatient (CLI) | payer MEDICARE, OTHER, SELFPAY ==
[2023-03-09] MEDS: Zolpidem Tartrate 5 MG Tablet PO (22:00)
== END | disposition home or self-care (01) ==
LOC: SL 20:00
PROVIDERS: PCP Family Medicine; Visit Provider Nurse Practitioner Acute Care
DX: G47.30 Sleep apnea, unspecified (principal)
CPT/HCPCS: 95811

== ENCOUNTER → 2023-03-30 | Outpatient (CLI) | payer MEDICARE, OTHER, SELFPAY ==
[2023-03-30] MEDS: Zolpidem Tartrate 5 MG Tablet PO (21:30)
== END | disposition home or self-care (01) ==
LOC: SL 20:08
PROVIDERS: PCP Family Medicine; Referring Provider Nurse Practitioner Acute Care; Visit Provider Nurse Practitioner Acute Care
DX: G47.33 Obstructive sleep apnea (adult) (pediatric) (principal); G47.31 Primary central sleep apnea
CPT/HCPCS: 95811

== ENCOUNTER 2023-04-03 09:00 | Outpatient (RCR) | payer MEDICARE, OTHER, SELFPAY ==
--- NOTE | 2023-02-11 13:46 | HP.PTEVAL_ITS ---
Patient's Visit Information Visit Information Visit Information: MEL BROOKS is a 77 year old M referred to Physical Therapy by Dr. Paul Lo MD with a diagnosis of Pericardial Enfusion. Date of Evaluation: 02/11/23 Physical Therapist: SHAE Armstrong Visit Plan Frequency: 2x /Week Duration: 4 Weeks Plan: 2X/ week for 4 weeks for gait training (smaller SADAF and heel to toe gait pattern), balance, functional balance, sit to stands with proper mechanics and not falling back into his chair, stretching B gastroc with HEP Subjective Subjective: Pt got pneumonia and then was in hospital for a few days and then in [place] for a couple of weeks. He feels that the pneumonia is good. [place] the [place] and was able to do that but it was tough. He had to sit down a few times. His legs got tired. He feels that his legs are weak. He is sleeping good so far. He reports that his balance is ok. He has had no falls. He has stairs at home and is able to climb up and down them and uses a railing and he alternates. He is able to sit to stand without using his arms but a little unsteady. He wants to start back up at [facility]. He is driving. Objective Objective: Gait: Walks with WBOS and decreased heel to toe gait pattern and decreased stride length. He occ veers to correct balance Turning 180 degrees he tend to step BW to catch his balance and reaches to hold onto chair/door frame etc. LE MMT: R hip flex 16.2 and L 16 R knee ext 29.5 and L 24 R knee flex 17.4 and L 14.8 Tight B gastrocs FGA: 16 Stairs: up and down recip with B hand rails Heel and toe raises: pt is able to raise B heels and toes but he needs UE support to do so sit to stand: able without using his arms but a little unsteady and uses back of knees against chair to balance and his balance is more retro Balance/Special Test Scores Functional Gait Assessment Score: 16 % Disability: 46.6700 Lower Extremity Functional Score: 55 Goals Goal 1:: I HEP Goal Time Frame: 4-6 Weeks Goal 2:: Increase balance (FGA score was 16 at eval) Goal Time Frame: 4-6 Weeks Goal 3:: Be able to turn 180 degrees without LOB or having to step out to correct balance Goal Time Frame: 4-6 Weeks Goal 4:: Walk with Smaller SADAF and more heel to toe gait pattern Goal Time Frame: 4-6 Weeks Rehabilitation Potential Rehabilitation Potential: Good Anticipated Interventions Patient/Client Instruction: Educate patient on: Condition and Plan of Care For the Purpose of:: To improve muscle performance and motor function, To improve ability to perform ADL's, To increase tolerance to activity/condition/position, To improve performance and independence with ADL's, To decrease level of supervision to perform tasks, To improve ability of physical actions for home/community/work/leisure, To improve gait and locomotor functions, To improve balance, To improve safety with gait and To assume or resume ADL's Therapeutic Exercise to Include: Strength training, Endurance training, Balance training, Flexibilty training, Gait and locomotor training, Neuromotor development and Active ROM For the Purpose of:: To improve muscle performance and motor function, To improve ability to perform ADL's, To increase tolerance to act ivity/condition/position, To improve performance and independence with ADL's, To decrease level of supervision to perform tasks, To improve ability of physical actions for home/community/work/leisure, To improve gait and locomotor functions, To improve endurance, To improve balance and To improve safety with gait Functional Training to Include: Gait training For the Purpose of:: To improve gait and locomotor functions and To improve safety with gait Manual Therapy Techniques to Include: Passive ROM For the Purpose of:: To increase flexibility/ROM Text: Thank you for the opportunity to evaluate your patient. For Medicare and Medicare HMO plans, please review the plan of care and approve it. It will need to be FAXED BACK to us at [phone] for Medicare purposes. For Medicare only, by signing this I certify the plan of care. Please let me know if there are questions or concerns regarding this plan of care. Physician Signature: Date:
--- NOTE | 2023-02-11 16:04 | HP.SP.EV_ITS ---
History History Date of Eval: 02/11/23 Attending Doctor: Referring Doctor: Reason for Referral: PERICARDIAL EFFUSION RX HERE Previous speech therapy: Yes Results: 01/14/23 @ OUTPATIENT THERAPY DISCHARGE SUMMARY: MEL BROOKS is a 77 year old male who presented to [facility] Out[facility] Speech Therapy on 10/09/22 for treatment with cognition. Therapy focused on targeting problem solving, reasoning, and executive functioning related to activities of daily living including medicine management, using a calendar, and deduction puzzles. Dakota making progress at the time of last re-evaluation, however since then, Pt has become stagnant with progress. Suspect he would benefit from neurological evaluation as dementia or related cognitive diagnosis may be present. Given Pt's recent change in medical status, hospital admission, and d/c to [facility], will d/c Pt from outpatient caseload at this time. However, suspect Pt would benefit from continued speech therapy intervention for cognition following d/c from [facility] at his next level of care, whether that is home health or outpatient. Will reassess following script from physician. Other Relevant Medical History/Diagnoses/Surgery: MEL BROOKS is a 77 year old male who presents to [facility] Speech Therapy for evaluation of cognition skills. Dakota arriving to appointment alone. Pt is known to this therapist following participation in speech therapy starting in October 09, 2022. Recently d/c d/t observation that Pt was in the hospital d/t medical status change. Phone call to to acquire history while pt was sitting in therapy room. In December 2022, Pt was admitted to the hospital for community acquired pneumonia. He was then transferred to [facility] where he received rehab for walking - no speech therapy. Family requested speech therapy at d/c. Alejandra reporting cognitive changes with varying accuracy such as word finding and participating in scam phone calls. Has had an appt with neurosurgeon d/t dx of Cervical Stenosis - putting off surgery for now, but an option for the future. Has rapport with Dr. Quiñonez, neurologist, and has an appt with him at the end of the month. Saw Dr. Rawls, draw press operator, during hospital admission and reported concerns for sleep apnea with a sleep study scheduled for the end of the month. He is currently driving locally following recommendations from previous OT driving eval. Smoking Status: Never smoker Hx Smoking: No Hx Tobacco Use: No Pain Is pain an issue with your current prescribed condition?: No Personal Preferred language: Micronesian Patient Allergies Allergies Allergies: Allergies No Known Allergies Allergy (Verified 02/03/23 14:56) ARLENE ARLENE ARLENE Administered: Yes ARLENE: The Assessment of Language-Related Functional Activities (ARLENE) consists of ten subtests, each of which assesses a different functional activity that are critical for safe independent functioning in the home environment. Each subtest requires the use of all language modalities as well as cognitive and motor skills. Each subtest also allows observance of multiple cognitive processes, which can help eliminate administering specialized tests in certain areas. Independent Functioning Ratings are identified to determine safe independent functioning in the home environment for two distinct age groups: (1) individuals < 65 years of age, and (2) individuals ages 65 years of age and up. Independent Functioning Rating (IFR) are reported as followed; 1= high probability of independent functioning, 2= indication of need for some level of assistance on the task, requiring further exploration, 3= high probability that this individual is not able to function independently on this task. The results of the ARLENE are as followed: Date: 02/11/23 Telling Time Percent: 80 IFR: 1 Addressing an Envelope Percent: 100 IFR: 1 Solving Daily Math Problems Percent: 60 IFR: 2 ARLENE Comments Time Constraints: -: Dakota arrived 10 min. late for appointment this AM and forgot to check in at the front desk administrator - he walked back the speech therapy room since he was familiar with the facility from previous appts. Dakota provided some history on his recent [facility]. His was not present, however Pt willing to call her and allowed ST to ask additional history questions which required 20 additional minutes. Pt completed three subtests in the remaining portion of the session. Plan to continue remaining subtests during the next therapy session. Subtest Analysis: -: Dakota having the most difficulty with solving daily, life-related math problems. For example, a question asked if your bill was $100, how much would a 15% tip be with Dakota reporting $100. Dakota is still in charge of finances at home with his supervising intermittently. Future subtests included counting money, using a calendar, understanding written directions, writing a check, using a check register, understanding medications, and taking phone messages. D/t time constraints of appt today, all subtests were unable to be administer, however feel Pt is still appropriate for speech therapy at this time, given his previous performance in therapy with this therapist, recent medical status change, and cont'd important responsibilities at home (e.g., finances, medications, driving). Reference: Neuro-QoL instrument Radiation Oncology Patient Plan Recommendations Treatment Warranted: Yes Treatment Warranted: Receptive/ Expressive Language and Cognition Progress Prognosis: Fair Frequency Frequency: 1x/Week Duration: 2 Months Goals that are Established Determination:: Goals will be added/modified as deemed necessary and appro priate. Therapy will be discontinued when results of re-evaluation indicate therapy is no longer needed or lack of progress has been documented. Goal #1-5 Goal #1: Dakota will complete problem solving, reasoning, and executive function tasks including but not limited to medication management and time management with 80% acc given minimum verbal cues in 2 of 3 consecutive sessions. Goal #2: Dakota will complete problem solving, reasoning, and executive function tasks including but not limited to planning meals and a grocery list with 80% acc given minimum verbal cues in 2 of 3 consecutive sessions. Goal #3: Dakota will independently demonstrate use of word finding strategies to complete complex convergent and divergent naming tasks progressing to conversation in 3 out of 4 word finding occurrences across 3 measured opportunities. Education Patient has Indicated that the Following Identified Educational Needs: None The Patient has indicated that they have no educational or learning abilities that may effect their care.: Yes Patient Instruction Patient Education: Diagnosis and Treatment Plan Person Taught: Patient Teaching Method: Discussion and Demonstration Response to teaching: Return demonstration and Verbalize understanding
--- NOTE | 2023-02-25 09:59 | HP.OTEVAL ---
Patient's Visit Information Visit Information Visit Information: MEL BROOKS is a 77 year old M, referred to Occupational Therapy by Dr. Paul Lo MD, with a diagnosis of pericardia effusion/pleural effusion. Date of Evaluation: 02/16/23 Occupational Therapist: Funmi Melchor, SHIVAM/Josiah, CHT Subjective Subjective: This 77 year old male was seen for OT eval with dx of Pneumonia - plural effusion- pt states he was in hospital and due to limited strength pt went to [facility] for rehab- for about 2 weeks. He was discharged from [facility] possibly end of Dec. He has had his PT eval and Speech and has started treatment sessions. pt typically participates in the [employer] -. and will do some of the gym eq. pt states he has not returned to the gym. will return soon. pt states he is IND with bathing and dressing- is present with pt and states she has concerns with her strength/endurance to participation in his ADL and social environment. also states his handwriting is poor since this recent hospital stay. ROM ROM Comments: pt demo ROM WNL Strength Shoulder: peak force shoulder flexion right 17# left 14# ext right 23# left 20# Elbow: peak force biceps right 26# left 18# triceps right 25# left 20# Winding Operator: right 35# left 35 # Lateral Pinch: right 14# left 10# Tripod Pinch: right 14# left 8# Strength Comments: pt demo a decrease in functional bilateral UB strength and is insecure on what to start his wt. on with his gym exercise program Quick DASH-Disab of Arm,Shoulder& Hand Quick DASH Score: 34.0900 Goals Goal:: pt will demo a increase in BUE peak force strength by 10# of shoulder/biceps/triceps testing to increase pts functional strength to perform ADls and IADls by dc pt will demo a increase in bilateral compressor station chief engineer strength by 10# or greater to return pt to his PLOF by d.c Goal:: pt will demo a increase in legible handwriting to address envelopes/write name etc. by d.c Goal:: pt will demo a increase in BUE fit2 peak force inlbs by 10# or greater to increase pts ind with ADLs by d/c pt will demo a increase in bilateral compressor station chief engineer strength by 5# or greater to increase pts ind. with ADLs. Goal:: pt will demo the ability to write legibly to increase written communication by cristian Goal:: pt will demo the ability to set-up gym eq. and perform ex with sup as precursor to returning to his PLOF by cristian Rehabilitation General Assessment: pt demo with BUE weakness and limited ability to perform and participate in his ADLs and IADLs.Pt demo with a decrease in FMS limiting written legibility. pt would benefit from skilled OT services 1-2x week for 4 weeks to return pt to his PLOF with ADLs, IADLS and his exercise program. Pt and pts agree to POC. Rehabilitation Potential: Good Anticipated Interventions Anticipated Interventions: Strengthening, Fine Motor Coord/Aime, Education re assistive Equipment, Education re Diagnosis, Caregiver Training and Home Program Visit Plan Frequency: 1-2x /Week Duration: 4 Weeks TEXT: Thank you for the opportunity to evaluate your patient. For Medicare and Medicare HMO plans, please review the plan of care and approve it. It will need to be FAXED BACK to us at [phone] for Medicare purposes. Please let me know if there are questions or concerns regarding this plan of care. Physician Signature: Date:
--- NOTE | 2023-03-18 12:25 | HP.PTDCSUM_ITS ---
Discharge Summary D/C summary: It has been my pleasure to treat MEL BROOKS referred by Dr. Paul Lo MD, with the diagnosis of Pericardial Enfusion for a total of 10 visit(s). Discharge Date: 03/18/23 Please see the following information for a summary of their discharge status. Subjective Subjective: Pt stressed this morning as he got here early, thought he was late, and had to head home before this appt to get his OT papers. He feels that his walking and his balance is better. He has not had any falls. He is back to doing [employer]s and some of the machines. He reports that standing for a long time is hard for him as he gets tired. He does better with holding onto something. Overall Improvement % Improvement: 100 Objective Objective/Function: FGA 18 Turn 180 degrees: not catching his toe and able to turn with better balance Gait: pt still has a shorter stride length but not walking with as wide of a base of support. Goals Goal 1:: I HEP Goal Progress: Goal Met Goal 2:: Increase balance (FGA score was 16 at eval) Goal Progress: Goal Met Goal 3:: Be able to turn 180 degrees without LOB or having to step out to correct balance Goal Progress: Goal Met Goal 4:: Walk with Smaller SADAF and more heel to toe gait pattern Goal Progress: Progressing Plan Plan: 2X/ DC PT back to indep [employer] classes. D/C Information Discharge Comments: DC PT to [employer] classes d/c sentence: If there are questions or concerns regarding this patient's physical therapy, please feel free to call me at [phone]. Thank you for the referral of this patient. Sincerely, Crys Mendoza, MPT Balance/Gait/Functional tests Balance/Special Test Scores Functional Gait Assessment Score: 18 % Disability: 40.0000 Lower Extremity Functional Score: 58 Improvement % Improvement: 100
--- NOTE | 2023-04-21 16:57 | HP.SP.DC_ITS ---
ST Discharge Summary Discharged: Discharge: MEL BROOKS is a 77 year old male who was seen for initial cognitive evaluation at [facility] on 02/11/23 s/p hospitalization and admission to shelter in the middle of first attempt at outpatient therapy. Pt attended 7 additional consecutive sessions following initial evaluation to target attention, word retrieval, divergent naming, problem solving/reasoning, memory, executive functioning for iADL tasks, junior financial analyst, medication management, and safety awareness. Following re- evaluation of Pt?s current level of cognitive function, self-report, and caregiver report, Pt making limited progress over the course of therapy and deemed appropriate for d/c from speech therapy at this time. Pt provided w/home carry over activities and was asked to have his begin taking over the finances and his medications as he greatly struggles with these types of tasks. He has difficulty finding errors in pill boxes and has poor awareness why it would not be good to take the same medication at a different time every day. Lauri dc also has difficulty with understanding when he has received a scamming phone call, text, email. Dakota reporting his thinking skills seem to get worse in later afternoon, evening time frame. Highly suspect onset of dementia and feel Dakota would benefit from further neurological testing. Dakota reports he is currently driving locally, but wanted to drive to [place]. ST highly advised against driving to [place], and also feel he should also consider limiting driving all together. Pt discharged from speech therapy caseload on 04/21/23 d/t making limited progress towards goals. Thank you for allowing me to participate in the care of your Pt.
== END 2023-04-03 19:00 | disposition home or self-care (01) ==
LOC: SP 09:00
PROVIDERS: PCP Family Medicine; Referring Provider Family Medicine; Visit Provider Family Medicine
DX: I31.39 Other pericardial effusion (noninflammatory) (principal); J91.8 Pleural effusion in other conditions classified elsewhere; J18.9 Pneumonia, unspecified organism; F80.2 Mixed receptive-expressive language disorder; F09 Unspecified mental disorder due to known physiological condition
CPT/HCPCS: 92507; 97110; 97129; 97130; 97161; 97166; 97530

== ENCOUNTER → 2023-04-27 | Outpatient (CLI) | payer MEDICARE, OTHER, SELFPAY | END | disposition home or self-care (01) | LOC: SL 12:14 | PROVIDERS: PCP Family Medicine; Visit Provider Nurse Practitioner Acute Care | DX: G47.31 Primary central sleep apnea (principal) ==

== ENCOUNTER 2023-07-10 17:27 | Inpatient (IN) | payer MEDICARE, OTHER, SELFPAY ==
[2023-07-10 17:33] VITALS: BP 119/61; PULSE 81; RESP 18; TEMP 36.4; O2SAT 98; BMI 31.2
--- NOTE | 2023-07-10 19:09 | HP.PCM_ITS ---
[facility] - General General Date of Admission: 07/10/23 Date of Service: 07/13/23 Chief Complaint: Here for rehabilitation. [facility] Narrative MEL BROOKS, is a 77 Male who presents with followin06/08/2023 HbA1c 6.7. Patient has recurrent left pleural effusion, decortication recommended, but he has multi vessel CAD, needs CABG, prior to decortication. 07/01/2023 Admit to [facility]. Dr. Koenig performed CABG x 3. Extubation per protocol. Wean vasopressor support. Failed Kwong catheter removal. 07/03/2023 Failed Kwong catheter removal again. Stroke alert, CT brain negative, CTA head/neck negative, EEG negative. Atrial fibrillation with RVR. Transfused 1 unit PRBC. 07/04/2023 Blood sugar > 300's, insulin increased. 07/05/2023 Eliquis started fot Atrial fibrillation. 07/06/2023 Blood sugars better, but not at goal. 07/07/2023 Transfer to floor, blood sugar high after breakfast, slept well. Postoperative atrial fibrillation controlled with Metoprolol. 07/08/2023 Doing better overall, ambulating well. 07/09/2023 Discharge to rehab recommended. Kwong inserted. Miralax bid, senna s bid for constipation. 07/10/2023 Blood sugar low to 59. Insulin adjusted. PT/OT for SNF. Lasix 20mg iv x 2 for volume overload. Discharge with Kwong catheter, continue Tamsulosin. 07/10/2023 Admit to TCU with debility, here for rehabilitation, strengthening, prior to discharge home with . [facility] Medical History (Updated 07/10/23 @ 19:[address] Soy Pinto MD) Atherosclerosis Bladder neck obstruction BPH (benign prostatic hyperplasia) Coronary artery disease Diabetes HTN (hypertension) Hyperlipemia TIA (transient ischemic attack) Home Medications atenolol 50 mg tablet (Tenormin) 50 mg PO DAILY BLOOD PRESSURE 10/12/17 [History Last Taken 01/09/23] lisinopril 40 mg tablet 20 mg PO BID BLOOD PRESSURE 10/12/17 [History Last Taken 01/09/23] pen needle, diabetic 32 gauge x 5/32 (Pen Needle) #100 ea 09/19/22 [Rx Last Ta prachi Unknown] pen needle, diabetic 32 gauge x 5/32 (Pen Needle) #100 ea 09/19/22 [Rx Last Taken Unknown] atorvastatin 40 mg tablet 40 mg PO QHS CHOLESTEROL 09/23/22 [History Last Taken 07/09/23] hydrochlorothiazide 12.5 mg capsule 12.5 mg PO DAILY FLUID 09/23/22 [History Last Taken 01/09/23] insulin lispro 100 unit/mL subcutaneous pen (Humalog KwikPen (U-100) Insulin) 20 unit subcut 0745 DIABETES 09/23/22 [History Last Taken 07/10/23] pantoprazole 40 mg tablet,delayed release 40 mg PO DAILY ACID REFLUX 09/23/22 [History Last Taken 07/10/23] amlodipine 10 mg tablet 5 mg PO DAILY BLOOD PRESSURE 01/04/23 [History Last Taken 01/09/23] insulin glargine-yfgn 100 unit/mL (3 mL) subcutaneous pen 32 unit subcut DAILY Diabetes 02/03/23 [History Last Taken 07/10/23] aspirin 81 mg tablet,delayed release (Adult Aspirin Regimen) 81 mg PO DAILY Heart 05/28/23 [History Last Taken Unknown] acetaminophen 500 mg tablet 1,000 mg PO Q6H PRN pain 07/10/23 [History Last Taken Unknown] apixaban 5 mg tablet 5 mg PO BID Anticoagulant 07/10/23 [History Last Taken Unknown] ascorbic acid (vitamin C) 500 mg tablet 500 mg PO DAILY Supplement 07/10/23 [History Last Taken Unknown] aspirin 81 mg chewable tablet 1 tab PO DAILY Heart 07/10/23 [History Last Taken Unknown] cephalexin 500 mg capsule 500 mg PO Q6H Antibiotic 07/10/23 [History Last Taken 07/10/23 15:10] ferrous sulfate 325 mg (65 mg iron) tablet 325 mg PO DAILY Supplement 07/10/23 [History Last Taken Unknown] folic acid 1 mg tablet 1 mg PO DAILY Supplement 07/10/23 [History Last Taken Unknown] furosemide 20 mg tablet 20 mg PO Heart 07/10/23 [History Last Taken Unknown] insulin lispro 100 unit/mL subcutaneous pen (Humalog KwikPen (U-100) Insulin) 1 sliding scale dose subcut ACHS Diabetes 07/10/23 [History Last Taken Unknown] insulin lispro 100 unit/mL subcutaneous pen (Humalog KwikPen (U-100) Insulin) 14 unit subcut 1145,1745 Diabetes 07/10/23 [History Last Taken Unknown] lidocaine 4 % topical patch (Salonpas (lidocaine)) 1 patch topical DAILY Pain 07/10/23 [History Last Taken Unknown] magnesium oxide 400 mg PO DAILY Supplement 07/10/23 [History Last Taken Unknown] metoprolol tartrate 37.5 mg tablet 37.5 mg PO Q8H BP 07/10/23 [History Last Taken 07/10/23 14:00] potassium chloride 10 mEq tablet,extended release 10 meq PO DAILY Supplement 07/10/23 [History Last Taken Unknown] senna-docusate sodium tablet 1 tab PO BID Constipation 07/10/23 [History Last Taken Unknown] tamsulosin 0.4 mg capsule (Flomax) 0.4 mg PO DAILY Urinary retention 07/10/23 [History Last Taken Unknown] tramadol 50 mg tablet 50 mg PO BID PRN Pain 07/10/23 [History Last Taken Unknown] Allergy/AdvReac Type Severity Reaction Status Date / Time No Known Allergies Allergy Verified 05/28/23 09:27 Family History Other Diabetes Surgical History (Updated 07/10/23 @ 19:[address] Soy Pinto MD) History of cardiac cath History of coronary artery bypass graft x 3 Social History (Updated 07/10/23 @ 19:[address] Soy Pinto MD) household members: spouse Smoking Status: Never smoker alcohol intake: never substance use type: does not use ROS Constitutional Constitutional: Denies chills, fever(s) or weight gain ENT HEENT: Denies headache(s), nasal congestion or nasal discharge Cardiovascular Cardiovascular: Denies chest pain or palpitations Respiratory/Chest Respiratory/Chest: Denies cough, excessive phlegm production or shortness of breath with exertion Gastrointestinal Gastrointestinal: Denies abdominal pain, nausea or vomiting Genitourinary Genitourinary: Denies dysuria Musculoskeletal Musculoskeletal: Denies joint pain or joint swelling Integumentary Integumentary: Denies rash or wounds Neurologic Neurologic: Denies focal weakness, numbness or tingling Psychiatric Psychiatric: Denies anxiety, auditory hallucinations, depression, homicidal ideation or suicidal ideation Vital Signs Vital Signs Vital Signs: 07/10/23 17:33 Temperature 97.6 F L Temperature Source Temporal Pulse Rate 81 Respiratory Rate 18 Blood Pressure 119/61 Blood Pressure Mean 80 Blood Pressure Source Monitor Blood Pressure Position Sitting Blood Pressure Location Left Arm Pulse Ox 98 Oxygen Delivery Method Room Air Weight Weight: 101.741 kg Body Mass Index (BMI) 31.2 Physical Exam Const alert General Appearance: cooperative HEENT normocephalic Eyes PERRL and EOMs intact bilaterally Neck supple, no JVD and no carotid bruits Resp normal respiratory effort, normal air movement and clear to auscultation bilaterally Cardio regular rate and regular rhythm GI normal to inspection, nondistended, normoactive bowel sounds, non-tender and non-distended Extremity normal capillary refill General Extremity: Negative for edema Skin no rashes or lesions noted General Skin Exam: no breakdown Psych affect normal Appearance: appropriate Results Lab / Micro Data 07/13/23 05:39 07/11/23 07:03 Assessment & Plan Assessment/Plan (1) Debility: (2) S/P CABG x 3: (3) Atrial fibrillation with RVR: (4) Postoperative anemia: (5) Urinary retention: (6) BPH (benign prostatic hyperplasia): (7) Recurrent left pleural effusion: (8) Central sleep apnea: (9) Coronary artery disease: (10) Diabetes mellitus type II, uncontrolled: (11) Hyperlipemia: (12) GERD (gastroesophageal reflux disease): (13) Carotid stenosis: (14) (HFpEF) heart failure with preserved ejection fraction: PLAN: Plan 77 year old male with below past medical history hospitalized for CABG x 3 07/01/[address] Koenig, postoperative course complicated by atrial fibrillation with RVR, postoperative anemia, urinary retention requiring kwong catheter placement, admitted to TCU with debility, here for rehabilitation, strengthening, prior to discharge home with . * Debility - PT/OT. * Pain - Tylenol 1000mg q6 prn pain (1-5), Tramadol 50mg q6 prn pain (6-10), Lidoderm patch 1 patch td daily. * Bowel - Senna/colace 2 tablets bid, Magnesium citrate 300ml daily prn. * Adult immunization - Administer pneumonia vaccine, covid vaccine, flu vaccine as appropriate. * DVT prophylaxis - on Eliquis. * Atrial fibrillation - Metoprolol 37.5mg q8, Eliquis 5mg bid. * CAD s/p CABG x 3 - Metoprolol 37.5mg q8, Aspirin 81mg daily. * Iron deficiency anemia - Ferrex 150mg daily, Vitamin C 500mg daily. * Hyperlipidemia - Atorvastatin 40mg qhs. * UTI - Keflex 500mg q6 thru 07/17/2023. * Folate deficiency - Folic acid 1mg daily. * HFpEF - Metoprolol 37.5mg q8, Furosemide 40mg daily thru 07/13/2023, then 20mg daily. * Diabetes Mellitus II - Glargine 32 units daily, Humalog 14 units bid. * Hypomagnesemia - Magnesium chloride 128mg daily. * GERD - Pantoprazole 40mg daily. * Hypokalemia - KCL 10meq daily. * BPH/urinary retention - Tamsulosin 0.4mg daily, indwelling kwong catheter, voiding trials.
[2023-07-10 20:29] VITALS: PULSE 88; RESP 18; O2SAT 99
[2023-07-10] MEDS: Cephalexin 500 MG Capsule PO (20:59)
[2023-07-10] MEDS: Senna/Docusate Sodium 1 Tablet 2 TABLET PO (20:59)
[2023-07-10] MEDS: APIXABAN 5 MG TABLET PO (20:59)
[2023-07-10] MEDS: Atorvastatin Calcium 40 MG Tablet PO (20:59)
[2023-07-10 21:00] VITALS: BP 124/59; PULSE 86
[2023-07-10] MEDS: Metoprolol Tartrate 25 MG Tablet 37.5 MG PO (21:00)
--- NOTE | 2023-07-10 21:17 | NURSING ---
Blood glucose 70. Pt unsymptomatic. Supplement given @ this time.
[2023-07-10 22:46] LABS: Bedside Glucose 103 mg/dL (74-106)
[2023-07-11] MEDS: Cephalexin 500 MG Capsule PO ×4 (00:54→17:49)
[2023-07-11 06:48] VITALS: BP 119/59; PULSE 88
[2023-07-11] MEDS: Metoprolol Tartrate 25 MG Tablet 37.5 MG PO ×3 (06:48→20:26)
[2023-07-11] MEDS: Pantoprazole Sodium 40 MG Tablet PO (06:48)
[2023-07-11 07:03] LABS: Bedside Glucose 134 mg/dL (74-106)
[2023-07-11 08:12] LABS: Absolute Lymphocyte Count 1.97 X10^3/uL (0.83-4.51); Absolute Neutrophil Count 8.7 X10^3/uL (2.0-7.7); Basophil# 0.02 X10^3/uL; Basophil% 0.2 % (0-1); Eosinophil# 0.26 X10^3/uL; Eosinophils% 2.1 % (0-5); Hematocrit 26.8 % (40-54); Hemoglobin 8.3 g/dL (13.0-16.5); Lymphocyte # 1.97 X10^3/ul (0.83-4.51); Lymphocyte % 15.6 % (19-41); Mean Corpuscular Hgb 28.3 pg (27.0-32.0); Mean Corpuscular Volume 91.5 fL (80-94); Mean Platelet Vol. 9.5 fl (6.2-12.0); Monocyte# 1.51 X10^3/uL; NRBC Flagged by Analyzer 0 % (0-5); Neutrophil # 8.72 X10^3/uL (2.7-7.7); Neutrophil % 68.9 % (47-70); POSITIVE DIFFERENTIAL YES; Platelet Count 426 K/mm3 (150-450); RBC Distribution Width CV 16.6 % (11.6-14.6); RBC Distribution Width SD 52.1 fl (35.1-43.9); Red Blood Count 2.93 M/mm3 (4.6-6.2); White Blood Count 12.6 K/mm3 (4.4-11.0)
[2023-07-11] MEDS: Potassium Chloride Oral Tablet 10 MEQ PO (08:12)
[2023-07-11] MEDS: Aspirin 81 MG TAB.CHEW PO (08:12)
[2023-07-11] MEDS: Iron Polysaccharide Complex 150 MG CAPSULE PO (08:12)
[2023-07-11] MEDS: APIXABAN 5 MG TABLET PO (08:12)
[2023-07-11] MEDS: Folic Acid 1 MG Tablet PO (08:12)
[2023-07-11] MEDS: Insulin Glargine-YFGN 100 UNIT/ML Pen 32 UNIT SC (08:13)
[2023-07-11] MEDS: Lidocaine 5% Patch 1 PATCH TOPICAL (08:13)
[2023-07-11] MEDS: Furosemide 40 MG Tablet PO (08:13)
[2023-07-11] MEDS: Ascorbic Acid 500 MG Tablet PO (08:14)
[2023-07-11] MEDS: Senna/Docusate Sodium 1 Tablet 2 TABLET PO ×2 (08:14→20:26)
[2023-07-11] MEDS: Magnesium Chloride 64 MG Delay Rel.Tablet 128 MG PO (08:14)
[2023-07-11 08:20] LABS: Differential Indicated SCAN CRITERIA MET
[2023-07-11 08:24] LABS: Anion Gap 4 (5-15); BUN 24 mg/dL (7-18); Calcium,Total 8.6 mg/dL (8.5-10.1); Chloride 103 mmol/L (98-107); EST Glomerular Filtration Rate 77 mL/min (>60); Est Glom Filt Rate - Afr Amer 93 mL/min (>60); Estimated Creatinine Clearance 76.33 ml/min; Glucose 138 mg/dL (74-106); Potassium 4.5 mmol/L (3.5-5.1); Sodium Level 135 mmol/L (136-145)
[2023-07-11 08:56] LABS: Differential Comment SCANNED
[2023-07-11 10:00] VITALS: RESP 18; O2SAT 98; BMI 31.2
[2023-07-11] MEDS: Insulin Lispro 100 UNIT/ML INSULN.PEN 14 UNIT SC (10:04)
[2023-07-11] MEDS: Acetaminophen 500 MG Tablet 1000 MG PO ×2 (10:07→17:49)
[2023-07-11] MEDS: Insulin Lispro 100 UNIT/ML INSULN.PEN 20 UNIT SC (10:11)
[2023-07-11] MEDS: Tuberculin,Purif.prot.deriv. 50 TU/ML Vial 0.100000000000000006 ML ID (10:50)
[2023-07-11 12:01] LABS: Bedside Glucose 192 mg/dL (74-106)
[2023-07-11] MEDS: Insulin Lispro 100 UNIT/ML INSULN.PEN 10 UNIT SC ×2 (12:31→17:49)
[2023-07-11 14:00] VITALS: BP 101/61; PULSE 82; RESP 16; TEMP 36.2; O2SAT 99
[2023-07-11] MEDS: traMADol 50 MG Tablet PO ×2 (14:13→20:24)
[2023-07-11 14:18] VITALS: BP 124/59; PULSE 82
[2023-07-11 17:28] LABS: Bedside Glucose 157 mg/dL (74-106)
[2023-07-11] MEDS: Tamsulosin HCl 0.4 MG Capsule 0.400000000000000022 MG PO (17:49)
[2023-07-11] MEDS: Atorvastatin Calcium 40 MG Tablet PO (20:25)
[2023-07-11 20:26] VITALS: BP 113/58; PULSE 84
[2023-07-11 21:35] LABS: Bedside Glucose 229 mg/dL (74-106)
[2023-07-12] MEDS: Cephalexin 500 MG Capsule PO ×5 (00:20→23:14)
[2023-07-12] MEDS: Acetaminophen 500 MG Tablet 1000 MG PO ×3 (00:20→23:16)
[2023-07-12 05:40] LABS: Hematocrit 24.7 % (40-54); Hemoglobin 7.9 g/dL (13.0-16.5)
[2023-07-12] MEDS: Pantoprazole Sodium 40 MG Tablet PO (06:43)
[2023-07-12 06:44] VITALS: BP 116/62; PULSE 77
[2023-07-12] MEDS: Metoprolol Tartrate 25 MG Tablet 37.5 MG PO ×3 (06:44→23:13)
[2023-07-12 06:48] LABS: Bedside Glucose 221 mg/dL (74-106)
[2023-07-12] MEDS: Insulin Lispro 100 UNIT/ML INSULN.PEN 10 UNIT SC ×3 (09:00→17:57)
[2023-07-12] MEDS: Potassium Chloride Oral Tablet 10 MEQ PO (09:01)
[2023-07-12] MEDS: Folic Acid 1 MG Tablet PO (09:01)
[2023-07-12] MEDS: Iron Polysaccharide Complex 150 MG CAPSULE PO (09:01)
[2023-07-12] MEDS: Insulin Glargine-YFGN 100 UNIT/ML Pen 32 UNIT SC (09:02)
[2023-07-12] MEDS: Furosemide 40 MG Tablet PO (09:02)
[2023-07-12] MEDS: Ascorbic Acid 500 MG Tablet PO (09:03)
[2023-07-12] MEDS: Magnesium Chloride 64 MG Delay Rel.Tablet 128 MG PO (09:03)
[2023-07-12] MEDS: Senna/Docusate Sodium 1 Tablet 2 TABLET PO ×2 (09:03→23:13)
[2023-07-12] MEDS: Lidocaine 5% Patch 1 PATCH TOPICAL (09:09)
[2023-07-12 11:53] LABS: Bedside Glucose 206 mg/dL (74-106)
[2023-07-12 14:00] VITALS: BP 122/55; PULSE 84; RESP 18; TEMP 36.4; O2SAT 99
[2023-07-12 14:34] VITALS: BP 101/58; PULSE 83
[2023-07-12 16:42] LABS: Bedside Glucose 164 mg/dL (74-106)
[2023-07-12] MEDS: Tamsulosin HCl 0.4 MG Capsule 0.400000000000000022 MG PO (17:58)
[2023-07-12 21:49] LABS: Bedside Glucose 219 mg/dL (74-106)
[2023-07-12] MEDS: Atorvastatin Calcium 40 MG Tablet PO (23:12)
[2023-07-12 23:13] VITALS: BP 123/64; PULSE 87
[2023-07-13 06:13] LABS: Hematocrit 26.8 % (40-54); Hemoglobin 8.3 g/dL (13.0-16.5)
[2023-07-13] MEDS: Acetaminophen 500 MG Tablet 1000 MG PO ×2 (06:15→20:45)
[2023-07-13] MEDS: Cephalexin 500 MG Capsule PO ×4 (06:15→23:07)
[2023-07-13] MEDS: Pantoprazole Sodium 40 MG Tablet PO (06:16)
[2023-07-13 06:17] VITALS: BP 123/70; PULSE 82
[2023-07-13] MEDS: Metoprolol Tartrate 25 MG Tablet 37.5 MG PO ×3 (06:17→20:50)
[2023-07-13 06:25] LABS: Bedside Glucose 198 mg/dL (74-106)
[2023-07-13 07:44] LABS: Bedside Glucose 70 mg/dL (74-106)
[2023-07-13 07:44] LABS: Bedside Glucose 65 mg/dL (74-106)
[2023-07-13 07:59] VITALS: PULSE 87
[2023-07-13] MEDS: Insulin Lispro 100 UNIT/ML INSULN.PEN 10 UNIT SC ×3 (07:59→17:17)
[2023-07-13] MEDS: Furosemide 40 MG Tablet PO (08:00)
[2023-07-13] MEDS: Magnesium Chloride 64 MG Delay Rel.Tablet 128 MG PO (08:00)
[2023-07-13] MEDS: Ascorbic Acid 500 MG Tablet PO (08:00)
[2023-07-13] MEDS: Iron Polysaccharide Complex 150 MG CAPSULE PO (08:01)
[2023-07-13] MEDS: Folic Acid 1 MG Tablet PO (08:01)
[2023-07-13] MEDS: Potassium Chloride Oral Tablet 10 MEQ PO (08:01)
[2023-07-13] MEDS: Lidocaine 5% Patch 1 PATCH TOPICAL (08:06)
[2023-07-13] MEDS: Senna/Docusate Sodium 1 Tablet 2 TABLET PO ×2 (08:06→20:48)
[2023-07-13 08:45] VITALS: BP 115/77; PULSE 87; RESP 18; TEMP 36.2; O2SAT 99
--- NOTE | 2023-07-13 09:50 | PCM.PN.DRR ---
Documented by User: Queenie Morse 07/13/23 11:47 TCU RX Drug Regimen Review Subjective/Objective Subjective/Objective: Subjective: TCU Admission. 77 YOM hospitalized for CABG x 3 07/01/[address] Koenig, postoperative course complicated by atrial fibrillation with RVR, postoperative anemia, urinary retention requiring kwong catheter placement. Admitted to TCU with debility for strengthening and rehabilitation. Objective: Allergies No Known Allergies Allergy (Verified 05/28/23 09:27) Current Medications Generic Name Dose Route Start Last Admin Trade Name Freq PRN Reason Stop Dose Admin Acetaminophen 1,000 mg 07/10/23 18:35 07/13/23 06:15 Acetaminophen 500 Mg Tablet PO 1,000 mg Q6H PRN PRN Administration Pain Score 1-5 Apixaban 5 mg 07/10/23 22:00 07/11/23 08:12 Apixaban 5 Mg Tablet PO 5 mg BID VILMA Administration Ascorbic Acid 500 mg 07/11/23 10:00 07/13/23 08:00 Ascorbic Acid 500 Mg Tablet PO 500 mg DAILY VILMA Administration Atorvastatin Calcium 40 mg 07/10/23 22:00 07/12/23 23:12 Atorvastatin Calcium 40 Mg Tablet PO 40 mg QHS VILMA Administration Cephalexin 500 mg 07/10/23 19:30 07/13/23 06:15 Cephalexin 500 Mg Capsule PO 07/17/23 18:01 500 mg Q6 VILMA Administration Folic Acid 1 mg 07/11/23 08:00 07/13/23 08:01 Folic Acid 1 Mg Tablet PO 1 mg DAILYCM VILMA Administration Furosemide 40 mg 07/11/23 10:00 07/13/23 08:00 Furosemide 40 Mg Tablet PO 07/13/23 10:01 40 mg DAILY VILMA Administration Protocol Furosemide 20 mg 07/14/23 10:00 Furosemide 20 Mg Tablet PO DAILY VILMA Protocol Insulin Glargine 32 unit 07/11/23 10:00 07/12/23 09:02 Insulin Glargine-Yfgn 100 Unit/Ml Pen SC 32 unit DAILY VILMA Administration Insulin Human Lispro 10 unit 07/11/23 11:45 07/13/23 07:59 Insulin Lispro 100 Unit/Ml Insuln.Pen SC 10 units TIDAC VILMA Administration Lidocaine 1 patch 07/11/23 10:00 07/13/23 08:06 Lidocaine 5% Patch TOPICAL 1 patch DAILY VILMA Administration Magnesium Chloride 128 mg 07/11/23 10:00 07/13/23 08:00 Magnesium Chloride 64 Mg Delay Rel.Tablet PO 128 mg DAILY VILMA Administration Magnesium Citrate 300 ml 07/10/23 19:31 Magnesium Citrate 300 Ml PO DAILY PRN Constipation Metoprolol Tartrate 37.5 mg 07/10/23 22:00 07/13/23 07:59 Metoprolol Tartrate 25 Mg Tablet PO 37.5 mg Q8 VILMA Administration Pantoprazole Sodium 40 mg 07/11/23 06:00 07/13/23 06:16 Pantoprazole Sodium 40 Mg Tablet PO 40 mg DAILY@0600 VILMA Administration Polysaccharide Iron Complex 150 mg 07/11/23 08:00 07/13/23 08:01 Iron Polysaccharide Complex 150 Mg Capsule PO 150 mg DAILYCM VILMA Administration Potassium Chloride 10 meq 07/11/23 08:00 07/13/23 08:01 Potassium Chloride Oral Tablet 10 Meq PO 10 meq DAILYCM VILMA Administration Senna/Docusate Sodium 2 tablet 07/10/23 22:00 07/13/23 08:06 Senna/Docusate Sodium 1 Tablet PO 2 tablet BID VILMA Administration Sodium Chloride 10 - 40 ml 07/10/23 18:04 0.9% Saline Lock 10 Ml Syringe IV UD PRN SALINE FLUSH Tamsulosin HCl 0.4 mg 07/11/23 17:30 07/12/23 17:58 Tamsulosin Hcl 0.4 Mg Capsule PO 0.4 mg DAILY@1730 VILMA Administration Tramadol HCl 50 mg 07/10/23 19:32 07/11/23 20:24 Tramadol 50 Mg Tablet PO 50 mg Q6H PRN PRN Administration Pain Score 6-10 Tuberculin PPD 0.1 ml 07/18/23 10:00 Tuberculin,Purif.Prot.Deriv. 50 Tu/Ml Vial ID 07/18/23 10:01 X1 ONE Problem List (Updated 07/10/23 @ 19:[address] Soy Pinto MD) (HFpEF) heart failure with preserved ejection fraction (Acute) Carotid stenosis (Acute) GERD (gastroesophageal reflux disease) (Acute) Hyperlipemia (Acute) Diabetes mellitus type II, uncontrolled (Acute) Coronary artery disease (Acute) Central sleep apnea (Acute) Recurrent left pleural effusion (Acute) BPH (benign prostatic hyperplasia) (Acute) Urinary retention (Acute) Postoperative anemia (Acute) Atrial fibrillation with RVR (Acute) S/P CABG x 3 (Acute) Debility (Acute) Vital Signs Temp Pulse Resp BP Pulse Ox O2 Del Method 97.6 F L 87 18 123/70 H 99 Room Air 07/12/23 14:00 07/13/23 07:59 07/12/23 14:00 07/13/23 06:17 07/12/23 14:00 07/12/23 14:00 Oxygen Delivery Method Room Air Weight: 101.559 kg Body Mass Index (BMI) 31.2 Sodium 135 mmol/L (136-145) L 07/11/23 07:03 Potassium 4.5 mmol/L (3.5-5.1) 07/11/23 07:03 Chloride 103 mmol/L (98-107) 07/11/23 07:03 Carbon Dioxide 28.0 mmol/L (21.0-32.0) 07/11/23 07:03 Anion Gap 4 (5-15) L 07/11/23 07:03 BUN 24 mg/dL (7-18) H 07/11/23 07:03 Creatinine 1.00 mg/dL (0.70-1.30) 07/11/23 07:03 Est GFR (MDRD) Af Amer 93 mL/min (>60) 07/11/23 07:03 Est GFR (MDRD) Non-Af 77 mL/min (>60) 07/11/23 07:03 BUN/Creatinine Ratio 24.0 RATIO (10-20) H 07/11/23 07:03 Glucose 138 mg/dL (74-106) H 07/11/23 07:03 Assessment/Plan: 1. Pain: acetaminophen 1000mg PO Q6H PRN pain 1-5, tramadol 50mg PO Q6H PRN pain 6-10 and lidocaine 5% patch topical daily. Resident has had 6 doses of acetaminophen for pain scores of 1-4 in the chest/back/leg/incision and 2 doses of tramadol for pain scores of 5 and 6. Please continue to monitor for increased pain, PRN usage, renal function, constipation, respiratory depression and rash. 2. Bowel: senna/docusate 2T PO BID and magnesium citrate 300mL PO daily PRN constipation. Resident has not used any magnesium citrate. No documented bowel movements so far. Please give a dose of magnesium citrate. Thanks. Please continue to monitor for constipation and PRN usage. 3. Atrial fibrillation/HFpEF/CAD s/p CABG x3: metoprolol tartrate 37.5mg PO Q8, aspirin 81mg PO daily, apixaban 5mg PO BID, furosemide 40mg PO daily thru today then 20 mg PO daily. Please continue to monitor for S/S of bleeding, hemoglobin (last 8.3g/dL), HR (last 87), BP (last 123/70), renal function, edema and potassium (last 4.5mmol/L). 4. UTI: cephalexin 500mg PO Q6 thru 07/17/23. Please continue to monitor for S/S of infection, renal function and diarrhea. 5. Iron deficiency anemia: Ferrex 150mg PO daily and ascorbic acid 500mg PO daily. Resident does not have any iron studies in the chart. Please consider ordering iron studies if clinically appropriate. Thanks. Please continue to monitor hemoglobin (last 8.3g/dL), constipation and dark stools. 6. Hyperlipidemia: atorvastatin 40mg PO QHS. Please consider ordering a lipid panel if clinically appropriate as the resident does not have a lipid panel in the chart. Thanks. Please continue to monitor LFTs (last WNL 01/12/23) and muscle pain. 7. Diabetes mellitus II: insulin glargine 32 units SC daily and insulin lispro 10units SC TIDAC. Please continue to monitor for S/S of hypoglycemia, hemoglobin A1c (last 6.7% 06/08/23 per H&P, last level in chart 01/10/23), and POC glucose (last 198mg/dL). 8. GERD: pantoprazole 40mg PO daily. Please continue to monitor for S/S of GERD, diarrhea (BEERs medication) and magnesium (last 1.8mg/dL 01/11/23). 9. Hypokalemia/hypomagnesemia: potassium chloride 10mEq PO DAILYCM and magnesium chloride 128mg PO daily. Please continue to monitor potassium levels (last 4.5mmol/L) and magnesium. 10. BPH/urinary retention: tamsulosin 0.4mg PO daily. Please continue to monitor for S/S of BPH and BP. 11. Folate deficiency: folic acid 1mg PO daily. Please continue to monitor. Assessment/Plan for indications treated with psychotropic medications: None Medical chart and medication regimen reviewed. The following medication irregularities or issues were identified: 1. Ferrex 150mg PO daily. Resident does not have any iron studies in the chart. Please consider ordering iron studies if clinically appropriate. Thanks. 2. Atorvastatin 40mg PO QHS. Please consider ordering a lipid panel if clinically appropriate as the resident does not have a lipid panel in the chart. Thanks. Date Date of Note:: 07/13/23 Documented by User: Dr. Soy Pinto MD 07/13/23 12:10 TCU RX Drug Regimen Review Provider Comments Provider responsibility Provider Comments to Recommendations by Pharmacy: Agree
[2023-07-13 10:00] VITALS: BMI 31.2
[2023-07-13] MEDS: Insulin Glargine-YFGN 100 UNIT/ML Pen 32 UNIT SC (10:22)
[2023-07-13] MEDS: APIXABAN 5 MG TABLET PO ×2 (10:22→20:50)
--- NOTE | 2023-07-13 10:47 | NURSING ---
Court Registry Officer Note; Activity Asset: Lukasz Blunt prefers to be called Dakota . Dakota is independent in his choice of daily activities. He has a smartphone, table and fuad he will use for reading, surfing the net and talking with family and friends on. Family and friends will visit weekly and bring him items he may need. Dakota has stated he prefers independent activities at this time, reading, watching tv. Staff will remind him of daily of weekly activities and respect his right to say no.
[2023-07-13 11:27] LABS: Bedside Glucose 249 mg/dL (74-106)
[2023-07-13 13:42] LABS: Pathologist Review Reviewed
--- NOTE | 2023-07-13 16:08 | CASEMGMT ---
Social Work Met with patient to complete initial assessment. Introduced self and role. Verified contacts. Confirmed code status as full code. Educated to Medicare benefit and copay coverage. Pt's goal is to return home with . However, pt report the house is messy, cluttered SW explored further and pt reports it is sanitary . Pt explained his just buys things that she doesn't need and I'm 77 and I'm not going to change anything . SW to follow for safe DC planning and hoarder-like tendencies. Lorna Cevallos, [employer]ITTER C[employer] OPERATOR [employer]
[2023-07-13 16:45] LABS: Bedside Glucose 191 mg/dL (74-106)
[2023-07-13] MEDS: Tamsulosin HCl 0.4 MG Capsule 0.400000000000000022 MG PO (17:17)
[2023-07-13 20:50] VITALS: BP 124/68; PULSE 93
[2023-07-13] MEDS: Atorvastatin Calcium 40 MG Tablet PO (20:52)
[2023-07-13 21:33] LABS: Bedside Glucose 198 mg/dL (74-106)
[2023-07-13 23:00] VITALS: PULSE 90; RESP 16; O2SAT 98
[2023-07-14] MEDS: Acetaminophen 500 MG Tablet 1000 MG PO (03:42)
[2023-07-14 05:45] VITALS: BP 111/56; PULSE 79
[2023-07-14] MEDS: Metoprolol Tartrate 25 MG Tablet 37.5 MG PO ×3 (05:45→22:18)
[2023-07-14] MEDS: Pantoprazole Sodium 40 MG Tablet PO (05:45)
[2023-07-14] MEDS: Cephalexin 500 MG Capsule PO ×4 (05:45→22:28)
[2023-07-14 06:03] LABS: Hematocrit 24.6 % (40-54); Hemoglobin 7.8 g/dL (13.0-16.5)
[2023-07-14 06:19] LABS: Bedside Glucose 196 mg/dL (74-106)
[2023-07-14 06:39] LABS: Cholesterol 72 mg/dL (200); High Density Lipoprotein 36 mg/dL; Iron 21 ug/dL (65-175); Triglycerides 54 mg/dL; Very Low Density Lipoprotein 11 mg/dL (5-40)
[2023-07-14] MEDS: Insulin Lispro 100 UNIT/ML INSULN.PEN 10 UNIT SC ×3 (08:18→17:23)
[2023-07-14] MEDS: APIXABAN 5 MG TABLET PO (08:19)
[2023-07-14] MEDS: Potassium Chloride Oral Tablet 10 MEQ PO (08:19)
[2023-07-14] MEDS: Iron Polysaccharide Complex 150 MG CAPSULE PO (08:19)
[2023-07-14] MEDS: Folic Acid 1 MG Tablet PO (08:19)
[2023-07-14] MEDS: Furosemide 20 MG Tablet PO (08:20)
[2023-07-14] MEDS: Insulin Glargine-YFGN 100 UNIT/ML Pen 32 UNIT SC (08:20)
[2023-07-14] MEDS: Lidocaine 5% Patch 1 PATCH TOPICAL (08:20)
[2023-07-14] MEDS: Magnesium Chloride 64 MG Delay Rel.Tablet 128 MG PO (08:21)
[2023-07-14] MEDS: Senna/Docusate Sodium 1 Tablet 2 TABLET PO ×2 (08:21→22:19)
[2023-07-14] MEDS: Ascorbic Acid 500 MG Tablet PO (08:21)
[2023-07-14 09:08] VITALS: RESP 16; O2SAT 99
[2023-07-14 10:00] VITALS: BMI 30.8
[2023-07-14 11:13] LABS: Bedside Glucose 232 mg/dL (74-106)
[2023-07-14 13:19] VITALS: PULSE 85
[2023-07-14 14:00] VITALS: BP 101/59; PULSE 78; RESP 16; TEMP 36.5; O2SAT 99
[2023-07-14 16:50] LABS: Bedside Glucose 239 mg/dL (74-106)
[2023-07-14] MEDS: Tamsulosin HCl 0.4 MG Capsule 0.400000000000000022 MG PO (17:23)
--- NOTE | 2023-07-14 18:28 | NURSING ---
To have EGD on 07/15/23 at 0600. Patient aware and is to be NPO at midnight.
--- NOTE | 2023-07-14 21:40 | CON.PCM.GI_ITS ---
HPI Consult Data Date of Consult: 07/14/23 HPI Narrative Reason for Consultation: Anemia HPI Narrative: MEL BROOKS, is a 77 year old male with below past medical history hospitalized for CABG x 3 07/01/[address] Koenig, postoperative course complicated by atrial fibrillation with RVR, postoperative anemia, urinary retention requiring kwong catheter placement, admitted to TCU with debility, here for rehabilitation. Most the history was obtained from the chart because the patient is not a good historian. I was consulted due to progressively worsening anemia. He he has been on aspirin since undergoing coronary artery bypass procedure. Since having been diagnosed with atrial fibrillation RVR he was also started on Eliquis. His hemoglobin typically ranges around 13. His hemoglobin since being admitted has drifted down to 10. I was consulted for management of his anemia. [facility] Medical History (Updated 07/15/23 @ 07:[address] Rivas Friend, DO) Atherosclerosis Bladder neck obstruction BPH (benign prostatic hyperplasia) Coronary artery disease Diabetes HTN (hypertension) Hyperlipemia TIA (transient ischemic attack) Home Medications atenolol 50 mg tablet (Tenormin) 50 mg PO DAILY BLOOD PRESSURE 10/12/17 [History Last Taken 01/09/23] lisinopril 40 mg tablet 20 mg PO BID BLOOD PRESSURE 10/12/17 [History Last Taken 01/09/23] pen needle, diabetic 32 gauge x 5/32 (Pen Needle) #100 ea 09/19/22 [Rx Last Taken Unknown] pen needle, diabetic 32 gauge x 5/32 (Pen Needle) #100 ea 09/19/22 [Rx Last Taken Unknown] atorvastatin 40 mg tablet 40 mg PO QHS CHOLESTEROL 09/23/22 [History Last Taken 07/09/23] hydrochlorothiazide 12.5 mg capsule 12.5 mg PO DAILY FLUID 09/23/22 [History Last Taken 01/09/23] pantoprazole 40 mg tablet,delayed release 40 mg PO DAILY ACID REFLUX 09/23/22 [History Last Taken 07/10/23] amlodipine 10 mg tablet 5 mg PO DAILY BLOOD PRESSURE 01/04/23 [History Last Taken 01/09/23] insulin glargine-yfgn 100 unit/mL (3 mL) subcutaneous pen 32 unit subcut DAILY Diabetes 02/03/23 [History Last Taken 07/10/23] acetaminophen 500 mg tablet 1,000 mg PO Q6H PRN pain 07/10/23 [History Last Taken Unknown] apixaban 5 mg tablet 5 mg PO BID Anticoagulant 07/10/23 [History Last Taken 07/14/23] ascorbic acid (vitamin C) 500 mg tablet 500 mg PO DAILY Supplement 07/10/23 [History Last Taken Unknown] aspirin 81 mg chewable tablet 1 tab PO DAILY Heart 07/10/23 [History Last Taken 07/14/23] cephalexin 500 mg capsule 500 mg PO Q6H Antibiotic 07/10/23 [History Last Taken 07/10/23 15:10] ferrous sulfate 325 mg (65 mg iron) tablet 325 mg PO DAILY Supplement 07/10/23 [History Last Taken Unknown] folic acid 1 mg tablet 1 mg PO DAILY Supplement 07/10/23 [History Last Taken Unknown] furosemide 20 mg tablet 20 mg PO DAILY Heart 07/10/23 [History Last Taken Unknown] insulin lispro 100 unit/mL subcutaneous pen (Humalog KwikPen (U-100) Insulin) 1 sliding scale dose subcut ACHS Diabetes 07/10/23 [History Last Taken Unknown] lidocaine 4 % topical patch (Salonpas (lidocaine)) 1 patch topical DAILY Pain 07/10/23 [History Last Taken Unknown] magnesium oxide 400 mg PO DAILY Supplement 07/10/23 [History Last Taken Unknown] metoprolol tartrate 37.5 mg tablet 37.5 mg PO Q8H BP 07/10/23 [History Last Taken 07/10/23 14:00] potassium chloride 10 mEq tablet,extended release 10 meq PO DAILY Supplement 07/10/23 [History Last Taken Unknown] senna-docusate sodium tablet 1 tab PO BID Constipation 07/10/23 [History Last Taken Unknown] tamsulosin 0.4 mg capsule (Flomax) 0.4 mg PO DAILY Urinary retention 07/10/23 [History Last Taken Unknown] tramadol 50 mg tablet 50 mg PO BID PRN Pain 07/10/23 [History Last Taken Unknown] Allergy/AdvReac Type Severity Reaction Status Date / Time No Known Allergies Allergy Verified 05/28/23 09:27 Family History Other Diabetes Surgical History (Updated 07/14/23 @ 16:59 by Georgi Tinoco) History of cardiac cath History of coronary artery bypass graft x 3 Social History (Updated 07/10/23 @ 19:[address] Soy Pinto MD) household members: spouse Smoking Status: Never smoker alcohol intake: never substance use type: does not use ROS Constitutional Constitutional: Denies chills, fever(s) or weight gain ENT HEENT: Denies headache(s), nasal congestion or nasal discharge Cardiovascular Cardiovascular: Denies chest pain or palpitations Respiratory/Chest Respiratory/Chest: Denies cough, excessive phlegm production or shortness of breath with exertion Gastrointestinal Gastrointestinal: Denies abdominal pain, nausea or vomiting Genitourinary Genitourinary: Denies dysuria Musculoskeletal Musculoskeletal: Denies joint pain or joint swelling Integumentary Integumentary: Denies rash or wounds Neurologic Neurologic: Denies focal weakness, numbness or tingling Psychiatric Psychiatric: Denies anxiety, auditory hallucinations, depression, homicidal ideation or suicidal ideation Vital Signs Vital Signs Vital Signs: 07/15/2405:28 07/15/2405:28 Temperature 99.1 F Temperature Source Temporal Pulse Rate 90 Respiratory Rate 17 Respiratory Pattern Normal Blood Pressure 115/63 Blood Pressure Mean 80 Blood Pressure Source Monitor Blood Pressure Position Supine Blood Pressure Location Left Arm Pulse Ox 95 Oxygen Delivery Method Room Air Weight Weight: 210 lb Body Mass Index (BMI) 29.2 Physical Exam Const alert General Appearance: cooperative HEENT normocephalic Eyes PERRL and EOMs intact bilaterally Neck supple, no JVD and no carotid bruits Resp normal respiratory effort, normal air movement and clear to auscultation bilaterally Cardio regular rate and regular rhythm GI normal to inspection, nondistended, normoactive bowel sounds, non-tender and non-distended Extremity normal capillary refill General Extremity: Negative for edema Skin no rashes or lesions noted General Skin Exam: no breakdown Psych affect normal Appearance: appropriate Assessment & Plan Assessment/Plan (1) Anemia: PLAN: 77-year-old gentleman with past medical history of type 2 diabetes, carotid artery stenosis, gastroesophageal reflux disease, recurrent transudative pleural effusions, community-acquired pneumonia and recent coronary artery bypass procedure x 3 vessels with postop atrial fibrillation with RVR on aspirin and Eliquis. He developed worsening anemia. Differential diagnosis does include peptic ulcer disease as secondary to antiplatelet and anticoagulation resulting in peptic ulcer disease.Also the differential diagnosis does include gastritis, Ghulam's erosions, angiodysplasias, neoplasia. He should undergo an upper endoscopy to evaluate his upper GI tract. He was explained alternatives, risk, benefits include not withstanding bleeding, infection, sepsis, perforation, need for more discharge and . He will have an ASA of 3. [facility] Medical History (Updated 07/15/23 @ 07:[address] Rivas Friend, DO) Atherosclerosis Bladder neck obstruction BPH (benign prostatic hyperplasia) Coronary artery disease Diabetes HTN (hypertension) Hyperlipemia TIA (transient ischemic attack) Home Medications atenolol 50 mg tablet (Tenormin) 50 mg PO DAILY BLOOD PRESSURE 10/12/17 [History Last Taken 01/09/23] lisinopril 40 mg tablet 20 mg PO BID BLOOD PRESSURE 10/12/17 [History Last Taken 01/09/23] pen needle, diabetic 32 gauge x 5/32 (Pen Needle) #100 ea 09/19/22 [Rx Last Taken Unknown] pen needle, diabetic 32 gauge x 5/32 (Pen Needle) #100 ea 09/19/22 [Rx Last Taken Unknown] atorvastatin 40 mg tablet 40 mg PO QHS CHOLESTEROL 09/23/22 [History Last Taken 07/09/23] hydrochlorothiazide 12.5 mg capsule 12.5 mg PO DAILY FLUID 09/23/22 [History Last Taken 01/09/23] pantoprazole 40 mg tablet,delayed release 40 mg PO DAILY ACID REFLUX 09/23/22 [History Last Taken 07/10/23] amlodipine 10 mg tablet 5 mg PO DAILY BLOOD PRESSURE 01/04/23 [History Last Taken 01/09/23] insulin glargine-yfgn 100 unit/mL (3 mL) subcutaneous pen 32 unit subcut DAILY Diabetes 02/03/23 [History Last Taken 07/10/23] acetaminophen 500 mg tablet 1,000 mg PO Q6H PRN pain 07/10/23 [History Last Taken Unknown] apixaban 5 mg tablet 5 mg PO BID Anticoagulant 07/10/23 [History Last Taken 07/14/23] ascorbic acid (vitamin C) 500 mg tablet 500 mg PO DAILY Supplement 07/10/23 [History Last Taken Unknown] aspirin 81 mg chewable tablet 1 tab PO DAILY Heart 07/10/23 [History Last Taken 07/14/23] cephalexin 500 mg capsule 500 mg PO Q6H Antibiotic 07/10/23 [History Last Taken 07/10/23 15:10] ferrous sulfate 325 mg (65 mg iron) tablet 325 mg PO DAILY Supplement 07/10/23 [History Last Taken Unknown] folic acid 1 mg tablet 1 mg PO DAILY Supplement 07/10/23 [History Last Taken Unknown] furosemide 20 mg tablet 20 mg PO DAILY Heart 07/10/23 [History Last Taken Unknown] insulin lispro 100 unit/mL subcutaneous pen (Humalog KwikPen (U-100) Insulin) 1 sliding scale dose subcut ACHS Diabetes 07/10/23 [History Last Taken Unknown] lidocaine 4 % topical patch (Salonpas (lidocaine)) 1 patch topical DAILY Pain 07/10/23 [History Last Taken Unknown] magnesium oxide 400 mg PO DAILY Supplement 07/10/23 [History Last Taken Unknown] metoprolol tartrate 37.5 mg tablet 37.5 mg PO Q8H BP 07/10/23 [History Last Taken 07/10/23 14:00] potassium chloride 10 mEq tablet,extended release 10 meq PO DAILY Supplement 07/10/23 [History Last Taken Unknown] senna-docusate sodium tablet 1 tab PO BID Constipation 07/10/23 [History Last Taken Unknown] tamsulosin 0.4 mg capsule (Flomax) 0.4 mg PO DAILY Urinary retention 07/10/23 [History Last Taken Unknown] tramadol 50 mg tablet 50 mg PO BID PRN Pain 07/10/23 [History Last Taken Unknown] Allergy/AdvReac Type Severity Reaction Status Date / Time No Known Allergies Allergy Verified 05/28/23 09:27 Family History Other Diabetes Surgical History (Updated 07/14/23 @ 16:59 by Georgi Tinoco) History of cardiac cath History of coronary artery bypass graft x 3 Social History (Updated 07/10/23 @ 19:[address] Soy Pinto MD) household members: spouse Smoking Status: Never smoker alcohol intake: never substance use type: does not use Lab / Micro Data 07/15/23 05:28 07/11/23 07:03 Labs: Laboratory Results - last 24 hr 07/14/23 21:41: POC Glucose 255 H 07/15/23 05:28: Hgb 8.4 L, Hct 26.6 L 07/15/23 05:49: POC Glucose 147 H 07/15/23 11:18: POC Glucose 174 H 07/15/23 16:42: POC Glucose 136 H Assessment & Plan Assessment/Plan (1) Anemia: Charges/Coding Visit Charges Inpatient E&M: 67398 SNF Init L2
[2023-07-14 21:59] LABS: Bedside Glucose 255 mg/dL (74-106)
[2023-07-14 22:18] VITALS: BP 115/67; PULSE 93
[2023-07-14] MEDS: Atorvastatin Calcium 40 MG Tablet PO (22:18)
[2023-07-14] MEDS: Insulin Glargine-YFGN 100 UNIT/ML Pen 16 UNIT SC (22:21)
[2023-07-15 05:55] VITALS: BP 118/63; PULSE 86; RESP 16
--- NOTE | 2023-07-15 05:56 | NURSING ---
Patient off unit for EGD.
[2023-07-15 05:58] LABS: Hematocrit 26.6 % (40-54); Hemoglobin 8.4 g/dL (13.0-16.5)
[2023-07-15 06:07] LABS: Bedside Glucose 147 mg/dL (74-106)
[2023-07-15] MEDS: Insulin Lispro 100 UNIT/ML INSULN.PEN 10 UNIT SC ×3 (09:14→17:23)
[2023-07-15] MEDS: Iron Polysaccharide Complex 150 MG CAPSULE PO (09:14)
[2023-07-15] MEDS: Folic Acid 1 MG Tablet PO (09:15)
[2023-07-15] MEDS: Cephalexin 500 MG Capsule PO ×3 (09:15→17:24)
[2023-07-15] MEDS: Furosemide 20 MG Tablet PO (09:15)
[2023-07-15 09:16] VITALS: PULSE 86
[2023-07-15] MEDS: Metoprolol Tartrate 25 MG Tablet 37.5 MG PO ×3 (09:16→22:05)
[2023-07-15] MEDS: Ascorbic Acid 500 MG Tablet PO (09:17)
[2023-07-15] MEDS: Magnesium Chloride 64 MG Delay Rel.Tablet 128 MG PO (09:17)
[2023-07-15] MEDS: Pantoprazole Sodium 40 MG Tablet PO ×2 (09:18→22:05)
[2023-07-15] MEDS: Potassium Chloride Oral Tablet 10 MEQ PO (09:18)
[2023-07-15] MEDS: Senna/Docusate Sodium 1 Tablet 2 TABLET PO ×2 (09:18→22:04)
[2023-07-15] MEDS: Lidocaine 5% Patch 1 PATCH TOPICAL (09:19)
--- NOTE | 2023-07-15 09:38 | CASEMGMT ---
Social Work IDT met with patient, and sister for care plan meeting. Discussed patient's progress in PT/OT/SN. Educated to Medicare benefit and copay coverage. Pt has new kwong and sternal precautions. Pt's goal is to return home with . states she can assist as needed. No identifed DME needs at DC. Goal is for pt to have kwong removed for DC, but this worker explained pt may need to DC home with it. Will continue another week and revisit DC plans. NEMO BowieW
[2023-07-15 11:46] LABS: Bedside Glucose 174 mg/dL (74-106)
[2023-07-15 12:25] VITALS: PULSE 86
[2023-07-15 14:00] VITALS: BP 99/54; PULSE 84; RESP 18; TEMP 36.2; O2SAT 99
[2023-07-15 17:13] LABS: Bedside Glucose 136 mg/dL (74-106)
[2023-07-15] MEDS: Tamsulosin HCl 0.4 MG Capsule 0.400000000000000022 MG PO (17:24)
[2023-07-15 22:00] VITALS: PULSE 86; RESP 16; O2SAT 97
[2023-07-15 22:01] LABS: Bedside Glucose 170 mg/dL (74-106)
[2023-07-15] MEDS: APIXABAN 5 MG TABLET PO (22:04)
[2023-07-15 22:05] VITALS: BP 102/63; PULSE 86
[2023-07-15] MEDS: Atorvastatin Calcium 40 MG Tablet PO (22:05)
[2023-07-16] MEDS: Cephalexin 500 MG Capsule PO ×5 (00:04→23:05)
[2023-07-16] MEDS: Acetaminophen 500 MG Tablet 1000 MG PO ×2 (02:31→21:35)
[2023-07-16 06:02] VITALS: BP 105/61; PULSE 76
[2023-07-16] MEDS: Metoprolol Tartrate 25 MG Tablet 37.5 MG PO ×3 (06:02→21:37)
[2023-07-16 06:17] LABS: Hematocrit 26.2 % (40-54); Hemoglobin 8.1 g/dL (13.0-16.5)
[2023-07-16 06:44] LABS: Bedside Glucose 178 mg/dL (74-106)
[2023-07-16] MEDS: Insulin Lispro 100 UNIT/ML INSULN.PEN 10 UNIT SC ×3 (08:36→17:03)
[2023-07-16] MEDS: Insulin Glargine-YFGN 100 UNIT/ML Pen 32 UNIT SC (08:37)
[2023-07-16] MEDS: Iron Polysaccharide Complex 150 MG CAPSULE PO (08:38)
[2023-07-16] MEDS: Potassium Chloride Oral Tablet 10 MEQ PO (08:38)
[2023-07-16] MEDS: Folic Acid 1 MG Tablet PO (08:38)
[2023-07-16] MEDS: Furosemide 20 MG Tablet PO (08:39)
[2023-07-16] MEDS: APIXABAN 5 MG TABLET PO ×2 (08:39→21:36)
[2023-07-16] MEDS: Magnesium Chloride 64 MG Delay Rel.Tablet 128 MG PO (08:39)
[2023-07-16] MEDS: Pantoprazole Sodium 40 MG Tablet PO ×2 (08:39→21:37)
[2023-07-16] MEDS: Lidocaine 5% Patch 1 PATCH TOPICAL (08:39)
[2023-07-16] MEDS: Ascorbic Acid 500 MG Tablet PO (08:40)
[2023-07-16] MEDS: Senna/Docusate Sodium 1 Tablet 2 TABLET PO ×2 (08:40→21:38)
[2023-07-16 11:16] LABS: Bedside Glucose 213 mg/dL (74-106)
[2023-07-16 12:29] VITALS: PULSE 88
[2023-07-16 14:00] VITALS: BP 115/61; PULSE 84; RESP 16; TEMP 36.5; O2SAT 98
[2023-07-16 14:58] VITALS: BMI 30.3
--- NOTE | 2023-07-16 15:01 | MDS.RN ---
Pain interview for mds completed.
[2023-07-16 16:32] LABS: Bedside Glucose 184 mg/dL (74-106)
[2023-07-16] MEDS: Tamsulosin HCl 0.4 MG Capsule 0.400000000000000022 MG PO (17:03)
[2023-07-16 21:37] VITALS: BP 129/64; PULSE 100
[2023-07-16] MEDS: Atorvastatin Calcium 40 MG Tablet PO (21:37)
[2023-07-16 22:04] LABS: Bedside Glucose 223 mg/dL (74-106)
[2023-07-17] MEDS: traMADol 50 MG Tablet PO (01:54)
[2023-07-17 05:45] VITALS: BP 107/61; PULSE 78
[2023-07-17] MEDS: Metoprolol Tartrate 25 MG Tablet 37.5 MG PO ×3 (05:45→22:17)
[2023-07-17] MEDS: Cephalexin 500 MG Capsule PO ×3 (05:45→17:28)
[2023-07-17 06:07] LABS: Hematocrit 25.7 % (40-54); Hemoglobin 8.2 g/dL (13.0-16.5)
[2023-07-17 06:12] LABS: Bedside Glucose 220 mg/dL (74-106)
[2023-07-17] MEDS: Insulin Lispro 100 UNIT/ML INSULN.PEN 10 UNIT SC ×3 (07:57→17:25)
[2023-07-17] MEDS: Folic Acid 1 MG Tablet PO (07:58)
[2023-07-17] MEDS: Magnesium Chloride 64 MG Delay Rel.Tablet 128 MG PO (07:58)
[2023-07-17] MEDS: Pantoprazole Sodium 40 MG Tablet PO ×2 (07:58→22:18)
[2023-07-17] MEDS: Iron Polysaccharide Complex 150 MG CAPSULE PO (07:58)
[2023-07-17] MEDS: Potassium Chloride Oral Tablet 10 MEQ PO (07:58)
[2023-07-17] MEDS: Ascorbic Acid 500 MG Tablet PO (07:58)
[2023-07-17] MEDS: APIXABAN 5 MG TABLET PO ×2 (07:59→22:17)
[2023-07-17] MEDS: Furosemide 20 MG Tablet PO (07:59)
[2023-07-17] MEDS: Senna/Docusate Sodium 1 Tablet 2 TABLET PO ×2 (07:59→22:18)
[2023-07-17] MEDS: Insulin Glargine-YFGN 100 UNIT/ML Pen 32 UNIT SC (08:00)
--- NOTE | 2023-07-17 09:16 | NURSING ---
recycling coordinator Note; MDS for 07/17/2023 Complete
[2023-07-17] MEDS: Acetaminophen 500 MG Tablet 1000 MG PO ×2 (10:11→22:18)
[2023-07-17 11:59] LABS: Bedside Glucose 183 mg/dL (74-106)
[2023-07-17 14:00] VITALS: BP 105/64; PULSE 67; RESP 18; TEMP 36; O2SAT 97
[2023-07-17 14:21] VITALS: BP 109/58; PULSE 81
--- NOTE | 2023-07-17 14:55 | CASEMGMT ---
Social Work BIMS () and PHQ-2 () completed for MDS assessment. Lorna Cevallos MSW SUPERVISOR [employer]ED [employer]ILL
[2023-07-17] MEDS: Tamsulosin HCl 0.4 MG Capsule 0.400000000000000022 MG PO (17:25)
[2023-07-17 17:31] LABS: Bedside Glucose 129 mg/dL (74-106)
[2023-07-17 21:59] LABS: Bedside Glucose 107 mg/dL (74-106)
[2023-07-17 22:17] VITALS: BP 131/62; PULSE 87
[2023-07-17] MEDS: Atorvastatin Calcium 40 MG Tablet PO (22:17)
[2023-07-18] MEDS: traMADol 50 MG Tablet PO (02:03)
[2023-07-18] MEDS: Acetaminophen 500 MG Tablet 1000 MG PO ×2 (06:10→19:53)
[2023-07-18 06:11] VITALS: BP 101/56; PULSE 76
[2023-07-18] MEDS: Metoprolol Tartrate 25 MG Tablet 37.5 MG PO ×3 (06:11→22:06)
[2023-07-18 06:17] LABS: Bedside Glucose 164 mg/dL (74-106)
[2023-07-18] MEDS: Insulin Lispro 100 UNIT/ML INSULN.PEN 10 UNIT SC ×3 (07:21→16:32)
[2023-07-18 07:28] LABS: Absolute Lymphocyte Count 1.42 X10^3/uL (0.83-4.51); Absolute Neutrophil Count 5.4 X10^3/uL (2.0-7.7); Basophil# 0.02 X10^3/uL; Basophil% 0.2 % (0-1); Eosinophil# 0.19 X10^3/uL; Eosinophils% 2.3 % (0-5); Hematocrit 26.2 % (40-54); Hemoglobin 8.3 g/dL (13.0-16.5); Lymphocyte # 1.42 X10^3/ul (0.83-4.51); Lymphocyte % 17.5 % (19-41); Mean Corp Hgb Conc 31.7 g/dL (32-36); Mean Corpuscular Hgb 28.2 pg (27.0-32.0); Mean Corpuscular Volume 89.1 fL (80-94); Monocyte# 1.01 X10^3/uL; Monocyte% 12.5 % (0-10); NRBC Flagged by Analyzer 0 % (0-5); Neutrophil # 5.44 X10^3/uL (2.7-7.7); Neutrophil % 67.1 % (47-70); Platelet Count 402 K/mm3 (150-450); RBC Distribution Width CV 15.1 % (11.6-14.6); RBC Distribution Width SD 48.9 fl (35.1-43.9); Red Blood Count 2.94 M/mm3 (4.6-6.2); White Blood Count 8.1 K/mm3 (4.4-11.0)
[2023-07-18 08:02] LABS: Anion Gap 1 (5-15); BUN 20 mg/dL (7-18); BUN/Creat Ratio 23.5 RATIO (10-20); Calcium,Total 8.7 mg/dL (8.5-10.1); Chloride 108 mmol/L (98-107); Creatinine, Serum 0.85 mg/dL (0.70-1.30); EST Glomerular Filtration Rate 93 mL/min (>60); Est Glom Filt Rate - Afr Amer 112 mL/min (>60); Estimated Creatinine Clearance 88.48 ml/min; Glucose 155 mg/dL (74-106); Potassium 4.3 mmol/L (3.5-5.1); Sodium Level 136 mmol/L (136-145)
[2023-07-18] MEDS: Potassium Chloride Oral Tablet 10 MEQ PO (09:47)
[2023-07-18] MEDS: Iron Polysaccharide Complex 150 MG CAPSULE PO (09:47)
[2023-07-18] MEDS: Folic Acid 1 MG Tablet PO (09:47)
[2023-07-18] MEDS: APIXABAN 5 MG TABLET PO ×2 (09:48→22:06)
[2023-07-18] MEDS: Furosemide 20 MG Tablet PO (09:48)
[2023-07-18] MEDS: Insulin Glargine-YFGN 100 UNIT/ML Pen 32 UNIT SC (09:48)
[2023-07-18] MEDS: Magnesium Chloride 64 MG Delay Rel.Tablet 128 MG PO (09:49)
[2023-07-18] MEDS: Ascorbic Acid 500 MG Tablet PO (09:49)
[2023-07-18] MEDS: Pantoprazole Sodium 40 MG Tablet PO ×2 (09:49→22:07)
[2023-07-18] MEDS: Senna/Docusate Sodium 1 Tablet 2 TABLET PO ×2 (09:49→22:07)
[2023-07-18 10:00] VITALS: RESP 16; O2SAT 98
[2023-07-18] MEDS: Tuberculin,Purif.prot.deriv. 50 TU/ML Vial 0.100000000000000006 ML ID (10:59)
[2023-07-18 12:03] LABS: Bedside Glucose 177 mg/dL (74-106)
[2023-07-18 13:04] VITALS: BP 112/53; PULSE 79
[2023-07-18 14:00] VITALS: BP 125/63; PULSE 80; RESP 16; TEMP 36.6; O2SAT 97
[2023-07-18] MEDS: Tamsulosin HCl 0.4 MG Capsule 0.400000000000000022 MG PO (16:31)
[2023-07-18 16:43] LABS: Bedside Glucose 224 mg/dL (74-106)
[2023-07-18 21:37] LABS: Bedside Glucose 189 mg/dL (74-106)
[2023-07-18 22:06] VITALS: BP 107/48; PULSE 85
[2023-07-18] MEDS: Atorvastatin Calcium 40 MG Tablet PO (22:06)
[2023-07-19] MEDS: Acetaminophen 500 MG Tablet 1000 MG PO ×3 (03:00→22:36)
[2023-07-19 05:31] VITALS: BP 108/52; PULSE 75
[2023-07-19] MEDS: Metoprolol Tartrate 25 MG Tablet 37.5 MG PO ×3 (05:31→22:32)
[2023-07-19] MEDS: traMADol 50 MG Tablet PO (05:32)
[2023-07-19 05:52] LABS: Bedside Glucose 76 mg/dL (74-106)
--- NOTE | 2023-07-19 06:19 | NURSING ---
Patient stated his glucometer was reading 84 and he would like some peanut butter and lauryn crackers. Checked his blood glucose with hospital glucometer, result was 76. Gave patient a packet of lauryn crackers and a serving of peanut butter. Will continue to monitor.
[2023-07-19 07:34] LABS: Hematocrit 27.4 % (40-54); Hemoglobin 8.5 g/dL (13.0-16.5)
[2023-07-19 08:26] LABS: Bedside Glucose 111 mg/dL (74-106)
[2023-07-19] MEDS: Iron Polysaccharide Complex 150 MG CAPSULE PO (09:11)
[2023-07-19] MEDS: Insulin Lispro 100 UNIT/ML INSULN.PEN 10 UNIT SC ×3 (09:11→16:32)
[2023-07-19] MEDS: Furosemide 20 MG Tablet PO (09:12)
[2023-07-19] MEDS: Insulin Glargine-YFGN 100 UNIT/ML Pen 32 UNIT SC (09:12)
[2023-07-19] MEDS: APIXABAN 5 MG TABLET PO ×2 (09:12→22:33)
[2023-07-19] MEDS: Folic Acid 1 MG Tablet PO (09:12)
[2023-07-19] MEDS: Magnesium Chloride 64 MG Delay Rel.Tablet 128 MG PO (09:12)
[2023-07-19] MEDS: Potassium Chloride Oral Tablet 10 MEQ PO (09:12)
[2023-07-19] MEDS: Senna/Docusate Sodium 1 Tablet 2 TABLET PO ×2 (09:13→22:33)
[2023-07-19] MEDS: Ascorbic Acid 500 MG Tablet PO (09:13)
[2023-07-19] MEDS: Pantoprazole Sodium 40 MG Tablet PO ×2 (09:13→22:32)
[2023-07-19 09:26] LABS: Bedside Glucose 133 mg/dL (74-106)
[2023-07-19 10:00] VITALS: BMI 30.9
[2023-07-19 11:45] LABS: Bedside Glucose 147 mg/dL (74-106)
[2023-07-19 13:19] VITALS: BP 106/58; PULSE 79
[2023-07-19 14:00] VITALS: BP 99/47; PULSE 78; RESP 16; TEMP 36.4; O2SAT 98
[2023-07-19] MEDS: Tamsulosin HCl 0.4 MG Capsule 0.400000000000000022 MG PO (16:32)
[2023-07-19 16:43] LABS: Bedside Glucose 161 mg/dL (74-106)
[2023-07-19 21:47] LABS: Bedside Glucose 108 mg/dL (74-106)
[2023-07-19 22:00] VITALS: PULSE 86; RESP 16; O2SAT 97
[2023-07-19 22:32] VITALS: BP 125/66; PULSE 86
[2023-07-19] MEDS: Atorvastatin Calcium 40 MG Tablet PO (22:33)
--- NOTE | 2023-07-20 04:27 | NURSING ---
BiPAP mask removed per pt and requested this nurse turn unit off. Positioned in bed for comfort. Will continue to monitor.
[2023-07-20] MEDS: Acetaminophen 500 MG Tablet 1000 MG PO ×2 (04:45→22:19)
[2023-07-20 04:46] VITALS: BP 112/61; PULSE 83
[2023-07-20] MEDS: Metoprolol Tartrate 25 MG Tablet 37.5 MG PO ×3 (04:46→22:12)
--- NOTE | 2023-07-20 05:04 | NURSING ---
Removed catheter at this time, patient tolerated well. Patient to see Urologist today. Family is transporting.
[2023-07-20 06:41] LABS: Bedside Glucose 154 mg/dL (74-106)
[2023-07-20] MEDS: Insulin Lispro 100 UNIT/ML INSULN.PEN 10 UNIT SC ×3 (09:09→18:06)
[2023-07-20] MEDS: Iron Polysaccharide Complex 150 MG CAPSULE PO (09:09)
[2023-07-20] MEDS: Ascorbic Acid 500 MG Tablet PO (09:10)
[2023-07-20] MEDS: Magnesium Chloride 64 MG Delay Rel.Tablet 128 MG PO (09:10)
[2023-07-20] MEDS: Folic Acid 1 MG Tablet PO (09:10)
[2023-07-20] MEDS: Pantoprazole Sodium 40 MG Tablet PO ×2 (09:10→22:09)
[2023-07-20] MEDS: APIXABAN 5 MG TABLET PO ×2 (09:10→22:07)
[2023-07-20] MEDS: Senna/Docusate Sodium 1 Tablet 2 TABLET PO ×2 (09:10→22:10)
[2023-07-20] MEDS: Potassium Chloride Oral Tablet 10 MEQ PO (09:10)
[2023-07-20] MEDS: Furosemide 20 MG Tablet PO (09:10)
--- NOTE | 2023-07-20 10:40 | RAD_ITS ---
STUDY: X-RAY - ABDOMEN/PELVIS REASON FOR EXAM: Male, 77 years old. Constipation. TECHNIQUE: Single AP view of the abdomen / pelvis on T2 images. COMPARISON: None. FINDINGS: Normal bowel gas pattern with air seen to the rectum. No disproportionate dilatation of bowel. Moderate to marked amount of feces in the colon. The visualized liver, spleen and kidneys are normal in size and morphology. Vascular calcification. Mild lumbosacral spondylosis and mild arthrosis of both hips. RAD/Abdomen Single View IMPRESSION: Moderate amount of feces in the colon. No acute abnormality. Electronically Signed: Edwin South MD at 10:51 EST ,
[2023-07-20] MEDS: Insulin Glargine-YFGN 100 UNIT/ML Pen 32 UNIT SC (10:51)
--- NOTE | 2023-07-20 11:13 | NURSING ---
Abdomen has been distended and NO BM x2 days. NO for KUB and enema. Patient had very large BM this AM before receiving soap suds enema. KUB normal with moderate stool in colon after having BM this AM. Patient request to not have enema today d/t having large BM but encouraged to continue taking stool softeners d/t moderate amount of stool remaining in colon. Patient agreeable.
[2023-07-20 12:15] VITALS: BP 115/58; PULSE 76
[2023-07-20 12:15] LABS: Bedside Glucose 163 mg/dL (74-106)
[2023-07-20 14:00] VITALS: BP 120/57; PULSE 78; RESP 16; TEMP 36.7; O2SAT 99
--- NOTE | 2023-07-20 16:00 | NURSING ---
Return from Urologist at this time. New Nino placed in urologist office for PVR 463. To continue Flomax and do repeat voiding trial in one week, by removing catheter in AM and do PVR in PM.
[2023-07-20 17:28] LABS: Bedside Glucose 117 mg/dL (74-106)
[2023-07-20] MEDS: Tamsulosin HCl 0.4 MG Capsule 0.400000000000000022 MG PO (18:07)
[2023-07-20 21:39] LABS: Bedside Glucose 176 mg/dL (74-106)
[2023-07-20] MEDS: Atorvastatin Calcium 40 MG Tablet PO (22:06)
[2023-07-20 22:12] VITALS: PULSE 92
[2023-07-20] MEDS: Bisacodyl 5 MG Tablet 10 MG PO (22:12)
[2023-07-21] MEDS: traMADol 50 MG Tablet PO (02:43)
[2023-07-21 05:05] VITALS: BP 107/60; PULSE 83
[2023-07-21] MEDS: Acetaminophen 500 MG Tablet 1000 MG PO ×2 (05:05→23:12)
[2023-07-21] MEDS: Metoprolol Tartrate 25 MG Tablet 37.5 MG PO ×3 (05:05→21:22)
[2023-07-21 06:05] LABS: Bedside Glucose 148 mg/dL (74-106)
[2023-07-21] MEDS: Insulin Lispro 100 UNIT/ML INSULN.PEN 10 UNIT SC ×3 (07:40→17:06)
[2023-07-21] MEDS: Folic Acid 1 MG Tablet PO (07:44)
[2023-07-21] MEDS: Iron Polysaccharide Complex 150 MG CAPSULE PO (07:44)
[2023-07-21] MEDS: Potassium Chloride Oral Tablet 10 MEQ PO (07:45)
[2023-07-21 07:55] VITALS: BP 127/68; PULSE 82; RESP 18; TEMP 36.2; O2SAT 98
[2023-07-21] MEDS: Insulin Glargine-YFGN 100 UNIT/ML Pen 32 UNIT SC (09:15)
[2023-07-21] MEDS: Pantoprazole Sodium 40 MG Tablet PO ×2 (09:18→21:22)
[2023-07-21] MEDS: Furosemide 20 MG Tablet PO (09:18)
[2023-07-21] MEDS: Magnesium Chloride 64 MG Delay Rel.Tablet 128 MG PO (09:18)
[2023-07-21] MEDS: APIXABAN 5 MG TABLET PO ×2 (09:18→21:23)
[2023-07-21] MEDS: Ascorbic Acid 500 MG Tablet PO (09:19)
[2023-07-21] MEDS: Senna/Docusate Sodium 1 Tablet 2 TABLET PO ×2 (09:19→21:22)
[2023-07-21 10:00] VITALS: PULSE 82; RESP 18; O2SAT 98; BMI 30.7
[2023-07-21 11:14] LABS: Bedside Glucose 246 mg/dL (74-106)
[2023-07-21 13:36] VITALS: BP 106/55; PULSE 75
[2023-07-21 16:50] LABS: Bedside Glucose 166 mg/dL (74-106)
[2023-07-21] MEDS: Tamsulosin HCl 0.4 MG Capsule 0.400000000000000022 MG PO (17:06)
[2023-07-21 21:22] VITALS: BP 117/59; PULSE 78
[2023-07-21] MEDS: Atorvastatin Calcium 40 MG Tablet PO (21:23)
[2023-07-21 21:28] LABS: Bedside Glucose 177 mg/dL (74-106)
[2023-07-22] MEDS: traMADol 50 MG Tablet PO ×2 (03:13→21:52)
[2023-07-22 05:45] VITALS: BP 122/62; PULSE 75
[2023-07-22] MEDS: Metoprolol Tartrate 25 MG Tablet 37.5 MG PO ×3 (05:45→21:53)
[2023-07-22 06:10] LABS: Bedside Glucose 132 mg/dL (74-106)
[2023-07-22] MEDS: Folic Acid 1 MG Tablet PO (08:04)
[2023-07-22] MEDS: Iron Polysaccharide Complex 150 MG CAPSULE PO (08:04)
[2023-07-22] MEDS: Potassium Chloride Oral Tablet 10 MEQ PO (08:04)
[2023-07-22] MEDS: Furosemide 20 MG Tablet PO (08:05)
[2023-07-22] MEDS: APIXABAN 5 MG TABLET PO ×2 (08:05→21:53)
[2023-07-22] MEDS: Insulin Glargine-YFGN 100 UNIT/ML Pen 32 UNIT SC (08:05)
[2023-07-22] MEDS: Senna/Docusate Sodium 1 Tablet 2 TABLET PO ×2 (08:06→21:52)
[2023-07-22] MEDS: Magnesium Chloride 64 MG Delay Rel.Tablet 128 MG PO (08:06)
[2023-07-22] MEDS: Pantoprazole Sodium 40 MG Tablet PO ×2 (08:06→21:53)
[2023-07-22] MEDS: Ascorbic Acid 500 MG Tablet PO (08:07)
[2023-07-22] MEDS: Insulin Lispro 100 UNIT/ML INSULN.PEN 10 UNIT SC ×3 (08:07→17:53)
[2023-07-22 09:35] VITALS: BMI 30.6
[2023-07-22 10:52] VITALS: BP 127/59; PULSE 79
[2023-07-22 11:19] LABS: Bedside Glucose 238 mg/dL (74-106)
[2023-07-22 11:37] VITALS: BP 127/59; PULSE 78; RESP 18; TEMP 36.5; O2SAT 99
--- NOTE | 2023-07-22 16:24 | NURSING ---
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 New orders for increased Lasix. To f/u on 08/13/23 with Cardiology and have a chest x-ray prior. Repeat BMP in 1 week.
[2023-07-22 16:37] LABS: Bedside Glucose 92 mg/dL (74-106)
[2023-07-22] MEDS: Tamsulosin HCl 0.4 MG Capsule 0.400000000000000022 MG PO (17:54)
[2023-07-22 21:44] LABS: Bedside Glucose 135 mg/dL (74-106)
[2023-07-22 21:51] VITALS: BP 143/71; PULSE 87
[2023-07-22 21:53] VITALS: PULSE 87
[2023-07-22] MEDS: Atorvastatin Calcium 40 MG Tablet PO (21:53)
[2023-07-23] MEDS: Acetaminophen 500 MG Tablet 1000 MG PO ×3 (03:56→19:44)
[2023-07-23 06:18] LABS: Bedside Glucose 123 mg/dL (74-106)
[2023-07-23] MEDS: Furosemide 40 MG Tablet PO ×2 (06:19→13:32)
[2023-07-23 06:20] VITALS: BP 109/59; PULSE 75
[2023-07-23] MEDS: Metoprolol Tartrate 25 MG Tablet 37.5 MG PO ×2 (06:20→22:17)
[2023-07-23 06:24] VITALS: BP 109/59; PULSE 75
[2023-07-23] MEDS: Insulin Lispro 100 UNIT/ML INSULN.PEN 10 UNIT SC ×3 (08:13→17:49)
[2023-07-23] MEDS: Folic Acid 1 MG Tablet PO (08:14)
[2023-07-23] MEDS: Potassium Chloride Oral Tablet 10 MEQ PO (08:14)
[2023-07-23] MEDS: Iron Polysaccharide Complex 150 MG CAPSULE PO (08:14)
[2023-07-23] MEDS: Magnesium Chloride 64 MG Delay Rel.Tablet 128 MG PO (08:15)
[2023-07-23] MEDS: APIXABAN 5 MG TABLET PO ×2 (08:15→22:19)
[2023-07-23] MEDS: Insulin Glargine-YFGN 100 UNIT/ML Pen 32 UNIT SC (08:15)
[2023-07-23] MEDS: Senna/Docusate Sodium 1 Tablet 2 TABLET PO ×2 (08:16→22:19)
[2023-07-23] MEDS: Ascorbic Acid 500 MG Tablet PO (08:16)
[2023-07-23] MEDS: Pantoprazole Sodium 40 MG Tablet PO ×2 (08:16→22:20)
[2023-07-23 10:00] VITALS: BMI 30.6
--- NOTE | 2023-07-23 13:01 | MDS.RN ---
Information for the mds was obtained from review of the clinical record, interview of resident, staff, and direct observation of resident's care.
[2023-07-23 13:31] VITALS: BP 99/49; PULSE 79
[2023-07-23 14:00] VITALS: BP 99/49; PULSE 79; RESP 18; TEMP 36.4; O2SAT 98
[2023-07-23] MEDS: traMADol 50 MG Tablet PO (15:00)
[2023-07-23 16:32] LABS: Bedside Glucose 108 mg/dL (74-106)
[2023-07-23] MEDS: Tamsulosin HCl 0.4 MG Capsule 0.400000000000000022 MG PO (17:49)
[2023-07-23 21:56] LABS: Bedside Glucose 207 mg/dL (74-106)
[2023-07-23 22:17] VITALS: BP 121/61; PULSE 82
[2023-07-23] MEDS: Atorvastatin Calcium 40 MG Tablet PO (22:20)
[2023-07-23 23:00] VITALS: PULSE 82; RESP 16; O2SAT 98
[2023-07-24 02:01] LABS: Bedside Glucose 84 mg/dL (74-106)
[2023-07-24] MEDS: Acetaminophen 500 MG Tablet 1000 MG PO ×4 (03:01→23:33)
[2023-07-24] MEDS: traMADol 50 MG Tablet PO (06:09)
[2023-07-24 06:11] VITALS: BP 108/63; PULSE 75
[2023-07-24] MEDS: Metoprolol Tartrate 25 MG Tablet 37.5 MG PO ×3 (06:11→22:22)
[2023-07-24] MEDS: Furosemide 40 MG Tablet PO ×2 (06:11→13:51)
[2023-07-24 06:33] VITALS: RESP 14; O2SAT 97
[2023-07-24 06:40] LABS: Bedside Glucose 118 mg/dL (74-106)
[2023-07-24] MEDS: Insulin Lispro 100 UNIT/ML INSULN.PEN 10 UNIT SC ×3 (07:53→17:03)
[2023-07-24] MEDS: Iron Polysaccharide Complex 150 MG CAPSULE PO (07:53)
[2023-07-24] MEDS: Folic Acid 1 MG Tablet PO (07:53)
[2023-07-24] MEDS: Potassium Chloride Oral Tablet 10 MEQ PO (07:54)
[2023-07-24] MEDS: Senna/Docusate Sodium 1 Tablet 2 TABLET PO ×2 (07:54→22:21)
[2023-07-24] MEDS: APIXABAN 5 MG TABLET PO ×2 (07:54→22:23)
[2023-07-24] MEDS: Pantoprazole Sodium 40 MG Tablet PO ×2 (07:54→22:23)
[2023-07-24] MEDS: Magnesium Chloride 64 MG Delay Rel.Tablet 128 MG PO (07:54)
[2023-07-24] MEDS: Insulin Glargine-YFGN 100 UNIT/ML Pen 32 UNIT SC (07:55)
[2023-07-24] MEDS: Ascorbic Acid 500 MG Tablet PO (07:55)
[2023-07-24 10:00] VITALS: BMI 30.5
[2023-07-24 12:24] LABS: Bedside Glucose 160 mg/dL (74-106)
[2023-07-24 13:51] VITALS: BP 116/57; PULSE 79
[2023-07-24 14:00] VITALS: BP 116/57; PULSE 79; RESP 16; TEMP 36.8; O2SAT 98
[2023-07-24 16:44] LABS: Bedside Glucose 183 mg/dL (74-106)
[2023-07-24] MEDS: Tamsulosin HCl 0.4 MG Capsule 0.400000000000000022 MG PO (17:03)
[2023-07-24 21:32] LABS: Bedside Glucose 143 mg/dL (74-106)
[2023-07-24 22:22] VITALS: BP 142/82; PULSE 79
[2023-07-24] MEDS: Atorvastatin Calcium 40 MG Tablet PO (22:22)
[2023-07-24 23:00] VITALS: PULSE 81; RESP 16; O2SAT 99
[2023-07-25] MEDS: traMADol 50 MG Tablet PO (02:33)
[2023-07-25 06:27] LABS: Bedside Glucose 107 mg/dL (74-106)
[2023-07-25] MEDS: Acetaminophen 500 MG Tablet 1000 MG PO ×4 (06:37→23:11)
[2023-07-25 06:38] VITALS: BP 138/71; PULSE 79
[2023-07-25] MEDS: Metoprolol Tartrate 25 MG Tablet 37.5 MG PO ×3 (06:38→22:01)
[2023-07-25] MEDS: Furosemide 40 MG Tablet PO ×2 (06:38→13:58)
[2023-07-25] MEDS: Insulin Lispro 100 UNIT/ML INSULN.PEN 10 UNIT SC ×3 (07:41→17:44)
[2023-07-25] MEDS: Iron Polysaccharide Complex 150 MG CAPSULE PO (07:43)
[2023-07-25] MEDS: Magnesium Chloride 64 MG Delay Rel.Tablet 128 MG PO (07:44)
[2023-07-25] MEDS: Potassium Chloride Oral Tablet 10 MEQ PO (07:44)
[2023-07-25] MEDS: Senna/Docusate Sodium 1 Tablet 2 TABLET PO ×2 (07:44→21:59)
[2023-07-25] MEDS: APIXABAN 5 MG TABLET PO ×2 (07:44→21:59)
[2023-07-25] MEDS: Ascorbic Acid 500 MG Tablet PO (07:44)
[2023-07-25] MEDS: Folic Acid 1 MG Tablet PO (07:44)
[2023-07-25] MEDS: Pantoprazole Sodium 40 MG Tablet PO ×2 (07:44→21:59)
[2023-07-25] MEDS: Insulin Glargine-YFGN 100 UNIT/ML Pen 32 UNIT SC (07:45)
[2023-07-25 08:08] LABS: Absolute Lymphocyte Count 1.43 X10^3/uL (0.83-4.51); Absolute Neutrophil Count 3.8 X10^3/uL (2.0-7.7); Basophil# 0.02 X10^3/uL; Basophil% 0.3 % (0-1); Eosinophils% 6.2 % (0-5); Hematocrit 29.8 % (40-54); Hemoglobin 9.3 g/dL (13.0-16.5); Lymphocyte # 1.43 X10^3/ul (0.83-4.51); Mean Corp Hgb Conc 31.2 g/dL (32-36); Mean Corpuscular Hgb 27.5 pg (27.0-32.0); Mean Corpuscular Volume 88.2 fL (80-94); Mean Platelet Vol. 9.3 fl (6.2-12.0); Monocyte# 0.86 X10^3/uL; Monocyte% 13.3 % (0-10); NRBC Flagged by Analyzer 0 % (0-5); Neutrophil # 3.76 X10^3/uL (2.7-7.7); Neutrophil % 57.9 % (47-70); Platelet Count 322 K/mm3 (150-450); RBC Distribution Width CV 14.4 % (11.6-14.6); RBC Distribution Width SD 46.2 fl (35.1-43.9); Red Blood Count 3.38 M/mm3 (4.6-6.2); White Blood Count 6.5 K/mm3 (4.4-11.0)
[2023-07-25 08:28] LABS: Anion Gap 3 (5-15); BUN 19 mg/dL (7-18); BUN/Creat Ratio 20.3 RATIO (10-20); Calcium,Total 8.7 mg/dL (8.5-10.1); Chloride 109 mmol/L (98-107); Creatinine, Serum 0.94 mg/dL (0.70-1.30); EST Glomerular Filtration Rate 83 mL/min (>60); Est Glom Filt Rate - Afr Amer 101 mL/min (>60); Estimated Creatinine Clearance 80.19 ml/min; Glucose 99 mg/dL (74-106); Sodium Level 138 mmol/L (136-145)
[2023-07-25 10:00] VITALS: BMI 30.5
[2023-07-25 11:21] LABS: Bedside Glucose 155 mg/dL (74-106)
[2023-07-25 13:58] VITALS: BP 134/67; PULSE 76
[2023-07-25 14:00] VITALS: BP 134/67; PULSE 76; RESP 18; TEMP 35.8; O2SAT 97
[2023-07-25 16:30] LABS: Bedside Glucose 117 mg/dL (74-106)
[2023-07-25] MEDS: Tamsulosin HCl 0.4 MG Capsule 0.400000000000000022 MG PO (17:45)
[2023-07-25 21:45] LABS: Bedside Glucose 187 mg/dL (74-106)
[2023-07-25] MEDS: Atorvastatin Calcium 40 MG Tablet PO (22:00)
[2023-07-25 22:01] VITALS: BP 129/54; PULSE 77
[2023-07-26 05:44] VITALS: BP 110/53; PULSE 71
[2023-07-26] MEDS: Metoprolol Tartrate 25 MG Tablet 37.5 MG PO ×3 (05:44→22:59)
[2023-07-26] MEDS: Furosemide 40 MG Tablet PO ×2 (05:44→13:49)
[2023-07-26] MEDS: Acetaminophen 500 MG Tablet 1000 MG PO ×4 (05:45→23:00)
[2023-07-26 06:17] LABS: Bedside Glucose 121 mg/dL (74-106)
[2023-07-26 08:24] VITALS: BP 103/53; PULSE 68; RESP 18; TEMP 36.6; O2SAT 98
[2023-07-26] MEDS: Insulin Lispro 100 UNIT/ML INSULN.PEN 10 UNIT SC ×2 (08:27→11:57)
[2023-07-26] MEDS: Insulin Glargine-YFGN 100 UNIT/ML Pen 32 UNIT SC (08:28)
[2023-07-26] MEDS: Pantoprazole Sodium 40 MG Tablet PO ×2 (08:29→22:59)
[2023-07-26] MEDS: Magnesium Chloride 64 MG Delay Rel.Tablet 128 MG PO (08:29)
[2023-07-26] MEDS: Senna/Docusate Sodium 1 Tablet 2 TABLET PO ×2 (08:29→22:59)
[2023-07-26] MEDS: Ascorbic Acid 500 MG Tablet PO (08:30)
[2023-07-26] MEDS: Folic Acid 1 MG Tablet PO (08:30)
[2023-07-26] MEDS: Iron Polysaccharide Complex 150 MG CAPSULE PO (08:30)
[2023-07-26] MEDS: Potassium Chloride Oral Tablet 10 MEQ PO (08:30)
[2023-07-26] MEDS: APIXABAN 5 MG TABLET PO ×2 (08:31→23:00)
[2023-07-26 10:00] VITALS: BMI 30.5
[2023-07-26] MEDS: traMADol 50 MG Tablet PO ×2 (11:06→23:01)
[2023-07-26 11:18] LABS: Bedside Glucose 118 mg/dL (74-106)
[2023-07-26 13:47] VITALS: BP 107/54; PULSE 75; RESP 16; O2SAT 98
[2023-07-26 13:48] VITALS: PULSE 75
--- NOTE | 2023-07-26 16:27 | NURSING ---
Addendum entered by Marni Camargo 07/26/23 17:33: FSBS rechecked and continues to read 74. Asymptomatic. Pt's dexcom reading 86. Pt requesting scheduled evening Humalog. Spoke with pt regarding continued low blood sugars and concern for decreased BG; pt states he would like to hold medication for now. Addendum entered by Marni Camargo 07/26/23 16:55: FSBS 74. pt continues asymptomatic. Currently visiting with family in room. Currently eating cookies and peanut butter. Will monitor. Original Note: ORTHO NURSE reports FSBS of 58. Pt just ambulated around unit multiple times with family members. Pt's dexcom reading 78. Pt asymptomatic, denies malaise. Pt drinking 6oz of OJ and eating crackers and peanut butter. Will recheck FSBS in approx 15 min.
[2023-07-26 17:01] LABS: Bedside Glucose 58 mg/dL (74-106)
[2023-07-26 17:07] LABS: Bedside Glucose 74 mg/dL (74-106)
[2023-07-26] MEDS: Tamsulosin HCl 0.4 MG Capsule 0.400000000000000022 MG PO (17:27)
[2023-07-26 18:41] LABS: Bedside Glucose 74 mg/dL (74-106)
[2023-07-26 21:37] LABS: Bedside Glucose 210 mg/dL (74-106)
[2023-07-26 22:59] VITALS: BP 125/75; PULSE 77
[2023-07-26] MEDS: Atorvastatin Calcium 40 MG Tablet PO (22:59)
[2023-07-27] VITALS (7 sets, daily range): BP systolic 111–135; BP diastolic 61–68; PULSE 70–88; RESP 16–18; TEMP 36.2; O2SAT 98–99
[2023-07-27 06:10] LABS: Bedside Glucose 157 mg/dL (74-106)
[2023-07-27] MEDS: Acetaminophen 500 MG Tablet 1000 MG PO ×4 (06:59→23:08)
[2023-07-27] MEDS: Furosemide 40 MG Tablet PO ×2 (06:59→13:10)
[2023-07-27] MEDS: Metoprolol Tartrate 25 MG Tablet 37.5 MG PO ×3 (06:59→21:47)
[2023-07-27] MEDS: Iron Polysaccharide Complex 150 MG CAPSULE PO (08:04)
[2023-07-27] MEDS: Potassium Chloride Oral Tablet 10 MEQ PO (08:04)
[2023-07-27] MEDS: Folic Acid 1 MG Tablet PO (08:04)
[2023-07-27] MEDS: APIXABAN 5 MG TABLET PO ×2 (08:04→21:46)
[2023-07-27] MEDS: Insulin Glargine-YFGN 100 UNIT/ML Pen 20 UNIT SC (08:05)
[2023-07-27] MEDS: Pantoprazole Sodium 40 MG Tablet PO ×2 (08:06→21:47)
[2023-07-27] MEDS: Ascorbic Acid 500 MG Tablet PO (08:06)
[2023-07-27] MEDS: Magnesium Chloride 64 MG Delay Rel.Tablet 128 MG PO (08:06)
[2023-07-27] MEDS: Senna/Docusate Sodium 1 Tablet 2 TABLET PO ×2 (08:06→21:47)
--- NOTE | 2023-07-27 08:12 | NURSING ---
Dr Pinto reviewed BG levels, entered new orders to decrease insulin Glargine to 20units daily, and insulin lispro to 7 units TID. Updated pt, and , Gerri; both are in agreement with plan of care.
[2023-07-27 11:30] LABS: Bedside Glucose 261 mg/dL (74-106)
[2023-07-27] MEDS: Insulin Lispro 100 UNIT/ML INSULN.PEN 7 UNIT SC ×2 (12:03→18:00)
--- NOTE | 2023-07-27 15:48 | NURSING ---
Addendum entered by Marni Camargo 07/27/23 17:33: Spoke with pt regarding ok from [facility] to remove kwong catheter and begin void trials. Pt irritable stating Well if it comes out it has to stay out! Spoke with pt regarding bladder scans to assess PVR and if catheter necessary. Pt asked me to repeat information on phone call with and friend Alana; both of whom advised pt to follow plan of care. Pt then agreed. ~1500 removed kwong catheter. Deflated 10mL from baloon, catheter tip intact. 200mL of clear, yellow urine noted to catheter bag. Pt tolerated well. No complaints at this time. Original Note: Pt has been irritable throughout day, states kwong catheter is uncomfortable and wishes it could be removed before [scheduled] appt with urologist next week. Called [facility] Sevilla's office, spoke with nurse Laisha who states that provider okayed removal of kwong and initiation of trial void today, and need to update if fails/successful. Appointment for 3/4 cancelled, Laisha states the appointment was solely for Kwong removal and PVR.
[2023-07-27 17:41] LABS: Bedside Glucose 250 mg/dL (74-106)
[2023-07-27] MEDS: Tamsulosin HCl 0.4 MG Capsule 0.400000000000000022 MG PO (18:00)
[2023-07-27 21:32] LABS: Bedside Glucose 230 mg/dL (74-106)
[2023-07-27] MEDS: Atorvastatin Calcium 40 MG Tablet PO (21:47)
[2023-07-28] VITALS (7 sets, daily range): BP systolic 105–139; BP diastolic 50–67; PULSE 71–78; RESP 16–18; TEMP 36.3–36.9; O2SAT 95–99; BMI 30.2
[2023-07-28] MEDS: Metoprolol Tartrate 25 MG Tablet 37.5 MG PO ×3 (05:49→21:00)
[2023-07-28 06:20] LABS: Bedside Glucose 181 mg/dL (74-106)
[2023-07-28] MEDS: Acetaminophen 500 MG Tablet 1000 MG PO ×3 (07:21→21:04)
[2023-07-28] MEDS: Insulin Lispro 100 UNIT/ML INSULN.PEN 7 UNIT SC ×3 (07:41→17:51)
[2023-07-28] MEDS: Folic Acid 1 MG Tablet PO (07:44)
[2023-07-28] MEDS: Iron Polysaccharide Complex 150 MG CAPSULE PO (07:44)
[2023-07-28] MEDS: Potassium Chloride Oral Tablet 10 MEQ PO (07:44)
[2023-07-28] MEDS: APIXABAN 5 MG TABLET PO ×2 (08:49→21:02)
[2023-07-28] MEDS: Insulin Glargine-YFGN 100 UNIT/ML Pen 20 UNIT SC (08:53)
[2023-07-28] MEDS: Magnesium Chloride 64 MG Delay Rel.Tablet 128 MG PO (08:56)
[2023-07-28] MEDS: Pantoprazole Sodium 40 MG Tablet PO ×2 (08:57→21:02)
[2023-07-28] MEDS: Senna/Docusate Sodium 1 Tablet 2 TABLET PO ×2 (08:57→21:02)
[2023-07-28] MEDS: Ascorbic Acid 500 MG Tablet PO (08:58)
[2023-07-28] MEDS: Furosemide 40 MG Tablet PO (09:06)
[2023-07-28 11:17] LABS: Bedside Glucose 243 mg/dL (74-106)
--- NOTE | 2023-07-28 16:46 | CASEMGMT ---
Social Work SW spoke with pt about setting DC date. Pt requested this worker return when was present. -- SW met with pt and at bedside. Discussed DC plans. Pt hesitant about discharging in a few days. Discussed goals and other option of dates for DC. Pt has f/u appt with cardiology on 08/04, whom would decide if cardiac rehab will be ordered. SW offered to set DC date for 08/03. SW to provide pt with [employer] script for PT/OT in case cardiac rehab is not ordered at the appt. /pt agrees. No DME needs. Pt requesting an STEPHANE for a group dinner on 07/31 approx. 530-8pm. Pt also requesting to be adlib. SW stated to ask PT tomorrow on adlib status and this worker to speak with IDT/Dr on STEPHANE. All in agreement. SW will continue to follow. Lorna Cevallos, COUGAR HUNTER ENGINEERING GROUP MANAGER
[2023-07-28 16:51] LABS: Bedside Glucose 155 mg/dL (74-106)
[2023-07-28] MEDS: Tamsulosin HCl 0.4 MG Capsule 0.400000000000000022 MG PO (17:51)
[2023-07-28] MEDS: Atorvastatin Calcium 40 MG Tablet PO (21:02)
[2023-07-28] MEDS: Ammonium Lactate 225 gm Bottle 1 APPLIC TOPICAL (21:05)
[2023-07-28 21:25] LABS: Bedside Glucose 167 mg/dL (74-106)
[2023-07-29 04:59] VITALS: BP 100/70; PULSE 75
[2023-07-29] MEDS: Acetaminophen 500 MG Tablet 1000 MG PO ×3 (04:59→22:41)
[2023-07-29] MEDS: Metoprolol Tartrate 25 MG Tablet 37.5 MG PO ×3 (04:59→22:35)
[2023-07-29 05:03] VITALS: BP 100/70; PULSE 75
--- NOTE | 2023-07-29 07:40 | PCM.DC.SUM ---
Providers Date of Admission: 07/10/23 Primary Care Physician: Dr. Paul Lo MD Consultations 07/13/23 17:20 Consult: Gastroenterology Routine Consulting Provider: [facility] Reason for Consult: Anemia, +stool guaiac EMERGENT Consult: No MD Notified: Yes Date Notified: 07/13/23 Time Notified: 17:20 Method of Notification: Text Reason For Visit: CABG X3 Diagnosis Discharge Diagnosis (1) Anemia: Status: Acute Code(s): D64.9 - Anemia, unspecified Plan 77 year old male with below past medical history hospitalized for CABG x 3 07/01/[address] Koenig, postoperative course complicated by atrial fibrillation with RVR, postoperative anemia, urinary retention requiring kwong catheter placement, admitted to TCU with debility, here for rehabilitation, strengthening, prior to discharge home with . Debility - PT/OT. Pain - Tylenol 1000mg q6 prn pain (1-5), Tramadol 50mg q6 prn pain (6-10), Lidoderm patch 1 patch td daily. Bowel - Senna/colace 2 tablets bid, Magnesium citrate 300ml daily prn. Adult immunization - Administer pneumonia vaccine, covid vaccine, flu vaccine as appropriate. DVT prophylaxis - on Eliquis. Atrial fibrillation - Metoprolol 37.5mg q8, Eliquis 5mg bid. CAD s/p CABG x 3 - Metoprolol 37.5mg q8, Aspirin 81mg daily. Iron deficiency anemia - Ferrex 150mg daily, Vitamin C 500mg daily. Hyperlipidemia - Atorvastatin 40mg qhs. UTI - Keflex 500mg q6 thru 07/17/2023. Folate deficiency - Folic acid 1mg daily. HFpEF - Metoprolol 37.5mg q8, Furosemide 40mg daily thru 07/13/2023, then 20mg daily. Diabetes Mellitus II - Glargine 32 units daily, Humalog 14 units bid. Hypomagnesemia - Magnesium chloride 128mg daily. GERD - Pantoprazole 40mg daily. Hypokalemia - KCL 10meq daily. BPH/urinary retention - Tamsulosin 0.4mg daily, indwelling kwong catheter, voiding trials. Medications at Discharge Home Medications pen needle, diabetic 32 gauge x 5 (Pen Needle) #100 ea 09/19/22 pen needle, diabetic 32 gauge x 5/32 (Pen Needle) #100 ea 09/19/22 atorvastatin 40 mg tablet 40 mg PO QHS CHOLESTEROL 09/23/22 folic acid 1 mg tablet 1 mg PO DAILY Supplement 07/10/23 acetaminophen 500 mg tablet 1,000 mg (2 x 500 mg) PO Q8 #0 tabs 07/29/23 apixaban 5 mg tablet (Eliquis) 5 mg PO BID 30 days #60 tabs 07/29/23 ascorbic acid (vitamin C) 500 mg tablet 500 mg PO DAILY 30 days #30 tabs 07/29/23 furosemide 40 mg tablet 40 mg PO DAILY 30 days #30 tabs 07/29/23 insulin glargine-yfgn 100 unit/mL (3 mL) subcutaneous pen 20 unit (0.2 mL) subcut DAILY #0 mL 07/29/23 insulin lispro 100 unit/mL subcutaneous pen (Humalog KwikPen (U-100) Insulin) 7 unit (0.07 mL) subcut TIDAC #0 mL 07/29/23 magnesium chloride 64 mg (magnesium chloride) tablet,delayed release (Mag 64) 128 mg (2 x 64 mg) PO DAILY 30 days #60 tabs 07/29/23 metoprolol tartrate 25 mg tablet 37.5 mg (1.5 x 25 mg) PO Q8 30 days #135 tabs 07/29/23 pantoprazole 40 mg tablet,delayed release 40 mg PO BID 30 days #60 tabs 07/29/23 polysaccharide iron complex 150 mg iron capsule (Ferrex) 150 mg PO DAILYCM 30 days #30 caps 07/29/23 potassium chloride 10 mEq tablet,extended release(part/cryst) 10 meq PO DAILYCM 30 days #30 tabs 07/29/23 tamsulosin 0.4 mg capsule 0.4 mg PO DAILY@1730 30 days #30 caps 07/29/23 Hospital Course Operations None Procedures EGD Summary of Care Provided Minutes Spent on Discharge: 35 Hospital Course: 77 year old male with below past medical history hospitalized for CABG x 3 07/01/[address] Koenig, postoperative course complicated by atrial fibrillation with RVR, postoperative anemia, urinary retention requiring kwong catheter placement, admitted to TCU with debility, here for rehabilitation, strengthening, prior to discharge home with . 07/15/2023 Friend EGD: Impressions : - Normal esophagus. - One gastric polyp. Resected and retrieved. - Acute duodenitis. Biopsied. Recommendations : - Return patient to referring hospital for ongoing care. - Resume previous diet. - Use Protonix (pantoprazole) 40 mg PO BID. Discharge home with 08/04/2023, [employer] PT/OT. Physical Exam Const alert General Appearance: cooperative HEENT normocephalic Eyes PERRL and EOMs intact bilaterally Neck supple, no JVD and no carotid bruits Chest Chest Narrative: LifeVest. Resp normal respiratory effort, normal air movement and clear to auscultation bilaterally Cardio regular rate and regular rhythm GI normal to inspection, nondistended, normoactive bowel sounds, non-tender and non-distended Extremity normal capillary refill General Extremity: Negative for edema Skin no rashes or lesions noted General Skin Exam: no breakdown Psych affect normal Appearance: appropriate Weight / BMI Weight Weight: 98.157 kg Body Mass Index (BMI) 30.2 ABG / Lab / Microbiology Data 07/25/23 07:44 07/25/23 07:44 Laboratory: Laboratory Results - last 24 hr 07/28/23 10:51: POC Glucose 243 H 07/28/23 16:18: POC Glucose 155 H 07/28/23 21:07: POC Glucose 167 H Microbiology: Microbiology 07/13/23 07:51 Stool Stool Occult Blood (STEFANIE) - Final Occult Blood Positive 07/13/23 08:04 Nasal Secretion SARS-CoV-2 Antigen (Rapid) - Final D/C Instructions Discharge Diet: No restrictions Discharge Activity: Return to Normal Activity, May Shower and Use Walker Weight Bearing Status: Weight bearing as tolerated Call your doctor if you observe: Fever of 101 or Higher, Inability to urinate, Inability to have a bowel movement, Shortness of breath, Dizziness, Fainting spells, Swelling in the ankles, Chest pain and Uncontrolled pain Additional Instructions: Discharge home with 08/04/2023, [employer] PT/OT. Please Follow Up With: Flora Betancourt ([facility]) When: As scheduled. Meaningful Use Info Meaningful Use Diagnoses (Choose all that apply): None applicable Discharge Plan Admission Admit Date/Time: 07/10/23 17:27 Primary Reason for Your Visit: Debility. Attending Provider: Soy Pinto Chi Primary Care Provider: Paul Lo Instructions Additional Instructions / Restrictions: Discharge home with 08/04/2023, [employer] PT/OT. Discharge Orders/Prescriptions Prescriptions: New furosemide 40 mg Tablet 40 mg PO DAILY 30 Days Qty: 30 0RF polysaccharide iron complex [Ferrex 150] 150 mg iron Capsule 150 mg PO DAILYCM 30 Days Qty: 30 0RF acetaminophen 500 mg Tablet 1,000 mg PO Q8 Qty: 0 0RF ascorbic acid (vitamin C) 500 mg Tablet 500 mg PO DAILY 30 Days Qty: 30 0RF tamsulosin 0.4 mg Capsule 0.4 mg PO DAILY@1730 30 Days Qty: 30 0RF pantoprazole 40 mg Tablet,Delayed Release (Dr/Ec) 40 mg PO BID 30 Days Qty: 60 0RF insulin lispro [Humalog KwikPen Insulin] 100 unit/mL Insulin Pen 7 unit subcut TIDAC Qty: 0 0RF potassium chloride 10 mEq Tablet,Er Particles/Crystals 10 meq PO DAILYCM 30 Days Qty: 30 0RF metoprolol tartrate 25 mg Tablet 37.5 mg PO Q8 30 Days Qty: 135 0RF Mag 64 64 mg Tablet,Delayed Release (Dr/Ec) 128 mg PO DAILY 30 Days Qty: 60 0RF Eliquis 5 mg Tablet 5 mg PO BID 30 Days Qty: 60 0RF insulin glargine-yfgn 100 unit/mL (3 mL) Insulin Pen 20 unit subcut DAILY Qty: 0 0RF Continued atorvastatin 40 mg tablet 40 mg PO QHS folic acid 1 mg tablet 1 mg PO DAILY Discontinued insulin glargine-yfgn 100 unit/mL (3 mL) insulin pen 32 unit subcut DAILY lisinopril 40 MG tablet 20 mg PO BID atenolol [Tenormin] 50 MG tablet 50 mg PO DAILY pantoprazole 40 mg tablet,delayed release (DR/EC) 40 mg PO DAILY hydrochlorothiazide 12.5 mg capsule 12.5 mg PO DAILY aspirin 81 mg tablet,chewable 1 tab PO DAILY furosemide 20 mg tablet 20 mg PO DAILY Patient Comments: take 2 Tablets by mouth once daily for 3 days Then take 1 tablet once daily. potassium chloride 10 mEq tablet extended release 10 meq PO DAILY apixaban 5 mg tablet 5 mg PO BID ascorbic acid (vitamin C) 500 mg tablet 500 mg PO DAILY cephalexin 500 mg capsule 500 mg PO Q6H ferrous sulfate 325 mg (65 mg iron) tablet 325 mg PO DAILY lidocaine [Salonpas (lidocaine)] 4 % adhesive patch,medicated 1 patch topical DAILY Rx Instructions: may leave on for up to 12 hrs magnesium oxide 400 mg magnesium tablet 400 mg PO DAILY senna-docusate sodium Tablet 1 tab PO BID tamsulosin [Flomax] 0.4 mg capsule 0.4 mg PO DAILY tramadol 50 mg tablet 50 mg PO BID PRN acetaminophen 500 mg tablet 1,000 mg PO Q6H PRN (Reason: pain) metoprolol tartrate 37.5 mg tablet 37.5 mg PO Q8H Rx Instructions: Hold for HR <60 or SBP<100 insulin lispro [Humalog KwikPen Insulin] 100 unit/mL Insulin Pen 1 sliding scale dose subcut [facility] Protocol: 4. Sliding Scale Insulin High-Med Dosing Condition: 150-199 mg/dl = 2 units Condition: 200-259 mg/dl = 4 units Condition: 260-324 mg/dl = 6 units Condition: 325-374 mg/dl = 8 units Condition: 375-409 mg/dl = 10 units Condition: 410-449 mg/dl = 11 units Condition: Greater than 449 call physician Protocol Text: - Use for Total Daily Dose of Insulin 56-80 units - Patient who are insulin resistant or septic HIGH MEDIUM DOSING ALGORITHM amlodipine 10 mg tablet 5 mg PO DAILY Rx Instructions: reduce dose to 1/2 tablet daily-(5mg) No Action (DME) pen needle, diabetic [Pen Needle] 32 gauge x 5/32 needle See Rx Instructions .Route Qty: 100 0RF Rx Instructions: As directed (DME) pen needle, diabetic [Pen Needle] 32 gauge x 5/32 needle See Rx Instructions .Route Qty: 100 0RF Rx Instructions: As directed Referrals / Follow Up: Paul Lo MD [Primary Care Provider] - ( has made appt ) Disposition Disposition (needs filled in before D/C Order can be placed): Home, Self Care
[2023-07-29] MEDS: Insulin Lispro 100 UNIT/ML INSULN.PEN 7 UNIT SC ×3 (08:18→17:55)
[2023-07-29] MEDS: Iron Polysaccharide Complex 150 MG CAPSULE PO (08:21)
[2023-07-29] MEDS: Folic Acid 1 MG Tablet PO (08:21)
[2023-07-29] MEDS: APIXABAN 5 MG TABLET PO ×2 (08:22→22:34)
[2023-07-29] MEDS: Potassium Chloride Oral Tablet 10 MEQ PO (08:22)
[2023-07-29] MEDS: Insulin Glargine-YFGN 100 UNIT/ML Pen 20 UNIT SC (08:23)
[2023-07-29] MEDS: Ammonium Lactate 225 gm Bottle 1 APPLIC TOPICAL ×2 (08:25→22:34)
[2023-07-29] MEDS: Magnesium Chloride 64 MG Delay Rel.Tablet 128 MG PO (08:26)
[2023-07-29] MEDS: Furosemide 40 MG Tablet PO (08:26)
[2023-07-29] MEDS: Pantoprazole Sodium 40 MG Tablet PO ×2 (08:27→22:37)
[2023-07-29] MEDS: Ascorbic Acid 500 MG Tablet PO (08:27)
[2023-07-29] MEDS: Senna/Docusate Sodium 1 Tablet 2 TABLET PO ×2 (08:27→22:35)
[2023-07-29 08:45] VITALS: BP 118/60; PULSE 64; RESP 16; TEMP 36.6; O2SAT 98
[2023-07-29 09:45] LABS: Bedside Glucose 160 mg/dL (74-106)
[2023-07-29 09:45] LABS: Bedside Glucose 166 mg/dL (74-106)
[2023-07-29 12:13] LABS: Bedside Glucose 171 mg/dL (74-106)
[2023-07-29 14:15] VITALS: BP 135/61; PULSE 78
[2023-07-29 16:21] LABS: Bedside Glucose 169 mg/dL (74-106)
[2023-07-29] MEDS: Tamsulosin HCl 0.4 MG Capsule 0.400000000000000022 MG PO (17:55)
[2023-07-29 19:54] VITALS: PULSE 73; RESP 14; O2SAT 99
[2023-07-29 21:55] LABS: Bedside Glucose 146 mg/dL (74-106)
[2023-07-29 22:35] VITALS: BP 133/74; PULSE 75
[2023-07-29] MEDS: Atorvastatin Calcium 40 MG Tablet PO (22:37)
[2023-07-30 05:30] VITALS: BP 136/67; PULSE 75; PULSE 77; RESP 16; O2SAT 96
[2023-07-30] MEDS: Acetaminophen 500 MG Tablet 1000 MG PO ×3 (05:30→22:56)
[2023-07-30] MEDS: Metoprolol Tartrate 25 MG Tablet 37.5 MG PO ×3 (05:30→21:36)
[2023-07-30 06:14] LABS: Bedside Glucose 134 mg/dL (74-106)
[2023-07-30] MEDS: Insulin Lispro 100 UNIT/ML INSULN.PEN 7 UNIT SC ×3 (08:11→17:14)
[2023-07-30] MEDS: Iron Polysaccharide Complex 150 MG CAPSULE PO (08:12)
[2023-07-30] MEDS: Potassium Chloride Oral Tablet 10 MEQ PO (08:12)
[2023-07-30] MEDS: Folic Acid 1 MG Tablet PO (08:12)
[2023-07-30] MEDS: Insulin Glargine-YFGN 100 UNIT/ML Pen 20 UNIT SC (08:12)
[2023-07-30] MEDS: APIXABAN 5 MG TABLET PO ×2 (08:12→21:37)
[2023-07-30] MEDS: Magnesium Chloride 64 MG Delay Rel.Tablet 128 MG PO (08:13)
[2023-07-30] MEDS: Furosemide 40 MG Tablet PO (08:13)
[2023-07-30] MEDS: Senna/Docusate Sodium 1 Tablet 2 TABLET PO ×2 (08:13→21:37)
[2023-07-30] MEDS: Pantoprazole Sodium 40 MG Tablet PO ×2 (08:13→21:37)
[2023-07-30] MEDS: Ascorbic Acid 500 MG Tablet PO (08:14)
[2023-07-30] MEDS: Ammonium Lactate 225 gm Bottle 1 APPLIC TOPICAL ×2 (08:22→21:37)
[2023-07-30 10:00] VITALS: BMI 29.8
[2023-07-30 11:27] LABS: Bedside Glucose 192 mg/dL (74-106)
--- NOTE | 2023-07-30 12:44 | NURSING ---
Updated urologist office regarding Nino removal and patient not needing catheter reinsertion. No further orders at this time.
[2023-07-30 13:08] VITALS: BP 119/62; PULSE 74; RESP 16; TEMP 36.1; O2SAT 97
[2023-07-30 13:36] VITALS: BP 132/61; PULSE 74
[2023-07-30] MEDS: Tamsulosin HCl 0.4 MG Capsule 0.400000000000000022 MG PO (17:14)
[2023-07-30 17:24] LABS: Bedside Glucose 131 mg/dL (74-106)
[2023-07-30 21:33] LABS: Bedside Glucose 199 mg/dL (74-106)
[2023-07-30 21:36] VITALS: BP 129/65; PULSE 79
[2023-07-30] MEDS: Atorvastatin Calcium 40 MG Tablet PO (21:36)
--- NOTE | 2023-07-30 23:08 | NURSING ---
Was helping patient with C-pap mask and noted magnet piece missing on left side of mask. Call to respiratory for replacement.
[2023-07-31 06:30] VITALS: BP 134/72; PULSE 71
[2023-07-31] MEDS: Metoprolol Tartrate 25 MG Tablet 37.5 MG PO ×3 (06:30→22:00)
[2023-07-31] MEDS: Acetaminophen 500 MG Tablet 1000 MG PO ×3 (06:30→21:59)
[2023-07-31 06:47] LABS: Bedside Glucose 154 mg/dL (74-106)
[2023-07-31] MEDS: Insulin Lispro 100 UNIT/ML INSULN.PEN 7 UNIT SC ×3 (07:40→17:31)
[2023-07-31] MEDS: Potassium Chloride Oral Tablet 10 MEQ PO (07:41)
[2023-07-31] MEDS: Folic Acid 1 MG Tablet PO (07:41)
[2023-07-31] MEDS: Iron Polysaccharide Complex 150 MG CAPSULE PO (07:41)
[2023-07-31] MEDS: APIXABAN 5 MG TABLET PO ×2 (07:42→21:59)
[2023-07-31] MEDS: Ammonium Lactate 225 gm Bottle 1 APPLIC TOPICAL ×2 (07:43→22:04)
[2023-07-31] MEDS: Furosemide 40 MG Tablet PO (07:44)
[2023-07-31] MEDS: Magnesium Chloride 64 MG Delay Rel.Tablet 128 MG PO (07:44)
[2023-07-31] MEDS: Pantoprazole Sodium 40 MG Tablet PO ×2 (07:44→21:59)
[2023-07-31] MEDS: Ascorbic Acid 500 MG Tablet PO (07:45)
[2023-07-31] MEDS: Senna/Docusate Sodium 1 Tablet 2 TABLET PO ×2 (07:45→21:59)
[2023-07-31 10:00] VITALS: RESP 16; O2SAT 97; BMI 29.8
[2023-07-31] MEDS: Insulin Glargine-YFGN 100 UNIT/ML Pen 20 UNIT SC (10:37)
[2023-07-31 11:07] LABS: Bedside Glucose 183 mg/dL (74-106)
[2023-07-31 13:39] VITALS: BP 126/67; PULSE 84; RESP 18; TEMP 36; O2SAT 99
[2023-07-31 14:09] VITALS: BP 126/67; PULSE 84
[2023-07-31 17:04] LABS: Bedside Glucose 148 mg/dL (74-106)
[2023-07-31] MEDS: Tamsulosin HCl 0.4 MG Capsule 0.400000000000000022 MG PO (17:31)
--- NOTE | 2023-07-31 19:02 | PCA ---
This PHONE ENGINEER offered to help patient wash up for the night, patient stated they would just like towels and they would take care of it later.
[2023-07-31 21:50] LABS: Bedside Glucose 189 mg/dL (74-106)
[2023-07-31 22:00] VITALS: BP 132/59; PULSE 76
[2023-07-31] MEDS: Atorvastatin Calcium 40 MG Tablet PO (22:00)
[2023-08-01 06:05] LABS: Bedside Glucose 154 mg/dL (74-106)
[2023-08-01 06:29] VITALS: BP 136/64; PULSE 73
[2023-08-01] MEDS: Acetaminophen 500 MG Tablet 1000 MG PO ×3 (06:29→23:06)
[2023-08-01] MEDS: Metoprolol Tartrate 25 MG Tablet 37.5 MG PO ×3 (06:29→22:58)
[2023-08-01 06:36] VITALS: PULSE 73; RESP 16; O2SAT 97
[2023-08-01 06:53] LABS: Absolute Lymphocyte Count 1.49 X10^3/uL (0.83-4.51); Absolute Neutrophil Count 4.4 X10^3/uL (2.0-7.7); Basophil# 0.04 X10^3/uL; Basophil% 0.6 % (0-1); Eosinophil# 0.27 X10^3/uL; Eosinophils% 3.8 % (0-5); Hematocrit 32.5 % (40-54); Hemoglobin 10.1 g/dL (13.0-16.5); Lymphocyte # 1.49 X10^3/ul (0.83-4.51); Lymphocyte % 20.7 % (19-41); Mean Corp Hgb Conc 31.1 g/dL (32-36); Mean Corpuscular Hgb 26.9 pg (27.0-32.0); Mean Corpuscular Volume 86.4 fL (80-94); Monocyte# 0.96 X10^3/uL; Monocyte% 13.4 % (0-10); NRBC Flagged by Analyzer 0 % (0-5); Neutrophil # 4.41 X10^3/uL (2.7-7.7); Neutrophil % 61.2 % (47-70); Platelet Count 302 K/mm3 (150-450); RBC Distribution Width CV 13.6 % (11.6-14.6); RBC Distribution Width SD 42.9 fl (35.1-43.9); Red Blood Count 3.76 M/mm3 (4.6-6.2); White Blood Count 7.2 K/mm3 (4.4-11.0)
[2023-08-01 07:08] LABS: Anion Gap 3 (5-15); BUN 15 mg/dL (7-18); BUN/Creat Ratio 17.7 RATIO (10-20); Calcium,Total 9.1 mg/dL (8.5-10.1); Chloride 109 mmol/L (98-107); Creatinine, Serum 0.85 mg/dL (0.70-1.30); EST Glomerular Filtration Rate 93 mL/min (>60); Est Glom Filt Rate - Afr Amer 113 mL/min (>60); Glucose 156 mg/dL (74-106); Potassium 3.9 mmol/L (3.5-5.1); Sodium Level 139 mmol/L (136-145)
[2023-08-01] MEDS: Iron Polysaccharide Complex 150 MG CAPSULE PO (07:53)
[2023-08-01] MEDS: Folic Acid 1 MG Tablet PO (07:53)
[2023-08-01] MEDS: Potassium Chloride Oral Tablet 10 MEQ PO (07:53)
[2023-08-01] MEDS: Insulin Lispro 100 UNIT/ML INSULN.PEN 7 UNIT SC ×2 (07:53→11:56)
[2023-08-01] MEDS: Ammonium Lactate 225 gm Bottle 1 APPLIC TOPICAL ×2 (07:54→23:00)
[2023-08-01] MEDS: APIXABAN 5 MG TABLET PO ×2 (07:54→22:57)
[2023-08-01] MEDS: Insulin Glargine-YFGN 100 UNIT/ML Pen 20 UNIT SC (07:54)
[2023-08-01] MEDS: Senna/Docusate Sodium 1 Tablet 2 TABLET PO ×2 (07:55→22:58)
[2023-08-01] MEDS: Pantoprazole Sodium 40 MG Tablet PO ×2 (07:55→22:59)
[2023-08-01] MEDS: Furosemide 40 MG Tablet PO (07:55)
[2023-08-01] MEDS: Ascorbic Acid 500 MG Tablet PO (07:55)
[2023-08-01] MEDS: Magnesium Chloride 64 MG Delay Rel.Tablet 128 MG PO (07:55)
[2023-08-01 10:00] VITALS: BMI 29.5
[2023-08-01 12:22] LABS: Bedside Glucose 177 mg/dL (74-106)
[2023-08-01 14:00] VITALS: BP 135/64; PULSE 81; RESP 16; TEMP 36.4; O2SAT 99
[2023-08-01 14:38] VITALS: BP 135/69; PULSE 81
[2023-08-01] MEDS: Tamsulosin HCl 0.4 MG Capsule 0.400000000000000022 MG PO (17:01)
[2023-08-01 17:32] LABS: Bedside Glucose 150 mg/dL (74-106)
--- NOTE | 2023-08-01 17:42 | NURSING ---
pt off unit with via WC for STEPH[employer]
--- NOTE | 2023-08-01 20:43 | NURSING ---
2015: Returned to unit w/ spouse, Alejandra.
[2023-08-01 21:40] LABS: Bedside Glucose 250 mg/dL (74-106)
[2023-08-01] MEDS: Atorvastatin Calcium 40 MG Tablet PO (22:57)
[2023-08-01 22:58] VITALS: BP 140/64; PULSE 82
--- NOTE | 2023-08-02 02:15 | NURSING ---
PAP therapy removed per pt request.
[2023-08-02] MEDS: Acetaminophen 500 MG Tablet 1000 MG PO ×3 (05:17→22:49)
[2023-08-02 05:18] VITALS: BP 126/69; PULSE 79
[2023-08-02] MEDS: Metoprolol Tartrate 25 MG Tablet 37.5 MG PO ×3 (05:18→22:48)
[2023-08-02 06:05] LABS: Bedside Glucose 171 mg/dL (74-106)
[2023-08-02 07:55] VITALS: BP 114/53; PULSE 68; RESP 16; TEMP 36.3; O2SAT 98
[2023-08-02] MEDS: Insulin Lispro 100 UNIT/ML INSULN.PEN 7 UNIT SC ×3 (08:00→17:49)
[2023-08-02] MEDS: Iron Polysaccharide Complex 150 MG CAPSULE PO (08:00)
[2023-08-02] MEDS: Folic Acid 1 MG Tablet PO (08:00)
[2023-08-02] MEDS: Potassium Chloride Oral Tablet 10 MEQ PO (08:01)
[2023-08-02] MEDS: Insulin Glargine-YFGN 100 UNIT/ML Pen 20 UNIT SC (08:01)
[2023-08-02] MEDS: APIXABAN 5 MG TABLET PO ×2 (08:01→22:48)
[2023-08-02] MEDS: Magnesium Chloride 64 MG Delay Rel.Tablet 128 MG PO (08:02)
[2023-08-02] MEDS: Ammonium Lactate 225 gm Bottle 1 APPLIC TOPICAL ×2 (08:02→22:47)
[2023-08-02] MEDS: Furosemide 40 MG Tablet PO (08:02)
[2023-08-02] MEDS: Senna/Docusate Sodium 1 Tablet 2 TABLET PO ×2 (08:03→22:50)
[2023-08-02] MEDS: Pantoprazole Sodium 40 MG Tablet PO ×2 (08:03→22:50)
[2023-08-02] MEDS: Ascorbic Acid 500 MG Tablet PO (08:04)
[2023-08-02 10:00] VITALS: BMI 29.5
[2023-08-02 12:03] LABS: Bedside Glucose 152 mg/dL (74-106)
[2023-08-02 14:14] VITALS: BP 116/68; PULSE 78
[2023-08-02 14:17] VITALS: PULSE 78
[2023-08-02 16:33] LABS: Bedside Glucose 211 mg/dL (74-106)
[2023-08-02] MEDS: Tamsulosin HCl 0.4 MG Capsule 0.400000000000000022 MG PO (17:50)
[2023-08-02 21:37] LABS: Bedside Glucose 187 mg/dL (74-106)
--- NOTE | 2023-08-02 22:45 | NURSING ---
Pt verbalizes several concerns regarding dc home- medication changes, new medications orders, and follow-up appointments. Instructed to follow dc instructions as printed, including change in medication regimen, until follow-up w/ PCP and other specialists. Instructed to continue to monitor blood sugars via Dexcom prior to hospitalization and to contact computer repairer for any concerns regarding blood glucose levels and/or insulin dosing. Instructed to continue to weight self daily every morning after voiding, before consuming any food and/or fluids, using the same scale on a flat surface- not carpet, wear the same type of clothing, and record weight each day. Instructed to keep a log of the weights and contact securities sales associate or cardiothoracic surgeon's office for weight gain of 3 lb or more in 24 hours. Pt expresses appreciation for the information noted above. Informed pt that nursing will review dc instructions w/ him and spouse prior to departure from unit.
[2023-08-02 22:48] VITALS: BP 139/76; PULSE 78
[2023-08-02] MEDS: Atorvastatin Calcium 40 MG Tablet PO (22:49)
[2023-08-03] MEDS: traMADol 50 MG Tablet PO (02:06)
[2023-08-03 05:01] VITALS: BP 131/94; PULSE 65
[2023-08-03] MEDS: Metoprolol Tartrate 25 MG Tablet 37.5 MG PO ×3 (05:01→21:52)
[2023-08-03] MEDS: Acetaminophen 500 MG Tablet 1000 MG PO ×3 (05:01→21:53)
[2023-08-03 05:03] VITALS: BP 131/94; PULSE 65
[2023-08-03 06:09] LABS: Bedside Glucose 160 mg/dL (74-106)
[2023-08-03] MEDS: Senna/Docusate Sodium 1 Tablet 2 TABLET PO ×2 (08:18→21:53)
[2023-08-03] MEDS: Ascorbic Acid 500 MG Tablet PO (08:18)
[2023-08-03] MEDS: Folic Acid 1 MG Tablet PO (08:19)
[2023-08-03] MEDS: Potassium Chloride Oral Tablet 10 MEQ PO (08:19)
[2023-08-03] MEDS: Magnesium Chloride 64 MG Delay Rel.Tablet 128 MG PO (08:19)
[2023-08-03] MEDS: APIXABAN 5 MG TABLET PO ×2 (08:19→21:53)
[2023-08-03] MEDS: Furosemide 40 MG Tablet PO (08:19)
[2023-08-03] MEDS: Insulin Lispro 100 UNIT/ML INSULN.PEN 7 UNIT SC ×3 (08:19→17:44)
[2023-08-03] MEDS: Pantoprazole Sodium 40 MG Tablet PO ×2 (08:19→21:53)
[2023-08-03] MEDS: Iron Polysaccharide Complex 150 MG CAPSULE PO (08:19)
[2023-08-03] MEDS: Ammonium Lactate 225 gm Bottle 1 APPLIC TOPICAL ×2 (08:20→21:56)
[2023-08-03] MEDS: Insulin Glargine-YFGN 100 UNIT/ML Pen 20 UNIT SC (08:20)
[2023-08-03 09:14] VITALS: BMI 29.4
[2023-08-03 11:42] LABS: Bedside Glucose 186 mg/dL (74-106)
[2023-08-03 13:53] VITALS: BP 137/61; PULSE 80; RESP 18; TEMP 36.7; O2SAT 100
[2023-08-03 14:23] VITALS: BP 137/61; PULSE 80
[2023-08-03 16:36] LABS: Bedside Glucose 210 mg/dL (74-106)
[2023-08-03] MEDS: Tamsulosin HCl 0.4 MG Capsule 0.400000000000000022 MG PO (17:45)
[2023-08-03 21:35] LABS: Bedside Glucose 166 mg/dL (74-106)
[2023-08-03 21:52] VITALS: BP 109/64; PULSE 77
[2023-08-03] MEDS: Atorvastatin Calcium 40 MG Tablet PO (21:52)
--- NOTE | 2023-08-04 04:45 | NURSING ---
Patient woke up, requesting blood sugar be checked. Result was 175. No further issues. Will continue to monitor.
[2023-08-04 04:50] LABS: Bedside Glucose 175 mg/dL (74-106)
[2023-08-04 06:15] VITALS: BP 160/75; PULSE 78
[2023-08-04] MEDS: Metoprolol Tartrate 25 MG Tablet 37.5 MG PO (06:15)
[2023-08-04] MEDS: Acetaminophen 500 MG Tablet 1000 MG PO (06:15)
[2023-08-04 06:51] LABS: Bedside Glucose 193 mg/dL (74-106)
[2023-08-04 07:00] VITALS: BP 115/51; PULSE 73; RESP 18; TEMP 36.3; O2SAT 95
[2023-08-04] MEDS: APIXABAN 5 MG TABLET PO (07:48)
[2023-08-04] MEDS: Iron Polysaccharide Complex 150 MG CAPSULE PO (07:48)
[2023-08-04] MEDS: Potassium Chloride Oral Tablet 10 MEQ PO (07:48)
[2023-08-04] MEDS: Insulin Glargine-YFGN 100 UNIT/ML Pen 20 UNIT SC (07:48)
[2023-08-04] MEDS: Ascorbic Acid 500 MG Tablet PO (07:48)
[2023-08-04] MEDS: Insulin Lispro 100 UNIT/ML INSULN.PEN 7 UNIT SC ×2 (07:48→11:48)
[2023-08-04] MEDS: Folic Acid 1 MG Tablet PO (07:48)
[2023-08-04] MEDS: Furosemide 40 MG Tablet PO (07:49)
[2023-08-04] MEDS: Pantoprazole Sodium 40 MG Tablet PO (07:49)
[2023-08-04] MEDS: Ammonium Lactate 225 gm Bottle 1 APPLIC TOPICAL (07:49)
[2023-08-04] MEDS: Magnesium Chloride 64 MG Delay Rel.Tablet 128 MG PO (07:49)
[2023-08-04] MEDS: Senna/Docusate Sodium 1 Tablet 2 TABLET PO (07:49)
--- NOTE | 2023-08-04 10:35 | CASEMGMT ---
Social Work BIMS () and PHQ-2 () completed for MDS assessment. Lorna Cevallos MSW FUN HOUSE OPERATOR
[2023-08-04 11:59] LABS: Bedside Glucose 213 mg/dL (74-106)
== END 2023-08-04 13:30 | disposition home or self-care (01) | DRG 949 ==
PROVIDERS: Admitting Provider Family Medicine Geriatric Medicine; PCP Family Medicine; Visit Provider Family Medicine Geriatric Medicine
DX: Z48.812 Encounter for surgical aftercare following surgery on the circulatory system (principal); N13.8 Other obstructive and reflux uropathy; I50.32 Chronic diastolic (congestive) heart failure; N39.0 Urinary tract infection, site not specified; I11.0 Hypertensive heart disease with heart failure; D50.9 Iron deficiency anemia, unspecified; E11.9 Type 2 diabetes mellitus without complications; E78.5 Hyperlipidemia, unspecified; E53.8 Deficiency of other specified B group vitamins; I48.91 Unspecified atrial fibrillation; G47.31 Primary central sleep apnea; Z79.4 Long term (current) use of insulin; I25.10 Atherosclerotic heart disease of native coronary artery without angina pectoris; K31.7 Polyp of stomach and duodenum; E87.6 Hypokalemia; K21.9 Gastro-esophageal reflux disease without esophagitis; E83.42 Hypomagnesemia; K29.80 Duodenitis without bleeding; T83.511D Infection and inflammatory reaction due to indwelling urethral catheter, subsequent encounter; N40.1 Benign prostatic hyperplasia with lower urinary tract symptoms; R33.8 Other retention of urine; Z79.82 Long term (current) use of aspirin; Z79.899 Other long term (current) drug therapy; Z95.1 Presence of aortocoronary bypass graft; Y73.8 Miscellaneous gastroenterology and urology devices associated with adverse incidents, not elsewhere classified
CPT/HCPCS: 36415; 74018; 80048; 80061; 82274; 82962; 83540; 85014; 85018; 85025; 87811; 92507; 92523; 97110; 97116; 97162; 97165; 97530; 97535; 97802; 97803; J2405

== ENCOUNTER 2023-07-15 06:15 | Day surgery (SDC) | payer MEDICARE, OTHER, SELFPAY ==
--- NOTE | 2023-07-15 06:18 | HP.PCM_ITS ---
HPI - General General Date of Admission: 08/06/23 Date of Service: 07/15/23 Chief Complaint: Anemia HPI Narrative MEL BROOKS, is a 77 year old male with below past medical history hospitalized for CABG x 3 07/01/[address] Koenig, postoperative course complicated by atrial fibrillation with RVR, postoperative anemia, urinary retention requiring kwong catheter placement, admitted to TCU with debility, here for rehabilitation. Most the history was obtained from the chart because the patient is not a good historian. I was consulted due to progressively worsening anemia. He he has been on aspirin since undergoing coronary artery bypass procedure. Since having been diagnosed with atrial fibrillation RVR he was also started on Eliquis. His hemoglobin typically ranges around 13. His hemoglobin since being admitted has drifted down to 10. I was consulted for management of his anemia. [facility] Medical History (Updated 07/15/23 @ 07:[address] Rivas Friend, DO) Atherosclerosis Bladder neck obstruction BPH (benign prostatic hyperplasia) Coronary artery disease Diabetes HTN (hypertension) Hyperlipemia TIA (transient ischemic attack) Home Medications atenolol 50 mg tablet (Tenormin) 50 mg PO DAILY BLOOD PRESSURE 10/12/17 [History Last Taken 01/09/23] lisinopril 40 mg tablet 20 mg PO BID BLOOD PRESSURE 10/12/17 [History Last Taken 01/09/23] pen needle, diabetic 32 gauge x 5/32 (Pen Needle) #100 ea 09/19/22 [Rx Last Taken Unknown] pen needle, diabetic 32 gauge x 5/32 (Pen Needle) #100 ea 09/19/22 [Rx Last Taken Unknown] atorvastatin 40 mg tablet 40 mg PO QHS CHOLESTEROL 09/23/22 [History Last Taken 07/09/23] hydrochlorothiazide 12.5 mg capsule 12.5 mg PO DAILY FLUID 09/23/22 [History Last Taken 01/09/23] pantoprazole 40 mg tablet,delayed release 40 mg PO DAILY ACID REFLUX 09/23/22 [History Last Taken 07/10/23] amlodipine 10 mg tablet 5 mg PO DAILY BLOOD PRESSURE 01/04/23 [History Last Taken 01/09/23] insulin glargine-yfgn 100 unit/mL (3 mL) subcutaneous pen 32 unit subcut DAILY Diabetes 02/03/23 [History Last Taken 07/10/23] acetaminophen 500 mg tablet 1,000 mg PO Q6H PRN pain 07/10/23 [History Last Taken Unknown] apixaban 5 mg tablet 5 mg PO BID Anticoagulant 07/10/23 [History Last Taken 07/14/23] ascorbic acid (vitamin C) 500 mg tablet 500 mg PO DAILY Supplement 07/10/23 [History Last Taken Unknown] aspirin 81 mg chewable tablet 1 tab PO DAILY Heart 07/10/23 [History Last Taken 07/14/23] cephalexin 500 mg capsule 500 mg PO Q6H Antibiotic 07/10/23 [History Last Taken 07/10/23 15:10] ferrous sulfate 325 mg (65 mg iron) tablet 325 mg PO DAILY Supplement 07/10/23 [History Last Taken Unknown] folic acid 1 mg tablet 1 mg PO DAILY Supplement 07/10/23 [History Last Taken Unknown] furosemide 20 mg tablet 20 mg PO DAILY Heart 07/10/23 [History Last Taken Unknown] insulin lispro 100 unit/mL subcutaneous pen (Humalog KwikPen (U-100) Insulin) 1 sliding scale dose subcut ACHS Diabetes 07/10/23 [History Last Taken Unknown] lidocaine 4 % topical patch (Salonpas (lidocaine)) 1 patch topical DAILY Pain 07/10/23 [History Last Taken Unknown] magnesium oxide 400 mg PO DAILY Supplement 07/10/23 [History Last Taken Unknown] metoprolol tartrate 37.5 mg tablet 37.5 mg PO Q8H BP 07/10/23 [History Last Taken 07/10/23 14:00] potassium chloride 10 mEq tablet,extended release 10 meq PO DAILY Supplement 0 07/10/23 [History Last Taken Unknown] senna-docusate sodium tablet 1 tab PO BID Constipation 07/10/23 [History Last Taken Unknown] tamsulosin 0.4 mg capsule (Flomax) 0.4 mg PO DAILY Urinary retention 07/10/23 [History Last Taken Unknown] tramadol 50 mg tablet 50 mg PO BID PRN Pain 07/10/23 [History Last Taken Unknown] Allergy/AdvReac Type Severity Reaction Status Date / Time No Known Allergies Allergy Verified 05/28/23 09:27 Family History Other Diabetes Surgical History (Updated 07/14/23 @ 16:59 by Georgi Tinoco) History of cardiac cath History of coronary artery bypass graft x 3 Social History (Updated 07/10/23 @ 19:[address] Soy Pinto MD) household members: spouse Smoking Status: Never smoker alcohol intake: never substance use type: does not use ROS Constitutional Constitutional: Denies chills, fever(s) or weight gain ENT HEENT: Denies headache(s), nasal congestion or nasal discharge Cardiovascular Cardiovascular: Denies chest pain or palpitations Respiratory/Chest Respiratory/Chest: Denies cough, excessive phlegm production or shortness of breath with exertion Gastrointestinal Gastrointestinal: Denies abdominal pain, nausea or vomiting Genitourinary Genitourinary: Denies dysuria Musculoskeletal Musculoskeletal: Denies joint pain or joint swelling Integumentary Integumentary: Denies rash or wounds Neurologic Neurologic: Denies focal weakness, numbness or tingling Psychiatric Psychiatric: Denies anxiety, auditory hallucinations, depression, homicidal ideation or suicidal ideation Vital Signs Vital Signs Vital Signs: 07/15/23 06:28 07/15/23 06:28 Temperature 99.1 F Temperature Source Temporal Pulse Rate 90 Respiratory Rate 17 Respiratory Pattern Normal Blood Pressure 115/63 Blood Pressure Mean 80 Blood Pressure Source Monitor Blood Pressure Position Supine Blood Pressure Location Left Arm Pulse Ox 95 Oxygen Delivery Method Room Air Weight Weight: 210 lb Body Mass Index (BMI) 29.2 Physical Exam Const alert General Appearance: cooperative HEENT normocephalic Eyes PERRL and EOMs intact bilaterally Neck supple, no JVD and no carotid bruits Resp normal respiratory effort, normal air movement and clear to auscultation bilaterally Cardio regular rate and regular rhythm GI normal to inspection, nondistended, normoactive bowel sounds, non-tender and non-distended Extremity normal capillary refill General Extremity: Negative for edema Skin no rashes or lesions noted General Skin Exam: no breakdown Psych affect normal Appearance: appropriate Assessment & Plan Assessment/Plan (1) Anemia: PLAN: 77-year-old gentleman with past medical history of type 2 diabetes, carotid artery stenosis, gastroesophageal reflux disease, recurrent transudative pleural effusions, community-acquired pneumonia and recent coronary artery bypass procedure x 3 vessels with postop atrial fibrillation with RVR on aspirin and Eliquis. He developed worsening anemia. Differential diagnosis does include peptic ulcer disease as secondary to antiplatelet and anticoagulation resulting in peptic ulcer disease.Also the differential diagnosis does include gastritis, Ghulam's erosions, angiodysplasias, neoplasia. He should undergo an upper endoscopy to evaluate his upper GI tract. He was explained alternatives, risk, benefits include not withstanding bleeding, infection, sepsis, perforation, need for more discharge and . He will have an ASA of 3.
[2023-07-15 06:28] VITALS: BP 115/63; PULSE 90; RESP 17; TEMP 37.3; O2SAT 95; BMI 29.2
--- NOTE | 2023-07-15 07:05 | EGD_PTH ---
PATHOLOGY RESULTS PATIENT: MEL BROOKS LOC: EN U#:[id number] AGE/SX: 77/M ROOM: RE07/15/[address]: Dr. Rob Stubbs DO : 1945 BED: DIS: 07/15/2023 SPEC #: [id number] RECD: 07/15/23 11:52 STATUS: MANJU REVenkata #: [id number] ALYSSA: 07/15/23 07:[address]: Rob Stubbs DEPT: SURGICAL PATHOLOGY RECD BY: Nona Black ENTERED: 07/15/23 11:53 SP TYPE: EGD BIOPSY OT DR: Dr. Paul Lo MD Tissues: Duodenum, NOS Gastric mucous membrane Procedures: Surgery Specimen Level IV HEADER OPERATION: EGD with biopsy and polypectomy PRE-OP DIAGNOSIS: Anemia TISSUE SUBMITTED: A - Duodenum biopsy, B - Lesser curvature polyp MICROSCOPIC DIAGNOSIS A. Duodenum, biopsy: Fragments of duodenal mucosa, no pathologic diagnosis. B. Lesser curvature polyp, polypectomy: Fragments of gastric mucosa with focal changes consistent with hyperplastic polyp. Focal mild chronic gastritis. See comment. NATTY:so 07/16/2023 COMMENT B. The results of immunohistochemistry for Helicobacter pylori will be reported separately ([id number]). MICROSCOPIC DESCRIPTION Slides are reviewed. GROSS DESCRIPTION A - Received in fixative is one container labeled with the patient's name and designated duodenum biopsy. The specimen consists of multiple irregular fragments of light lord soft tissue that in aggregate measure 1.0 x 0.3 x 0.1 cm. The specimen is totally submitted in one cassette. B - Received in fixative is one container labeled with the patient's name and designated lesser curvature polyp. The specimen consists of multiple irregular fragments of light lord soft tissue that in aggregate measure 1.5 x 0.5 x 0.1 cm. The specimen is totally submitted in one cassette. / NATTY:so 07/15/2023 TC:5 CPT: 30765 x2
--- NOTE | 2023-07-15 07:05 | IMM_PTH ---
PATHOLOGY RESULTS PATIENT: MEL BROOKS LOC: EN U#:[id number] AGE/SX: 77/M ROOM: RE07/15/[address]: Dr. Rob Stubbs DO : 1945 BED: DIS: 07/15/2023 SPEC #: [id number] RECD: 07/15/23 12:08 STATUS: MANJU REVenkata #: [id number] ALYSSA: 07/15/23 07:[address]: Rob Stubbs DEPT: IMMUNOHISTOCHEMISTRY RECD BY: Cassie Gan ENTERED: 07/15/23 12:09 SP TYPE: IMMUNO OTHR DR: Dr. Paul Lo MD Tissues: Stomach, NOS Procedures: H Pylori (initial) PHYSICIAN & INSTITUTION [place] [id number] SPECIMEN INFORMATION: Tissue Source: B - Lesser curvature polyp Clinical Info: Anemia Specimen Number: [id number] CPT code: 93046 METHODOLOGY: Deparaffinized sections of prefer/formalin-fixed tissue or PAP/DQ stained slides are incubated with monoclonal/polyclonal antibodies/oligonucleotide probes. Localization is made via biotin free immunoperoxidase method. Appropriate controls are performed and reacted as expected. Results on target cell population are indicated in the following table: RESULTS: ANTIBODY / CLONE RESULT Block B H Pylori (polyclonal) negative These tests were developed and their performance characteristics determined by [facility]. They may not have been cleared or approved by the [place]. Food and Drug Administration. The FDA has determined that such clearance or approval is not necessary. The above immunohistochemical/dualISH markers are ordered and reviewed by the Pathologist. INTERPRETATION: B. Lesser curvature polyp, biopsy: Negative for Helicobacter pylori organisms. SJ:so 07/16/2023
[2023-07-15 07:21] VITALS: BP 109/54; BP 115/63; PULSE 91; RESP 16; TEMP 36.4; O2SAT 93
[2023-07-15 07:25] VITALS: BP 103/58; BP 115/63; PULSE 92; RESP 16; O2SAT 93
--- NOTE | 2023-07-15 07:28 | OP.CCLET_ITS ---
07/15/2023 Paul Lo Re : Upper GI endoscopy procedure for Merlene Purvis Teresita This procedure was performed on Saturday, July 15, 2023. My impressions and recommendations are as follows: Impressions : - Normal esophagus. - One gastric polyp. Resected and retrieved. - Acute duodenitis. Biopsied. Recommendations : - Return patient to referring hospital for ongoing care. - Resume previous diet. - Use Protonix (pantoprazole) 40 mg PO BID. - Continue present medications. My findings are described in the full procedure note, which is enclosed. If I can be of further assistance, please feel free to contact me at . Sincerely, Rob Stubbs DO 07/15/2023 7:28:01 AM This report has been signed electronically.
--- NOTE | 2023-07-15 07:28 | OP.EGD_ITS ---
Patient Name: Merlene Deluca Procedure Date: 07/15/2023 7:02 AM Date of : 1945 Age: 77 Procedure: Upper GI endoscopy Indications: Iron deficiency anemia Providers: Rob Stubbs DO Medicines: Monitored Anesthesia Care Patient Profile: This is a 77 year old male. Refer to note in patient chart for documentation of history and physical. Patient has symptoms of acute dyspepsia. Complications: No immediate complications. Procedure: Pre-Anesthesia Assessment: - Prior to the procedure, a History and Physical was performed, and patient medications and allergies were reviewed. The patient is competent. The risks and benefits of the procedure and the sedation options and risks were discussed with the patient. All questions were answered and informed consent was obtained. Patient identification and proposed procedure were verified by the physician in the pre-procedure area. Mental Status Examination: alert and oriented. Airway Examination: normal oropharyngeal airway and neck mobility. Respiratory Examination: clear to auscultation. CV Examination: normal. Prophylactic Antibiotics: The patient does not require prophylactic antibiotics. Prior Anticoagulants: The patient has taken no anticoagulant or antiplatelet agents. ASA Grade Assessment: III - A patient with severe systemic disease. After reviewing the risks and benefits, the patient was deemed in satisfactory condition to undergo the procedure. The anesthesia plan was to use monitored anesthesia care (MAC). Immediately prior to administration of medications, the patient was re-assessed for adequacy to receive sedatives. The heart rate, respiratory rate, oxygen saturations, blood pressure, adequacy of pulmonary ventilation, and response to care were monitored throughout the procedure. The physical status of the patient was re-assessed after the procedure. After obtaining informed consent, the endoscope was passed under direct vision. Throughout the procedure, the patient's blood pressure, pulse, and oxygen saturations were monitored continuously. The gastroscope was introduced through the mouth, and advanced to the second part of duodenum. The upper GI endoscopy was accomplished without difficulty. The patient tolerated the procedure well. Scope In: 7:09:15 AM Scope Out: 7:16:02 AM Total Procedure Duration Time 0 hours 6 minutes 47 seconds Findings: The examined esophagus was normal. One 9 mm sessile polyp with bleeding and stigmata of recent bleeding was found on the lesser curvature of the stomach. The polyp was removed with a hot snare. Resection and retrieval were complete. Localized mild inflammation characterized by congestion (edema), erosions and erythema was found in the duodenal bulb. Biopsies were taken with a cold forceps for histology. Verification of patient identification for the specimen was done. Estimated blood loss was minimal. Impression: - Normal esophagus. - One gastric polyp. Resected and retrieved. - Acute duodenitis. Biopsied. Recommendation: - Return patient to referring hospital for ongoing care. - Resume previous diet. - Use Protonix (pantoprazole) 40 mg PO BID. - Continue present medications. Procedure Code(s): --- Professional --- 85591, Esophagogastroduodenoscopy, flexible, transoral; with removal of tumor(s), polyp(s), or other lesion(s) by snare technique 91313, 59,51, Esophagogastroduodenoscopy, flexible, transoral; with biopsy, single or multiple CPT copyright 2021 [employer]. All rights reserved. The codes documented in this report are preliminary and upon experimental rocket sled mechanic review may be revised to meet current compliance requirements. Rob Stubbs DO 07/15/2023 7:28:01 AM This report has been signed electronically. Number of Addenda: 0 Note Initiated On: 07/15/2023 7:02 AM
[2023-07-15 07:30] VITALS: BP 105/54; BP 115/63; PULSE 92; RESP 16; O2SAT 94
[2023-07-15 07:35] VITALS: BP 115/63; BP 98/57; PULSE 87; RESP 16; TEMP 36.4; O2SAT 95
[2023-07-15 07:40] VITALS: BP 112/59; BP 115/63; PULSE 90; RESP 16; O2SAT 95
== END 2023-07-15 07:51 | disposition home or self-care (01) ==
LOC: EN 06:17 → AC 06:17
PROVIDERS: PCP Family Medicine; Referring Provider Family Medicine; Visit Provider Internal Medicine Gastroenterology
PROC: 0DJ08ZZ Inspection of Upper Intestinal Tract, Via Natural or Artificial Opening Endoscopic (ICD-10-PCS; CPT 43235; principal; 2023-07-15 07:00)
DX: K31.7 Polyp of stomach and duodenum (principal); I48.91 Unspecified atrial fibrillation; D64.9 Anemia, unspecified; K29.80 Duodenitis without bleeding; Z79.01 Long term (current) use of anticoagulants; I25.10 Atherosclerotic heart disease of native coronary artery without angina pectoris; I10 Essential (primary) hypertension; E78.5 Hyperlipidemia, unspecified; Z86.73 Personal history of transient ischemic attack (TIA), and cerebral infarction without residual deficits; Z95.1 Presence of aortocoronary bypass graft
CPT/HCPCS: 43251; 43239; 88305; 88342

== ENCOUNTER → 2023-09-01 | Outpatient (CLI) | payer MEDICARE, OTHER, SELFPAY ==
--- NOTE | 2023-09-01 07:58 | PCM.CR.ITP ---
Psychosocial - Initial Assess Target Goals Target Goals Nutrition Survey Nutrition Survey Instructions Scoring Instructions Psychosocial - 30-Day Assess Target Goals Target Goals Psychosocial - 60-Day Assess Target Goals Target Goals Psychosocial - 90-Day Assess Target Goals Target Goals Psychosocial - Final Assessmen Target Goals Target Goals
--- NOTE | 2023-09-01 08:02 | PCM.CR.HP2 ---
CR - History & Physical General Arrival date:: 09/01/23 Arrival time:: 08:05 Date of Referral:: 07/23/23 Date of CR Evaluation:: 09/01/23 Referring Physician: Dr. Will Liu - Dr. 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 History of Present Cardiac Event Onset Date Current stable Angina Pectoris:: No Acute Myocardial Infarction within 12 months:: No Coronary Artery Bypass Graft:: Yes Vessel: S/P CABG x 3; (GARCÍA-LAD, SVG to OM1, & SVG to PDA) Heart valve replacement or repair:: No PTCA or coronary stenting:: No Medications Ambulatory Orders Medication Instructions Recorded pen needle, diabetic 32 gauge x #100 ea 09/19/22 (Pen Needle) pen needle, diabetic 32 gauge x #100 ea 09/19/22 (Pen Needle) atorvastatin 40 mg tablet 40 mg PO QHS CHOLESTEROL 09/23/22 folic acid 1 mg tablet 1 mg PO DAILY Supplement 07/10/23 acetaminophen 500 mg tablet 1,000 mg (2 x 500 mg) PO Q8 #0 tabs 07/29/23 apixaban 5 mg tablet (Eliquis) 5 mg PO BID 30 days #60 tabs 07/29/23 ascorbic acid (vitamin C) 500 mg 500 mg PO DAILY 30 days #30 tabs 07/29/23 tablet furosemide 40 mg tablet 40 mg PO DAILY 30 days #30 tabs 07/29/23 insulin glargine-yfgn 100 unit/mL 20 unit (0.2 mL) subcut DAILY #0 mL 07/29/23 (3 mL) subcutaneous pen insulin lispro 100 unit/mL 7 unit (0.07 mL) subcut TIDAC #0 mL 07/29/23 subcutaneous pen (Humalog KwikPen (U-100) Insulin) magnesium chloride 64 mg 128 mg (2 x 64 mg) PO DAILY 30 07/29/23 (magnesium chloride) days #60 tabs tablet,delayed release (Mag 64) metoprolol tartrate 25 mg tablet 37.5 mg (1.5 x 25 mg) PO Q8 30 07/29/23 days #135 tabs pantoprazole 40 mg tablet,delayed 40 mg PO BID 30 days #60 tabs 07/29/23 release polysaccharide iron complex 150 mg 150 mg PO DAILYCM 30 days #30 caps 07/29/23 iron capsule (Ferrex) potassium chloride 10 mEq 10 meq PO DAILYCM 30 days #30 tabs 07/29/23 tablet,extended release(part/cryst) tamsulosin 0.4 mg capsule 0.4 mg PO DAILY@1730 30 days #30 07/29/23 caps Allergies Allergies No Known Allergies Allergy (Verified 05/28/23 09:27) Sleep Disorder Evaluation Hx of Sleep Apnea: Yes Do you snore loudly (louder than talking or can be heard through closed doors)?: Yes Do you often feel tired/ fatigued/ sleepy during daytime?: Yes Has anyone observed you stop breathing during sleep?: Yes History of Hypertension (for STOP score): Yes STOP Results: tested on BiPAP Advanced Directives Advanced Directives Power of Supervisor [employer] Workers: Yes ( is his POA) Living Will: Yes Advance Directives on File: Yes DNR Order?:: No Past Medical History Covid-19 Screening Physicial Symptoms Fever: No Unexplained muscle aches: No Current respiratory symptoms: No Upper respiratory infections symptoms: No Gastro-intestinal symptoms: No [id number] symptoms: No Other Clinical Concerns Has tested positive for COVID-19 in last 30 days: No Exposure Risk Had contact w/person w/symptoms or Covid-19 (+) last 14 days: No Has High Risk Exposures ID'd by Health dept/Inf Control team: No Pertinent Comorbidities 65 years or older:: Yes Lives in Assisted Living facility:: No Has a chronic lung disease or moderate to severe asthma:: No Has a serious heart condition:: No Immunocompromised:: No Severely obese (Body Mass Index of 40 or higher):: No Diabetic:: Yes Has chronic kidney disease undergoing dialysis:: No Has liver disease:: No Past Medical Illness Past Medical History (Updated 08/12/23 @ 00:03 by Background Daemon) Atherosclerosis I70.90 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 'DR LIU' Family History Summary Family History (Reviewed 09/01/23 @ 08:25 by John Gooden, TECHNICAL HEALTHCARE CONSULTANT, MAT MAKING MACHINE TENDER, BS) Other Diabetes Social History Smoking History Smoking Status: Never smoker Alcohol Use Alcohol Usage: Yes Substance Abuse Hx Substance Use: No Occupation Occupation (List type of work in comments):: Retired Hobbies, Recreation, Social Activities Hobbies: Walking Recreational Activities: I am able to engage in most, but not all activities Social Environment Current Living Arrangements Living Environment:: Spouse Children How many children do you have?: 0 Safety Do you feel safe in your surroundings?: Yes Assistance Do you need any assistance at home?: none Review of Systems Review of Systems Hints Review of Present Symptoms: Reports Operative Discomfort (still having some discomfort in the legs from vein grafting), Wound Healing, Fatigue, Heart Arrhythmia/Irregularities (T Wave abnormality from CABG.), Appetite - Normal, Appetite - Special Diet (released [place] [facility] [place] Diet, from [facility] had salt restriction, low fat, low cholesterol) and Sleep - Normal; Denies Shortness of Breath with Exertion, Angina or Dizziness/Lightheadedness Pain Is Patient Pain Free?: No Pain Location: lower extremity (site of the vein grafting) Pain Level: 0/10 Risk Factor Assessment Vital Signs Temperature: 98.6 F Respiratory Rate: 16 Pulse Ox: 97 Blood Pressure: 120/64 Pulse Pulse Rate: 76 Pulse Rhythm: Regular Hypertension How long have you been treated?: 5 to 10 years On medication(s)?: yes Blood Pressure Sitting - Left Arm: 120/64 Diabetes Diabetic History: Type II Nutrition Referral for Diabetes: Yes Obesity Height: 5 ft 11 in Weight:: 221 lb Weight in Pounds: 221.0 lbs Weight Source: Standing Scale Body Mass Index (BMI): 30.8 Nutritional Referral for Obesity: Yes Physical Inactivity Physical Inactivity: None Exercise Limitations: Previously had been walkign at the [facility], [facility] Risk Stratification Risk Guidelines: Lowest Risk: Risk Factor for Smoking, Risk Factor for Dyslipidemia, Risk Factor for Diabetes, Risk Factor for Hypertension and Risk Factor for Depression, Moderate Risk: Risk Factor for Obesity and Risk Factor for Depression and Highest Risk: Risk Factor for Sedentary Lifestyle For Smoking Smoking Risk Guidelines For Dyslipidemia Dyslipidemia Risk Guidelines For Diabetes Mellitus Diabetes Risk Guidelines For Obesity/Overweight Obesity/Overweight Risk Guidelines For Hypertension Hypertension Risk Guidelines For Sedentary Lifestyle Sedentary Lifestyle Risk Guidelines For Depression Depression Risk Guidelines Family History Family History (Reviewed 09/01/23 @ 08:25 by John Gooden, TECHNICAL HEALTHCARE CONSULTANT, MAT MAKING MACHINE TENDER, BS) Other Diabetes Motivation Motivation to Participate On a scale of 1 to 10, how prepared are you to commit to attending program?: 10 What do you see as barriers to successfully being able to complete the program?: no problem What do you see as the benefits of succesfully completing the program? In other words, what do you hope to get out of participating in the program?: Getting back to walking 1-mile, increase endurance, being able to travel. Are there issues you are dealing with that will interfere with completing the program?: None Do you have a spouse or signficant other, family or friends who will help support you to complete the program?: Yes
--- NOTE | 2023-09-01 08:11 | PCM.CR.ITP ---
Diagnosis General Information Admitting Diagnosis: S/P CABG X 3 Secondary Diagnosis: HLD, HTN, PERICARDIAL EFFUSION, PLEURAL EFFUSION, Personal Learning Style:: Audio/Visual and Written (ATTENTION DEFICIT DISORDER) Barriers to Learning: Cognitive/Learning Impairment and Vision Impairment Stage of change r/t lifestyle modifications:: Action Gave educational material for:: Treating Heart Disease, How The Heart Works, What it means to have Heart Disease, How Coronary Artery Disease is Diagnosed, Heart Procedures, What Heart Medications Do, Risk Factors & Modifications, Living an Active Life, Nutrition, Emotions & Heart Disease, Stress Management & Relaxation and Sleep Disorders & Heart Disease Education/Goals Individual Counseling: Initial Assessment: Abnormal Cholesterol Levels and High Blood Pressure Cardiac Rehabilitation Goals Personal Goals: Initial Assessment: Improve management of stress and emotions, Improve energy level, Participate in home exercise program, Get back to work, or to resume activities faster, Improve knowledge of cardiac disease, Improve muscle strength and endurance, Improve diet and eating habits (eat healthier) and Control risk factors (learn risk factor modification) Scale for measuring improvement of personal goals Diagnosis & Disease Process Outcomes/Goals: Pt IDs own risk factors & lifestyle modifications by Session 10, Verbalizes symptoms of angina & response by session 3. and Pt independently manages Plan/Interventions: Assist Pt to ID & engage in lifestyle modification to reduce CVD risk, Instruct on individual risk factors, Review symptoms of angina & emergency actions and Review secondary diagnosis & identify educational needs. Safety Referral to Physical Therapy: No Referral to [facility] Case Management: No Fall Risk Assessed:: Yes Assistive Devices:: None (SLOW GAIT) Exercise - Initial Assessment Visit Date of Eval: 09/01/23 Session #:: 0 (pRE-CARDIAC REHAB EVALUATION) Mets: Pre-: >3 METS for 30 minutes by discharge Physician Prescribed Exercise Modalities: Airdyne, NuStep and SciFit (SCIFIT PRO II and SCIFIT RECUMBENT STEPPER) Frequency: 3x/week for 12 weeks [36 sessions] Intensity: 60-80% of age predicted maximum heart rate reserve Duration: 30 - 45 minutes Current METSs:: 2.0 Target Heart Rate:: 86-101 Resting Blood Pressure: 120/64 EKG Type: nsr W/T WAVE ABNORMALITY Current Physical Activity or Exercising minutes: WALKING Outcomes & Goals Goals:: Verbalizes understanding of THR, RPE & goal METS by session 6, Documents in home exercise log/reports 30 min aerobic 5 day/wk by DC and Demonstrates accurate pulse taking by DC Intervention & Plan Exercise Program Goals: Instruct on personal THR & RPE, Instruct on MET level & personal MET goal, Show patient to take own pulse /validate performance until accurate and Instruct on home exercise Physical Activity Home Exercise Physical Activity - Home Exercise: Safe Exercise, Warm-up, Self-monitoring, Cool-Down, Home Exercise > 30 min Daily and Sitting Time <3 hours/daily Outcomes & Goals Outcomes/Goals: Demonstrates correct Warm-up/exercise Cool-Down (S3) if = 2.5 METs, Verbalizes symptoms of exercise intolerance by Session 3 (S3) and Demonstrate safe equipment use (S3) & follows exercise prescrition (6) Intervention & Plan Plan/Intervention: Instruct warm-up & cool-down if exercising at > 2 METs, Instruct on symptoms of exercise intolerance & actions to take, Instruct & monitor on saf and Assess intial functional capacity & safety risk Nutrition - Initial Assessment Program Goals Nutrition Program Goals Patient has diagnosis of Hyperlipidemia (ICD E78)?: Yes Visit Date of Eval: 09/01/23 Session #:: 0 (PRE-CARDIAC REHAB EVALUATION) Cholesterol/Lipids (Other Core Measures) Outcomes/Goals: Pt IDs own risk factors & lifestyle modifications by Session 10, Verbalizes symptoms of angina & response by session 3. and Pt independently manages Intervention/Plan: Instruct on personal lipid levels & lipid goals/NCEP guidelines and Instruct on cholesterol Referral to dietitian:: Yes Diabetes (Other Core Measures) Diabetes Type: Diagnosis Type II ICD-10 E11 Insulin dependent injection/pump?: Yes Non-Insulin Dependent?: Yes Do you monitor your blood sugar at home?: Yes Referral to Diabetic Clinic:: Yes Outcomes/Goals:: Able to state symptoms of, Able to state and Able to state Intervention/Plan:: Instruct on and Refer to Weight Mgt (Other Care) Not Applicable: No Height: 5 ft 11 in Weight:: 221 lb BMI: 30.8 Diagnosis Overweight/Obesity BMI> 30% ICD-10 E66: Yes Diagnosis High BMI/Morbid Obesity BMI> 35% ICD-10 Z68: No Outcomes/Goals: Pt sets, maintains & shows weight loss goal & trend during rehab Intervention/Plan: Instruct on ideal BMI & set weight loss goal w/patient, Assist pt to ID & incorporate diet changes for weight loss by S9, Refer to Structured Weight Loss program as appropriate and Encourage goal of using 250-300dcal per session for weight loss Healthy Eating Habits Will attend diet classes:: Yes Outcomes/Goals:: Consume diet rich in vegs,fruits,whole grain/high fiber,fish,lean meat and Limit sat/trans fats,cholesterol & added salts & sugars Intervention/Plan:: Assess current eating habits Education Gave educational materials for:: Signs & symptoms of hypoglycemia, Signs & symptoms of hyperglycemia, Relate diabetes to coronary artery disease and Healthy eating Core - Initial Assessment Visit Date of Eval: 09/01/23 Session #:: 0 (PRE-CARDIAC REHAB EVALUATION) Medication Compliance Preventative Medication(s):: Aspirin, Statin/lipid and Eliquis H/O mental health issues: depression, anxiety, or addiction?: No Doesn?t believe in the benefits of treatment?: No Believes medications are unnecessary or harmful?: No Has a concern about medication side effects?: No Expresses concern over the cost of medications?: No Outcomes/Goals: Verbalizes medications,desired effect & common side effects @ DC, Pt self-reports following medication regimen and Keeps card in wallet w/medications listed by DC Interventions/plans: Instruct on medication effects & side effects, Review medication list w/patient every two weeks and Instruct importance of taking meds as ordered & assist problem solving Tobacco Use Tobacco Use: Non-smoker Hypertension Hypertension Diagnosis:: Hypertension ICD-10 I10 Resting Blood Pressure:: 120/64 [place] [employer] Hypertension Guidelines Outcomes/Goals: Able to verbalize/achieve optimal blood pressure <130/80 and Incorporates diet changes & exercise for blood pressure control by DC Interventions/plan: Instruct on optimal blood pressure, hypertension & medications and Instruct on effects of sodium, alcohol, stress, exercise &hypertension Tobacco Cessation Referral Smoking Cessation Referral:: No Individual Education/Counseling:: No Education Schedule Given:: Yes Psychosocial - Initial Assess VIsit Date of Eval: 09/01/23 Session #:: 0 (PRE-CARDIAC REHAB EVALUATION) Not Applicable: No History of previous Mental disease:: Yes (DEPRESSION, DEPRESSION & ANXIETY, ATTN DEFICIT DISORDER) Target Goals Target Goals Psychosocial Test Tool Used:: Ferrans Power QOL Cardiac and PHQ-9 Questionnaire phq-9 Severity Referral to Behavioral Health PS - Interventions: Yes: Attend Stress Management Classes and No: Referral to [facility] Outcomes/Goals: See list Psychosocial Outcomes/Goals:: ID's personal stressors & 2 strategies to manage stress by discharge Intervention/Plan: See List Interventions/Plan:: Assess stressors,coping strategies & signs of derpression on admission, Instruct/assist pt to develop coping & personal stress Mgt strategies, Instruct patient to recognize signs & symptoms of depression and Instruct patient to recog Patient Health Questionnaire PHQ-9 Screening Initial Assessment: 1. Little interest or pleasure in doing things: Several days 2. Feeling down, depressed, or hopeless: Not at all 3. Trouble falling or staying asleep, or sleeping too much: Several days 4. Feeling tired or having little energy: Several days 5. Poor appetite or overeating: Not at all 6. Feeling bad about yourself -- or that you are a failure or have let yourself or your family down: Several days 7. Trouble concentrating on things, such as reading the newspaper or watching television: Several days 8. Moving or speaking so slowly that other people could have noticed. Or the opposite - being so fidgety or restless that you have been moving around a lot more than usual: Several days 9. Thoughts that you would be better off , or of hurting yourself in some way: Several days How difficult have these problems made it for you to do your work, take care of things at home, or get along with other people?: Somewhat difficult Total Score: 7 [id number] SV Test Statements CAD is a disease of the arteries in the heart: False Examples of risk factors for heart disease: True Angina is chest pain or discomfort: True The benefits of resistance training include: True Eating more meat and dairy products: I Don't Know Anti-platelet medications such as aspirin are important: False The only effective way to manage stress: I Don't Know An exercise warm-up slowly increases heart rate: False Prepared, processed foods usually have high sodium: I Don't Know Depression is common after a heart attack: True The statin medications lower cholesterol: True To control blood pressure, lower the amount of sodium: False If someone gets chest discomfort during walking: I Don't Know Transfats are partially hydrogenated vegetable oils: I Don't Know Sleep apnea that is not treated increases the risk: False To control cholesterol, one should become a vegetarian: I Don't Know Someone knows if he/she is exercising at the right level: True Diabetes cannot be prevented with exercise & health eating: True Stress is a large risk for heart attack: True A diet that can help lower blood pressure is rich in: True Total Score Total Correct Responses: 10 Self-Efficacy 6-Item Scale Initial Assessment: We would like to know how confident you are in doing certain activities. Please select your confidence level for: Fatigue Select Number: 10 Physical Discomfort or Pain Select Number: 10 Emotional Distress Select Number: 10 Other Symptoms or Health Problems Select Number: 10 Different Tasks and Activities Select Number: 10 Medication Select Number: 10 Total Score:: 10 Nutrition Survey Nutrition Survey Instructions Scoring Instructions Nutrition Survey Initial: Have you lost >10 lbs over the past 2 months without trying?: No Are you following a special diet at home for diabetes, low fat, or low salt?: Yes Are you interested in meeting with a dietitian for help understanding your diet?: Yes Do you eat less than 3 meals a day?: No Do you eat fatty meats (arce, sausage, ribs, etc), fried foods, desserts, large amounts of salad dressings, margarine, butter, or cheese most days?: No Do you have food allergies? [Enter types in comment field]: No Do you eat in restaurants more than 3 times a week?: Yes Do you season food with salt, seasoning salt, or garlic salt?: No Do you used canned, boxed, frozen meals, or soups, seasoning packets?: Yes Total Score:: 4 Exercise - Final/Discharge Physician Prescribed Exercise Modalities: Airdyne, NuStep and SciFit (SCIFIT PRO II and SCIFIT RECUMBENT STEPPER) Frequency: 3x/week for 12 weeks [36 sessions] Intensity: 60-80% of age predicted maximum heart rate reserve Current METSs:: 2.0 Target Heart Rate:: 86-101 Nutrition - 30-Day Assessment Weight Mgt (Other Care) Height: 5 ft 11 in Weight:: 221 lb BMI: 30.8 Nutrition - 60-Day Assessment Weight Mgt (Other Care) Height: 5 ft 11 in Weight:: 221 lb BMI: 30.8 Core - 30-Day Assessment Visit Session #:: 0 (pRE-CARDIAC REHAB EVALUATION) Core - Final Assessment Hypertension Resting Blood Pressure:: 120/64 [place] [employer] Hypertension Guidelines Core - 60-Day Assessment Hypertension Resting Blood Pressure:: 120/64 [place] [employer] Hypertension Guidelines Psychosocial - 30-Day Assess Target Goals Target Goals Referral to Behavioral Health PS - Interventions: Yes: Attend Stress Management Classes and No: Referral to [facility] Psychosocial - 60-Day Assess Target Goals Target Goals Referral to Behavioral Health PS - Interventions: Yes: Attend Stress Management Classes and No: Referral to [facility] Psychosocial - 90-Day Assess Target Goals Target Goals Referral to Behavioral Health PS - Interventions: Yes: Attend Stress Management Classes and No: Referral to [facility] Psychosocial - Final Assessmen Target Goals Target Goals Referral to Behavioral Health PS - Interventions: Yes: Attend Stress Management Classes and No: Referral to [facility] Nutrition - 90-Day Assessment Weight Mgt (Other Care) Height: 5 ft 11 in Weight:: 221 lb BMI: 30.8 Nutrition - Final Assessment Program Goals Patient has diagnosis of Hyperlipidemia (ICD E78)?: Yes Weight Mgt (Other Care) Height: 5 ft 11 in Weight:: 221 lb BMI: 30.8
[2023-09-01 08:23] VITALS: BP 120/64
[2023-09-01 08:29] VITALS: BP 120/64; PULSE 76; RESP 16; TEMP 37; O2SAT 97; BMI 30.8
[2023-09-01 09:21] VITALS: BMI 30.8
== END | disposition home or self-care (01) ==
PROVIDERS: PCP Family Medicine; Referring Provider Thoracic Surgery (Cardiothoracic Vascular Surgery); Visit Provider Thoracic Surgery (Cardiothoracic Vascular Surgery)
DX: Z95.1 Presence of aortocoronary bypass graft (principal); E11.9 Type 2 diabetes mellitus without complications; E78.5 Hyperlipidemia, unspecified; R06.83 Snoring; I97.89 Other postprocedural complications and disorders of the circulatory system, not elsewhere classified; I70.90 Unspecified atherosclerosis; N32.0 Bladder-neck obstruction; N40.0 Benign prostatic hyperplasia without lower urinary tract symptoms; I25.10 Atherosclerotic heart disease of native coronary artery without angina pectoris; Z86.73 Personal history of transient ischemic attack (TIA), and cerebral infarction without residual deficits; Z98.890 Other specified postprocedural states; I10 Essential (primary) hypertension; G89.18 Other acute postprocedural pain

== ENCOUNTER 2023-09-28 10:15 | Outpatient (RCR) | payer MEDICARE, OTHER, SELFPAY ==
[2023-09-01 09:21] VITALS: BMI 30.8
--- NOTE | 2023-09-29 07:34 | CR.ITP_ITS ---
Exercise - Initial Assessment Visit Session #:: 10 Nutrition - Initial Assessment Weight Mgt (Other Care) Height: 5 ft 11 in Weight:: 207 lb 8 oz BMI: 28.9 Psychosocial - Initial Assess Target Goals Target Goals Referral to Behavioral Health PS - Interventions: Yes: Attend Stress Management Classes and No: Referral to Behavioral Health if PHQ-9 score >9:, No: Referral to [facility] and No: Referral to Physician if PHQ-9 if score is 5-9: Patient Health Questionnaire PHQ-9 Screening 30-Day Re-eval Assessment: 1. Little interest or pleasure in doing things: Several days 2. Feeling down, depressed, or hopeless: Not at all 3. Trouble falling or staying asleep, or sleeping too much: Not at all 4. Feeling tired or having little energy: Several days 5. Poor appetite or overeating: Several days 6. Feeling bad about yourself -- or that you are a failure or have let yourself or your family down: Several days 7. Trouble concentrating on things, such as reading the newspaper or watching television: Several days 8. Moving or speaking so slowly that other people could have noticed. Or the opposite - being so fidgety or restless that you have been moving around a lot more than usual: Several days 9. Thoughts that you would be better off , or of hurting yourself in some way: Several days How difficult have these problems made it for you to do your work, take care of things at home, or get along with other people?: Somewhat difficult Total Score: 7 Self-Efficacy 6-Item Scale 30-Day Re-eval Assessment: We would like to know how confident you are in doing certain activities. Please select your confidence level for: Fatigue Select Number: 10 Physical Discomfort or Pain Select Number: 10 Emotional Distress Select Number: 10 Other Symptoms or Health Problems Select Number: 10 Different Tasks and Activities Select Number: 10 Medication Select Number: 10 Total Score:: 10 Nutrition Survey Nutrition Survey Instructions Scoring Instructions Exercise - 30-day Assessment Visit Date of Eval: 09/29/23 Session #:: 10 Physician Prescribed Exercise Modalities: Treadmill, Airdyne and NuStep Frequency: 3x/week for 12 weeks [36 sessions] Intensity: 60-80% of age predicted maximum heart rate reserve Duration: 30 - 45 minutes Current METSs:: 3.0 Target Heart Rate:: 86-101 Current RPE:: 12-13 Maximum Excercise HR:: 79 Resting Blood Pressure: 110/50 Maximum Exercise Blood Pressure: 120/52 EKG Type: nsr WITH OCCASIONAL pvcS. Current Physical Activity or Exercising minutes: 39:16 Outcomes & Goals Goals:: Verbalizes understanding of THR, RPE & goal METS by session 6, Documents in home exercise log/reports 30 min aerobic 5 day/wk by DC and Demonstrates accurate pulse taking by DC Intervention & Plan Exercise Program Goals: Instruct on personal THR & RPE, Instruct on MET level & personal MET goal, Show patient to take own pulse /validate performance until accurate and Instruct on home exercise 30-day Reassessments 30 day Reassessments:: Progressing Physical Activity Home Exercise Physical Activity - Home Exercise: Safe Exercise, Warm-up, Self-monitoring, Cool-Down, Home Exercise > 30 min Daily and Sitting Time <3 hours/daily Outcomes & Goals Outcomes/Goals: Demonstrates correct Warm-up/exercise Cool-Down (S3) if = 2.5 METs, Verbalizes symptoms of exercise intolerance by Session 3 (S3) and Demonstrate safe equipment use (S3) & follows exercise prescrition (6) (REQUIRES RE-INSTRUCTION) Intervention & Plan Plan/Intervention: Instruct warm-up & cool-down if exercising at > 2 METs, Instruct on symptoms of exercise intolerance & actions to take, Instruct & monitor on saf and Assess intial functional capacity & safety risk 30-day Reassessments 30 day Reassessments:: Progressing Nutrition - 30-Day Assessment Program Goals Nutrition Program Goals Patient has diagnosis of Hyperlipidemia (ICD E78)?: Yes Visit Date of Eval: 09/29/23 Session #:: 10 Cholesterol/Lipids (Other Core Measures) Determine presence & major risk factors that modify LDL goal: Hypertension or hypertensive medication and Age men > 45 years; women >/= 55 years Outcomes/Goals: Pt IDs own risk factors & lifestyle modifications by Session 10, Verbalizes symptoms of angina & response by session 3. 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 Insulin dependent injection/pump?: Yes Non-Insulin Dependent?: Yes Do you monitor your blood sugar at home?: Yes Referral to Diabetic Clinic:: Yes Outcomes/Goals:: Able to state symptoms of, Able to state and Able to state Intervention/Plan:: Instruct on, Refer to and Instruct on 30-day Reassessments:: Progressing Weight Mgt (Other Care) Height: 5 ft 11 in Weight:: 207 lb 8 oz BMI: 28.9 Diagnosis Overweight/Obesity BMI> 30% ICD-10 E66: No Diagnosis High BMI/Morbid Obesity BMI> 35% ICD-10 Z68: No Outcomes/Goals: Pt sets, maintains & shows weight loss goal & trend during rehab Intervention/Plan: Instruct on ideal BMI & set weight loss goal w/patient 30 day Reassessments:: Progressing Healthy Eating Habits Will attend diet classes:: Yes Outcomes/Goals:: Consume diet rich in vegs,fruits,whole grain/high fiber,fish,lean meat and Limit sat/trans fats,cholesterol & added salts & sugars Intervention/Plan:: Assess current eating habits 30-day Reassessments:: Progressing Education Gave educational materials for:: Signs & symptoms of hypoglycemia, Signs & symptoms of hyperglycemia, Relate diabetes to coronary artery disease and Healthy eating Nutrition - 60-Day Assessment Weight Mgt (Other Care) Height: 5 ft 11 in Weight:: 207 lb 8 oz BMI: 28.9 Core - 30-Day Assessment Visit Date of Eval: 09/29/23 Session #:: 10 Medication Compliance Preventative Medication(s):: Aspirin, Statin/lipid, Beta karol and Eliquis H/O mental health issues: depression, anxiety, or addiction?: No Doesn?t believe in the benefits of treatment?: No Believes medications are unnecessary or harmful?: No Has a concern about medication side effects?: No Expresses concern over the cost of medications?: No Outcomes/Goals: Verbalizes medications,desired effect & common side effects @ DC, Pt self-reports following medication regimen and Keeps card in wallet w/medications listed by DC Interventions/plans: Instruct on medication effects & side effects, Review medication list w/patient every two weeks and Instruct importance of taking meds as ordered & assist problem solving 30-day Reassessments:: Progressing Tobacco Use Tobacco Use: Non-smoker Hypertension Hypertension Diagnosis:: Hypertension ICD-10 I10 Resting Blood Pressure:: 110/50 [place] [employer] Hypertension Guidelines Peak Exercise Blood Pressure:: 120/52 Outcomes/Goals: Able to verbalize/achieve optimal blood pressure <130/80 and Incorporates diet changes & exercise for blood pressure control by DC Interventions/plan: Instruct on optimal blood pressure, hypertension & medications and Instruct on effects of sodium, alcohol, stress, exercise &hypertension 30 day Reassessments:: Progressing Tobacco Cessation Referral Smoking Cessation Referral:: No Individual Education/Counseling:: No Education Schedule Given:: Yes Psychosocial - 30-Day Assess VIsit Date of Eval: 09/29/23 Session #:: 10 Not Applicable: Yes History of previous Mental disease:: No Target Goals Target Goals Psychosocial Test Tool Used:: PHQ-9 Questionnaire phq-9 Severity Referral to Behavioral Health PS - Interventions: Yes: Attend Stress Management Classes and No: Referral to Behavioral Health if PHQ-9 score >9:, No: Referral to [facility] and No: Referral to Physician if PHQ-9 if score is 5-9: Outcomes/Goals: See list Psychosocial Outcomes/Goals:: ID's personal stressors & 2 strategies to manage stress by discharge Intervention/Plan: See List Interventions/Plan:: Assess stressors,coping strategies & signs of derpression on admission, Instruct/assist pt to develop coping & personal stress Mgt strategies, Instruct patient to recognize signs & symptoms of depression and Instruct patient to recog 30-day Reassessments: 30 day Reassessments:: Progressing Psychosocial - 60-Day Assess Target Goals Target Goals Referral to Behavioral Health PS - Interventions: Yes: Attend Stress Management Classes and No: Referral to Behavioral Health if PHQ-9 score >9:, No: Referral to [facility] and No: Referral to Physician if PHQ-9 if score is 5-9: Outcomes/Goals: See list Psychosocial Outcomes/Goals:: ID's personal stressors & 2 strategies to manage stress by discharge Psychosocial - 90-Day Assess Target Goals Target Goals Referral to Behavioral Health PS - Interventions: Yes: Attend Stress Management Classes and No: Referral to Behavioral Health if PHQ-9 score >9:, No: Referral to [facility] and No: Referral to Physician if PHQ-9 if score is 5-9: Psychosocial - Final Assessmen Target Goals Target Goals Referral to Behavioral Health PS - Interventions: Yes: Attend Stress Management Classes and No: Referral to Behavioral Health if PHQ-9 score >9:, No: Referral to [facility] and No: Referral to Physician if PHQ-9 if score is 5-9: Nutrition - 90-Day Assessment Weight Mgt (Other Care) Height: 5 ft 11 in Weight:: 207 lb 8 oz BMI: 28.9 Nutrition - Final Assessment Weight Mgt (Other Care) Height: 5 ft 11 in Weight:: 207 lb 8 oz BMI: 28.9
[2023-09-29 07:37] VITALS: BP 110/50
[2023-09-29 07:42] VITALS: BP 110/50; BMI 28.9
== END 2023-09-29 23:59 ==
LOC: CR 10:15
PROVIDERS: PCP Family Medicine; Referring Provider Thoracic Surgery (Cardiothoracic Vascular Surgery); Visit Provider Thoracic Surgery (Cardiothoracic Vascular Surgery)
DX: Z95.1 Presence of aortocoronary bypass graft (principal)
CPT/HCPCS: 93798

== ENCOUNTER 2023-10-30 10:15 | Outpatient (RCR) | payer MEDICARE, OTHER, SELFPAY ==
[2023-09-30 00:53] VITALS: BP 110/50
--- NOTE | 2023-10-30 07:35 | PCM.CR.ITP ---
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 Little interest or pleasure in doing things: Several days 2. Feeling down, depressed, or hopeless: Not at all 3. Trouble falling or staying asleep, or sleeping too much: Several days 4. Feeling tired or having little energy: Several days 5. Poor appetite or overeating: Not at all 6. Feeling bad about yourself -- or that you are a failure or have let yourself or your family down: Several days 7. Trouble concentrating on things, such as reading the newspaper or watching television: Several days 8. Moving or speaking so slowly that other people could have noticed. Or the opposite - being so fidgety or restless that you have been moving around a lot more than usual: Several days How difficult have these problems made it for you to do your work, take care of things at home, or get along with other people?: Somewhat difficult Total Score: 6 Self-Efficacy 6-Item Scale 60-Day Re-eval Assessment: We would like to know how confident you are in doing certain activities. Please select your confidence level for: Fatigue Select Number: 10 Physical Discomfort or Pain Select Number: 10 Emotional Distress Select Number: 10 Other Symptoms or Health Problems Select Number: 10 Different Tasks and Activities Select Number: 10 Medication Select Number: 10 Total Score:: 10 Nutrition Survey Nutrition Survey Instructions Scoring Instructions Exercise - 30-day Assessment Physician Prescribed Exercise Modalities: Treadmill, Schwinn Airdyne AD-7 and SciFit Lateral [place]annery Worker Exercise - 60-day Assessment Visit Date of Eval: 10/30/23 Session #:: 21 Physician Prescribed Exercise Modalities: Treadmill, Schwinn Airdyne AD-7 and SciFit Lateral Tannery Worker Frequency: 3x/week for 12 weeks [36 sessions] Intensity: 60-80% of age predicted maximum heart rate reserve Duration: 30 - 45 minutes Current METSs:: 3.1 Target Heart Rate:: 86-101 Current RPE:: 14 Maximum Excercise HR:: 78 Resting Blood Pressure: 110/60 Maximum Exercise Blood Pressure: 130/58 EKG Type: NSR with rare PVC's and PAC's Outcomes & Goals Goals:: Verbalizes understanding of THR, RPE & goal METS by session 6, Documents in home exercise log/reports 30 min aerobic 5 day/wk by DC, Demonstrates accurate pulse taking by DC and Other additional outcome/goals: see below Intervention & Plan Exercise Program Goals: Instruct on personal THR & RPE, Instruct on MET level & personal MET goal, Show patient to take own pulse /validate performance until accurate, Instruct on home exercise and Other additional plan/int 30-day Reassessments 30 day Reassessments:: Progressing Reassessment Notes & Comments:: THR explained Physical Activity Home Exercise Physical Activity - Home Exercise: Safe Exercise, Warm-up, Self-monitoring, Cool-Down, Home Exercise > 30 min Daily and Sitting Time <3 hours/daily Outcomes & Goals Outcomes/Goals: Demonstrates correct Warm-up/exercise Cool-Down (S3) if = 2.5 METs, Verbalizes symptoms of exercise intolerance by Session 3 (S3), Demonstrate safe equipment use (S3) & follows exercise prescrition (6) and Other: See below Intervention & Plan Plan/Intervention: Instruct warm-up & cool-down if exercising at > 2 METs, Instruct on symptoms of exercise intolerance & actions to take, Instruct & monitor on saf, Assess intial functional capacity & safety risk and Other See below 30-day Reassessments 30 day Reassessments:: Progressing Reassessment Notes & Comments:: cool down encouraged Exercise - 90-day Assessment Physician Prescribed Exercise Modalities: Treadmill, Schwinn Airdyne AD-7 and SciFit Lateral [place] Exercise - Final/Discharge Physician Prescribed Exercise Modalities: Treadmill, Schwinn Airdyne AD-7 and SciFit Lateral Tannery Worker Nutrition - 30-Day Assessment Weight Mgt (Other Care) Height: 5 ft 11 in Weight:: 206 lb 8 oz BMI: 28.8 Nutrition - 60-Day Assessment Program Goals Nutrition Program Goals Patient has diagnosis of Hyperlipidemia (ICD E78)?: Yes Visit Date of Eval: 10/30/23 Session #:: 21 Cholesterol/Lipids (Other Core Measures) Determine presence & major risk factors that modify LDL goal: Hypertension or hypertensive medication, Low HDL cholesterol <40 mg/dL*, Family history of premature CHD in Male < 55 years: female <65 yearsFa and Age men > 45 years; women >/= 55 years Outcomes/Goals: Pt IDs own risk factors & lifestyle modifications by Session 10, Verbalizes symptoms of angina & response by session 3., Pt independently manages and Other Additional Outcomes/Goals: Intervention/Plan: Advocate for lipid panel cholesterol medication if applicable, Instruct on personal lipid levels & lipid goals/NCEP guidelines, Instruct on cholesterol and Other additional plan/int 30-day Reassessments:: Progressing Reassessment Notes & Comments:: pt to attend nutrition class Diabetes (Other Core Measures) Diabetes Type: Diagnosis Type II ICD-10 E11 Insulin dependent injection/pump?: Yes Non-Insulin Dependent?: Yes Do you monitor your blood sugar at home?: Yes Referral to Diabetic Clinic:: Yes (pt declined nutrition consult) Outcomes/Goals:: Able to state symptoms of, Able to state, Able to state and Other additional Intervention/Plan:: Instruct on, Refer to, Instruct on and Other 30-day Reassessments:: Progressing Reassessment Notes & Comments:: pt to attend nutrition class Weight Mgt (Other Care) Height: 5 ft 11 in Weight:: 206 lb 8 oz BMI: 28.8 Diagnosis Overweight/Obesity BMI> 30% ICD-10 E66: No Diagnosis High BMI/Morbid Obesity BMI> 35% ICD-10 Z68: No Outcomes/Goals: Pt sets, maintains & shows weight loss goal & trend during rehab and Other additional outcomes/goals Intervention/Plan: Instruct on ideal BMI & set weight loss goal w/patient, Assist pt to ID & incorporate diet changes for weight loss by S9, Refer to Structured Weight Loss program as appropriate, Encourage goal of using 250-300dcal per session for weight loss and Other additional plan/interventions 30 day Reassessments:: Progressing Reassessment Notes & Comments:: pt to attend nutrition class Healthy Eating Habits Will attend diet classes:: Yes Outcomes/Goals:: Consume diet rich in vegs,fruits,whole grain/high fiber,fish,lean meat, Limit sat/trans fats,cholesterol & added salts & sugars and Other additional outcome/goals: Intervention/Plan:: Assess current eating habits and Other Additional plan/interventions 30-day Reassessments:: Progressing Reassessment Notes & Comments:: pt to attend nutrition class Education Gave educational materials for:: Signs & symptoms of hypoglycemia, Signs & symptoms of hyperglycemia, Relate diabetes to coronary artery disease and Healthy eating Core - 60-Day Assessment Visit Date of Eval: 10/30/23 Session #:: 21 Medication Compliance Preventative Medication(s):: Aspirin, Statin/lipid and Eliquis H/O mental health issues: depression, anxiety, or addiction?: No Doesn?t believe in the benefits of treatment?: No Believes medications are unnecessary or harmful?: No Has a concern about medication side effects?: No Expresses concern over the cost of medications?: No Outcomes/Goals: Verbalizes medications,desired effect & common side effects @ DC, Pt self-reports following medication regimen, Keeps card in wallet w/medications listed by DC and Other additional outcome/goals: Interventions/plans: Instruct on medication effects & side effects, Review medication list w/patient every two weeks, Instruct importance of taking meds as ordered & assist problem solving and Other additional 30-day Reassessments:: Progressing Reassessment Notes & Comments:: pt encouraged to take his meds Tobacco Use Tobacco Use: Non-smoker Hypertension Hypertension Diagnosis:: Hypertension ICD-10 I10 Resting Blood Pressure:: 110/60 [place] [employer] Hypertension Guidelines Peak Exercise Blood Pressure:: 130/58 Outcomes/Goals: Able to verbalize/achieve optimal blood pressure <130/80, Incorporates diet changes & exercise for blood pressure control by DC and Other additional outcomes/goals Interventions/plan: Instruct on optimal blood pressure, hypertension & medications, Instruct on effects of sodium, alcohol, stress, exercise &hypertension and Other additional plan/interventions 30 day Reassessments:: Met Tobacco Cessation Referral Smoking Cessation Referral:: No Individual Education/Counseling:: No Education Schedule Given:: Yes Psychosocial - 30-Day Assess Target Goals Target Goals Outcomes/Goals: See list Psychosocial Outcomes/Goals:: ID's personal stressors & 2 strategies to manage stress by discharge and Other Additional outcome/goals: Psychosocial - 60-Day Assess VIsit Date of Eval: 10/30/23 Session #:: 21 History of previous Mental disease:: Yes History of Emotional Disorders: Anxious (attention deficit disorder) and Depression Target Goals Target Goals Outcomes/Goals: See list Psychosocial Outcomes/Goals:: ID's personal stressors & 2 strategies to manage stress by discharge and Other Additional outcome/goals: Intervention/Plan: See List Interventions/Plan:: Assess stressors,coping strategies & signs of derpression on admission, Instruct/assist pt to develop coping & personal stress Mgt strategies, Refer to Behavioral Health if appropriate, Refer to Physician if appropriate, Instruct patient to recognize signs & symptoms of depression, Instruct patient to recog and Other additional plan/intervention Psychosocial - 90-Day Assess Target Goals Target Goals Psychosocial - Final Assessmen Target Goals Target Goals Nutrition - 90-Day Assessment Weight Mgt (Other Care) Height: 5 ft 11 in Weight:: 206 lb 8 oz BMI: 28.8 Nutrition - Final Assessment Weight Mgt (Other Care) Height: 5 ft 11 in Weight:: 206 lb 8 oz BMI: 28.8
[2023-10-30 07:44] VITALS: BP 110/60; BMI 28.8
[2023-10-30 07:49] VITALS: BP 110/60
== END 2023-10-30 23:59 ==
LOC: CR 10:15
PROVIDERS: PCP Family Medicine; Referring Provider Thoracic Surgery (Cardiothoracic Vascular Surgery); Visit Provider Thoracic Surgery (Cardiothoracic Vascular Surgery)
DX: Z95.1 Presence of aortocoronary bypass graft (principal)
CPT/HCPCS: 93798

== ENCOUNTER → 2023-11-12 | Day surgery (SDC) | payer MEDICARE, OTHER, SELFPAY ==
[2023-10-31 01:10] VITALS: BMI 28.9
== END | disposition home or self-care (01) ==
LOC: PAT 10:16
PROVIDERS: PCP Family Medicine; Referring Provider Family Medicine; Visit Provider Internal Medicine Gastroenterology
DX: Z00.00 Encounter for general adult medical examination without abnormal findings (principal)

== ENCOUNTER 2023-11-27 10:15 | Outpatient (RCR) | payer MEDICARE, OTHER, SELFPAY ==
[2023-10-31 01:10] VITALS: BP 110/50; BP 110/60; BMI 28.9
== END 2023-11-29 23:59 ==
LOC: CR 10:15
PROVIDERS: PCP Family Medicine; Referring Provider Thoracic Surgery (Cardiothoracic Vascular Surgery); Visit Provider Thoracic Surgery (Cardiothoracic Vascular Surgery)
DX: Z95.1 Presence of aortocoronary bypass graft (principal)
CPT/HCPCS: 93798

== ENCOUNTER 2023-12-04 10:15 | Outpatient (RCR) | payer MEDICARE, OTHER, SELFPAY ==
[2023-11-30 00:15] VITALS: BP 110/50; BP 110/60; BMI 28.9
--- NOTE | 2023-11-30 08:31 | CR.ITP_ITS ---
Exercise - Initial Assessment Physician Prescribed Exercise Modalities: Pb Corriganne AD-7, SciFit Stepper and SciFit Lateral Director Security Management Nutrition - Initial Assessment Weight Mgt (Other Care) Height: 5 ft 11 in Weight:: 207 lb 8 oz BMI: 28.9 Psychosocial - Initial Assess Target Goals Target Goals Patient Health Questionnaire PHQ-9 Screening 90-Day Re-eval Assessment: 1. Little interest or pleasure in doing things: Several days 2. Feeling down, depressed, or hopeless: Not at all 3. Trouble falling or staying asleep, or sleeping too much: Several days 4. Feeling tired or having little energy: Several days 5. Poor appetite or overeating: Not at all 6. Feeling bad about yourself -- or that you are a failure or have let yourself or your family down: Several days 7. Trouble concentrating on things, such as reading the newspaper or watching television: Several days 8. Moving or speaking so slowly that other people could have noticed. Or the opposite - being so fidgety or restless that you have been moving around a lot more than usual: Several days How difficult have these problems made it for you to do your work, take care of things at home, or get along with other people?: Somewhat difficult Total Score: 6 Self-Efficacy 6-Item Scale 90-Day Re-eval Assessment: We would like to know how confident you are in doing certain activities. Please select your confidence level for: Fatigue Select Number: 10 Physical Discomfort or Pain Select Number: 10 Emotional Distress Select Number: 10 Other Symptoms or Health Problems Select Number: 10 Different Tasks and Activities Select Number: 10 Medication Select Number: 10 Total Score:: 10 Nutrition Survey Nutrition Survey Instructions Scoring Instructions Exercise - 30-day Assessment Physician Prescribed Exercise Modalities: Pb Corriganne AD-7, SciFit Stepper and SciFit Lateral Likely Exercise - 60-day Assessment Physician Prescribed Exercise Modalities: Julianan Shekharne AD-7, SciFit Stepper and SciFit Lateral Likely Exercise - 90-day Assessment Visit Date of Eval: 11/30/23 Session #:: 33 Physician Prescribed Exercise Modalities: Schwinn Shekharne AD-7, SciFit Stepper and SciFit Lateral Likely Frequency: 3x/week for 12 weeks [36 sessions] Intensity: 60-80% of age predicted maximum heart rate reserve Duration: 30 - 45 minutes Current METSs:: 3.1 Target Heart Rate:: 86-101 Current RPE:: 14 Maximum Excercise HR:: 74 Resting Blood Pressure: 104/62 Maximum Exercise Blood Pressure: 122/52 EKG Type: NSR with occas multifocal PVC's and rare PAC's Outcomes & Goals Goals:: Verbalizes understanding of THR, RPE & goal METS by session 6, Documents in home exercise log/reports 30 min aerobic 5 day/wk by DC, Demonstrates accurate pulse taking by DC and Other additional outcome/goals: see below Intervention & Plan Exercise Program Goals: Instruct on personal THR & RPE, Instruct on MET level & personal MET goal, Show patient to take own pulse /validate performance until accurate, Instruct on home exercise and Other additional plan/int 30-day Reassessments 30 day Reassessments:: Met Physical Activity Home Exercise Physical Activity - Home Exercise: Safe Exercise, Warm-up, Self-monitoring, Cool-Down, Home Exercise > 30 min Daily and Sitting Time <3 hours/daily Outcomes & Goals Outcomes/Goals: Demonstrates correct Warm-up/exercise Cool-Down (S3) if = 2.5 METs, Verbalizes symptoms of exercise intolerance by Session 3 (S3), Demonstrate safe equipment use (S3) & follows exercise prescrition (6) and Other: See below Intervention & Plan Plan/Intervention: Instruct warm-up & cool-down if exercising at > 2 METs, Instruct on symptoms of exercise intolerance & actions to take, Instruct & monitor on saf, Assess intial functional capacity & safety risk and Other See below 30-day Reassessments 30 day Reassessments:: Met Exercise - Final/Discharge Physician Prescribed Exercise Modalities: Pb CARTER-7, SciFit Stepper and SciFit Lateral Director Security Management Nutrition - 30-Day Assessment Weight Mgt (Other Care) Height: 5 ft 11 in Weight:: 207 lb 8 oz BMI: 28.9 Nutrition - 60-Day Assessment Weight Mgt (Other Care) Height: 5 ft 11 in Weight:: 207 lb 8 oz BMI: 28.9 Core - 90 Day Assessment Visit Date of Eval: 11/30/23 Session #:: 33 Medication Compliance Preventative Medication(s):: Aspirin, Statin/lipid and Eliquis H/O mental health issues: depression, anxiety, or addiction?: No Doesn?t believe in the benefits of treatment?: No Believes medications are unnecessary or harmful?: No Has a concern about medication side effects?: No Expresses concern over the cost of medications?: No Outcomes/Goals: Verbalizes medications,desired effect & common side effects @ DC, Pt self-reports following medication regimen, Keeps card in wallet w/medications listed by DC and Other additional outcome/goals: Interventions/plans: Instruct on medication effects & side effects, Review medication list w/patient every two weeks, Instruct importance of taking meds as ordered & assist problem solving and Other additional 30-day Reassessments:: Met Tobacco Use Tobacco Use: Non-smoker Hypertension Hypertension Diagnosis:: Hypertension ICD-10 I10 Resting Blood Pressure:: 104/62 [place] [employer] Hypertension Guidelines Peak Exercise Blood Pressure:: 122/52 Outcomes/Goals: Able to verbalize/achieve optimal blood pressure <130/80, Incorporates diet changes & exercise for blood pressure control by DC and Other additional outcomes/goals Interventions/plan: Instruct on optimal blood pressure, hypertension & medications, Instruct on effects of sodium, alcohol, stress, exercise &hypertension and Other additional plan/interventions 30 day Reassessments:: Met Tobacco Cessation Referral Smoking Cessation Referral:: No Individual Education/Counseling:: No Education Schedule Given:: Yes Psychosocial - 30-Day Assess Target Goals Target Goals Psychosocial - 60-Day Assess Target Goals Target Goals Psychosocial - 90-Day Assess VIsit Date of Eval: 11/30/23 Session #:: 33 History of previous Mental disease:: Yes History of Emotional Disorders: Anxious (ADD) and Depression Target Goals Target Goals Outcomes/Goals: See list Psychosocial Outcomes/Goals:: ID's personal stressors & 2 strategies to manage stress by discharge and Other Additional outcome/goals: Intervention/Plan: See List Interventions/Plan:: Assess stressors,coping strategies & signs of derpression on admission, Instruct/assist pt to develop coping & personal stress Mgt str ategies, Refer to Behavioral Health if appropriate, Refer to Physician if appropriate, Instruct patient to recognize signs & symptoms of depression, Instruct patient to recog and Other additional plan/intervention 30-day Reassessments: 30 day Reassessments:: Met Psychosocial - Final Assessmen Target Goals Target Goals Nutrition - 90-Day Assessment Program Goals Nutrition Program Goals Patient has diagnosis of Hyperlipidemia (ICD E78)?: Yes Visit Date of Eval: 11/30/23 Session #:: 33 Cholesterol/Lipids (Other Core Measures) Determine presence & major risk factors that modify LDL goal: Cigarette smoking, Hypertension or hypertensive medication, Low HDL cholesterol <40 mg/dL*, Family history of premature CHD in Male < 55 years: female <65 yearsFa and Age men > 45 years; women >/= 55 years Outcomes/Goals: Pt IDs own risk factors & lifestyle modifications by Session 10, Verbalizes symptoms of angina & response by session 3., Pt independently manages and Other Additional Outcomes/Goals: Intervention/Plan: Advocate for lipid panel cholesterol medication if applicable, Instruct on personal lipid levels & lipid goals/NCEP guidelines, Instruct on cholesterol and Other additional plan/int 30-day Reassessments:: Met Diabetes (Other Core Measures) Diabetes Type: Diagnosis Type II ICD-10 E11 Insulin dependent injection/pump?: Yes Non-Insulin Dependent?: Yes Do you monitor your blood sugar at home?: Yes Outcomes/Goals:: Able to state symptoms of, Able to state, Able to state and Other additional Intervention/Plan:: Instruct on, Refer to, Instruct on and Other 30-day Reassessments:: Met Weight Mgt (Other Care) Height: 5 ft 11 in Weight:: 207 lb 8 oz BMI: 28.9 Diagnosis Overweight/Obesity BMI> 30% ICD-10 E66: No Diagnosis High BMI/Morbid Obesity BMI> 35% ICD-10 Z68: No Outcomes/Goals: Pt sets, maintains & shows weight loss goal & trend during rehab and Other additional outcomes/goals Intervention/Plan: Instruct on ideal BMI & set weight loss goal w/patient, Assist pt to ID & incorporate diet changes for weight loss by S9, Refer to Structured Weight Loss program as appropriate, Encourage goal of using 250- 300dcal per session for weight loss and Other additional plan/interventions 30 day Reassessments:: Met Healthy Eating Habits Will attend diet classes:: Yes Outcomes/Goals:: Consume diet rich in vegs,fruits,whole grain/high fiber,fish,lean meat, Limit sat/trans fats,cholesterol & added salts & sugars and Other additional outcome/goals: Intervention/Plan:: Assess current eating habits and Other Additional plan/interventions 30-day Reassessments:: Met Education Gave educational materials for:: Signs & symptoms of hypoglycemia, Signs & symptoms of hyperglycemia, Relate diabetes to coronary artery disease and Healthy eating Nutrition - Final Assessment Weight Mgt (Other Care) Height: 5 ft 11 in Weight:: 207 lb 8 oz BMI: 28.9
[2023-11-30 08:42] VITALS: BP 104/62; BMI 28.9
== END 2023-12-30 23:59 ==
LOC: CR 10:15
PROVIDERS: PCP Family Medicine; Referring Provider Thoracic Surgery (Cardiothoracic Vascular Surgery); Visit Provider Thoracic Surgery (Cardiothoracic Vascular Surgery)
DX: Z95.1 Presence of aortocoronary bypass graft (principal)
CPT/HCPCS: 93798

== ENCOUNTER → 2024-03-04 | Outpatient (CLI) | payer MEDICARE, OTHER, SELFPAY ==
[2023-11-30 08:42] VITALS: BMI 28.9
[2024-03-04 11:47] LABS: Absolute Lymphocyte Count 1.51 X10^3/uL (0.83-4.51); Absolute Neutrophil Count 7.7 X10^3/uL (2.0-7.7); Basophil# 0.03 X10^3/uL; Basophil% 0.3 % (0-1); Eosinophils% 1.8 % (0-5); Hematocrit 37.6 % (40-54); Hemoglobin 12.1 g/dL (13.0-16.5); Lymphocyte # 1.51 X10^3/ul (0.83-4.51); Lymphocyte % 13.9 % (19-41); Mean Corp Hgb Conc 32.2 g/dL (32-36); Mean Corpuscular Hgb 26.7 pg (27.0-32.0); Mean Corpuscular Volume 82.8 fL (80-94); Mean Platelet Vol. 10.5 fl (6.2-12.0); Monocyte# 1.25 X10^3/uL; Monocyte% 11.5 % (0-10); NRBC Flagged by Analyzer 0 % (0-5); Neutrophil # 7.68 X10^3/uL (2.7-7.7); Neutrophil % 70.9 % (47-70); Platelet Count 274 K/mm3 (150-450); RBC Distribution Width CV 13.5 % (11.6-14.6); RBC Distribution Width SD 40.5 fl (35.1-43.9); Red Blood Count 4.54 M/mm3 (4.6-6.2); White Blood Count 10.8 K/mm3 (4.4-11.0)
[2024-03-04 11:58] LABS: Ferritin 23 ng/mL (26-388); Iron 48 ug/dL (65-175); Iron Binding Capacity,Total 373 ug/dL (250-450); LDH 199 U/L (87-241)
[2024-03-07 18:08] LABS: Albumin 3.5 g/dL (2.9-4.4); Alpha-1-Globulins 0.3 g/dL (0.0-0.4); Alpha-2-Globulins 0.9 g/dL (0.4-1.0); Endomysial Antibody IgA Negative (Negative); Gamma Globulin 1.4 g/dL (0.4-1.8); Haptoglobin 175 mg/dL (34-355); Immunoglobulin A 363 mg/dL (61-437); Immunoglobulin G 1505 mg/dL (603-1613); Immunoglobulin M 50 mg/dL (15-143); PROEL- TOTAL PROTEIN 7.1 g/dL (6.0-8.5); t-Transglutaminase IgA <2 U/mL (0-3)
== END | disposition home or self-care (01) ==
LOC: LAB 10:54
PROVIDERS: PCP Family Medicine; Referring Provider Internal Medicine Gastroenterology; Visit Provider Internal Medicine Gastroenterology
DX: D64.9 Anemia, unspecified (principal); E11.9 Type 2 diabetes mellitus without complications; F32.9 Major depressive disorder, single episode, unspecified
CPT/HCPCS: 36415; 82728; 82784; 83010; 83516; 83540; 83550; 83615; 84165; 85025; 85045; 86255; 86334

== ENCOUNTER → 2024-05-02 | Outpatient (CLI) | payer MEDICARE, OTHER, SELFPAY ==
[2023-11-30 08:42] VITALS: BMI 28.9
[2024-05-02 12:34] VITALS: PULSE 82; PULSE 84; PULSE 85; PULSE 86; PULSE 88; O2SAT 94; O2SAT 95; O2SAT 96; O2SAT 97; O2SAT 98
== END | disposition home or self-care (01) ==
LOC: PSN 12:08
PROVIDERS: PCP Family Medicine; Referring Provider Nurse Practitioner Acute Care; Visit Provider Nurse Practitioner Acute Care
DX: R09.02 Hypoxemia (principal)
CPT/HCPCS: 94618

== ENCOUNTER → 2024-10-12 | Outpatient (CLI) | payer MEDICARE, SELFPAY ==
[2023-11-30 08:42] VITALS: BMI 28.9
--- NOTE | 2024-10-12 12:41 | ST.MBS ---
Modified Barium Swallow Patient Information Study Date: 10/12/24 Study Time: 13:00 Direct Billable Minutes: 120 Total Minutes procedure & reportin Diagnosis: Dysphagia R13.10 Referring Physician: Rob Stubbs Reason for Referral: Pt was referred for MBSS by dot compliance manager, Dr. Stubbs, following follow-up GI visit for management of dysphagia. He had EGD 07.15.23 revealing, Normal esophagus. One gastric polyp. Resected and retrieved. Acute duodenitis. Biopsied. At his office visit, he reported feeling well overall w/ occasional swallowing difficulty if he drinks too much liquid all at once, sometimes having to throw it up. No other current GI concerns at that appointment. Unfortunately, since the GI appointment, the patient had a choking episode on beef at a restaurant requiring the Heimlich. Pt admits to fast rate of eating. The patient reports coughing when consuming liquids 1-2X/week and regurgitation of liquids 1-2X/month. He feels his swallowing difficulty has been worse in the past 3 months. Of note, the patient presents w/ shuffling gait, slowed response time, and anomia. No neurological history per patient and report. Medical History: PMH: Cervical vertebral fusion (03/2024, no onset of dysphagia after this surgery per patient), Diabetes, CAD, TIA, HTN, HLD, BPH, GERD, Dysphagia, DM type 2 (uncontrolled), Debility, Sleep apnea, Hypoxia, Pleural effusion, Community acquired PNA, Carotid stenosis - See EMR for full past medical and surgical history. Current Diet Ordered: Regular textures / Thin liquids Dentition: Natural Teeth (Implants) Comment: RATE EXAMINER concern for slow response time and anomia, but pt was able to follow commands WNL to complete the evaluation. Respiratory Status: Oxygenating on Room Air Penetration-Aspiration Scale Penetration-Aspiration Scale: OBJECTIVE ASSESSMENT OF SWALLOW FUNCTION (QUANTITATIVE ? PER TRIAL): PENETRATION / ASPIRATION SCALE (HERNANDEZ): 1 = does not enter airway 2 = enters airway/above vocal folds/ejected 3 = enters airway/above vocal folds/not ejected 4 = enters airway/contacts vocal folds/ejected 5 = enters airway/contacts vocal folds/not ejected 6 = enters airway/below vocal folds/ejected 7 = enters airway/below vocal folds/not ejected despite effort 8 = enters airway/below vocal folds/no effort VIDEOFLOROSCOPIC SCALE SCORE (HERNANDEZ): Grade I = aspiration of material that has penetrated into the laryngeal vestibule, intact cough reflex Grade II = aspiration < 10 % of the bolus, intact cough reflex Grade III = aspiration of < 10 % of the bolus, reduced cough reflex or aspiration of > 10 % of the bolus, intact cough reflex Grade IV = aspiration of > 10 % of the bolus, reduced cough reflex Penetration-Aspiration Scale Score Thin Liquid via teaspoon: Result: 1= does not enter airway Thin Liquid via teaspoon Trial 2: Result: 1= does not enter airway Thin Liquid via large single sip: cup: Result: 1= does not enter airway Thin Liquid via sequential sips: cup: Result: 3= enters airways/above vocal folds/not ejected Comment: Esophageal screen - Mild retention of liquids in the middle esophagus, minimal retention in the lower esophagus. Ivey Thick Liquid via large single sip: cup: Result: 1= does not enter airway Pudding via teaspoon: Result: 1= does not enter airway Comment: Esophageal screen - Mild retention of pudding in the lower esophagus w/ retrograde flow to the middle esophagus. 1/2 Cookie coated in barium pudding: Result: 1= does not enter airway Comment: Esophageal screen - Possibly minimal retention in middle esophagus; otherwise, complete clearance. No sensation of moderate pharyngeal residues. Cued double swallow = Effective. 1/2 Cookie coated in barium pudding Effortful: Result: 1= does not enter airway Comment: Moderate pharyngeal residue persisted despite use of effortful swallow. Thin Liquid via single sip: straw: Result: 3= enters airways/above vocal folds/not ejected Comment: Large sip Thin Liquid via single sip: straw Trial 2: Result: 1= does not enter airway Comment: Cued small sip = Effective. Esophageal screen = Complete clearance. Oral Phase Labial Seal: No Labial Escape Tongue Control During Bolus Hold: Posterior escape of less than half of bolus Bolus Preparation/Mastication: Timely and efficient chewing and mashing Bolus Transport/Lingual Motion: Delayed initiation of tongue motion Oral Residue: Majority of bolus remaining (~50% of liquid boluses remained in the oral cavity after the first swallow) Pharyngeal Phase Initiation of Pharyngeal Swallow: Bolus head at posterior laryngeal surgace of epiglottis Soft Palate Elevation: Trace column of contrast/air between soft palate and pharyngeal wall Laryngeal Elevation: Partial superior movement thyroid cart/partial apprx aryt-epig petiole Anterior Hyoid Excursion: Partial anterior movement Epiglottic Movement: Complete inversion Laryngeal Vestibule Closure at Height of Swallow: Incomplete; narrow column of air/contrast in laryngeal vestibule Pharyngeal Stripping Wave: Present - diminished Pharyngoesophageal Segment Opening: Parital distension and partial duration; parital obstruction of flow Tongue Base Retraction: Narrow column of contrast between tongue base & post. pharyngeal wall Pharyngeal Residue: Collection of residue within or on pharyngeal structures Esophageal Phase Esophageal Clearance: Esophageal retention w/ retrograde flow below pharyngoesophageal seg. Treatment Strategies Effects of treatment strategies attemped:: Effortful = Not effective in clearing pharyngeal residues Decreased sip size = Effective. Double swallow = Effective in clearing pharyngeal residues. Liquid wash = Effective in clearing pharyngeal residues. Diagnosis/Impression Diagnosis: Moderate oropharyngeal dysphagia R13.12 Impression: The oral phase is primarily marked by... -Premature posterior loss of <1/2 of thin liquid boluses to the posterior surface of the epiglottis, most noticeable w/ large and/or sequential sips. -Delayed tongue motion for A-P transport. -Timely and complete mastication during MBSS; however, recent choking episode on beef and pt/ report of him eating too quickly are concerning for mastication deficits and continued choking risk. -Piecemeal deglutition of large sips. -Mild oral residues of pudding and cookie. The pharyngeal phase is primarily marked by... -Mild delay in swallow onset, most noticeable w/ large and/or sequential sips. -Decreased pharyngeal motility due to decrease TB retraction, pharyngeal stripping wave, and UES opening/duration resulting in mild pharyngeal residue of liquids/pudding and moderate pharyngeal residue of cookie. Double swallow and liquid wash were effective in clearing pharyngeal residues. Effortful swallow was not effective in improving pharyngeal clearance. -Mildly decreased airway closure during the swallow due to decreased anterior hyoid excursion and laryngeal elevation. Laryngeal penetration of thin liquids via large straw sip and sequential cup sip that did not fully eject from the laryngeal vestibule (trace residue remaining in the laryngeal vestibule). No aspiration during the study. The esophageal phase is primarily marked by... -Mild retention of liquids in the middle esophagus, minimal retention in the lower esophagus. -Mild retention of pudding in the lower esophagus w/ retrograde flow to the middle esophagus. Other findings: -Opacities at the level of C3-C4 along the posterior pharyngeal wall, suspicious for calcification of the carotids - consistent w/ hx of plaque formation and stenoses of the R and L carotid arteries from [facility]A 09/23/2022. Recommendations Diet: Easy to Chew Textures (If meats are not tender/fork-cut, finely chop and moisten!) and Thin Liquids Compensatory Strategies: Small Bites (Chew thoroughly), Small Sips, Slow Rate (Set fork down between bites, set drink down between sips), Multiple Swallows (Double swallows w/ foods, especially if not utilizing liquid washes), Alternate bites/solids and sips/liquids (Take a sip after each bite) and Sitting upright (During and 30-60min after meal) Recommend Repeat Modified Barium Swallow: TBD Need for Skilled Speech Therapy Services: Yes Comment: -Train the patient in use of strategies to decrease risk for aspiration and choking. -Ongoing assessment of diet tolerance of recommended textures and education re: Easy to Chew (IDDSI Level 7) textures. -Train the patient in oropharyngeal exercise program to improve bolus control, swallow onset, airway closure, and pharyngeal motility (lingual resistance, Cameron, Effortful, and Kesha). Although effortful swallow was not an effective strategy, it is recommended as an exercise to promote improved pharyngeal motility. Recommended Referrals: GI Consult (Follow w/ GI as recommended by dot compliance manager upon review of this study. RATE EXAMINER emailed Dr. Stubbs for the patient to be considered for a NEUROLOGY CONSULT due to dysphagia, shuffling gait, slowed response time, and anomia.) Education Completed: 1. Described result of evaluation., 2. Pt understands evaluation & agrees with goals and treatment plan., 4. Family/caregivers understand evaluation & agree w/ goals & tx plan. and 7. Pt requires further education on strategies & risks. Comment: RATE EXAMINER thoroughly reviewed diet texture recommendations, results of MBSS, and strategies recommended to decrease risk for choking and aspiration, emphasizing recommendations for selecting tender foods, thoroughly chewing, alternating bites/sips, and eating/drinking w/ a slow rate. Education well received and a handout of recommendations was provided. Status Active ST Patient: Active Contact Information [facility] Speech Therapy:: Mavis Gordon M.A. [facility]-RATE EXAMINER? Speech-Language Pathologist?? [facility] [address] [place] [address]? [email or web address]?? [phone]
== END | disposition home or self-care (01) ==
LOC: RAD 12:48
PROVIDERS: PCP Family Medicine; Referring Provider Internal Medicine Gastroenterology; Visit Provider Internal Medicine Gastroenterology
DX: R13.10 Dysphagia, unspecified (principal)
CPT/HCPCS: 74230; 92611

== ENCOUNTER → 2024-12-08 | Outpatient (CLI) | payer MEDICARE, SELFPAY ==
[2023-11-30 08:42] VITALS: BMI 28.9
== END | disposition home or self-care (01) ==
LOC: SL 12:02
PROVIDERS: PCP Family Medicine; Referring Provider Nurse Practitioner Family; Visit Provider Nurse Practitioner Family
DX: G47.31 Primary central sleep apnea (principal)
CPT/HCPCS: 98960; G0463